=== PATIENT | male | born 1970 | race Caucasian/White ===

== ENCOUNTER 2020-09-13 17:28 | Outpatient (CLI) | payer BC, SELFPAY ==
--- NOTE | ~2020-09-13 | XR_ITS ---
EXAMINATION: XR chest 2V DATE: 09/13/2020 17:47 INDICATION: Smoker. Hypertension. TECHNIQUE: Frontal and lateral views of the chest were obtained. COMPARISON: None. FINDINGS: There is mild atelectasis in the lower lung zones. No pleural effusion or pneumothorax. The heart size is normal. IMPRESSION: 1. Mild atelectasis in the lower lung zones. Reviewed, dictated and finalized at location A.
== END 2020-09-13 17:29 | disposition home or self-care (01) ==
LOC: ANHIMG 17:31
PROVIDERS: PCP Family Medicine; Visit Provider Family Medicine
DX: J98.11 Atelectasis (principal); R05 Cough
CPT/HCPCS: 71046

== ENCOUNTER 2020-09-18 07:47 | Outpatient (CLI) | payer BC, SELFPAY ==
--- NOTE | ~2020-09-18 | CT_ITS ---
EXAMINATION: CT abdomen w con DATE: 09/18/2020 08:10 INDICATION: Abnormal liver function tests. TECHNIQUE: Computed tomography (CT) of the abdomen was performed with 100 mL Omnipaque 350 intravenou s contrast. Automated exposure control and iterative reconstruction technique were employed. The dose -length product was 522.32 mGy-cm. COMPARISON: None. FINDINGS: The visualized portions of the lung bases demonstrate mild atelectasis. No pleural effusion . The heart size is normal. No pericardial effusion. The liver demonstrates heterogeneous attenuation and surface nodularity, consistent with cirrhosis. There is a gallstone in the gallbladder, which is normal in size. There is mild splenomegaly. The pancreas, adrenal glands, and right kidney are natalya l. There is a 9 mm cyst in left kidney. There are no dilated loops of bowel. There is a paraumbilical portacaval shunt. Paraesophageal varices are noted. There are no pathologically enlarged lymph nodes . There is a small volume of ascites. There is mild lumbar spondylosis. IMPRESSION: 1. Cirrhosis of the liver with portal venous hypertension. 2. Small volume of ascites. 3. Cholelithiasis. Reviewed, dictated and finalized at location A.
== END 2020-09-18 07:48 | disposition home or self-care (01) ==
LOC: ANHIMG 07:48
PROVIDERS: PCP Family Medicine; Visit Provider Physician Assistant
DX: K80.20 Calculus of gallbladder without cholecystitis without obstruction (principal); R94.5 Abnormal results of liver function studies; F10.10 Alcohol abuse, uncomplicated; D64.9 Anemia, unspecified; R18.8 Other ascites; K74.60 Unspecified cirrhosis of liver; K76.6 Portal hypertension; R16.1 Splenomegaly, not elsewhere classified; M47.816 Spondylosis without myelopathy or radiculopathy, lumbar region
CPT/HCPCS: 74160; Q9967

== ENCOUNTER 2020-10-13 17:11 | Observation (INO) | payer BC, SELFPAY ==
--- NOTE | ~2020-10-13 | US_ITS ---
US abdomen limited DATE: 10/14/2020 11:49 INDICATION: Ascites; patient presented for paracentesis TECHNIQUE: Real-time imaging of the abdomen COMPARISON: None FINDINGS: 4 quadrant scanning of the abdomen reveals no sonographically detected ascites. IMPRESSION: Paracentesis procedure canceled due to lack of sonographically detectable ascites Reviewed, dictated and finalized at Location A. Reviewed, dictated and finalized at location A. IMPRESSION: Paracentesis procedure canceled due to lack of sonographically dete ctable ascites
--- NOTE | ~2020-10-13 | US_ITS ---
US venous doppler [facility] DATE: 10/14/2020 11:49 INDICATION: Swelling of the lower extremities TECHNIQUE: Real-time and color flow imaging and Doppler analysis of the veins of the lower extremitie s COMPARISON: None FINDINGS: The greater saphenous veins are patent. There is spontaneous and phasic flow and normal aug mentation and color flow signal and normal compression of the deep veins of both legs. IMPRESSION: Negative examination; no evidence of deep venous thrombosis of the lower extremities Reviewed, dictated and finalized at Location A. Reviewed, dictated and finalized at location A.
[2020-10-13 17:13] VITALS: BP 157/76; PULSE 90; RESP 18; TEMP 37.2; O2SAT 99
[2020-10-13 17:41] LABS: Basophils Absolute Auto 0.1 K/mm3 (0.0-0.1); Basophils Percent Auto 0.9 % (0.2-1.2); Eosinophils Absolute Auto 0.3 K/mm3 (0-0.3); Eosinophils Percent Auto 4.6 % (0-4.4); Hematocrit 26.1 % (42.0-52.0); Hemoglobin 8.9 g/dL (14.0-18.0); Immature Granulocyte Absolute 0.02 K/mm3 (0.00-0.031); Immature Granulocyte Percent A 0.3 % (0-0.5); Lymphocytes Absolute Auto 1.44 K/mm3 (0.9-3.2); Lymphocytes Percent Auto 22.1 % (18.3-44.2); Mean Corpuscular HGB Conc 34.1 g/dl (32-36); Mean Corpuscular Hemoglobin 40.3 pg (26-34); Mean Corpuscular Volume 118.1 fl (80-100); Mean Platelet Volume 9.6 fl (7.4-10.4); Monocytes Percent Auto 15.3 % (2.6-8.5); Neutrophils Absolute Auto 3.7 K/mm3 (1.3-6.7); Neutrophils Percent Auto 56.8 % (45.5-73.1); Platelet Count Result 152 k/mm3 (150-375); Red Blood Count 2.21 M/mm3 (4.6-6.20); Red Cell Distribution Width 12.9 % (11.5-14.5); White Blood Count 6.5 K/mm3 (4.5-10.0)
[2020-10-13 17:51] LABS: Ammonia 70 umol/L (9-30)
[2020-10-13 17:52] LABS: Alanine Aminotransferase 30 U/L (4-50); Albumin Level 3.4 g/dL (3.5-5.1); Alkaline Phosphatase 79 U/L (38-126); Anion Gap 4 mmol/L (8-16); Aspartate Amino Transferase 64 U/L (17-59); Bilirubin,Total 4.7 mg/dL (0.2-1.3); Blood Urea Nitrogen 5 mg/dL (9-20); Calcium 9.3 mg/dL (8.4-10.2); Carbon Dioxide 23 mmol/L (22-30); Chloride 111 mmol/L (98-107); Estimated CRCL calculation 108 ml/min; Estimated Glomerular Filt Rate > 60; Glucose 104 mg/dL (75-110); Lipase 584 U/L (23-300); Potassium 3.9 mmol/L (3.4-5.0); Sodium 138 mmol/L (137-145)
[2020-10-13 18:35] LABS: Add Urine Microscopic? YES; Appearance Urine Cloudy (Clear); Bacteria Urine Trace /hpf; Bilirubin Urine Negative (Negative); Blood Urine Negative (Negative); Color Urine Amber (Yellow); Glucose Urine UA Negative (Negative); Ketones Urine Negative (Negative); Leukocyte Esterase Ur Negative LEU/UL (Negative); Mucus Urine Few /lpf; Nitrate Urine Negative (Negative); Protein Urine Negative (Negative); RBC Urine 0-2 /hpf (0-2); Specific Grav Ur 1.016 (1.001-1.035); WBC Urine 0-3 /hpf
[2020-10-13 18:45] LABS: INR 1.9; Prothrombin Time 22.5 Seconds (11.1-14.7)
[2020-10-13 19:12] VITALS: BP 136/84; PULSE 88; RESP 17; O2SAT 98
--- NOTE | 2020-10-13 19:13 | ED.GENADULT ---
HPI - General Adult General Chief complaint: Unspecified Stated complaint: hernia?/erum leg numbness Time Seen by Provider: 10/13/20 17:41 Source: patient and family Mode of arrival: ambulatory Limitations: no limitations History of Present Illness HPI narrative: 50-year-old with alcoholic liver cirrhosis here with complaints of abdominal distention, lower extremity swelling. He was diagnosed with cirrhosis of the liver few weeks ago quit drinking 5 weeks ago quit smoking 4 days ago. He states that he was referred to pipefitter helper at [place] but has not had any answers from them yet now having abdominal pain and he states that his umbilicus is protruding. He also states that his legs have been swelling and today it has been slightly better compared to the last few days. He denies any headache, nausea or vomiting. Onset (ago): week(s) Severity: moderate Exacerbating factors: none Associated symptoms: denies other symptoms Related Data Allergies Allergy/AdvReac Type Severity Reaction Status Date / Time No Known Allergies Allergy Verified 10/13/20 17:19 Review of Systems Review of Systems: All systems reviewed & are unremarkable except as noted in HPI and below Constitutional: Constitutional: Reports no additional constitutional complaints Eyes: Eyes: Reports no additional eye complaints ENT: Reports system reviewed and no additional complaints, except as documented Cardiovascular: Cardiovascular: Reports no additional cardiovascular complaints Respiratory: Respiratory: Reports no additional respiratory complaints Gastrointestinal: Gastrointestinal: Reports as per HPI Musculoskeletal: Musculoskeletal: Reports no additional musculoskeletal complaints PMFSH Past Medical History Medical History BP (high blood pressure) Elevated liver function tests Hypercalcemia Family History Family History Mother Carcinoma of colon Patient's mother is in good health Sibling Hypertension Patient's brother is in good health Father Patient's father is in good health Social History Social History Social History: Years smoked: 3 Smoking status: Former smoker Second hand tobacco smoke exposure: Yes Smoking end date: 06/15/16 Alcohol intake: current Drinks per week: 4 Substance use: never Substance use type: does not use Gender identity (if verbalized by the patient): Male Exam Narrative: Exam Narrative: GENERAL: Well-appearing, well-nourished, and in no acute distress. HEAD: Normocephalic, atraumatic. EYES: PERRLA and EOMI. icteric. NECK: Supple. CHEST: Clear to auscultation. No respiratory distress. HEART: Regular rate and rhythm. No murmur heard. Normal peripheral pulses. ABDOMEN: Soft, nontender, distended, has a small umbilical hernia, normal active bowel sounds. EXTREMITIES: Normal range of motion. No edema. SKIN: Warm, dry, no rash. Jaundiced NEURO: No focal deficits. Alert and oriented x3. PSYCH: Normal mood and affect. Course Course Emergency Course: Inform patient about his lab work will admit him for paracentesis also start him on diuretic. Discussed with Mackenzie agreed with the plan. Vital Signs Vital signs: Vital Signs Temperature 37.2 C 10/13/20 17:13 Pulse Rate 90 10/13/20 17:13 Respiratory Rate 18 10/13/20 17:13 Blood Pressure 157/76 H 10/13/20 17:13 Pulse Oximetry 99 10/13/20 17:13 Temperature 37.2 C 10/13/20 17:13 Pulse Rate 88 10/13/20 19:12 Respiratory Rate 17 10/13/20 19:12 Blood Pressure 136/84 10/13/20 19:12 Pulse Oximetry 98 10/13/20 19:12 Medical Decision Making Vital Signs Vital Signs: Vital Signs Temperature 37.2 C 10/13/20 17:13 Pulse Rate 90 10/13/20 17:13 Respiratory Rate 18 10/13/20 17:13 Blood Pressure 157/76 H 10/13/20 17:13 Pulse Oxim
[2020-10-13 19:56] VITALS: BP 141/70; PULSE 79; RESP 18; O2SAT 100
[2020-10-13] MEDS: FUROSEMIDE INJ 40 MG/4 ML VIAL (20:12)
[2020-10-13 20:24] LABS: Iron 72 ug/dL (49-181); Percent Iron Saturation 31 % (20-50)
--- NOTE | 2020-10-13 20:45 | ADMGEN ---
This patient, Phil Laird, was admitted to Medical Room 341-01. Patient/family oriented to hospital policies and general routines including ID bracelet, bed and alarms, visiting hours, pain management, procedures, bathroom and other care routines, personal items, smoking policy, room service/diet, and visiting hours. Information on how to activate the Rapid Response Team has been discussed. Patient/Family are encouraged to report perceived risks to care and to ask questions if they do not understand what they are told or what they should do.
[2020-10-13 20:48] VITALS: BP 142/88; PULSE 83; RESP 12; TEMP 36.9; O2SAT 100; BMI 29.7
--- NOTE | 2020-10-13 21:50 | PM.IMHP ---
H&P: HPI History of Present Illness Date/Time: 10/13/20 21:50 Chief Complaint: Swelling in legs and abdomen. Narrative: This is a pleasant 50-year-old male recently diagnosed with cirrhosis who presented to the emergency department earlier today via private vehicle from home for evaluation of swelling in his legs and abdomen. The patient endorses a long history of alcohol abuse with some periods of sobriety over the years. He has not been feeling well over the past couple of months with gradual onset of symptoms to include occasional dizziness on position change, unsteady gait, intermittent epistaxis and gingival bleeding, and more recently he noticed yellowing of his eyes. He was seen by his primary care provider, Dr. Marie Elkins and it was ultimately discovered that he indeed had cirrhosis and he was referred to a autocutter at [place] however has yet to hear back about appointment times. Five weeks ago he stopped drinking (he was drinking up to a 1/5 and a half of whiskey or vodka a day) and has done really well since that time. He also quit smoking within the past 1 week. In any event, he reports a progressive increase in lower extremity edema and abdominal girth. In fact he has noticed that there is a small area protruding from his umbilicus, consistent with a hernia. He denies epigastric and abdominal pain to me, just reports some mild discomfort due to distention. He denies fever, chills, sweats, chest pain, shortness of breath, nausea, vomiting, diarrhea, and dysuria. No orthopnea or PND. Review of Systems Review of Systems: Narrative: Twelve systems were reviewed with pertinent positives and negatives as per HPI. She denies cold and flu symptoms. No exposure to those positive for COVID-19. He denies cough and shortness of breath. Reports that the yellowing of his eyes has improved since he quit drinking. No pruritus. No calf pain or tenderness. Denies history of venous thromboembolism. Except as documented, all other systems were reviewed and are negative. [facility] Past Medical History Medical History (Updated 10/13/20 @ 22:14 by Neli England PA-C) Alcoholism Longstanding history of alcohol abuse, he has been sober for 5 weeks as of 10/13/2020. Cirrhosis of liver Surgical History Surgical History (Updated 10/13/20 @ 22:08 by Neli England PA-C) History of wisdom tooth extraction Family History Family History Mother Patient's mother is in good health Carcinoma of colon Sibling Patient's brother is in good health Hypertension Father Patient's father is in good health Arthritis Social History Social History (Updated 10/13/20 @ 22:10 by Neli England PA-C) Social History: Surrogate decision maker: Garrett Laird, . Code status: Full code. Smoking packs per day: 1 Smoking cigarettes per day: 20.0 Years smoked: 30 Smoking pack-years: 30.00 Smoking status: Former smoker Tobacco type: cigarettes Second hand tobacco smoke exposure: Yes Smoking end date: 10/11/20 Alcohol intake: former Alcohol use details: Longstanding history of alcoholism as per HPI. Sober since 09/13/2020. Substance use: never Substance use type: does not use Additional living arrangements comments: Resides in [place] with his . 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 Gender identity (if verbalized by the patient): Male Sexual Orientation (if Verbalized by the Patient): Straight or Heterosexual Spiritual care concerns: No Meds Home Medications and Allergies Home Medications Medication Instructions Recorded Confirmed Type polysaccharide iron complex 150 mg 150 mg PO DAILY #30 cap 09/17/20 10/13/20 Rx iron capsule potassium chloride 20 meq PO DAILY 10/13/20 10/13/20 History Allergies Allergy/AdvReac Type Severity Reaction Status Date / Time No
[2020-10-14 04:43] VITALS: O2SAT 96
[2020-10-14 05:45] LABS: Basophils Absolute Auto 0.1 K/mm3 (0.0-0.1); Basophils Percent Auto 0.8 % (0.2-1.2); Eosinophils Absolute Auto 0.3 K/mm3 (0-0.3); Hematocrit 24.3 % (42.0-52.0); Hemoglobin 8.5 g/dL (14.0-18.0); Immature Granulocyte Absolute 0.01 K/mm3 (0.00-0.031); Immature Granulocyte Percent A 0.2 % (0-0.5); Lymphocytes Absolute Auto 1.64 K/mm3 (0.9-3.2); Mean Corpuscular Hemoglobin 39.7 pg (26-34); Mean Corpuscular Volume 113.6 fl (80-100); Mean Platelet Volume 9.3 fl (7.4-10.4); Monocytes Absolute Auto 0.9 K/mm3 (0.1-0.6); Monocytes Percent Auto 13.4 % (2.6-8.5); Neutrophils Absolute Auto 3.7 K/mm3 (1.3-6.7); Neutrophils Percent Auto 56.6 % (45.5-73.1); Platelet Count Result 138 k/mm3 (150-375); Red Blood Count 2.14 M/mm3 (4.6-6.20); Red Cell Distribution Width 12.7 % (11.5-14.5); White Blood Count 6.6 K/mm3 (4.5-10.0)
[2020-10-14 05:54] LABS: Ammonia 61 umol/L (9-30)
[2020-10-14 06:18] VITALS: BP 118/58; PULSE 70; RESP 14; TEMP 37.2; O2SAT 99
[2020-10-14 06:37] LABS: Alanine Aminotransferase 28 U/L (4-50); Albumin Level 3.1 g/dL (3.5-5.1); Alkaline Phosphatase 79 U/L (38-126); Anion Gap 5 mmol/L (8-16); Aspartate Amino Transferase 55 U/L (17-59); Bilirubin,Total 4.4 mg/dL (0.2-1.3); Blood Urea Nitrogen 6 mg/dL (9-20); Calcium 9.3 mg/dL (8.4-10.2); Carbon Dioxide 22 mmol/L (22-30); Chloride 112 mmol/L (98-107); Estimated CRCL calculation 108 ml/min; Estimated Glomerular Filt Rate > 60; Glucose 95 mg/dL (75-110); Lipase 450 U/L (23-300); Magnesium 1.7 mg/dL (1.6-2.3); Potassium 3.8 mmol/L (3.4-5.0); Sodium 139 mmol/L (137-145)
[2020-10-14 06:45] LABS: Hepatitis B Surface Antigen Negative (Negative)
[2020-10-14 06:51] LABS: HAV RESULT Negative (Negative); Hepatitis B Core IgM Result Negative (Negative)
[2020-10-14 07:02] LABS: Hepatitis C Virus Antibody Negative (Negative)
[2020-10-14 07:12] LABS: INR 1.9; Prothrombin Time 22.2 Seconds (11.1-14.7)
[2020-10-14 07:15] LABS: Partial Thromboplastin Time 43.6 SECONDS (22.3-36.8)
[2020-10-14] MEDS: THIAMINE HCL 100 MG TABLET PO (08:39)
[2020-10-14] MEDS: FOLIC ACID 1 MG TABLET PO (08:39)
[2020-10-14] MEDS: SPIRONOLACTONE 25 MG TABLET PO (08:39)
[2020-10-14] MEDS: POLYSACCHARIDE IRON COMPLEX 150 MG CAPSULE PO (08:39)
[2020-10-14] MEDS: THERAPEUTIC MULTIVITAMINS/MINERALS TAB (*BKC) 1 TABLET PO (08:39)
--- NOTE | 2020-10-14 13:37 | PM.DS ---
DS: Admitting Diagnosis Admitting Diagnosis Admitting Diagnosis: (1) Cirrhosis of liver: Code(s): K74.60 - Unspecified cirrhosis of liver Status: Acute (2) Macrocytic anemia: Code(s): D53.9 - Nutritional anemia, unspecified Status: Acute (3) Elevated blood pressure reading: Code(s): R03.0 - Elevated blood-pressure reading, without diagnosis of hypertension Status: Acute (4) Ascites: Code(s): R18.8 - Other ascites Status: Acute DS: Discharge Diagnosis Discharge Diagnosis (1) Cirrhosis of liver: Code(s): K74.60 - Unspecified cirrhosis of liver Status: Acute (2) Macrocytic anemia: Code(s): D53.9 - Nutritional anemia, unspecified Status: Acute (3) Elevated blood pressure reading: Code(s): R03.0 - Elevated blood-pressure reading, without diagnosis of hypertension Status: Acute (4) Ascites: Code(s): R18.8 - Other ascites Status: Acute DS: Summary Hospital Course Reason for hospitalization: Patient was admitted to regular medical floor he is awaiting in follow-up at [place] with hepatology he noticed increased abdominal girth and had called and left messages for his PCP but decided to present to the emergency room. Hospital Course: Patient was admitted to regular medical floor he is awaiting in follow-up at [place] with hepatology he noticed increased abdominal girth and had called and left messages for his PCP but decided to present to the emergency room. In emergency room he was evaluated and he was found to have a tension ascites he received IV Lasix and he had a good output and he feels much more comfortable today in the morning ultrasound-guided paracentesis has been cancelled in view of this. The patient is going home with follow-up in the outpatient setting started on spironolactone. Consults obtained: No concerns Procedures: No procedures Status at Discharge Functional status at discharge: independent ambulation Time Spent with Patient Time attestation: Total time spent providing and/or coordinating discharge services: Exam Narrative: Exam Narrative: General: Well-developed male sitting up in bed in no distress. Weight: 91.4 kilograms. BMI: 29.8. HEENT: PERRL, EOMI. Mild scleral icterus. Conjunctiva mildly injected. Oral mucosa moist. Oropharynx clear. Torus palatinus. Neck: Supple. No JVD. Respiratory: Lungs are clear to auscultation bilaterally. Cardiovascular: Regular rate and rhythm with S1-S2. Gastrointestinal: Abdomen is soft, and nontender with positive bowel sounds. Small reducible umbilical hernia without pain. No voluntary guarding or rebound tenderness. Dullness to percussion at the flanks. Skin: Warm and dry. Perhaps mildly jaundiced. Fine telangiectasias on the chest and cheeks. Extremities: No cyanosis or clubbing. 1+ joanne ankle edema bilaterally extending to the knees. Negative Dre sign. Neurological: Alert. Cranial nerves 2-12 are grossly intact. No gross focal deficits to casual conversation. Psychiatric: Pleasant and cooperative with normal mood and affect. Judgment and insight intact. DS: Data Data Completed and Pending Pending studies at discharge: Pending at discharge 10/13/20 22:18 Cytology [PTH] Routine Labs on day of discharge: Labs from last 24 hours 10/14/20 10/14/20 10/14/20 05:36 05:35 05:35 WBC 6.6 RBC 2.14 L Hgb 8.5 L Hct 24.3 L MCV 113.6 H MCH 39.7 H MCHC 35.0 RDW 12.7 Plt Count 138 L MPV 9.3 Immature Gran % (Auto) 0.2 Neut % (Auto) 56.6 Lymph % (Auto) 25.0 [place] % (Auto) 13.4 H Eos % (Auto) 4.0 Baso % (Auto) 0.8 Lymph # (Auto) 1.64 [place] # (Auto) 0.9 H Eos # (Auto) 0.3 Baso # (Auto) 0.1 Abs Immat Gran (auto) 0.01 Absolute Neuts (auto) 3.7 Absolute Nucleated RBC 0.0 Nucleated RBC % 0.0 PT 22.2 H INR 1.9 APTT 43.6 H Sodium 139 Potassium 3.8 Ch
== END 2020-10-14 14:06 | disposition home or self-care (01) ==
LOC: ANHED 19:19 → ANH3MED 22:33
PROVIDERS: Physician Assistant; Admitting Provider Family Medicine; Emergency Provider Family Medicine; PCP Family Medicine; Visit Provider Internal Medicine
DX: K74.60 Unspecified cirrhosis of liver (principal); M79.89 Other specified soft tissue disorders; R18.8 Other ascites; D53.9 Nutritional anemia, unspecified; R03.0 Elevated blood-pressure reading, without diagnosis of hypertension
CPT/HCPCS: 36415; 76705; 80053; 80074; 81001; 82140; 82248; 82607; 82728; 82746; 83540; 83550; 83690; 83735; 84443; 85025; 85610; 85730; 93970; 99285; A9270; G0378; J1940

== ENCOUNTER 2020-10-26 07:27 | Outpatient (CLI) | payer BC, SELFPAY ==
[2020-10-26 08:32] LABS: Anion Gap 3 mmol/L (8-16); Blood Urea Nitrogen 8 mg/dL (9-20); Calcium 9.8 mg/dL (8.4-10.2); Carbon Dioxide 24 mmol/L (22-30); Chloride 110 mmol/L (98-107); Estimated Glomerular Filt Rate > 60; Glucose 105 mg/dL (75-110); Potassium 4.1 mmol/L (3.4-5.0); Sodium 137 mmol/L (137-145)
== END 2020-10-26 07:28 | disposition home or self-care (01) ==
PROVIDERS: PCP Family Medicine; Visit Provider Internal Medicine
DX: E87.6 Hypokalemia (principal)
CPT/HCPCS: 36415; 80048

== ENCOUNTER 2020-12-10 14:14 | Outpatient (CLI) | payer BC, SELFPAY ==
--- NOTE | 2020-12-10 14:19 | ECHO_ITS ---
Patient Info Name: Phil Laird Age: 50 years : 1970 Gender: Male Ht: 69 in Wt: 190 lbs BSA: 2.07 m2 HR: 73 bpm Technical Quality: Good Exam Date: 12/10/2020 2:29 PM Exam Location: [facility] Pulmonary Patient Status: Outpatient Admit Date: 12/10/2020 Staff Ordering Physician: Derek Castillo DO Sausage Meat Trimmer: ORALIA Attending Provider: Derek Castillo DO Referring Physician: Anna MANDUJANO; Exam Type: CA echo doppler color flow Study Info Indications R01.1 - Cardiac murmur, unspecified Complete two-dimensional, color flow and Doppler transthoracic echocardiogram is performed. Summary 1. Complete two-dimensional, color flow and Doppler transthoracic echocardiogram is performed. 2. Left ventricular chamber dimension is moderately enlarged. 3. Left ventricular systolic function is normal, estimated at 60-65%. 4. The left ventricular diastolic function is grade III diastolic dysfunction. 5. E/e' 17 is elevated. 6. Left atrial chamber dimension is severely enlarged. 7. Right atrial chamber dimension is mildly enlarged. 8. There is mild aortic valve sclerosis. 9. There is trace aortic valve regurgitation. 10. There is mild mitral valve regurgitation. Left Ventricle E/e' 17 is elevated. Left ventricular chamber dimension is moderately enlarged. Left ventricular systolic function is normal, estimated at 60-65%. The left ventricular diastolic function is grade III diastolic dysfunction. Right Ventricle Right ventricular systolic function is normal and with normal TAPSE 2.8 cm. Right ventricular chamber dimension is normal. Left Atria Left atrial chamber dimension is severely enlarged. Right Atria Right atrial chamber dimension is mildly enlarged. Aortic Valve The aortic valve is trileaflet. There is mild aortic valve sclerosis. There is no aortic valve stenosis. There is trace aortic valve regurgitation. Pulmonic Valve There is no pulmonic regurgitation. Mitral Valve There is no mitral valve stenosis. There is mild mitral valve regurgitation. Tricuspid Valve There is no tricuspid valve regurgitation. Pericardium/Pleural There is no pericardial effusion. Inferior Vena Cava Normal inferior vena cava with >50% collapse upon inspiration consistent with normal right atrial pressure, 5 mmHg. Aorta The aortic root size at the sinus of Valsalva is normal. Left Ventricular Outflow Tract Name Value Normal LVOT 2D LVOT Diameter 2.2 cm LVOT Doppler LVOT Peak Velocity 146 cm/s LVOT Peak Gradient 9 mmHg LVOT Mean Gradient 4 mmHg LVOT VTI 32 cm LVOT VTI/AV VTI Ratio 0.8 LVOT Stroke Volume 123 ml LVOT CO 21.9 l/min LVOT CI 10.6 l/min/m2 Pulmonic Valve Name Value Normal
== END 2020-12-10 14:15 | disposition home or self-care (01) ==
PROVIDERS: PCP Internal Medicine; Visit Provider Internal Medicine
DX: R01.1 Cardiac murmur, unspecified (principal); I34.0 Nonrheumatic mitral (valve) insufficiency
CPT/HCPCS: 93306

== ENCOUNTER 2021-04-23 09:22 | Outpatient (CLI) | payer BC, SELFPAY ==
[2021-04-23 10:04] LABS: Alanine Aminotransferase 47 U/L (4-50); Albumin Level 3.7 g/dL (3.5-5.1); Alkaline Phosphatase 125 U/L (38-126); Ammonia 48 umol/L (9-30); Anion Gap 7 mmol/L (8-16); Aspartate Amino Transferase 97 U/L (17-59); Bilirubin,Total 3.3 mg/dL (0.2-1.3); Blood Urea Nitrogen 7 mg/dL (9-20); Calcium 8.7 mg/dL (8.4-10.2); Carbon Dioxide 22 mmol/L (22-30); Chloride 109 mmol/L (98-107); Estimated Glomerular Filt Rate > 60; Glucose 116 mg/dL (65-110); Potassium 3.6 mmol/L (3.4-5.0); Sodium 138 mmol/L (137-145)
[2021-04-23 10:38] LABS: Add Urine Microscopic? YES; Appearance Urine Cloudy (Clear); Bacteria Urine Trace /hpf; Bilirubin Urine Negative (Negative); Blood Urine Negative (Negative); Color Urine Yellow (Yellow); Glucose Urine UA Negative (Negative); Ketones Urine Negative (Negative); Leukocyte Esterase Ur Negative LEU/UL (NEGATIVE); Nitrate Urine Negative (Negative); Protein Urine Negative (Negative); RBC Urine 0-2 /hpf (0-2); Specific Grav Ur 1.008 (1.001-1.035); Urobilinogen Urine Negative mg/dL (<2.0); WBC Urine 0-3 /hpf (0-3)
== END 2021-04-23 09:23 | disposition home or self-care (01) ==
LOC: ANHLAB 09:24
PROVIDERS: PCP Internal Medicine; Visit Provider Internal Medicine
DX: R40.20 Unspecified coma (principal); K70.30 Alcoholic cirrhosis of liver without ascites
CPT/HCPCS: 36415; 80053; 81001; 82140; 84443

== ENCOUNTER 2021-06-20 18:29 | Inpatient (IN) | payer BC, SELFPAY ==
[2021-06-20] VITALS (12 sets, daily range): BP systolic 100–134; BP diastolic 46–96; PULSE 67–85; RESP 12–19; TEMP 36.4–36.9; O2SAT 98–100
--- NOTE | ~2021-06-20 | CT_ITS ---
EXAMINATION: CT abdomen pelvis wo con EXAM DATE: 06/28/2021 09:31 INDICATION: Perforated repaired gastric ulcer. Duodenal abnormality as well. TECHNIQUE: Spiral CT of the abdomen and pelvis was performed without contrast. Axial, coronal and s agittal images of the abdomen and pelvis were reviewed. The dose-length product (DLP) for this exami [facility] was 1429.93 mGy-cm. The exposure was tailored according to patient size (auto mA exposure con trol), and iterative reconstruction (ASIR) was used as additional dose reduction technique. Compariso n is made to prior examination from . FINDINGS: Laparotomy yuniel. There is contrast within the stomach from upper GI examination performe d immediately prior to this examination. There is a surgical drain along the anterior aspect of the g astric antrum and body. Contrast within the duodenum with direct line of extravasation identified, co ntrast pooling inferior and anterior to the gallbladder, which is also contiguous with foci of gas ex tending more anteriorly indicating uncontained extension. Again there is moderate amount of free intr aperitoneal gas. Moderate amount of soft ascites with significant interval improvement. Evaluation is significantly limited from generalized anasarca, mesenteric edema, noncontrast study. N o nephrolithiasis or hydronephrosis. There is cholelithiasis. Liver, spleen, adrenal evaluation limit ed due to dense artifact from the contrast which was administered prior to this study. There is colon ic fluid, diarrhea. Possible colonic wall thickening, colitis. No small bowel obstruction suspected. Tracey catheter within the bladder. Small to moderate bilateral fat-containing inguinal hernias. Multi segmental basilar airspace disease, volume loss suggests this is atelectasis but superimposed p neumonia not excludable. Cardiomegaly. Small pleural effusions. The interventricular septum is percep tible, suggesting patient is anemic. There are no osteoblastic or osteolytic lesions identified. IMPRESSION: 1. Duodenal perforation, moderate ascites and free intraperitoneal gas. 2. Probable colitis, diarrhea. 3. Multisegmental basilar atelectasis. Pneumonia not excludable. 4. Cardiomegaly. 5. Anasarca I discussed and reviewed this case with Fela Tijerina MD prior to dictating this report. Reviewed, dictated and finalized at location A. MINER BLASTING
--- NOTE | ~2021-06-20 | XR_ITS ---
XR chest 1V portable DATE: 07/03/2021 06:02 INDICATION: Respiratory failure TECHNIQUE: Portable AP chest on 07/03/2021 at 0500 hours COMPARISON: 07/02/2021 portable AP chest at 0446 hours FINDINGS: Right upper extremity PIC catheter tip is in the lower superior vena cava. NG tube is in th e proximal body of the stomach, the proximal side-port approximately 2.5 cm distal to the diaphragmat ic hiatus. Persistent left lower lobe atelectasis and/or consolidation with air bronchograms and scattered patch y bilateral pulmonary infiltrates and atelectasis are stable since 07/02/2021. No pleural effusion or pneumothorax is evident. IMPRESSION: No significant change since 07/02/2021 Reviewed, dictated and finalized at location A. WASHER
--- NOTE | ~2021-06-20 | XR_ITS ---
EXAMINATION: XR UGI water soluble wo kub DATE: 07/04/2021 12:13 INDICATION: Status post second repair of a perforated gastric ulcer. TECHNIQUE: 150 mL Omnipaque 350 was administered by the patient's existing nasogastric tube. The tube was flushed with an additional 150 mL of water. A total of 6 fluoroscopic images of the distal esoph buzz, stomach, and proximal small bowel were obtained along with a single overhead radiograph. Fluoro scopy exposure time was 1.5 minutes. COMPARISON: CT dated 06/28/2021 FINDINGS: Nasogastric tube tip in proximal side port in the proximal body of the stomach. There is al so a peritoneal drainage catheter extending cephalad from the right lower quadrant and with distal ti p in the midline of the epigastric region. Injected contrast extends into the normal-appearing duoden um and proximal jejunum. No evident extraluminal leakage of contrast. Specifically no residual leak i dentified at the site of a prior perforated gastric ulcer at the distal stomach. Again seen is a calc ified gallstone in the right upper quadrant. Airspace opacities at the bilateral lung bases which cou ld represent atelectasis and/or pneumonia. IMPRESSION: 1. No evident residual leak at a repaired ulcer at the distal stomach. Reviewed, dictated and finalized at location A. TRIM SEPARATOR
--- NOTE | ~2021-06-20 | CT_ITS ---
EXAMINATION: CT chest abdomen pelvis wo con DATE: 07/13/2021 17:11 INDICATION: Persistent fever TECHNIQUE: Computed tomography (CT) of the chest, abdomen, and pelvis was performed without intraveno us contrast. Automated exposure control and iterative reconstruction technique were employed. Exam do se: 1291.82 mGy-cm total exam DLP. COMPARISON: 07/04/2021 CTA chest abdomen pelvis FINDINGS: CHEST CT: There is interval dramatic lesion increased right pleural effusion since 07/04/2021, causing complete atelectasis of the right lower lobe with air bronchograms and no other aeration of the right lower lo be. There is atelectasis in the right upper and left and middle lobes as well. There is a small left pleural effusion. There are scattered patchy infiltrates of the upper lobes and prominent atelectasis in the left lower lobe. Heart size is normal. There is trace pericardial fluid. Right upper extremity PIC catheter in right atrium. Healing posterolateral right seventh and eighth rib fractures. ABDOMEN/PELVIS CT: There is a percutaneous catheter in the right upper abdomen. There is moderately large ascites. Nodularity of the hepatic surface suggests cirrhosis. No apparent hepatic, splenic, pancreatic, and a drenal or renal space-occupying mass lesion noted on this limited noncontrast examination. There is cholelithiasis. No bile duct or pancreatic duct dilatation. No urinary tract calculus or hydroureteronephrosis. There is a Tracey catheter in a mild amount of air in the urinary bladder. No bowel obstruction or intraperitoneal free air is detected. Fluid in the umbilical hernia. No suspicious osteolytic or osteoblastic lesions are noted. IMPRESSION: Predominantly increased right pleural effusion with complete right lung and some middle lobe and upper lobe atelectasis Small left pleural effusion Scattered patchy bilateral upper lobe infiltrate and prominent left lower lobe atelectasis Moderately large ascites Cirrhosis of the liver Cholelithiasis Reviewed, dictated and finalized at Location A. Reviewed, dictated and finalized at location A. R ENGINEER
--- NOTE | ~2021-06-20 | US_ITS ---
EXAMINATION: US paracentesis abd w/image DATE: 07/14/2021 13:29 INDICATION: Ascites. TECHNIQUE: The procedure and its risks, benefits, and alternatives were discussed with the patient. P otential risks discussed included bleeding and infection. The skin was prepped and draped in sterile fashion. 1% lidocaine was used for local anesthesia. Under ultrasound guidance, a 5 Fr catheter with trochar was advanced into the ascites in the left lower quadrant. Fluid was aspirated. The catheter w as removed, and a dressing was applied. There were no immediate complications. FINDINGS: Ultrasound images demonstrate ascites and the catheter within the fluid. IMPRESSION: 1. Successful ultrasound-guided paracentesis yielding 350 mL of dark red, opaque fluid. Reviewed, dictated and finalized at location A. SCRIPTIONIST IMPRESSION: 1. Successful ultrasound-guided paracentesis yielding 350 mL of dark red, opaq ue fluid.
--- NOTE | ~2021-06-20 | XR_ITS ---
EXAMINATION: XR UGI water soluble wo ellis EXAM DATE: 06/28/2021 09:36 INDICATION: Perforated gastric ulcer s/p repair. TECHNIQUE: Water-soluble upper GI examination was performed by radiologist Beni Boone M.D. a total o f 300 mL Omnipaque solution was injected through nasogastric tube in place on patient arrival. Pulsed dose reduction fluoroscopy was used with fluoroscopic time of 0.1 minutes. The DAP for this procedu re was 13.3 Gycm2. A total of 39 images obtained for the exam. Correlation is made to KUB from [facility]. FINDINGS: Feeding tube in position. Laparotomy clips. Initially gastric cardia filled with contrast. After approximately 300 cc of contrast was instilled the duodenal sweep opacified, and line of contra st identified extending laterally from the duodenum, pooling in adjacent pocket which measured about 3 cm. It was unclear whether or not this was contained so patient was then transferred to CT for foll ow-up scan. No evidence of extravasation from the repaired gastric ulcer site. There is a drain along the stomach which is not near the duodenal extravasation. I discussed and reviewed these images with Fela hargrove MD at time of examination, CT was ordered. IMPRESSION: 1. Duodenal perforation, extravasation. 2. No evidence of gastric repair extravasation. Reviewed, dictated and finalized at location A. ED TECH
--- NOTE | ~2021-06-20 | XR_ITS ---
EXAMINATION: XR chest 1V portable EXAM DATE: 06/25/2021 14:47 INDICATION: Hypoxia. Ascites, free intraperitoneal gas. TECHNIQUE: Portable AP frontal chest x-ray was obtained. Comparison is made to prior examination from 09/13/2020. FINDINGS: Low lung volumes (large amount of ascites was demonstrated on CT from yesterday). Scattered regions of linear atelectasis. There is cardiomegaly. No pneumothorax or pleural effusion. Nasogastr ic tube is in position. There is another catheter or drain overlying the upper abdomen. IMPRESSION: 1. Scattered linear bilateral atelectasis. Developing pneumonia not excludable. 2. Cardiomegaly. 3. Feeding tube in position. Reviewed, dictated and finalized at location A. T TECHNICIAN IMPRESSION: 1. Scattered linear bilateral atelectasis. Developing pneumonia not excludable . 2. Cardiomegaly. 3. Feeding tube in position.
--- NOTE | ~2021-06-20 | XR_ITS ---
XR chest 1V portable DATE: 07/04/2021 06:22 INDICATION: Respiratory failure TECHNIQUE: Portable AP chest on 07/04/2021 at 0509 hours COMPARISON: 07/03/2021 portable AP chest FINDINGS: Yanelis overlie the mid upper abdomen. Possible surgical drain overlying the mid and right upper abdomen. NG tube tip is in the upper body of the stomach. Right upper extremity PIC catheter tip overlies the right atrium. There are scattered patchy infiltrates throughout the right lung and the left lower lobe primarily. M inimal blunting of the right costophrenic angle; cannot exclude small right pleural effusion. IMPRESSION: Persistent bilateral pulmonary infiltrates, most prominent in the lower lungs, more exten sive on the right Postoperative change of the abdomen NG tube in upper body of stomach Right upper stomach the catheter in right atrium Reviewed, dictated and finalized at location A. ICAL RESEARCH MANAGEMENT ASSOCIATE IMPRESSION: Persistent bilateral pulmonary infiltrates, most prominent in the l ower lungs, more extensive on the right Postoperative change of the abdomen NG tube in upper body of stomach Right upper stomach the catheter in right atrium
--- NOTE | ~2021-06-20 | XR_ITS ---
EXAMINATION: XR abdomen NG/feed tube insert DATE: 06/27/2021 08:53 INDICATION: Check nasogastric tube position TECHNIQUE: A supine view of the abdomen and lower chest was obtained for evaluation of feeding tube placement. COMPARISON: 06/26/2021 FINDINGS: Nasogastric tube tip in proximal side port in the body of the stomach. Surgical drain extends from th e right lower quadrant into the upper abdomen with distal tip in the left epigastric region. Skin sta ples project over the mid abdomen. Gas is seen within a few nondilated loops of small bowel in the ce ntral abdomen. Lung bases are clear. Cardiomegaly. IMPRESSION: 1. Nasogastric tube in the stomach. 2. Visualized bowel gas pattern is nonobstructive. Reviewed, dictated and finalized at location A. AL ACCOUNT EXECUTIVE
--- NOTE | ~2021-06-20 | XR_ITS ---
XR chest 1V portable DATE: 07/02/2021 06:29 INDICATION: Respiratory failure TECHNIQUE: Portable AP chest on 07/02/2021 at 0446 hours COMPARISON: 07/01/2021 portable AP chest at 0515 hours FINDINGS: ET tube is been removed since 07/01/2019. NG tube remains in stomach with the proximal port approximately 2 cm distal to the diaphragmatic hiatus. Right upper extremity PIC catheter tip overlies the right atrium. There is increased retrocardiac density on a level air bronchograms consistent with persistent left l ower lobe consolidation. Patchy infiltrate scattered elsewhere throughout both lungs, bibasilar discoid atelectasis. IMPRESSION: Removal of ET tube; otherwise no significant change since 07/01/2021 Reviewed, dictated and finalized at location A. ICE RIG OPERATOR
--- NOTE | ~2021-06-20 | XR_ITS ---
EXAMINATION: XR abdomen NG/feed tube insert DATE: 06/25/2021 02:04 INDICATION: Nasogastric tube placement TECHNIQUE: A supine view of the abdomen was obtained for evaluation of feeding tube placement. COMPARISON: CT dated 06/24/2021 FINDINGS: Nasogastric tube tip in proximal side port in the body of the stomach. Surgical drain extends from th e right lower quadrant cephalad with distal tip in the left epigastric region. Skin yuniel project o jimmie the lower abdomen. Relative paucity of bowel gas in the visualized abdomen. Lung bases are clear. IMPRESSION: 1. Nasogastric tube in stomach. Reviewed, dictated and finalized at location A. EL SINGER
--- NOTE | ~2021-06-20 | XR_ITS ---
XR chest PICC line 06/29/2021 13:07 Indication: PICC line placement Procedure: AP portable chest Comparison: 06/25/2021 Findings: Cardiomegaly. NG tube in the stomach. PICC line tip at the cavoatrial junction. Patchy bila teral airspace disease, compatible with pneumonia. No significant effusion or pneumothorax. No acute osseous abnormality. Impression: 1: Patchy bilateral airspace disease, compatible with pneumonia. Reviewed, dictated and finalized at location A. EXPERT Impression: 1: Patchy bilateral airspace disease, compatible with pneumonia.
--- NOTE | ~2021-06-20 | CT_ITS ---
EXAMINATION: CT abdomen pelvis wo con DATE: 06/21/2021 02:24 INDICATION: Generalized abdominal pain. TECHNIQUE: Computed tomography (CT) of the abdomen and pelvis was performed without intravenous contr ast. Automated exposure control and iterative reconstruction technique were employed. The dose-length product was 918.88 mGy-cm. COMPARISON: CT abdomen 09/18/2020 FINDINGS: The visualized portions of the lung bases demonstrate mild atelectasis. No pleural effusion . There is left atrial enlargement of the heart. There are coronary artery calcifications. No pericar dial effusion. The liver demonstrates a nodular surface contour, consistent with cirrhosis. There are gallstones in the gallbladder. The gallbladder is distended. The spleen, pancreas, adrenal glands, a nd right kidney are normal. There is a 12 mm cyst in left kidney. There are bilateral inguinal hernia s containing fat. There is wall thickening throughout the colon. There is a large volume of ascites. There is a right common femoral central venous catheter with tip in right common iliac vein. There is gastrohepatic lymphadenopathy. There is free intraperitoneal gas. There is an umbilical hernia conta ining ascites and gas. Esophageal varices are noted. There is widespread edema of the intra-abdominal fat. There are healing fractures of right seventh and eighth ribs. IMPRESSION: 1. Free intraperitoneal gas. In the absence of recent surgery or paracentesis, this finding is consis tent with perforated viscus. I called this result to Wanda Silverio. 2. Cirrhosis of the liver with portal venous hypertension. 3. Large volume of ascites. 4. Diffuse wall thickening of the colon, consistent with colitis versus interstitial edema. 5. Cholelithiasis. Gallbladder distention may be secondary to fasting or acute cholecystitis. Conside r hepatobiliary scintigraphy if there is clinical suspicion for acute cholecystitis. Reviewed, dictated and finalized at location A. MOTOR OPERATOR IMPRESSION: 1. Free intraperitoneal gas. In the absence of recent surgery or paracentesis, this finding is consistent with perforated viscus. I called this result to Carlee Silverio. 2. Cirrhosis of the liver with portal venous hypertension. 3. Large volume of ascites. 4. Diffuse wall thickening of the colon, consistent with colitis versus interst itial edema. 5. Cholelithiasis. Gallbladder distention may be secondary to fasting or acute cholecystitis. Consider hepatobiliary scintigraphy if there is clinical suspici on for acute cholecystitis.
--- NOTE | ~2021-06-20 | CT_ITS ---
EXAMINATION: CT chest abdomen pelvis w con DATE: 07/04/2021 12:28 INDICATION: Leukocytosis and increasing oxygen requirement. Peritonitis. TECHNIQUE: Computed tomography (CT) of the chest, abdomen, and pelvis was performed without intraveno us contrast. Automated exposure control and iterative reconstruction technique were employed. The dos e-length product was 1385.73 mGy-cm. COMPARISON: 06/28/2021 FINDINGS: CHEST CT: Peripheral patchy groundglass opacities throughout both lungs with distribution and appearance suspic ious for COVID pneumonia. Small right and very small left posteriorly layering pleural effusions with collapse of the right lower lobe, partial collapse of the left lower lobe and less severe dependent passive atelectasis in the right upper lobe. Cardiomegaly. Right upper extremity peripherally inserte d central venous catheter (PICC) tip at the high right atrium. No pericardial effusion. Thoracic aor ta is normal in caliber with no dissection. No pathologically enlarged thoracic lymphadenopathy. Mild upper thoracic levocurvature with mild spondylosis. ABDOMEN/PELVIS CT: Nasogastric tube tip in the proximal stomach. Surgical drain extends into the right abdomen and exten ds across anterior upper abdomen with the distal tip along the caudal margin of segment 3 of the live r. There is contrast within the stomach, duodenum and extending throughout a significant length of th e jejunum from the immediately prior upper GI study. The ileum remains unopacified with contrast and there is dilute contrast throughout the colon likely related to residual contrast from the earlier up per GI study from 6 days prior. No dilated bowel to suggest obstruction. Prominent edematous wall thi ckening throughout the colon consistent with colitis. No pneumatosis. There is a minimal amount of free intraperitoneal gas along side the gastric pylorus at the site of t he prior perforated gastric ulcer were preceded extraluminal leakage of contrast was seen. There is n o evident extraluminal leakage of contrast. There is a moderate amount of ascites scattered throughou t the abdomen and pelvis including in the lesser sac. There is mild peritoneal enhancement along the margins of the ascites primarily in the lower abdomen and pelvis. Lenticular region of higher attenua tion extending 15 cm craniocaudally, 10 cm AP and 4.5 cm the left lateral thickness at the left parac olic gutter. The density is significantly less than in the contrast opacified loops of jejunum where there is no evident discrete leak. The density is slightly lower than the dilute contrast in the colo n and could not absolutely exclude a coincidental more distal colonic leak as an etiology for the inc reased attenuation although this is much more likely to represent hemorrhage related to either the pr ior surgery and/or patient's coagulopathy. No discrete focus of active extravasation although the deg ree of vascular contrast opacification is relatively low. Nodular cirrhotic liver. Calcified gallstones at the neck of the nondilated gallbladder. No intra or extrahepatic biliary ductal dilation. Mild splenomegaly, with a recanalized umbilical vein and scatte red portosystemic collaterals including esophageal varices, all consistent with portal venous hyperte nsion. Pancreas, bilateral adrenal glands and right kidney are normal. Subcentimeter left renal cyst. Small amount of ascites with mixed attenuation also suggesting some hemorrhage extending into a smal l umbilical hernia at the caudal margin of the midline surgical wound. Tracey catheter in the decompre ssed bladder. No pathologically enlarged abdominal or pelvic lymphadenopathy. Bones are unremarkable . IMPRESSION: 1. No evident contrast extravasation to suggest residual leak at the site of a recent perforated dist al gastric ulcer which was demonstrated with contrast leakage on the prior CT and which has
--- NOTE | ~2021-06-20 | XR_ITS ---
EXAMINATION: XR chest 1V portable EXAM DATE: 06/29/2021 16:05 INDICATION: ET Placement . TECHNIQUE: Portable AP frontal chest x-ray was obtained. Comparison is made to prior examination from earlier same day. FINDINGS: Endotracheal tube tip is 5 centimeters above the gricelda. Feeding tube is in position. There is a right-sided PICC line. Moderate amount of bilateral ill-defined airspace likely pneumonia and/or edema. No pneumothorax. Car diomediastinal silhouette is normal. There are no osseous abnormalities identified. IMPRESSION: Moderate amount of ill-defined pneumonia or edema. Tubes, line in position. Reviewed, dictated and finalized at location G. GRAM TECHNICIAN IMPRESSION: Moderate amount of ill-defined pneumonia or edema. Tubes, line in p osition.
--- NOTE | ~2021-06-20 | CT_ITS ---
EXAMINATION: CT abdomen pelvis wo con DATE: 06/24/2021 09:25 INDICATION: Abdominal pain. TECHNIQUE: Computed tomography (CT) of the abdomen and pelvis was performed without intravenous contr ast. Automated exposure control and iterative reconstruction technique were employed. The dose-length product was 1514.00 mGy-cm. COMPARISON: None FINDINGS: New thick bandlike regions of consolidation in the bilateral lower lobes and lingula which could repr esent atelectasis or less likely pneumonia. Tiny bilateral pleural effusions. Again seen is left atri al enlargement with otherwise normal heart size. Aortic valve calcification. No pericardial effusion. Cirrhotic liver with nodular surface. Cholelithiasis at the neck of the gallbladder which is decreas ed in degree of distention since the prior study. There is also minimal amount of wall calcification at the fundus of the gallbladder. Spleen, pancreas, bilateral adrenal glands and right kidney are nor mal. 1.2 cm left renal cyst. Large amount of ascites throughout the abdomen and pelvis. There is diff use wall thickening of the colon as well as of the distal duodenum and multiple loops of jejunum. The ileum remains relatively spared. Fluid fills several of the affected loops of jejunum likely related to associated ileus but without frankly dilated loops to suggest obstruction. Significant interval i ncrease in amount of pneumoperitoneum, predominantly in the anterior abdomen with a few scattered sma ll collections of gas surrounded by ascites in the right abdomen which suggests complex ascites with loculations. Bladder is normal. Small bilateral fat-containing inguinal hernias. No pathologically en larged abdominal or pelvic lymphadenopathy. Right femoral central venous catheter with distal tip at the bifurcation of the right common iliac vein. Healing right seventh and eighth rib fractures. IMPRESSION: 1. Large amount of ascites with significant interval increase in the amount of pneumoperitoneum some of which appears trapped within loculations suggesting complex ascites. 2. Diffuse wall thickening of the colon and multiple loops of jejunum which could be due to enterocol itis either infectious, inflammatory or ischemic in etiology differential would also include hepatic colopathy/arthropathy, sepsis, renal failure or other generalized edema forming states. No pneumatosi s or clear site of origin of the pneumoperitoneum which suggests a viscus perforation. 3. Cirrhosis. 4. Patchy and bandlike consolidation in the bilateral lungs and favor atelectasis over pneumonia. 5. Cholelithiasis along with some location of the fundus of the gallbladder consistent with developin g porcelain gallbladder. Reviewed, dictated and finalized at location A. SPRING STRIP GAUGER IMPRESSION: 1. Large amount of ascites with significant interval increase in the amount of pneumoperitoneum some of which appears trapped within loculations suggesting co mplex ascites. 2. Diffuse wall thickening of the colon and multiple loops of jejunum which cou ld be due to enterocolitis either infectious, inflammatory or ischemic in etiol ogy differential would also include hepatic colopathy/arthropathy, sepsis, adria l failure or other generalized edema forming states. No pneumatosis or clear si te of origin of the pneumoperitoneum which suggests a viscus perforation. 3. Cirrhosis. 4. Patchy and bandlike consolidation in the bilateral lungs and favor atelectas is over pneumonia. 5. Cholelithiasis along with some location of the fundus of the gallbladder con sistent with developing porcelain gallbladder.
--- NOTE | ~2021-06-20 | XR_ITS ---
XR chest 1V portable 06/30/2021 06:14 Indication: Respiratory failure Procedure: AP portable chest Comparison: Comparison to multiple prior studies sequentially, with oldest reviewed study dated 06/2020. Findings: Endotracheal tube tip 3 cm above the gricelda. NG tube in the stomach. PICC line tip in the S VC near the cavoatrial junction. Cardiomegaly. Patchy bilateral infiltrates are not significantly zenon nged from prior study. No significant effusion or pneumothorax. No acute osseous abnormality. Impression: 1: No significant change to patchy bilateral infiltrates, consistent with pneumonia. 2: Cardiomegaly. Reviewed, dictated and finalized at location A. UNLOADER HELPER Impression: 1: No significant change to patchy bilateral infiltrates, consistent with pneum onia. 2: Cardiomegaly.
--- NOTE | ~2021-06-20 | XR_ITS ---
EXAMINATION: XR abdomen NG/feed tube insert DATE: 06/26/2021 05:38 INDICATION: Nasogastric tube placement TECHNIQUE: A supine view of the abdomen including the chest was obtained for evaluation of feeding t ube placement. COMPARISON: 06/25/2021 FINDINGS: Nasogastric tube tip in proximal side port in the body of the stomach. Surgical drain extends from th e right lower quadrant into the right upper quadrant and across midline with distal tip in the left u pper quadrant. Relative paucity of bowel gas seen in the central abdomen. No dilated gas-filled loops of bowel to suggest obstruction. Surgical clips at the central abdomen. Small lung volumes with persistent opacities in the right upper and lower left lower lung zones, and the majority linear bandlike consistent with atelectasis although pneumonia not excludable. No pneumo thorax or definitive pleural effusion. Cardiomegaly. IMPRESSION: 1. Nasogastric tube in stomach and nonspecific bowel gas pattern. 2. Persistent scattered bilateral airspace opacities likely discoid atelectasis however pneumonia not excludable. 3. Cardiomegaly. Reviewed, dictated and finalized at location A. R UNDERSTUDY
--- NOTE | ~2021-06-20 | XR_ITS ---
XR chest 1V portable DATE: 07/01/2021 05:48 INDICATION: Respiratory failure TECHNIQUE: Portable AP chest on 07/01/2021 at 0518 hours COMPARISON: 06/30/2021 portable AP chest at 0516 hours FINDINGS: ET tube in satisfactory position 2.5 cm above gricelda. NG tube in gastric fundus, proximal p ort overlying the lower chest. NG tube advancement is recommended. Right upper extremity PIC catheter tip in right atrium. Chronic elevation of right diaphragm. There is infiltrate and/atelectasis in the mid and particularly lower lung zones most prominent in the left lower lobe with demonstrable air bronchograms. Heart siz e appears likely within normal limits considering magnification associated with AP projection. No pne umothorax. IMPRESSION: Recommend advancement of NG tube, which is currently situated at the very proximal gastri c fundus Bilateral mid and lower lung zone infiltrates, most prominent in the left lower lobe, increased since 06/30/2021 Reviewed, dictated and finalized at location A. OLEUM PLANT OPERATOR IMPRESSION: Recommend advancement of NG tube, which is currently situated at th e very proximal gastric fundus Bilateral mid and lower lung zone infiltrates, most prominent in the left lower lobe, increased since 06/30/2021
--- NOTE | ~2021-06-20 | XR_ITS ---
EXAMINATION: XR abdomen/kub 1V DATE: 06/22/2021 07:49 INDICATION: Abdominal pain. TECHNIQUE: A supine view of the abdomen on 2 radiographs was obtained. COMPARISON: CT abdomen and pelvis 06/21/2021 FINDINGS: There are no dilated loops of bowel. There is a right groin central venous catheter with ti p in right common iliac vein. There are gallstones in the gallbladder. IMPRESSION: 1. Nonobstructive bowel gas pattern. 2. Cholelithiasis. Reviewed, dictated and finalized at location A. ECTIONAL NURSE
--- NOTE | ~2021-06-20 | US_ITS ---
EXAMINATION: US venous doppler LE EXAM DATE: 07/05/2021 09:37 INDICATION: Respiratory failure. TECHNIQUE: Multiple grayscale, color flow and Doppler images of the lower extremity deep venous syste ms bilaterally were obtained and reviewed. There is no prior study for comparison. FINDINGS: Right side: The right common femoral, femoral and profunda veins demonstrate normal color flow, respi ratory variation, augmentation and compressibility. Compressibility, color flow confirmed within the right popliteal, posterior tibial, peroneal, and greater saphenous veins. Left side: The left common femoral, femoral and profunda veins demonstrate normal color flow, respira tory variation, augmentation and compressibility. Compressibility, color flow confirmed within the l eft popliteal, posterior tibial, peroneal, and greater saphenous veins. IMPRESSION: 1. No lower extremity deep venous thrombosis bilaterally. Reviewed, dictated and finalized at location B. OR SALES REPRESENTATIVE
--- NOTE | 2021-06-20 19:23 | ECG_ITS ---
Measurements Intervals [place] Rate: 79 P: 58 AK: 165 QRS: 64 QRSD: 82 T: 51 QT: 378 QTc: 435 Interpretive Statements SINUS RHYTHM NONSPECIFIC ST-T WAVE ABNORMALITY- INF/HIGH LAT LEADS BASELINE ARTIFACT- I, II, III, AVR, AVL, AVF, V1-V6 BORDERLINE ECG Electronically Signed On 06-20-2021 20:04:42 COMMUNICATIONS SENIOR ASSOCIATE by Meng Rodriguez D.O.
--- NOTE | 2021-06-20 19:27 | ED.ABDPAIN ---
HPI - Abdominal Pain General Chief Complaint: Abdominal Pain Stated Complaint: n/v x 2 days, coffee gr emesis Time Seen by Provider: 06/20/21 19:11 Source: patient and family () Mode of arrival: EMS Limitations: altered mental status History of Present Illness HPI narrative: This is a 51 year old male with history of alcoholism, cirrhosis, esophageal banding who presents from home for evaluation of nausea and vomiting. Patient reports right upper abdominal pain with nausea and vomiting. He reports he was initially vomiting food. His noticed this evening patient had coffee ground emesis in his bed. She also states patient has been having frequent dark runny BMs . She states patient is lethargic as well. She denies pain having cough, fever, chills, runny nose. She does states patient has been drinking alcohol intermittently. He had esophageal banding done November 2020 at [facility] and his iron worker apprentice is at [place]. Patient is poor historian at this time. Related Data Home Medications Medication Instructions Recorded Confirmed rifaximin 550 mg tablet 550 mg PO BID 11/27/20 12/25/20 diclofenac sodium 75 mg 75 mg PO DAILY tablet 04/23/21 04/23/21 tablet,delayed release metoprolol tartrate 25 mg tablet 100 mg PO DAILY tablet 04/23/21 04/23/21 nadolol 20 mg tablet 20 mg PO DAILY tablet 04/23/21 04/23/21 acyclovir 400 mg PO DAILY 06/21/21 06/21/21 Allergies Allergy/AdvReac Type Severity Reaction Status Date / Time No Known Allergies Allergy Verified 04/02/21 11:14 Review of Systems Review of Systems: ROS unobtainable: Yes other (poor historian) [facility] Past Medical History Medical History (Updated 06/21/21 @ 16:33 by Alli Moseley MD) Acute blood loss anemia Alcoholism Longstanding history of alcohol abuse, he has been sober for 5 weeks as of 10/13/2020. Cirrhosis of liver Esophageal bleeding Melena Peripheral neuropathy Surgical History Surgical History History of wisdom tooth extraction Family History Family History Mother Patient's mother is in good health Carcinoma of colon Sibling Patient's brother is in good health Hypertension Father Patient's father is in good health Arthritis Social History Social History Social History: Surrogate decision maker: Garrett Laird, . Code status: Full code. Smoking packs per day: 0.25 Smoking cigarettes per day: 5.0 Years smoked: 30 Smoking pack-years: 7.50 Smoking status: Current every day smoker Second hand tobacco smoke exposure: Yes Alcohol intake: former Alcohol use details: Longstanding history of alcoholism as per HPI. Sober since 09/13/2020. Substance use: never Substance use type: does not use Additional living arrangements comments: Resides in [place] with his . 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 Gender identity (if verbalized by the patient): Male Sexual Orientation (if Verbalized by the Patient): Straight or Heterosexual Spiritual care concerns: No Exam Const: Orientation/consciousness: patient oriented x3 Other: appears restless HENMT: Head: normocephalic and atraumatic Resp: Effort & Inspection: normal respiratory effort and no retractions Auscultation: clear to auscultation bilaterally Cardio: Rate: regular rate Rhythm: regular rhythm Heart sounds: no murmurs GI: GI Palp: Yes Soft to palpation, Yes Tenderness to palpation present (GI) (diffuse), No Guarding due to palpation present (GI), No Rigid due to palpation and Yes Hernia present (reducible umbilical hernia) Auscultation: normal bowel sounds Skin: General skin exam: jaundice Neuro: General: patient oriented x3, moves all extremities and CN's II-XI intact bilaterally Extrem: Gene
[2021-06-20 19:56] LABS: Glucose Point of Care 118 mg/dl (65-105)
[2021-06-20 20:43] LABS: Basophils Percent Auto 0.2 % (0.2-1.2); Eosinophils Percent Auto 0.2 % (0-4.4); Immature Granulocyte Absolute 0.25 K/mm3 (0.00-0.031); Immature Granulocyte Percent A 1.4 % (0-0.5); Lymphocytes Absolute Auto 1.48 K/mm3 (0.9-3.2); Lymphocytes Percent Auto 8.3 % (18.3-44.2); Mean Corpuscular HGB Conc 33.3 g/dl (32-36); Mean Corpuscular Hemoglobin 35.2 pg (26-34); Mean Corpuscular Volume 105.7 fl (80-100); Mean Platelet Volume 10.7 fl (7.4-10.4); Monocytes Absolute Auto 1.1 K/mm3 (0.1-0.6); Monocytes Percent Auto 6.1 % (2.6-8.5); Neutrophils Absolute Auto 14.8 K/mm3 (1.3-6.7); Neutrophils Percent Auto 83.8 % (45.5-73.1); Platelet Count Result 192 k/mm3 (150-375); Red Blood Count 1.93 M/mm3 (4.6-6.20); White Blood Count 17.7 K/mm3 (4.5-10.0)
[2021-06-20] MEDS: SODIUM CHLORIDE 0.9% IV 1,000 ML 999 ML IV CONT (20:44)
[2021-06-20] MEDS: ONDANSETRON INJ 4 MG/2 ML VIAL IV PUSH (20:45)
[2021-06-20 20:46] LABS: Hemoglobin 6.8 g/dL (14.0-18.0)
[2021-06-20 20:47] LABS: Hematocrit 20.4 % (42.0-52.0)
[2021-06-20 20:53] LABS: Alanine Aminotransferase 27 U/L (4-50); Albumin Level 3.1 g/dL (3.5-5.1); Alkaline Phosphatase 60 U/L (38-126); Ammonia < 9 umol/L (9-30); Anion Gap 7 mmol/L (8-16); Aspartate Amino Transferase 39 U/L (17-59); Bilirubin,Total 3.4 mg/dL (0.2-1.3); Blood Urea Nitrogen 82 mg/dL (9-20); Calcium 9.2 mg/dL (8.4-10.2); Carbon Dioxide 24 mmol/L (22-30); Chloride 106 mmol/L (98-107); Estimated CRCL calculation 50 ml/min; Estimated Glomerular Filt Rate 46; Ethanol < 10 mg/dL (<10); Glucose 122 mg/dL (65-110); Lipase 403 U/L (23-300); Magnesium 2.2 mg/dL (1.6-2.3); Potassium 3.9 mmol/L (3.4-5.0); Sodium 137 mmol/L (137-145)
[2021-06-20 20:54] LABS: INR 1.8; Prothrombin Time 20.3 Seconds (11.1-14.7)
--- NOTE | 2021-06-20 20:54 | PC.NURSE ---
IV no longer intact. Jessica, cook house laborer, notified for assistance.
[2021-06-20 20:55] LABS: Partial Thromboplastin Time 37.3 SECONDS (22.3-36.8)
--- NOTE | 2021-06-20 21:29 | PM.IMHP ---
H&P: HPI History of Present Illness Date/Time: 06/20/21 21:29 Chief Complaint: Melena Narrative: This is a 51-year-old male with past medical history significant for hepatic cirrhosis, esophageal varices, hepatic encephalopathy, alcohol dependence. Patient was brought to the emergency room after he had several episodes of melena and coffee-ground emesis. Most of the history has been obtained by the who is sitting at bedside. According to patient had been also a sleeping mostly during the day according to her she suspects that he has recently started drinking again in the morning he had several trips to the bathroom for nausea vomiting and diarrhea , when the noticed the dark color in the stools and in the vomit also he was delirious and she decided to bring him to the emergency room. In the emergency room patient had several bouts of diarrhea which was tarry. According to no fevers, no chills, no cough ,no sputum production ,he had been in his usual state of health. Preliminary workup was significant for CT of abdomen and pelvis with large amount of ascites, umbilical hernia. Decision has been made to admit the patient for further evaluation, management and treatment. Review of Systems Review of Systems: Unable to obtain due to patient's delirium. [facility] Past Medical History Medical History Alcoholism Longstanding history of alcohol abuse, he has been sober for 5 weeks as of 10/13/2020. Cirrhosis of liver Esophageal bleeding Peripheral neuropathy Surgical History Surgical History History of wisdom tooth extraction Family History Family History Mother Patient's mother is in good health Carcinoma of colon Sibling Patient's brother is in good health Hypertension Father Patient's father is in good health Arthritis Social History Social History (Updated 04/02/21 @ 11:18 by Karly Tang) Social History: Surrogate decision maker: Garrett Laird, . Code status: Full code. Smoking packs per day: 0.25 Smoking cigarettes per day: 5.0 Years smoked: 30 Smoking pack-years: 7.50 Smoking status: Current every day smoker Second hand tobacco smoke exposure: Yes Alcohol intake: former Alcohol use details: Longstanding history of alcoholism as per HPI. Sober since 09/13/2020. Substance use: never Substance use type: does not use Additional living arrangements comments: Resides in [place] with his . 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 Gender identity (if verbalized by the patient): Male Sexual Orientation (if Verbalized by the Patient): Straight or Heterosexual Spiritual care concerns: No Meds Home Medications and Allergies Home Medications Medication Instructions Recorded Confirmed Type rifaximin 550 mg tablet 550 mg PO BID 11/27/20 06/21/21 History gabapentin 600 mg tablet 600 mg PO QID #120 tablet 04/02/21 06/21/21 Rx diclofenac sodium 75 mg 75 mg PO DAILY tablet 04/23/21 06/21/21 History tablet,delayed release lactulose 20 gram/30 mL oral 20 g PO TID #1200 ml 04/23/21 06/21/21 Rx solution metoprolol tartrate 25 mg tablet 100 mg PO DAILY tablet 04/23/21 06/21/21 History nadolol 20 mg tablet 20 mg PO DAILY tablet 04/23/21 06/21/21 History acyclovir 400 mg PO DAILY 06/21/21 06/21/21 History Allergies Allergy/AdvReac Type Severity Reaction Status Date / Time No Known Allergies Allergy Verified 04/02/21 11:14 Vital Signs Vital Signs - 24 hr 06/20/21 18:33 06/20/21 19:27 Temperature 97.8 F Pulse Rate 85 75 Respiratory Rate 14 16 Blood Pressure 102/51 L 101/46 L Pulse Oximetry 98 100 Exam Narrative: Patient is laying in gurney Const: General: comfortable, no acute distress, ill appearing and other (Patient is restl
--- NOTE | 2021-06-20 21:32 | PC.NURSE ---
2 attempts made by warehouse shipper, unsuccessful IV start. ERP made aware.
[2021-06-20] MEDS: PANTOPRAZOLE SODIUM IV 40 MG VIAL 80 MG IV PUSH (22:23)
--- NOTE | 2021-06-20 22:28 | PC.NURSE ---
Octreotide vial appropriate for IV use diluted in NS per pharmacy.
[2021-06-20] MEDS: OCTREOTIDE ACETATE 50 MCG/ML VIAL IV PUSH (22:29)
[2021-06-20] MEDS: SODIUM CHLORIDE 0.9% IV 250 ML 30 ML IV CONT (23:12)
--- NOTE | 2021-06-20 23:36 | PC.NURSE ---
Pt attempting to use urinal at bedside at this time, refusing straight catheter at this time.
[2021-06-21] VITALS (42 sets, daily range): BP systolic 73–125; BP diastolic 23–91; PULSE 51–76; RESP 12–26; TEMP 35.7–36.9; O2SAT 59–100; BMI 25.9
--- NOTE | 2021-06-21 00:55 | PC.NURSE ---
2nd TAR 0023 Vital sign to be voided, computer error.
--- NOTE | 2021-06-21 01:37 | PC.NURSE ---
CT notified to take pt for imaging in between transfusions.
--- NOTE | 2021-06-21 02:06 | PC.NURSE ---
Garrett (spouse) phone number to be used is [phone]
--- NOTE | 2021-06-21 02:14 | PC.NURSE ---
Addendum entered by Ann Garcia RN 06/21/21 02:17: Will call ED back as soon as possible. Original Note: Floor unable to take report at this time.
[2021-06-21 02:48] LABS: Add Urine Microscopic? NO; Appearance Urine Clear (Clear); Bacteria Urine Trace /hpf; Bilirubin Urine Negative (Negative); Blood Urine Negative (Negative); Color Urine Yellow (Yellow); Glucose Urine UA Negative (Negative); Ketones Urine Negative (Negative); Leukocyte Esterase Ur Negative LEU/UL (Negative); Mucus Urine Rare /lpf; Nitrate Urine Negative (Negative); Protein Urine Negative (Negative); RBC Urine 0-2 /hpf (0-2); Specific Grav Ur 1.017 (1.001-1.035); Squamous Epithelial Cell Urine Rare /hpf (Few); Urobilinogen Urine Negative mg/dL (<2.0); WBC Urine 0-3 /hpf
--- NOTE | 2021-06-21 02:48 | ADMGEN ---
This patient, Phil Laird, was admitted to IMU Room 209-01 at 0240. Patient/family oriented to hospital policies and general routines including ID bracelet, bed and alarms, visiting hours, pain management, procedures, bathroom and other care routines, personal items, smoking policy, room service/diet, and visiting hours. Information on how to activate the Rapid Response Team has been discussed. Patient/Family are encouraged to report perceived risks to care and to ask questions if they do not understand what they are told or what they should do.
[2021-06-21 04:13] LABS: Amphetamine Screen Urine Negative (Negative); Barbiturate Screen Urine Negative (Negative); Benzodiazepines Screen Urine Negative (Negative); Cannabinoid Screen Urine Negative (Negative); Cocaine Screen Urine Negative (Negative); Methadone Screen Urine Negative (Negative); Opiate Screen Urine Negative (Negative); Phencyclidine Screen Urine Negative (Negative)
[2021-06-21] MEDS: CENTRAL LINE FLUSH 10 ML IV PUSH ×4 (06:55→20:57)
--- NOTE | 2021-06-21 07:03 | PC.NURSE ---
patient was found sitting up on his hands and knees was all twisted in his telemetry and iv tubing. patient had his toothpaste, mouthwash, and hand pouring crane operator in the bed. patient was found swishing and swallowing his mouth wash and his hand pouring crane operator. patient had bm all over him and needed cleaned. finishing up blood and trying to get him to rest.
[2021-06-21] MEDS: cefTRIAXone 2 GM in SODIUM CHLORIDE 0.9% IV 100 ML 200 ML IVPB (08:14)
[2021-06-21] MEDS: LACTULOSE 20 GM/30 ML UDC PO ×3 (08:14→16:42)
[2021-06-21 08:51] LABS: Hematocrit 21.2 % (42.0-52.0); Hemoglobin 7.3 g/dL (14.0-18.0)
[2021-06-21 09:05] LABS: Alanine Aminotransferase 24 U/L (4-50); Albumin Level 2.5 g/dL (3.5-5.1); Alkaline Phosphatase 43 U/L (38-126); Anion Gap 6 mmol/L (8-16); Aspartate Amino Transferase 35 U/L (17-59); Bilirubin,Total 3.6 mg/dL (0.2-1.3); Blood Urea Nitrogen 100 mg/dL (9-20); Calcium 8.2 mg/dL (8.4-10.2); Carbon Dioxide 17 mmol/L (22-30); Chloride 112 mmol/L (98-107); Estimated CRCL calculation 39 ml/min; Estimated Glomerular Filt Rate 33; Glucose 107 mg/dL (65-110); Potassium 4.1 mmol/L (3.4-5.0); Sodium 135 mmol/L (137-145)
--- NOTE | 2021-06-21 09:39 | WPDANESEPPF ---
Anes - Initial Pre Proc Eval Procedure: Operation Date: 06/21/21 14:00 Proposed Procedures p Esophagogastroduodenoscopy - Alli Moseley MD Date/Time: 06/21/21 09:39 Surgeon: Haroldo Box MD Pre Op Diagnosis: GI Bleeding, Anemia, Cirrhosis Patient Data Age: 51 Gender: M Height: 1.78 m Weight: 82 kg Last Vital Signs Temp 36.4 C 06/21/21 08:00 Pulse 65 06/21/21 08:00 Resp 18 06/21/21 08:00 BP 95/38 L 06/21/21 08:00 Pulse Ox 96 06/21/21 08:00 Allergies Allergy/AdvReac Type Severity Reaction Status Date / Time No Known Allergies Allergy Verified 04/02/21 11:14 Home Medications Medication Instructions Recorded Confirmed Type rifaximin 550 mg tablet 550 mg PO BID 11/27/20 06/21/21 History gabapentin 600 mg tablet 600 mg PO QID #120 tablet 04/02/21 06/21/21 Rx diclofenac sodium 75 mg 75 mg PO DAILY tablet 04/23/21 06/21/21 History tablet,delayed release lactulose 20 gram/30 mL oral 20 g PO TID #1200 ml 04/23/21 06/21/21 Rx solution metoprolol tartrate 25 mg tablet 100 mg PO DAILY tablet 04/23/21 06/21/21 History nadolol 20 mg tablet 20 mg PO DAILY tablet 04/23/21 06/21/21 History acyclovir 400 mg PO DAILY 06/21/21 06/21/21 History Laboratory Tests 06/20/21 06/20/21 06/20/21 19:52 20:33 20:33 WBC RBC Hgb Hct MCV MCH MCHC RDW Plt Count MPV Immature Gran % (Auto) Neut % (Auto) Lymph % (Auto) [place] % (Auto) Eos % (Auto) Baso % (Auto) Lymph # (Auto) [place] # (Auto) Eos # (Auto) Baso # (Auto) Abs Immat Gran (auto) Absolute Neuts (auto) Absolute Nucleated RBC Nucleated RBC % PT 20.3 Seconds H Seconds (11.1-14.7) INR 1.8 APTT 37.3 SECONDS H SECONDS (22.3-36.8) Sodium 137 mmol/L mmol/L (137-145) Potassium 3.9 mmol/L mmol/L (3.4-5.0) Chloride 106 mmol/L mmol/L (98-107) Carbon Dioxide 24 mmol/L mmol/L (22-30) Anion Gap 7 mmol/L L mmol/L (8-16) BUN 82 mg/dL H D mg/dL (9-20) Creatinine 1.60 mg/dL H mg/dL (0.7-1.3) Estim Creat Clear Calc 50 ml/min ml/min Estimated GFR 46 L (59 - ) Glucose 122 mg/dL H mg/dL (65-110) POC Capillary Glucose 118 mg/dl H mg/dl (65-105) Lactic Acid Calcium 9.2 mg/dL mg/dL (8.4-10.2) Magnesium 2.2 mg/dL mg/dL (1.6-2.3) Total Bilirubin 3.4 mg/dL H mg/dL (0.2-1.3) AST 39 U/L U/L (17-59) ALT 27 U/L U/L (4-50) Alkaline Phosphatase 60 U/L U/L (38-126) Ammonia Total Protein 6.0 g/dL L g/dL (6.3-8.2) Albumin 3.1 g/dL L g/dL (3.5-5.1) Lipase 403 U/L H U/L (23-300) Urine Color Urine Appearance Urine pH Ur Specific Raymond Urine Protein Urine Glucose (UA) Urine Ketones Ur Blood (Man) Urine Nitrate Urine Bilirubin Urine Urobilinogen Leukocyte Esterase Rfl Urine RBC Urine WBC Ur Squamous Epith Cells Urine Bacteria Urine Mucus Urine Opiates Screen Urine Methadone Screen Ur Barbiturates Screen Ur Phencyclidine Scrn Ur Amphetamine Screen U Benzodiazepines Scrn Urine Cocaine Screen U Cannabinoids Screen Ethyl Alcohol Blood Type Antibody Screen Crossmatch 06/20/21 06/20/21 06/20/21 20:33 20:33 20:34 WBC 17.7 K/m
--- NOTE | 2021-06-21 09:57 | P.PN_ITS ---
Progress Note: A&P Assessment and Plan (1) Acute GI hemorrhage: Code(s): K92.2 - Gastrointestinal hemorrhage, unspecified Status: Acute Assessment and Plan: * Continue octreotide and pantoprazole * Serial H&H 6.8/20.4>7.3>21.2 PRBCs confusing * Transfuse as needed * GI consult (2) Mental status alteration: Code(s): R41.82 - Altered mental status, unspecified Status: Acute Assessment and Plan: * Likely secondary to hepato encephalopathy * Supportive care * WBC 17.7, lactic 2.0, Ammonia wnl * Toxicology negative * Lipase elevated at 403 (3) Macrocytic anemia: Code(s): D53.9 - Nutritional anemia, unspecified Status: Acute Assessment and Plan: * Likely secondary to alcohol abuse * follow-up in outpatient setting (4) Alcoholism: Code(s): F10.20 - Alcohol dependence, uncomplicated Status: Acute Assessment and Plan: * Continue to monitor for withdrawal * CIWA protocol as needed * Will implement alcohol withdrawal protocol once appropriate (5) Cirrhosis of liver with ascites: Qualifiers: Hepatic cirrhosis type: alcoholic cirrhosis Qualified Code(s): K70.31 - Alcoholic cirrhosis of liver with ascites Code(s): K74.60 - Unspecified cirrhosis of liver; R18.8 - Other ascites Status: Acute Assessment and Plan: * CT indicates Cirrhosis of the liver and large volume of ascites * Patient is on Nadolol, rifaximin, lactulose. * Continue to monitor * Alcohol level within normal limits * Lipase elevated 403 (6) Tobacco dependence: Code(s): F17.200 - Nicotine dependence, unspecified, uncomplicated Status: Acute Assessment and Plan: * Nicotine patch as needed (7) Ascites: Code(s): R18.8 - Other ascites Status: Acute Assessment and Plan: * Imaging indicates large volume ascites * Will complete paracentesis when appropriate * Requested records from tinning machine set up operator to determine if patient has regular par acentesis. According to patient he has not had any paracentesis (8) Perforated viscus: Code(s): R19.8 - Other specified symptoms and signs involving the digestive system and abdomen Status: Acute Assessment and Plan: * Imaging indicates Free intraperitoneal gas which is consistent with perforated viscus if recent suggestions or surgery. * Surgery consulted * Requested records tinning machine set up operator in procedure note * According to patient he has not had any recent surgeries or paracentesis (9) Colitis: Code(s): K52.9 - Noninfective gastroenteritis and colitis, unspecified Status: Acute Assessment and Plan: * Imaging and a skate colitis * Cipro and Flagyl started * Lactic acid within normal limits * Elevated wbc's (10) Cholecystitis: Code(s): K81.9 - Cholecystitis, unspecified Status: Acute Assessment and Plan: * Imaging indicates acute cholecystitis.Consider hepatobiliary scintigraphy if there is clinical suspicion for acute cholecystitis. * Surgery consulted. Awaiting recommendation. Thank you for the care this patient Subjective Date/time seen: 06/21/21 09:57 patient denies any hematemesis or bloody stools at this time. Patient is requesting to have something to drink or ice chips. I explained to patient that he might possibly have a procedure and will need to remain NPO until after his procedure. Patient does not appear to be in any distress and denies any tenderness to his abdominal area. Patient denies cp, sob, palpitation, diarrhea, constipat
--- NOTE | 2021-06-21 09:57 | WPDPN ---
Progress Note: A&P Assessment and Plan (1) Acute GI hemorrhage: Code(s): K92.2 - Gastrointestinal hemorrhage, unspecified Status: Acute Assessment and Plan: Continue octreotide and pantoprazole Serial H&H 6.8/20.4>7.3>21.2 PRBCs confusing Transfuse as needed GI consult (2) Mental status alteration: Code(s): R41.82 - Altered mental status, unspecified Status: Acute Assessment and Plan: Likely secondary to hepato encephalopathy Supportive care WBC 17.7, lactic 2.0, Ammonia wnl Toxicology negative Lipase elevated at 403 (3) Macrocytic anemia: Code(s): D53.9 - Nutritional anemia, unspecified Status: Acute Assessment and Plan: Likely secondary to alcohol abuse follow-up in outpatient setting (4) Alcoholism: Code(s): F10.20 - Alcohol dependence, uncomplicated Status: Acute Assessment and Plan: Continue to monitor for withdrawal CIWA protocol as needed Will implement alcohol withdrawal protocol once appropriate (5) Cirrhosis of liver with ascites: Qualifiers: Hepatic cirrhosis type: alcoholic cirrhosis Qualified Code(s): K70.31 - Alcoholic cirrhosis of liver with ascites Code(s): K74.60 - Unspecified cirrhosis of liver; R18.8 - Other ascites Status: Acute Assessment and Plan: CT indicates Cirrhosis of the liver and large volume of ascites Patient is on Nadolol, rifaximin, lactulose. Continue to monitor Alcohol level within normal limits Lipase elevated 403 (6) Tobacco dependence: Code(s): F17.200 - Nicotine dependence, unspecified, uncomplicated Status: Acute Assessment and Plan: Nicotine patch as needed (7) Ascites: Code(s): R18.8 - Other ascites Status: Acute Assessment and Plan: Imaging indicates large volume ascites Will complete paracentesis when appropriate Requested records from flag football coach to determine if patient has regular paracentesis. According to patient he has not had any paracentesis (8) Perforated viscus: Code(s): R19.8 - Other specified symptoms and signs involving the digestive system and abdomen Status: Acute Assessment and Plan: Imaging indicates Free intraperitoneal gas which is consistent with perforated viscus if recent suggestions or surgery. Surgery consulted Requested records flag football coach in procedure note According to patient he has not had any recent surgeries or paracentesis (9) Colitis: Code(s): K52.9 - Noninfective gastroenteritis and colitis, unspecified Status: Acute Assessment and Plan: Imaging and a skate colitis Cipro and Flagyl started Lactic acid within normal limits Elevated wbc's (10) Cholecystitis: Code(s): K81.9 - Cholecystitis, unspecified Status: Acute Assessment and Plan: Imaging indicates acute cholecystitis.Consider hepatobiliary scintigraphy if there is clinical suspicion for acute cholecystitis. Surgery consulted. Awaiting recommendation. Thank you for the care this patient Subjective Date/time seen: 06/21/21 09:57 patient denies any hematemesis or bloody stools at this time. Patient is requesting to have something to drink or ice chips. I explained to patient that he might possibly have a procedure and will need to remain NPO until after his procedure. Patient does not appear to be in any distress and denies any tenderness to his abdominal area. Patient denies cp, sob, palpitation, diarrhea, constipation, lightheadness, headache, dizziness or chills and fevers. Review of Systems Review of Systems: A 14 organ system Review of Systems was performed and pertinent positives included in the HPI, otherwise Exam Narrative: GENERAL: This is a well-nourished, well-developed patient, in no apparent distress. HEAD: normocephalic, atraumatic. EYES: PERRL. Sclera clear/white. Vision is grossly intact. EARS: External ears normal,
[2021-06-21] MEDS: CIPROFLOXACIN 400 MG/D5W 200ML 200 ML 200 MG IVPB ×2 (12:02→20:55)
[2021-06-21 12:52] LABS: SARS-CoV-2 RNA PCR Negative
--- NOTE | 2021-06-21 13:32 | WPDGICN ---
Assessment and Plan Assessment and plan (1) Acute GI hemorrhage: Code(s): K92.2 - Gastrointestinal hemorrhage, unspecified Status: Acute Assessment and Plan: discussed with surgery and ok to proceed with egd, noted small amount free air- patient denies recent procedures or paracentesis but he is not very reliable egd to check if signs of perforation, also assess source of GIB continue with iv protonix and octreotide, also antibiotics (2) Melena: Code(s): K92.1 - Melena Status: Acute Assessment and Plan: s/p transfusion monitor h/h urgent EGD (3) Acute blood loss anemia: Code(s): D62 - Acute posthemorrhagic anemia Status: Acute Assessment and Plan: continue to monitor (4) Free intraperitoneal air: Code(s): K66.8 - Other specified disorders of peritoneum Status: Acute Assessment and Plan: surgery on board KUB in am npo for now (5) Ascites: Code(s): R18.8 - Other ascites Status: Acute (6) Mental status alteration: Code(s): R41.82 - Altered mental status, unspecified Status: Acute Assessment and Plan: alcoholic, also hepatic encephalopathy lactulose continue to monitor (7) Alcoholism: Code(s): F10.20 - Alcohol dependence, uncomplicated Status: Acute (8) Cirrhosis of liver: Code(s): K74.60 - Unspecified cirrhosis of liver Status: Acute Assessment and Plan: he is seeing Dr Wiley at [facility] unfortunately he still has been drinking thiamine, medical support GI Consult Note Consult date/time: 06/21/21 13:32 Reason for consult: gib, melena, cirrhosis HPI: Phil Laird is a 51 year old male with past medical history significant for alcoholic cirrhosis (records reviewed- he has seen Dr Wiley at [facility]), hepatic encephalopathy, alcohol dependence. He came to ER after had several episodes of melena and coffee-ground emesis, brought him to ER after he was acting more confused. Patient now is awake but required blood transfusion and admitted to the hospital, started on iv protonix and octreotide with antibiotics. CT of abdomen and pelvis reviewed and showed large amount of ascites, umbilical hernia and small amount of air ? from previous paracentesis but can not rule out other source. He has epigastric discomfort. Hb 6.8 on admission up to 8 after blood transfusion. Review of Systems Constitutional: Constitutional: Reports lethargy Eyes: Eyes: Reports no additional eye complaints ENT: Reports Normal hearing present Cardiovascular: Cardiovascular: Denies chest pain Respiratory: Respiratory: Denies cough Gastrointestinal: Gastrointestinal: Reports melena, Reports nausea and Reports vomiting Genitourinary: Genitourinary: Denies dysuria Musculoskeletal: Musculoskeletal: Denies neck pain Integumentary/Breasts: Skin/Breast: Denies dry skin Neurologic: Reports confusion Psychiatric: Psychiatric: Denies behavioral changes [facility] Past Medical History Medical History (Updated 06/21/21 @ 16:33 by Alli Moseley MD) Acute blood loss anemia Alcoholism Longstanding history of alcohol abuse, he has been sober for 5 weeks as of 10/13/2020. Cirrhosis of liver Esophageal bleeding Melena Peripheral neuropathy Surgical History Surgical History History of wisdom tooth extraction Family History Family History Mother Patient's mother is in good health Carcinoma of colon Sibling Patient's brother is in good health Hypertension Father Patient's father is in good health Arthritis Social History Social History Social History: Surrogate decision maker: Garrett Laird, . Code status: Full code. Smoking packs per day: 0.25 Smoking cigarettes per day: 5.0 Years smoked: 30 Smoking
[2021-06-21] MEDS: LACTATED RINGERS 1,000 ML 150 ML IV CONT (13:47)
[2021-06-21] MEDS: BENZOCAINE (*SP) 60 ML SPRAY CAN (HURRICAINE) 1 SPRAY MUCOUS MEM (13:54)
--- NOTE | 2021-06-21 13:55 | PM.CNGS ---
Assessment and Plan Assessment and plan (1) Free intraperitoneal air: Code(s): K66.8 - Other specified disorders of peritoneum Status: Acute Assessment and Plan: unknown etiology, will proceed c EGD and try to identify souce of bleeding and possible perforation (2) Acute GI hemorrhage: Code(s): K92.2 - Gastrointestinal hemorrhage, unspecified Status: Acute Assessment and Plan: emergent EGD to assess (3) Cirrhosis of liver: Code(s): K74.60 - Unspecified cirrhosis of liver Status: Acute Assessment and Plan: chronic, pt cont to drink (4) Alcoholism: Code(s): F10.20 - Alcohol dependence, uncomplicated Status: Acute Assessment and Plan: pt cont to drink despite issues History of Present Illness Consult details Consult date: 06/21/21 Reason for consult: abdominal pain Requesting physician: Alli Moseley MD Narrative: The patient is a 51-year-old male with multiple medical issues including alcoholic cirrhosis, chronic alcoholism, esophageal varices presenting to the emergency department with mental status change, hematemesis, hematochezia. The patient is still quite obtunded at this time and all history is obtained via chart. Apparently according to the , the patient was found obtunded after drinking. Per the , the patient having hematemesis, as well as tarry black stools. The patient was found be anemic and his workup and has since been admitted. CT scan, which I reviewed with the radiologist, is significant for a moderate amount of upper free air around the stomach. It is unknown if the patient had any recent procedures. Review of Systems Review of Systems: ROS unobtainable: Yes unobtainable due to medical condition and unobtainable due to mental status PMFSH Past Medical History Medical History Alcoholism Longstanding history of alcohol abuse, he has been sober for 5 weeks as of 10/13/2020. Cirrhosis of liver Esophageal bleeding Peripheral neuropathy Surgical History Surgical History History of wisdom tooth extraction Family History Family History Mother Patient's mother is in good health Carcinoma of colon Sibling Patient's brother is in good health Hypertension Father Patient's father is in good health Arthritis Social History Social History Social History: Surrogate decision maker: Garrett Laird, . Code status: Full code. Smoking packs per day: 0.25 Smoking cigarettes per day: 5.0 Years smoked: 30 Smoking pack-years: 7.50 Smoking status: Current every day smoker Second hand tobacco smoke exposure: Yes Alcohol intake: former Alcohol use details: Longstanding history of alcoholism as per HPI. Sober since 09/13/2020. Substance use: never Substance use type: does not use Additional living arrangements comments: Resides in [place] with his . 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 Gender identity (if verbalized by the patient): Male Sexual Orientation (if Verbalized by the Patient): Straight or Heterosexual Spiritual care concerns: No Meds Home Medications and Allergies Home Medications Medication Instructions Recorded Confirmed Type rifaximin 550 mg tablet 550 mg PO BID 11/27/20 06/21/21 History gabapentin 600 mg tablet 600 mg PO QID #120 tablet 04/02/21 06/21/21 Rx diclofenac sodium 75 mg 75 mg PO DAILY tablet 04/23/21 06/21/21 History tablet,delayed release lactulose 20 gram/30 mL oral 20 g PO TID #1200 ml 04/23/21 06/21/21 Rx solution metoprolol tartrate 25 mg tablet 100 mg PO DAILY tablet 04/23/21 06/21/21 History nadolol 20 mg tablet 20 mg PO DAILY tablet 04/23/21 06/21/21 Histor
--- NOTE | 2021-06-21 14:21 | SUR.PHASEII ---
Pt blood pressure 74/34 Dr. Dodge (anesthesia) notified. States he be over to will medicate pt
[2021-06-21] MEDS: rifAXIMin 550 MG TABLET PO ×2 (15:14→16:43)
[2021-06-21] MEDS: metroNIDAZOLE 250 MG TABLET 500 MG PO ×2 (15:14→20:58)
[2021-06-21] MEDS: ACYCLOVIR 400 MG TABLET PO (15:14)
[2021-06-21] MEDS: GABAPENTIN 300 MG CAPSULE 600 MG PO ×3 (15:14→20:57)
[2021-06-21] MEDS: SODIUM CHLORIDE 0.9% IV 1,000 ML 125 ML IV CONT ×2 (15:25→23:23)
[2021-06-21 15:54] LABS: Hematocrit 27.7 % (42.0-52.0); Hemoglobin 8.5 g/dL (14.0-18.0)
[2021-06-21] MEDS: PANTOPRAZOLE SODIUM IV 40 MG VIAL IV PUSH (20:51)
[2021-06-22] VITALS (16 sets, daily range): BP systolic 113–126; BP diastolic 52–57; PULSE 61–84; RESP 16–22; TEMP 36.1–36.6; O2SAT 95–99
[2021-06-22] MEDS: cefTRIAXone 2 GM in SODIUM CHLORIDE 0.9% IV 100 ML 200 ML IVPB ×2 (05:28→17:25)
[2021-06-22] MEDS: metroNIDAZOLE 250 MG TABLET 500 MG PO ×3 (05:29→21:23)
[2021-06-22] MEDS: CENTRAL LINE FLUSH 10 ML IV PUSH ×4 (05:29→21:30)
[2021-06-22 05:33] LABS: Hematocrit 21.5 % (42.0-52.0); Hemoglobin 7.4 g/dL (14.0-18.0); Mean Corpuscular HGB Conc 34.4 g/dl (32-36); Mean Corpuscular Hemoglobin 33.6 pg (26-34); Mean Corpuscular Volume 97.7 fl (80-100); Mean Platelet Volume 10.5 fl (7.4-10.4); Platelet Count Result 126 k/mm3 (150-375); Red Cell Distribution Width 18.2 % (11.5-14.5); White Blood Count 20.2 K/mm3 (4.5-10.0)
[2021-06-22 05:45] LABS: Lactic Acid Reflex 3.3 mmol/L (0.7-2.1)
[2021-06-22 05:53] LABS: Alanine Aminotransferase 24 U/L (4-50); Albumin Level 2.6 g/dL (3.5-5.1); Alkaline Phosphatase 56 U/L (38-126); Anion Gap 10 mmol/L (8-16); Aspartate Amino Transferase 30 U/L (17-59); Bilirubin,Total 3.1 mg/dL (0.2-1.3); Blood Urea Nitrogen 86 mg/dL (9-20); Calcium 8.2 mg/dL (8.4-10.2); Carbon Dioxide 14 mmol/L (22-30); Chloride 110 mmol/L (98-107); Estimated CRCL calculation 45 ml/min; Estimated Glomerular Filt Rate 40; Glucose 114 mg/dL (65-110); Lipase 623 U/L (23-300); Potassium 3.8 mmol/L (3.4-5.0); Sodium 134 mmol/L (137-145)
[2021-06-22] MEDS: SODIUM CHLORIDE 0.9% IV 1,000 ML 125 ML IV CONT (06:29)
[2021-06-22] MEDS: GABAPENTIN 300 MG CAPSULE 600 MG PO ×4 (08:23→21:21)
[2021-06-22] MEDS: LACTULOSE 20 GM/30 ML UDC PO ×3 (08:23→17:24)
[2021-06-22] MEDS: rifAXIMin 550 MG TABLET PO ×2 (08:23→17:24)
[2021-06-22] MEDS: PANTOPRAZOLE SODIUM IV 40 MG VIAL IV PUSH ×2 (08:23→21:21)
[2021-06-22] MEDS: ACYCLOVIR 400 MG TABLET PO (08:23)
[2021-06-22] MEDS: THIAMINE HCL 200 MG/2 ML VIAL 100 MG IV PUSH (08:24)
[2021-06-22] MEDS: CIPROFLOXACIN 400 MG/D5W 200ML 200 ML 200 MG IVPB ×2 (08:24→21:22)
[2021-06-22 08:30] LABS: Reflex Lactic Acid Yes or No Add Lactic
--- NOTE | 2021-06-22 09:12 | P.PN_ITS ---
Progress Note: A&P Assessment and Plan (1) Acute GI hemorrhage: Code(s): K92.2 - Gastrointestinal hemorrhage, unspecified Status: Acute Assessment and Plan: * Continue octreotide and pantoprazole * Serial H&H 6.8/20.4>7.3/21.2>7.4/21.5 PRBCs infused * Transfuse as needed * GI consult emergent EGD completed, no active bleeding found (2) Mental status alteration: Code(s): R41.82 - Altered mental status, unspecified Status: Acute Assessment and Plan: * Resolved * Likely secondary to hepato encephalopathy * Supportive care * WBC 17.7>20.2, lactic 2.0>3.3, Ammonia wnl * Toxicology negative * Lipase elevated at 403>623 worsened * Elevated lactic acid 3.3>4.1 (3) Macrocytic anemia: Code(s): D53.9 - Nutritional anemia, unspecified Status: Acute Assessment and Plan: * Likely secondary to alcohol abuse * follow-up in outpatient setting (4) Alcoholism: Code(s): F10.20 - Alcohol dependence, uncomplicated Status: Acute Assessment and Plan: * Continue to monitor for withdrawal * CIWA protocol as needed * Will implement alcohol withdrawal protocol once appropriate (5) Cirrhosis of liver with ascites: Qualifiers: Hepatic cirrhosis type: alcoholic cirrhosis Qualified Code(s): K70.31 - Alcoholic cirrhosis of liver with ascites Code(s): K74.60 - Unspecified cirrhosis of liver; R18.8 - Other ascites Status: Acute Assessment and Plan: * CT indicates Cirrhosis of the liver and large volume of ascites * Patient is on Nadolol, rifaximin, lactulose. * Continue to monitor * Alcohol level within normal limits * Lipase elevated 403>623 * She is Dr. Wiley at [facility] * EGD indicates small grade 1 varices were present in the distal esophagus. Varices was not actively bleeding (6) Tobacco dependence: Code(s): F17.200 - Nicotine dependence, unspecified, uncomplicated Status: Acute Assessment and Plan: * Nicotine patch as needed (7) Ascites: Code(s): R18.8 - Other ascites Status: Acute Assessment and Plan: * Imaging indicates large volume ascites * Will complete paracentesis when appropriate * Requested records from lamination spinner to determine if patient has regular paracentesis. According to patient he has not had any paracentesis (8) Perforated viscus: Code(s): R19.8 - Other specified symptoms and signs involving the digestive system and abdomen Status: Acute Assessment and Plan: * Imaging indicates Free intraperitoneal gas which is consistent with perforated viscus if recent suggestions or surgery. * Surgery consulted * Requested records lamination spinner in procedure note * According to patient he has not had any recent surgeries or paracentesis * KUB this a.m. (9) Colitis: Code(s): K52.9 - Noninfective gastroenteritis and colitis, unspecified Status: Acute Assessment and Plan: * Imaging and a skate colitis * Cipro and Flagyl started * Lactic acid within normal limits * Elevated wbc's * Lactic 3.3>4.1 * Blood culture collected after use of antibiotics (10) Cholecystitis: Code(s): K81.9 - Cholecystitis, unspecified Status: Acute Assessment and Plan: * Imaging indicates acute cholecystitis.Consider hepatobiliary scintigraphy if there is clinical suspicion for acute cholecystitis. * Surgery consulted. Refer to note (11) Gastritis: Code(s): K29.70 - Gastritis, unspecified, without bleeding Status: Acute Assessmen
--- NOTE | 2021-06-22 09:12 | WPDPN ---
Progress Note: A&P Assessment and Plan (1) Acute GI hemorrhage: Code(s): K92.2 - Gastrointestinal hemorrhage, unspecified Status: Acute Assessment and Plan: Continue octreotide and pantoprazole Serial H&H 6.8/20.4>7.3/21.2>7.4/21.5 PRBCs infused Transfuse as needed GI consult emergent EGD completed, no active bleeding found (2) Mental status alteration: Code(s): R41.82 - Altered mental status, unspecified Status: Acute Assessment and Plan: Resolved Likely secondary to hepato encephalopathy Supportive care WBC 17.7>20.2, lactic 2.0>3.3, Ammonia wnl Toxicology negative Lipase elevated at 403>623 worsened Elevated lactic acid 3.3>4.1 (3) Macrocytic anemia: Code(s): D53.9 - Nutritional anemia, unspecified Status: Acute Assessment and Plan: Likely secondary to alcohol abuse follow-up in outpatient setting (4) Alcoholism: Code(s): F10.20 - Alcohol dependence, uncomplicated Status: Acute Assessment and Plan: Continue to monitor for withdrawal CIWA protocol as needed Will implement alcohol withdrawal protocol once appropriate (5) Cirrhosis of liver with ascites: Qualifiers: Hepatic cirrhosis type: alcoholic cirrhosis Qualified Code(s): K70.31 - Alcoholic cirrhosis of liver with ascites Code(s): K74.60 - Unspecified cirrhosis of liver; R18.8 - Other ascites Status: Acute Assessment and Plan: CT indicates Cirrhosis of the liver and large volume of ascites Patient is on Nadolol, rifaximin, lactulose. Continue to monitor Alcohol level within normal limits Lipase elevated 403>[address] Wiley at [facility] EGD indicates small grade 1 varices were present in the distal esophagus. Varices was not actively bleeding (6) Tobacco dependence: Code(s): F17.200 - Nicotine dependence, unspecified, uncomplicated Status: Acute Assessment and Plan: Nicotine patch as needed (7) Ascites: Code(s): R18.8 - Other ascites Status: Acute Assessment and Plan: Imaging indicates large volume ascites Will complete paracentesis when appropriate Requested records from bulk mail clerk to determine if patient has regular paracentesis. According to patient he has not had any paracentesis (8) Perforated viscus: Code(s): R19.8 - Other specified symptoms and signs involving the digestive system and abdomen Status: Acute Assessment and Plan: Imaging indicates Free intraperitoneal gas which is consistent with perforated viscus if recent suggestions or surgery. Surgery consulted Requested records bulk mail clerk in procedure note According to patient he has not had any recent surgeries or paracentesis KUB this a.m. (9) Colitis: Code(s): K52.9 - Noninfective gastroenteritis and colitis, unspecified Status: Acute Assessment and Plan: Imaging and a skate colitis Cipro and Flagyl started Lactic acid within normal limits Elevated wbc's Lactic 3.3>4.1 Blood culture collected after use of antibiotics (10) Cholecystitis: Code(s): K81.9 - Cholecystitis, unspecified Status: Acute Assessment and Plan: Imaging indicates acute cholecystitis.Consider hepatobiliary scintigraphy if there is clinical suspicion for acute cholecystitis. Surgery consulted. Refer to note (11) Gastritis: Code(s): K29.70 - Gastritis, unspecified, without bleeding Status: Acute Assessment and Plan: EGD completed yesterday indicate gastritis (12) Duodenal ulcer: Code(s): K26.9 - Duodenal ulcer, unspecified as acute or chronic, without hemorrhage or perforation Status: Acute Assessment and Plan: EGD indicates ulcers in the stomach coffee-ground material found but no red hematin Patient will need to be sent with and preventive medication (13) Elevated lactic acid level: Code(s): R79.89 - Other specified abno
[2021-06-22 10:03] LABS: Lactic Acid 4.1 mmol/L (0.7-2.1)
--- NOTE | 2021-06-22 10:05 | PM.PNGS ---
Progress Note: A&P Assessment and Plan (1) Duodenal ulcer: Code(s): K26.9 - Duodenal ulcer, unspecified as acute or chronic, without hemorrhage or perforation Status: Acute Assessment and Plan: cont cont mgmt, exam benign (2) Gastritis: Code(s): K29.70 - Gastritis, unspecified, without bleeding Status: Acute Assessment and Plan: see above (3) Acute blood loss anemia: Code(s): D62 - Acute posthemorrhagic anemia Status: Acute Assessment and Plan: no bleeding on EGD, no further hematemesis Subjective Subjective Date/Time Seen: 06/22/21 10:05 feels better today, no abd pain, +diarrhea Review of Systems Review of Systems: All systems reviewed & are unremarkable except as noted in HPI and below Exam Const: General: comfortable, no acute distress and ill appearing Orientation/consciousness: patient oriented x3 Resp: Auscultation: clear to auscultation bilaterally Cardio: Rate: regular rate Rhythm: regular rhythm GI: Inspection: normal to inspection and distended GI Palp: Yes Soft to palpation, No Tenderness to palpation present (GI), No Guarding due to palpation present (GI) and No Rigid due to palpation Objective Data Vital Signs Vital Signs: Vital Signs - 24 hr 06/21/21 12:00 06/21/21 13:46 06/21/21 14:00 Temperature 35.9 C L Pulse Rate 73 59 L 57 L Respiratory Rate 16 Blood Pressure 101/50 L Pulse Oximetry 100 06/21/21 14:10 06/21/21 14:20 06/21/21 14:25 Temperature Pulse Rate 64 66 64 Respiratory Rate 15 15 18 Blood Pressure 82/47 L 74/34 L 90/37 L Pulse Oximetry 97 97 99 06/21/21 14:30 06/21/21 14:38 06/21/21 14:40 Temperature Pulse Rate 55 L 58 L 68 Respiratory Rate 24 H 26 H 20 Blood Pressure 83/35 L 73/30 L 95/51 L Pulse Oximetry 98 98 98 06/21/21 14:45 06/21/21 14:50 06/21/21 14:58 Temperature Pulse Rate 61 57 L 59 L Respiratory Rate 21 H 25 H 24 H Blood Pressure 98/53 L 99/42 L 97/46 L Pulse Oximetry 100 100 100 06/21/21 16:00 06/21/21 18:00 06/21/21 19:36 Temperature 36.7 C 36.4 C Pulse Rate 56 L 67 62 Respiratory Rate 18 18 Blood Pressure 101/50 L 113/59 L Pulse Oximetry 100 98 06/21/21 20:00 06/21/21 22:00 06/22/21 00:00 Temperature 36.4 C Pulse Rate 65 70 78 Respiratory Rate 22 H Blood Pressure 118/56 L Pulse Oximetry 98 98 06/22/21 02:00 06/22/21 03:58 06/22/21 04:00 Temperature 36.4 C L Pulse Rate 77 75 84 Respiratory Rate 18 Blood Pressure 120/57 L Pulse Oximetry 99 99 06/22/21 06:00 06/22/21 07:05 Temperature 36.6 C Pulse Rate 70 66 Respiratory Rate 18 Blood Pressure 117/52 L Pulse Oximetry 99 Intake/Output Intake/Output: Intake & Output 06/19/21 06/20/21 06/21/21 06/22/21 23:59 23:59 23:59 23:59 Intake Total 1050 3700 1200 Output Total 800 1300 Balance 1050 2900 -100 Meds/Results Medications: Active Medications Generic Name Dose Route Start Last Admin Trade Name Freq PRN Reason Stop Dose Admin Acyclovir 400 mg 06/21/21 09:00 06/22/21 08:23 Acyclovir 400 Mg Tablet PO 400 mg DAILY JOSEFA Administration Diphenhydramine HCl 25 mg 06/21/21 13:12 Diphenhydramine Hcl Inj 50 Mg/Ml Vial IV PUSH HS PRN Insomnia Gabapentin 600 mg 06/21/21 09:00 06/22/21 08:23 Gabapentin 300 Mg Capsule PO 600 mg QID JOSEFA Administration Octreotide Acetate 500 mcg/ 100 mls @ 10 mls/hr 06/20/21 20:00 06/22/21 06:29 Dextrose IV CONT 50 mcg/hr .Q10H JOSEFA 10 mls/hr Administration 50 MCG/HR Sodium Chloride 1,000 mls @ 125 mls/hr 06/20/21 21:45 06/22/21 06:29 Normal Saline Iv IV CONT 125 mls/hr .Q8H JOSEFA Administration Ciprofloxacin/Dextrose 200 mls @ 200 mls/hr 06/21/21 10:25 06/22/21 08:24 Cipro 400 Mg/D5w 200 Ml IVPB 200 mls/hr Q12HR JOSEFA Administration Lactulose 20 gm 06/21/21 09:00 06/22/21 08:23 Lactulose 20 Gm/30 Ml Udc PO 20 gm TID JOSEFA Administration M
[2021-06-22] MEDS: METOPROLOL SUCCINATE EXT REL 100 MG TABCR PO (10:16)
--- NOTE | 2021-06-22 12:28 | WPDGIPROGNO ---
Progress Note: A&P Assessment and Plan (1) Acute GI hemorrhage: Code(s): K92.2 - Gastrointestinal hemorrhage, unspecified Status: Acute Assessment and Plan: he had large DU without active bleeding, also small esophageal varices without bleeding- no need of endoscopic intervention continue with antibiotics, ppi and octreotide surgery on board because small amount of free air- he is comfortable today, KUB reviewed and no acute findings but noted still elevated lactic acid continue to monitor (2) Duodenal ulcer: Code(s): K26.9 - Duodenal ulcer, unspecified as acute or chronic, without hemorrhage or perforation Status: Acute Assessment and Plan: medical treatment also noted diclofenac as home med- discontinued and he should not be on any more nsaid's (3) Acute blood loss anemia: Code(s): D62 - Acute posthemorrhagic anemia Status: Acute Assessment and Plan: s/p blood transfusion, hb low but stable now, no more ongoing bleeding (4) Free intraperitoneal air: Code(s): K66.8 - Other specified disorders of peritoneum Status: Acute (5) Cirrhosis of liver with ascites: Qualifiers: Hepatic cirrhosis type: alcoholic cirrhosis Qualified Code(s): K70.31 - Alcoholic cirrhosis of liver with ascites Code(s): K74.60 - Unspecified cirrhosis of liver; R18.8 - Other ascites Status: Acute Assessment and Plan: from alcohol abuse, he is seeing front office director at [facility] (6) Alcoholism: Code(s): F10.20 - Alcohol dependence, uncomplicated Status: Acute Assessment and Plan: thiamine, medical support (7) Renal failure: Code(s): N19 - Unspecified kidney failure Status: Acute Assessment and Plan: noted berhane, continue to monitor (8) Abdominal pain: Code(s): R10.9 - Unspecified abdominal pain Status: Acute Assessment and Plan: monitor repeat blood work and lactic acid (9) Liver encephalopathy: Code(s): K72.90 - Hepatic failure, unspecified without coma Status: Acute Assessment and Plan: awake and alert on lactulose Subjective Date/time seen: 06/22/21 12:28 Interval history: patient denies more signs of bleeding, no vomiting, he is awake and alert, still some abdominal pain but he is quite comfortable Review of Systems Review of Systems: All systems reviewed & are unremarkable except as noted in HPI and below Exam Const: General: cooperative, comfortable, no acute distress and ill appearing chronically Eyes: Pupils: Equal, round and reactive pupils present Neck: Neck: supple Resp: Auscultation: clear to auscultation bilaterally Cardio: Rate: regular rate GI: GI Palp: Yes Soft to palpation and Yes Tenderness to palpation present (GI) (epigastric, + guarding without rebound) Percussion: Yes Fluid wave present Auscultation: normal bowel sounds Other: + umbilical hernia Skin: Other: telangiectasias Neuro: Speech: normal speech Motor exam (neuro): Normal motor muscle tone present throughout Extrem: General: normal to inspection Psych: Mental Status: mental status grossly normal Objective Data Vital Signs Vital Signs: Vital Signs - 24 hr 06/21/21 13:46 06/21/21 14:00 06/21/21 14:10 Temperature 96.7 F L Pulse Rate 59 L 57 L 64 Respiratory Rate 16 15 Blood Pressure 101/50 L 82/47 L Pulse Oximetry 100 97 06/21/21 14:20 06/21/21 14:25 06/21/21 14:30 Temperature Pulse Rate 66 64 55 L Respiratory Rate 15 18 24 H Blood Pressure 74/34 L 90/37 L 83/35 L Pulse Oximetry 97 99 98 06/21/21 14:38 06/21/21 14:40 06/21/21 14:45 Temperature Pulse Rate 58 L 68 61 Respiratory Rate 26 H 20 21 H Blood Pressure 73/30 L 95/51 L 98/53 L Pulse Oximetry 98 98 100 06/21/21 14:50 06/21/21 14:58 06/21/21 16:00 Temperature 98.1 F Pulse Rate 57 L 59 L 56 L Respiratory Rate 25 H 24 H 18 Blood Pressure 99/42 L 97/46 L 101/50 L Pulse Oximetry 100
[2021-06-22] MEDS: SODIUM CHLORIDE 0.9% IV 1,000 ML 100 ML IV CONT (14:30)
[2021-06-22] MEDS: SODIUM CHLORIDE 0.9% IV 500 ML IV CONT (14:30)
[2021-06-22] MEDS: ONDANSETRON INJ 4 MG/2 ML VIAL IV PUSH (17:32)
[2021-06-22] MEDS: traZODone HCL 50 MG TABLET PO (21:21)
[2021-06-23] VITALS (11 sets, daily range): BP systolic 111–117; BP diastolic 55–60; PULSE 65–82; RESP 16–18; TEMP 36.4–36.8; O2SAT 93–98
[2021-06-23] MEDS: SODIUM CHLORIDE 0.9% IV 1,000 ML 100 ML IV CONT ×2 (03:09→13:15)
[2021-06-23] MEDS: cefTRIAXone 2 GM in SODIUM CHLORIDE 0.9% IV 100 ML 200 ML IVPB ×2 (06:05→17:36)
[2021-06-23] MEDS: metroNIDAZOLE 250 MG TABLET 500 MG PO ×3 (06:06→20:56)
[2021-06-23] MEDS: CENTRAL LINE FLUSH 10 ML IV PUSH ×4 (06:06→20:45)
[2021-06-23 06:20] LABS: Hematocrit 21.3 % (42.0-52.0); Hemoglobin 7.3 g/dL (14.0-18.0); Mean Corpuscular HGB Conc 34.3 g/dl (32-36); Mean Corpuscular Hemoglobin 33.6 pg (26-34); Mean Corpuscular Volume 98.2 fl (80-100); Mean Platelet Volume 10.7 fl (7.4-10.4); Platelet Count Result 154 k/mm3 (150-375); Red Blood Count 2.17 M/mm3 (4.6-6.20); Red Cell Distribution Width 18.2 % (11.5-14.5); White Blood Count 26.1 K/mm3 (4.5-10.0)
[2021-06-23 06:28] LABS: Lactic Acid Reflex 2.1 mmol/L (0.7-2.1)
[2021-06-23 06:30] LABS: Ammonia 14 umol/L (9-30)
[2021-06-23 06:33] LABS: Alanine Aminotransferase 21 U/L (4-50); Albumin Level 2.4 g/dL (3.5-5.1); Alkaline Phosphatase 74 U/L (38-126); Anion Gap 7 mmol/L (8-16); Aspartate Amino Transferase 31 U/L (17-59); Bilirubin,Total 2.4 mg/dL (0.2-1.3); Blood Urea Nitrogen 62 mg/dL (9-20); Calcium 7.9 mg/dL (8.4-10.2); Carbon Dioxide 18 mmol/L (22-30); Chloride 105 mmol/L (98-107); Estimated CRCL calculation 57 ml/min; Estimated Glomerular Filt Rate 53; Glucose 113 mg/dL (65-110); Potassium 3.7 mmol/L (3.4-5.0); Sodium 130 mmol/L (137-145)
[2021-06-23] MEDS: LACTULOSE 20 GM/30 ML UDC PO ×2 (08:12→13:12)
[2021-06-23] MEDS: ACYCLOVIR 400 MG TABLET PO (08:13)
[2021-06-23] MEDS: METOPROLOL SUCCINATE EXT REL 100 MG TABCR PO (08:13)
[2021-06-23] MEDS: rifAXIMin 550 MG TABLET PO ×2 (08:13→17:36)
[2021-06-23] MEDS: THIAMINE HCL 200 MG/2 ML VIAL 100 MG IV PUSH (08:13)
[2021-06-23] MEDS: GABAPENTIN 300 MG CAPSULE 600 MG PO ×4 (08:13→20:44)
[2021-06-23] MEDS: PANTOPRAZOLE SODIUM IV 40 MG VIAL IV PUSH ×2 (08:13→20:44)
[2021-06-23] MEDS: CIPROFLOXACIN 400 MG/D5W 200ML 200 ML 200 MG IVPB ×2 (08:14→20:45)
[2021-06-23 09:16] LABS: Reflex Lactic Acid Yes or No Add Lactic
[2021-06-23 10:48] LABS: Lactic Acid 2.8 mmol/L (0.7-2.1)
--- NOTE | 2021-06-23 11:02 | P.PN_ITS ---
Progress Note: A&P Assessment and Plan (1) Acute GI hemorrhage: Code(s): K92.2 - Gastrointestinal hemorrhage, unspecified Status: Acute Assessment and Plan: * Stable * Continue octreotide and pantoprazole * Serial H&H 6.8/20.4>7.3/21.2>7.4/21.5>7.3/21.3 PRBCs infused * Transfuse as needed * GI consult emergent EGD completed, no active bleeding found * Discontinue diclofenac discharge avoid NSAID, alcohol was cessation (2) Mental status alteration: Code(s): R41.82 - Altered mental status, unspecified Status: Acute Assessment and Plan: * Resolved * Likely secondary to hepato encephalopathy * Supportive care * WBC 17.7>20.2>26.1, lactic 2.0>3.3>4.1>2.1>2.8, Ammonia wnl * Toxicology negative * Lipase elevated at 403>623 worsened * Elevated lactic acid 3.3>4.1>2.1>2.8 (3) Macrocytic anemia: Code(s): D53.9 - Nutritional anemia, unspecified Status: Acute Assessment and Plan: * Likely secondary to alcohol abuse * follow-up in outpatient setting (4) Alcoholism: Code(s): F10.20 - Alcohol dependence, uncomplicated Status: Acute Assessment and Plan: * Continue to monitor for withdrawal * CIWA protocol as needed * Alcohol withdrawal protocol implemented * Ammonia level 14 * Lactulose adjusted due to excessive diarrhea. Changed to 20 g daily (5) Cirrhosis of liver with ascites: Qualifiers: Hepatic cirrhosis type: alcoholic cirrhosis Qualified Code(s): K70.31 - Alcoholic cirrhosis of liver with ascites Code(s): K74.60 - Unspecified cirrhosis of liver; R18.8 - Other ascites Status: Acute Assessment and Plan: * CT indicates Cirrhosis of the liver and large volume of ascites * Patient is on Nadolol, rifaximin, lactulose. * Continue to monitor * Alcohol level within normal limits * Lipase elevated 403>623 * She is Dr. Wiley at [facility] * EGD indicates small grade 1 varices were present in the distal esophagus. Varices was not actively bleeding (6) Tobacco dependence: Code(s): F17.200 - Nicotine dependence, unspecified, uncomplicated Status: Acute Assessment and Plan: * Nicotine patch as needed (7) Ascites: Code(s): R18.8 - Other ascites Status: Acute Assessment and Plan: * Imaging indicates large volume ascites * Will complete paracentesis when appropriate * Requested records from environmental economist to determine if patient has regular paracentesis. According to patient he has not had any paracentesis (8) Perforated viscus: Code(s): R19.8 - Other specified symptoms and signs involving the digestive system and abdomen Status: Acute Assessment and Plan: * Imaging indicates Free intraperitoneal gas which is consistent with perforated viscus if recent suggestions or surgery. * Surgery consulted * Requested records environmental economist in procedure note * According to patient he has not had any recent surgeries or paracentesis * KUB order indicates nonobstructive bowel gas pattern with Cholelithiasis.. (9) Colitis: Code(s): K52.9 - Noninfective gastroenteritis and colitis, unspecified Status: Acute Assessment and Plan: * Imaging and a skate colitis * Cipro and Flagyl started * Lactic acid within normal limits * Elevated wbc's * Lactic 3.3>4.1 * Blood culture collected after use of antibiotics (10) Cholecystitis: Code(s): K81.9 - Cholecystitis, unspecified Status: Acute Assessment and Plan: * Imaging indicates acute cholecystitis.Consider hepatobiliary
--- NOTE | 2021-06-23 11:02 | WPDPN ---
Progress Note: A&P Assessment and Plan (1) Acute GI hemorrhage: Code(s): K92.2 - Gastrointestinal hemorrhage, unspecified Status: Acute Assessment and Plan: Stable Continue octreotide and pantoprazole Serial H&H 6.8/20.4>7.3/21.2>7.4/21.5>7.3/21.3 PRBCs infused Transfuse as needed GI consult emergent EGD completed, no active bleeding found Discontinue diclofenac discharge avoid NSAID, alcohol was cessation (2) Mental status alteration: Code(s): R41.82 - Altered mental status, unspecified Status: Acute Assessment and Plan: Resolved Likely secondary to hepato encephalopathy Supportive care WBC 17.7>20.2>26.1, lactic 2.0>3.3>4.1>2.1>2.8, Ammonia wnl Toxicology negative Lipase elevated at 403>623 worsened Elevated lactic acid 3.3>4.1>2.1>2.8 (3) Macrocytic anemia: Code(s): D53.9 - Nutritional anemia, unspecified Status: Acute Assessment and Plan: Likely secondary to alcohol abuse follow-up in outpatient setting (4) Alcoholism: Code(s): F10.20 - Alcohol dependence, uncomplicated Status: Acute Assessment and Plan: Continue to monitor for withdrawal CIWA protocol as needed Alcohol withdrawal protocol implemented Ammonia level 14 Lactulose adjusted due to excessive diarrhea. Changed to 20 g daily (5) Cirrhosis of liver with ascites: Qualifiers: Hepatic cirrhosis type: alcoholic cirrhosis Qualified Code(s): K70.31 - Alcoholic cirrhosis of liver with ascites Code(s): K74.60 - Unspecified cirrhosis of liver; R18.8 - Other ascites Status: Acute Assessment and Plan: CT indicates Cirrhosis of the liver and large volume of ascites Patient is on Nadolol, rifaximin, lactulose. Continue to monitor Alcohol level within normal limits Lipase elevated 403>[address] Wiley at [facility] EGD indicates small grade 1 varices were present in the distal esophagus. Varices was not actively bleeding (6) Tobacco dependence: Code(s): F17.200 - Nicotine dependence, unspecified, uncomplicated Status: Acute Assessment and Plan: Nicotine patch as needed (7) Ascites: Code(s): R18.8 - Other ascites Status: Acute Assessment and Plan: Imaging indicates large volume ascites Will complete paracentesis when appropriate Requested records from sign builder to determine if patient has regular paracentesis. According to patient he has not had any paracentesis (8) Perforated viscus: Code(s): R19.8 - Other specified symptoms and signs involving the digestive system and abdomen Status: Acute Assessment and Plan: Imaging indicates Free intraperitoneal gas which is consistent with perforated viscus if recent suggestions or surgery. Surgery consulted Requested records sign builder in procedure note According to patient he has not had any recent surgeries or paracentesis KUB order indicates nonobstructive bowel gas pattern with Cholelithiasis.. (9) Colitis: Code(s): K52.9 - Noninfective gastroenteritis and colitis, unspecified Status: Acute Assessment and Plan: Imaging and a skate colitis Cipro and Flagyl started Lactic acid within normal limits Elevated wbc's Lactic 3.3>4.1 Blood culture collected after use of antibiotics (10) Cholecystitis: Code(s): K81.9 - Cholecystitis, unspecified Status: Acute Assessment and Plan: Imaging indicates acute cholecystitis.Consider hepatobiliary scintigraphy if there is clinical suspicion for acute cholecystitis. Surgery consulted. Refer to note (11) Gastritis: Code(s): K29.70 - Gastritis, unspecified, without bleeding Status: Acute Assessment and Plan: EGD completed yesterday indicate gastritis (12) Duodenal ulcer: Code(s): K26.9 - Duodenal ulcer, unspecified as acute or chronic, without hemorrhage or perforation Status: Acute Assessmen
--- NOTE | 2021-06-23 11:31 | WPDGIPROGNO ---
Progress Note: A&P Assessment and Plan (1) Acute GI hemorrhage: Code(s): K92.2 - Gastrointestinal hemorrhage, unspecified Status: Acute Assessment and Plan: he had large DU without active bleeding, also small esophageal varices without bleeding- did not required endoscopic intervention continue with antibiotics, ppi ok to discontinue octreotide surgery on board because small amount of free air- abdominal exam benign, lactic acid 2.8 continue to monitor (2) Duodenal ulcer: Code(s): K26.9 - Duodenal ulcer, unspecified as acute or chronic, without hemorrhage or perforation Status: Acute Assessment and Plan: medical treatment, probably source of GIB also noted diclofenac as home med- discontinued and he should not be on any more nsaid's (3) Acute blood loss anemia: Code(s): D62 - Acute posthemorrhagic anemia Status: Acute Assessment and Plan: s/p blood transfusion, hb low but stable now, no more ongoing bleeding (4) Free intraperitoneal air: Code(s): K66.8 - Other specified disorders of peritoneum Status: Acute Assessment and Plan: surgery on board (5) Cirrhosis of liver with ascites: Qualifiers: Hepatic cirrhosis type: alcoholic cirrhosis Qualified Code(s): K70.31 - Alcoholic cirrhosis of liver with ascites Code(s): K74.60 - Unspecified cirrhosis of liver; R18.8 - Other ascites Status: Acute Assessment and Plan: from alcohol abuse, he is seeing chairman & ceo at [facility]- Dr Wiley (6) Alcoholism: Code(s): F10.20 - Alcohol dependence, uncomplicated Status: Acute Assessment and Plan: thiamine, medical support (7) Renal failure: Code(s): N19 - Unspecified kidney failure Status: Acute Assessment and Plan: noted berhane but today creatinine better (8) Abdominal pain: Code(s): R10.9 - Unspecified abdominal pain Status: Acute Assessment and Plan: improving (9) Liver encephalopathy: Code(s): K72.90 - Hepatic failure, unspecified without coma Status: Acute Assessment and Plan: awake and alert, at baseline on lactulose Subjective Date/time seen: 06/23/21 11:31 Interval history: no more report of bleeding, less abdominal pain and he is comfortable, tolerating liquid diet Review of Systems Review of Systems: All systems reviewed & are unremarkable except as noted in HPI and below Exam Const: General: cooperative, comfortable, no acute distress and ill appearing chronically Eyes: Pupils: Equal, round and reactive pupils present Neck: Neck: supple Resp: Auscultation: clear to auscultation bilaterally Cardio: Rate: regular rate GI: GI Palp: Yes Soft to palpation, No Tenderness to palpation present (GI) and No Guarding due to palpation present (GI) Percussion: Yes Fluid wave present Auscultation: normal bowel sounds Other: + umbilical hernia Skin: Other: telangiectasias Neuro: Speech: normal speech Motor exam (neuro): Normal motor muscle tone present throughout Extrem: General: normal to inspection Psych: Mental Status: mental status grossly normal Objective Data Vital Signs Vital Signs: Vital Signs - 24 hr 06/22/21 12:00 06/22/21 14:00 06/22/21 16:00 Temperature 97.2 F L 96.9 F L Pulse Rate 69 77 71 Respiratory Rate 16 20 Blood Pressure 126/57 L 125/56 L Pulse Oximetry 98 95 06/22/21 18:00 06/22/21 19:30 06/22/21 20:00 Temperature 97.7 F Pulse Rate 63 68 61 Respiratory Rate 20 Blood Pressure 113/52 L Pulse Oximetry 98 98 06/22/21 22:00 06/23/21 00:00 06/23/21 02:00 Temperature 97.8 F Pulse Rate 65 73 78 Respiratory Rate 18 Blood Pressure 112/59 L Pulse Oximetry 93 06/23/21 04:00 06/23/21 06:00 06/23/21 08:00 Temperature 97.8 F 98.3 F Pulse Rate 76 72 71 Respiratory Rate 16 18 Blood Pressure 113/59 L 113/57 L Pulse Oximetry 96 93 06/23/21 08:13 06/23/21 10:00 Temperat
--- NOTE | 2021-06-23 12:28 | PM.PNGS ---
Progress Note: A&P Assessment and Plan (1) Duodenal ulcer: Code(s): K26.9 - Duodenal ulcer, unspecified as acute or chronic, without hemorrhage or perforation Status: Acute Assessment and Plan: no active bleeding, cont mgmt per GI (2) Free intraperitoneal air: Code(s): K66.8 - Other specified disorders of peritoneum Status: Acute Assessment and Plan: unknown etiology, exam benign, slow ADAT (3) Acute GI hemorrhage: Code(s): K92.2 - Gastrointestinal hemorrhage, unspecified Status: Acute Assessment and Plan: likely secondary to DU, H/H stable at this point (4) Cirrhosis of liver with ascites: Qualifiers: Hepatic cirrhosis type: alcoholic cirrhosis Qualified Code(s): K70.31 - Alcoholic cirrhosis of liver with ascites Code(s): K74.60 - Unspecified cirrhosis of liver; R18.8 - Other ascites Status: Acute Assessment and Plan: chronic, cont mgmt c specialist at [facility] Subjective Subjective Date/Time Seen: 06/23/21 12:28 feels better, no further abd pain, timothy clears Review of Systems Review of Systems: All systems reviewed & are unremarkable except as noted in HPI and below Exam Const: General: cooperative, comfortable, no acute distress and ill appearing Resp: Auscultation: diminished lung sounds Cardio: Rate: regular rate Rhythm: regular rhythm GI: Inspection: normal to inspection and distended GI Palp: No abdominal tenderness, Yes Soft to palpation and No Tenderness to palpation present (GI) Other: large umbilical hernia Objective Data Vital Signs Vital Signs: Vital Signs - 24 hr 06/22/21 14:00 06/22/21 16:00 06/22/21 18:00 Temperature 36.1 C L Pulse Rate 77 71 63 Respiratory Rate 20 Blood Pressure 125/56 L Pulse Oximetry 95 06/22/21 19:30 06/22/21 20:00 06/22/21 22:00 Temperature 36.5 C Pulse Rate 68 61 65 Respiratory Rate 20 Blood Pressure 113/52 L Pulse Oximetry 98 98 06/23/21 00:00 06/23/21 02:00 06/23/21 04:00 Temperature 36.6 C 36.6 C Pulse Rate 73 78 76 Respiratory Rate 18 16 Blood Pressure 112/59 L 113/59 L Pulse Oximetry 93 96 06/23/21 06:00 06/23/21 08:00 06/23/21 08:13 Temperature 36.8 C Pulse Rate 72 71 72 Respiratory Rate 18 Blood Pressure 113/57 L Pulse Oximetry 94 06/23/21 10:00 06/23/21 12:00 Temperature Pulse Rate 65 67 Respiratory Rate Blood Pressure Pulse Oximetry Intake/Output Intake/Output: Intake & Output 06/20/21 06/21/21 06/22/21 06/23/21 23:59 23:59 23:59 23:59 Intake Total 1050 3700 5560 2800 Output Total 800 2750 1000 Balance 1050 2900 2810 1800 Meds/Results Medications: Active Medications Generic Name Dose Route Start Last Admin Trade Name Freq PRN Reason Stop Dose Admin Acyclovir 400 mg 06/21/21 09:00 06/23/21 08:13 Acyclovir 400 Mg Tablet PO 400 mg DAILY JOSEFA Administration Diphenhydramine HCl 25 mg 06/21/21 13:12 Diphenhydramine Hcl Inj 50 Mg/Ml Vial IV PUSH HS PRN Insomnia Gabapentin 600 mg 06/21/21 09:00 06/23/21 08:13 Gabapentin 300 Mg Capsule PO 600 mg QID JOSEFA Administration Ciprofloxacin/Dextrose 200 mls @ 200 mls/hr 06/21/21 10:25 06/23/21 09:14 Cipro 400 Mg/D5w 200 Ml IVPB Infused Q12HR JOSEFA Infusion Sodium Chloride 1,000 mls @ 100 mls/hr 06/22/21 14:00 06/23/21 03:09 Normal Saline Iv IV CONT 100 mls/hr .Q10H JOSEFA Administration Ceftriaxone Sodium 2 gm/ 100 mls @ 200 mls/hr 06/22/21 18:00 06/23/21 06:35 Sodium Chloride IVPB Infused Q12H JOSEFA Infusion Lactulose 20 gm 06/21/21 09:00 06/23/21 08:12 Lactulose 20 Gm/30 Ml Udc PO 20 gm TID JOSEFA Administration Lorazepam 2 mg 06/23/21 11:10 Lorazepam Inj (*Crx) 2 Mg/Ml Vial IV PUSH Q4H PRN Withdrawal Metoprolol Succinate 100 mg 06/22/21 09:00 06/23/21 08:13 Metoprolol Succinate Ext Rel 100 Mg Tabcr PO 100 mg QAM JOSEFA Administration Metroni
--- NOTE | 2021-06-23 14:42 | PC.NURSE ---
This patient, Phil Laird, was received from IMU on 06/23/21 at 1442. Patient/family oriented to unit policies and routines
[2021-06-23] MEDS: traZODone HCL 50 MG TABLET PO (20:44)
[2021-06-23] MEDS: ONDANSETRON INJ 4 MG/2 ML VIAL IV PUSH (20:46)
[2021-06-24] VITALS (20 sets, daily range): BP systolic 85–134; BP diastolic 30–51; PULSE 62–99; RESP 15–24; TEMP 36–37.3; O2SAT 92–99; BMI 28.8
[2021-06-24] MEDS: LORazepam INJ (*CRX) 2 MG/ML VIAL IV PUSH ×2 (03:01→10:00)
[2021-06-24] MEDS: metroNIDAZOLE 250 MG TABLET 500 MG PO (05:03)
[2021-06-24] MEDS: CENTRAL LINE FLUSH 10 ML IV PUSH ×4 (05:03→20:52)
[2021-06-24] MEDS: cefTRIAXone 2 GM in SODIUM CHLORIDE 0.9% IV 100 ML 200 ML IVPB ×2 (05:03→17:41)
[2021-06-24 07:04] LABS: Hematocrit 25.9 % (42.0-52.0); Hemoglobin 8.8 g/dL (14.0-18.0); Mean Corpuscular Hemoglobin 34.1 pg (26-34); Mean Corpuscular Volume 100.4 fl (80-100); Mean Platelet Volume 10.7 fl (7.4-10.4); Platelet Count Result 192 k/mm3 (150-375); Red Blood Count 2.58 M/mm3 (4.6-6.20); Red Cell Distribution Width 18.6 % (11.5-14.5); White Blood Count 41.5 K/mm3 (4.5-10.0)
[2021-06-24 07:14] LABS: Lactic Acid Reflex 3.7 mmol/L (0.7-2.1)
[2021-06-24 07:16] LABS: Alanine Aminotransferase 21 U/L (4-50); Albumin Level 2.5 g/dL (3.5-5.1); Alkaline Phosphatase 91 U/L (38-126); Anion Gap 12 mmol/L (8-16); Aspartate Amino Transferase 34 U/L (17-59); Bilirubin,Total 2.8 mg/dL (0.2-1.3); Blood Urea Nitrogen 57 mg/dL (9-20); Calcium 7.8 mg/dL (8.4-10.2); Carbon Dioxide 15 mmol/L (22-30); Chloride 101 mmol/L (98-107); Estimated CRCL calculation 50 ml/min; Estimated Glomerular Filt Rate 46; Glucose 118 mg/dL (65-110); Lipase 366 U/L (23-300); Magnesium 2.5 mg/dL (1.6-2.3); Sodium 128 mmol/L (137-145)
[2021-06-24 07:48] LABS: Ammonia 15 umol/L (9-30)
--- NOTE | 2021-06-24 08:54 | PM.PNGS ---
Progress Note: A&P Assessment and Plan (1) Abdominal pain: Code(s): R10.9 - Unspecified abdominal pain Status: Acute Assessment and Plan: exam worse but no peritoneal signs, increased leukocytosis and lactic acid, will get CT for further eval, will also send stool for CDiff (2) Cirrhosis of liver with ascites: Qualifiers: Hepatic cirrhosis type: alcoholic cirrhosis Qualified Code(s): K70.31 - Alcoholic cirrhosis of liver with ascites Code(s): K74.60 - Unspecified cirrhosis of liver; R18.8 - Other ascites Status: Acute Assessment and Plan: supportive care Subjective Subjective Date/Time Seen: 06/24/21 08:54 seems more uncomfortable this am, he is timothy clears, somewhat confused Review of Systems Review of Systems: All systems reviewed & are unremarkable except as noted in HPI and below Exam Const: General: cooperative, acute distress mild, confusion and ill appearing Nutritional Appearance: overweight Orientation/consciousness: oriented to person and oriented to place Resp: Auscultation: clear to auscultation bilaterally Cardio: Rate: regular rate Rhythm: regular rhythm GI: Inspection: normal to inspection and distended GI Palp: Yes Soft to palpation, Yes Tenderness to palpation present (GI), No Guarding due to palpation present (GI) and No Rigid due to palpation Other: incarcerated [facility] Objective Data Vital Signs Vital Signs: Vital Signs - 24 hr 06/23/21 10:00 06/23/21 12:00 06/23/21 16:00 Temperature 36.7 C Pulse Rate 65 67 66 Respiratory Rate 18 Blood Pressure 111/60 Pulse Oximetry 98 06/23/21 19:18 06/23/21 23:47 06/24/21 03:02 Temperature 36.4 C L 36.6 C 37.1 C Pulse Rate 77 73 71 Respiratory Rate 17 18 17 Blood Pressure 117/55 L 117/55 L 110/50 L Pulse Oximetry 98 97 99 06/24/21 05:11 Temperature Pulse Rate Respiratory Rate Blood Pressure 113/49 L Pulse Oximetry Intake/Output Intake/Output: Intake & Output 06/21/21 06/22/21 06/23/21 06/24/21 23:59 23:59 23:59 23:59 Intake Total 3700 5560 5530 1500 Output Total 800 2750 1000 200 Balance 2900 2810 4530 1300 Meds/Results Medications: Active Medications Generic Name Dose Route Start Last Admin Trade Name Freq PRN Reason Stop Dose Admin Acyclovir 400 mg 06/21/21 09:00 06/23/21 08:13 Acyclovir 400 Mg Tablet PO 400 mg DAILY JOSEFA Administration Diphenhydramine HCl 25 mg 06/21/21 13:12 Diphenhydramine Hcl Inj 50 Mg/Ml Vial IV PUSH HS PRN Insomnia Gabapentin 600 mg 06/21/21 09:00 06/23/21 20:44 Gabapentin 300 Mg Capsule PO 600 mg QID JOSEFA Administration Ciprofloxacin/Dextrose 200 mls @ 200 mls/hr 06/21/21 10:25 06/23/21 21:45 Cipro 400 Mg/D5w 200 Ml IVPB Infused Q12HR JOSEFA Infusion Sodium Chloride 1,000 mls @ 100 mls/hr 06/22/21 14:00 06/24/21 00:00 Normal Saline Iv IV CONT 100 mls/hr .Q10H JOSEFA Administration Ceftriaxone Sodium 2 gm/ 100 mls @ 200 mls/hr 06/22/21 18:00 06/24/21 05:03 Sodium Chloride IVPB 200 mls/hr Q12H JOSEFA Administration Lactulose 20 gm 06/24/21 09:00 Lactulose 20 Gm/30 Ml Udc PO DAILY JOSEFA Lorazepam 2 mg 06/23/21 11:10 06/24/21 03:01 Lorazepam Inj (*Crx) 2 Mg/Ml Vial IV PUSH 2 mg Q4H PRN Administration Withdrawal Metoprolol Succinate 100 mg 06/22/21 09:00 06/23/21 08:13 Metoprolol Succinate Ext Rel 100 Mg Tabcr PO 100 mg QAM JOSEFA Administration Metronidazole 500 mg 06/21/21 14:00 06/24/21 05:03 Metronidazole 250 Mg Tablet PO 500 mg Q8HR JOSEFA Administration Ondansetron HCl 4 mg 06/20/21 21:45 06/23/21 20:46 Ondansetron Inj 4 Mg/2 Ml Vial IV PUSH 4 mg Q4H PRN Administration Nausea Pantoprazole Sodium 40 mg 06/21/21 21:00 06/23/21 20:44 Pantoprazole Sodium Iv 40 Mg Vial IV PUSH 40 mg Q12HR JOSEFA Administration Rifaximin 550 mg 06/21/21 09:00 06/23/21 17:36 Rifaximin 550 Mg Tablet PO 550 mg B
[2021-06-24] MEDS: THIAMINE HCL 200 MG/2 ML VIAL 100 MG IV PUSH (09:40)
[2021-06-24] MEDS: LACTULOSE 20 GM/30 ML UDC PO (09:40)
[2021-06-24] MEDS: ACYCLOVIR 400 MG TABLET PO (09:40)
[2021-06-24] MEDS: rifAXIMin 550 MG TABLET PO (09:40)
[2021-06-24] MEDS: PANTOPRAZOLE SODIUM IV 40 MG VIAL IV PUSH ×2 (09:40→20:52)
[2021-06-24] MEDS: METOPROLOL SUCCINATE EXT REL 100 MG TABCR PO (09:40)
[2021-06-24] MEDS: GABAPENTIN 300 MG CAPSULE 600 MG PO (09:40)
[2021-06-24] MEDS: CIPROFLOXACIN 400 MG/D5W 200ML 200 ML 200 MG IVPB ×2 (09:41→20:51)
[2021-06-24 10:00] LABS: Reflex Lactic Acid Yes or No Add Lactic
[2021-06-24] MEDS: SODIUM CHLORIDE 0.9% IV 1,000 ML 100 ML IV CONT ×3 (10:08→16:32)
--- NOTE | 2021-06-24 11:09 | WPDHPUPDATE1 ---
History and Physical Update Update Date/Time: 06/24/21 11:09 History and Physical has been reviewed, including an updated exam of the patient. There are NO changes in the patient's condition. Risks, benefits, and alternatives have been discussed and questions answered. Patient agrees to proceed with procedure. Findings of increased free air on CT, will proceed c emergent ex lap, possible bowel resection, possible ostomy. D/w pt and and they wish to proceed
[2021-06-24] MEDS: LACTATED RINGERS 1,000 ML 30 ML IV CONT ×3 (11:40→13:15)
[2021-06-24 11:50] LABS: Lactic Acid 4.5 mmol/L (0.7-2.1)
--- NOTE | 2021-06-24 11:52 | WPDANESEPPF ---
Anes - Initial Pre Proc Eval Procedure: Operation Date: 06/24/21 12:00 Proposed Procedures p Exploratory Laparotomy, Possible Bowel Resection, Possible Ostomy - Fela Tijerina MD Date/Time: 06/24/21 11:52 Surgeon: Haroldo Box MD Pre Op Diagnosis: GI Bleeding, Anemia, Cirrhosis Patient Data Age: 51 Gender: M Height: 1.78 m Weight: 91.3 kg Last Vital Signs Temp 37.1 C 06/24/21 03:02 Pulse 71 06/24/21 03:02 Resp 17 06/24/21 03:02 BP 113/49 L 06/24/21 05:11 Pulse Ox 99 06/24/21 03:02 Allergies Allergy/AdvReac Type Severity Reaction Status Date / Time No Known Allergies Allergy Verified 04/02/21 11:14 Home Medications Medication Instructions Recorded Confirmed Type rifaximin 550 mg tablet 550 mg PO BID 11/27/20 06/21/21 History gabapentin 600 mg tablet 600 mg PO QID #120 tablet 04/02/21 06/21/21 Rx diclofenac sodium 75 mg 75 mg PO DAILY tablet 04/23/21 06/21/21 History tablet,delayed release lactulose 20 gram/30 mL oral 20 g PO TID #1200 ml 04/23/21 06/21/21 Rx solution metoprolol tartrate 25 mg tablet 100 mg PO DAILY tablet 04/23/21 06/21/21 History nadolol 20 mg tablet 20 mg PO DAILY tablet 04/23/21 06/21/21 History acyclovir 400 mg PO DAILY 06/21/21 06/21/21 History Laboratory Tests 06/24/21 06/24/21 06/24/21 06:45 06:45 06:45 WBC 41.5 K/mm3 H K/mm3 (4.5-10.0) RBC 2.58 M/mm3 L M/mm3 (4.6-6.20) Hgb 8.8 g/dL L g/dL (14.0-18.0) Hct 25.9 % L % (42.0-52.0) MCV 100.4 fl H fl (80-100) MCH 34.1 pg H pg (26-34) MCHC 34.0 g/dl g/dl (32-36) RDW 18.6 % H % (11.5-14.5) Plt Count 192 k/mm3 k/mm3 (150-375) MPV 10.7 fl H fl (7.4-10.4) Sodium 128 mmol/L L mmol/L (137-145) Potassium 4.0 mmol/L mmol/L (3.4-5.0) Chloride 101 mmol/L mmol/L (98-107) Carbon Dioxide 15 mmol/L L mmol/L (22-30) Anion Gap 12 mmol/L mmol/L (8-16) BUN 57 mg/dL H mg/dL (9-20) Creatinine 1.60 mg/dL H mg/dL (0.7-1.3) Estim Creat Clear Calc 50 ml/min ml/min Estimated GFR 46 L (59 - ) Glucose 118 mg/dL H mg/dL (65-110) Lactic Acid Calcium 7.8 mg/dL L mg/dL (8.4-10.2) Magnesium 2.5 mg/dL H mg/dL (1.6-2.3) Total Bilirubin 2.8 mg/dL H mg/dL (0.2-1.3) AST 34 U/L U/L (17-59) ALT 21 U/L U/L (4-50) Alkaline Phosphatase 91 U/L U/L (38-126) Ammonia 15 umol/L umol/L (9-30) Total Protein 5.0 g/dL L g/dL (6.3-8.2) Albumin 2.5 g/dL L g/dL (3.5-5.1) Lipase 366 U/L H U/L (23-300) 06/24/21 06/24/21 06:45 11:06 WBC RBC Hgb Hct MCV MCH MCHC RDW Plt Count MPV Sodium Potassium Chloride Carbon Dioxide Anion Gap BUN Creatinine Estim Creat Clear Calc Estimated GFR Glucose Lactic Acid 3.7 mmol/L H mmol/L 4.5 mmol/L H* mmol/L (0.7-2.1) (0.7-2.1) Calcium Magnesium Total Bilirubin AST ALT Alkaline Phosphatase Ammonia Total Protein Albumin Lipase Patient hx anesthesia problems: none Family hx anesthesia problems: none Results Review: All pre-operative results and documents have been reviewed as part of the pre-operative evaluation. [facility] Past Medical History Medical History (Updated 06/22/21 @ 14:01 by LATASHA Guzman) Abdominal pain Acute blood loss anemia Alcoholism Longstanding history of alcohol abuse, he has been sober for 5 weeks as of 10/13/2020. Cirrhosis of liver Esophageal bleeding Liver encephalopathy Melena Peripheral neuropathy Renal failur
--- NOTE | 2021-06-24 12:53 | SUR.OPER ---
ascites fluid:9300cc
--- NOTE | 2021-06-24 13:18 | W.PM.PROC2 ---
Procedure Note - Detailed Date of Procedure 06/24/21 Pre-op Diagnosis perforated viscus, sepsis Post-op Diagnosis other ( perforated gastric ulcer, intra-abdominal sepsis, large volume intra-abdominal ascites) Procedure Performed exploratory laparotomy, evacuation of 9.3 L intra-abdominal ascites, repair of perforated gastric ulcer with omental patch, intra-abdominal washout Surgeon Fela Tijerina MD Anesthesia general Indications 51-year-old male with multiple medical issues including alcoholic cirrhosis presenting with perforated viscus, sepsis Findings 9.3 L intra-abdominal ascites, perforated gastric ulcer Description of Procedure The patient was taken to the operating room and placed in the supine position. After adequate induction of general anesthesia, the patient was prepped and draped in the normal sterile fashion. A time-out was then done to verify the patient's identity, as well as the procedure being performed. A generous midline incision was then done to gain access into the peritoneal cavity. It was noted at this time the patient had very dilated veins in the subcutaneous tissue consistent with his known cirrhosis. These veins were cauterized with the LigaSure device. Upon getting into the abdominal cavity, a large amount of free air was encountered. There was noted to be a large volume of intra-abdominal ascites. The ascites was slowly evacuated given the instability of the patient's blood pressure. The total evacuation of ascites was noted to be around 9.3 L. Once the ascites was evacuated, I was able to examine the abdomen. There was noted to be some gastric succus in the left upper quadrant. Upon examination, there was noted to be a perforation of the anterior stomach. I was able to control this perforation by closing the perforation in 2 layers with Vicryl suture. Once closed, I proceeded to place a Román patch with omentum to patch our repair. An NG tube was then placed and with manual manipulation I was able to stent our repair with the NG tube. The NG tube was then secured to the patient. I then examined the rest of the abdomen, the small bowel and colon were noted to be somewhat edematous and inflamed. No other pathology was noted in the bowel. The appendix was noted to be largely unremarkable. The liver was noted to be hard and nodular, consistent with known cirrhosis. I then did an intra-abdominal washout with normal saline. I left a 19 [place] KERON drain in the left upper quadrant. Then closed the anterior fascia with a running 0 looped PDS. The skin was closed with skin yuniel. The patient tolerated the procedure relatively well. He was extubated in the operating room postoperative and will be transferred to the recovery room in stable condition. Estimated Blood Loss 100 Urine Output 200 Drains Yes Packing No Pathology none sent Complications No immediate complications Condition stable Disposition PACU
--- NOTE | 2021-06-24 13:22 | SUR.OPER ---
EBL:25cc
--- NOTE | 2021-06-24 14:14 | PM.IMPN ---
Progress Note: A&P Assessment and Plan (1) Acute GI hemorrhage: Code(s): K92.2 - Gastrointestinal hemorrhage, unspecified Status: Acute Assessment and Plan: Stable Hgb 8.8 S/p octreotide Continue with pantoprazole Transfuse as needed GI following, recommendations appreciated S/p emergent EGD completed, no active bleeding found Discontinue diclofenac discharge avoid NSAID, alcohol was cessation (2) Mental status alteration: Code(s): R41.82 - Altered mental status, unspecified Status: Acute Assessment and Plan: Resolved Likely secondary to hepato encephalopathy Supportive care WBC 17.7>20.2>26.1, lactic 2.0>3.3>4.1>2.1>2.8 Ammonia wnl Toxicology negative Lipase elevated at 403>623>366 today Elevated lactic acid 3.3>4.1>2.1>2.8>4.5 today (3) Macrocytic anemia: Code(s): D53.9 - Nutritional anemia, unspecified Status: Acute Assessment and Plan: Likely secondary to alcohol abuse follow-up in outpatient setting (4) Alcoholism: Code(s): F10.20 - Alcohol dependence, uncomplicated Status: Acute Assessment and Plan: CIWA protocol as needed Alcohol withdrawal protocol implemented Ammonia level 14 Lactulose adjusted due to excessive diarrhea, continue 20 gm daily (5) Cirrhosis of liver with ascites: Qualifiers: Hepatic cirrhosis type: alcoholic cirrhosis Qualified Code(s): K70.31 - Alcoholic cirrhosis of liver with ascites Code(s): K74.60 - Unspecified cirrhosis of liver; R18.8 - Other ascites Status: Acute Assessment and Plan: CT of A/P indicates Cirrhosis of the liver and large volume of ascites Patient is on Nadolol, rifaximin, lactulose\ Continue to monitor Alcohol level within normal limits Lipase elevated 403>623>[address] Wiley at [facility] EGD indicates small grade 1 varices were present in the distal esophagus. arices was not actively bleeding (6) Tobacco dependence: Code(s): F17.200 - Nicotine dependence, unspecified, uncomplicated Status: Acute Assessment and Plan: Nicotine patch as needed (7) Ascites: Code(s): R18.8 - Other ascites Status: Acute Assessment and Plan: Noted on CT of a/p Records from manager consumer to determine if patient has regular paracentesis requested According to patient he has not had any paracentesis (8) Perforated viscus: Code(s): R19.8 - Other specified symptoms and signs involving the digestive system and abdomen Status: Acute Assessment and Plan: CT of A/P indicates Free intraperitoneal gas which is consistent with perforated viscus if recent suggestions or surgery. GS following, recommendations apprecaited KUB order indicates nonobstructive bowel gas pattern with Cholelithiasis (9) Colitis: Code(s): K52.9 - Noninfective gastroenteritis and colitis, unspecified Status: Acute Assessment and Plan: Noted on CT of A/P Continue IV antibiotics Lactic acid 3.3>4.1>2.1>2.8-->4.5 today Elevated wbc's Blood culture collected after use of antibiotics (10) Gastritis: Code(s): K29.70 - Gastritis, unspecified, without bleeding Status: Acute Assessment and Plan: EGD-->mild, no bleeding (11) Duodenal ulcer: Code(s): K26.9 - Duodenal ulcer, unspecified as acute or chronic, without hemorrhage or perforation Status: Acute Assessment and Plan: Likely source of GI bleed On diclofenac as home med, d/c'd and should avoid NSAIDS (12) Elevated lactic acid level: Code(s): R79.89 - Other specified abnormal findings of blood chemistry Status: Acute Assessment and Plan: Possibly secondary to infection versus inflammation Lactic acid 3.3>4.1>2.1>2.8-->4.5 today Continue IVF Blood culture pending Wbc's worsening 17.7>20.0>26.1-->41.5 today Continue IV Rocephin, Flagyl, Cipro Consider contacting ID for assistance (13) Acute kidney injury: Code(
--- NOTE | 2021-06-24 15:58 | PC.NURSE ---
Report given to Kaykay CORONA, patients belongings and ring given to RN.
--- NOTE | 2021-06-24 16:06 | SUR.PHASEI ---
[address] marquez about sbp 89-90s iv fluids continue. with bp increasing to sbp 90-98.
--- NOTE | 2021-06-24 16:07 | PC.NURSE ---
This patient, Phil Laird, was received from 240/OR on 06/24/21 at 1605. Report received from Daniella CORONA in PACU and Florencia CORONA from [address] [place] [address]. Patient/family oriented to unit policies and routines
--- NOTE | 2021-06-24 17:30 | WPDGIPROGNO ---
Progress Note: A&P Assessment and Plan (1) Perforated gastric ulcer: Code(s): K25.5 - Chronic or unspecified gastric ulcer with perforation Status: Acute Assessment and Plan: s/p surgery today ngt in place iv protonix (2) Elevated lactic acid level: Code(s): R79.89 - Other specified abnormal findings of blood chemistry Status: Acute Assessment and Plan: he was taken to OR (3) Liver encephalopathy: Code(s): K72.90 - Hepatic failure, unspecified without coma Status: Acute Assessment and Plan: he was on lactulose (4) Cirrhosis of liver: Code(s): K74.60 - Unspecified cirrhosis of liver Status: Acute Assessment and Plan: eoth use (5) Alcoholism: Code(s): F10.20 - Alcohol dependence, uncomplicated Status: Acute (6) NSAID long-term use: Code(s): Z79.1 - MCFP (current) use of non-steroidal anti-inflammatories (NSAID) Status: Acute Assessment and Plan: it has been discontinued and probably can explain part of presentation (7) Acute blood loss anemia: Code(s): D62 - Acute posthemorrhagic anemia Status: Acute Assessment and Plan: due to PUD, s/p surgery Subjective Date/time seen: 06/24/21 17:30 Interval history: taken to OR and found to have perforated peptic ulcer disease and also ascites, he is resting now after surgery Review of Systems Review of Systems: All systems reviewed & are unremarkable except as noted in HPI and below Exam Const: General: comfortable Other: NGT in place HENMT: General nose exam: Normal nares present Eyes: Sclera: sclerae normal Neck: Neck: supple Resp: Auscultation: clear to auscultation bilaterally Cardio: Rate: regular rate GI: Other: dressing in place, KERON drain, tender Skin: General skin exam: no rashes or lesions noted Neuro: Speech: normal speech Extrem: General: normal to inspection Psych: Mental Status: mental status grossly normal Objective Data Vital Signs Vital Signs: Vital Signs - 24 hr 06/23/21 19:18 06/23/21 23:47 06/24/21 03:02 Temperature 97.5 F L 97.8 F 98.8 F Pulse Rate 77 73 71 Respiratory Rate 17 18 17 Blood Pressure 117/55 L 117/55 L 110/50 L Pulse Oximetry 98 97 99 06/24/21 05:11 06/24/21 11:39 06/24/21 13:15 Temperature 99.1 F 97.7 F Pulse Rate 77 99 Respiratory Rate 24 H 19 Blood Pressure 113/49 L 99/51 L 134/47 L Pulse Oximetry 94 99 06/24/21 13:30 06/24/21 13:45 06/24/21 14:00 Temperature Pulse Rate 90 90 82 Respiratory Rate 16 16 16 Blood Pressure 129/42 L 110/48 L 114/42 L Pulse Oximetry 98 97 94 06/24/21 14:15 06/24/21 14:30 06/24/21 14:45 Temperature 98.1 F Pulse Rate 75 69 68 Respiratory Rate 22 H 22 H 15 Blood Pressure 105/45 L 90/37 L 85/36 L Pulse Oximetry 96 92 96 06/24/21 15:00 06/24/21 15:15 06/24/21 15:31 Temperature Pulse Rate 68 64 66 Respiratory Rate 15 16 15 Blood Pressure 102/39 L 93/43 L 91/40 L Pulse Oximetry 96 94 94 06/24/21 15:44 06/24/21 16:00 06/24/21 16:17 Temperature 96.8 F L Pulse Rate 62 64 Respiratory Rate 16 20 Blood Pressure 95/39 L 93/38 L Pulse Oximetry 95 94 95 Intake/Output Intake/Output: Intake & Output 06/21/21 06/22/21 06/23/21 06/24/21 23:59 23:59 23:59 23:59 Intake Total 3700 5560 5530 4840 Output Total 800 2750 1000 595 Balance 2900 2810 4530 4245 Meds/Results Medications: Active Medications Generic Name Dose Route Start Last Admin Trade Name Freq PRN Reason Stop Dose Admin Diphenhydramine HCl 25 mg 06/21/21 13:12 Diphenhydramine Hcl Inj 50 Mg/Ml Vial IV PUSH HS PRN Insomnia Fentanyl Citrate 25 mcg 06/24/21 13:53 Fentanyl Citrate Inj (*Crx) 100 Mcg/2 Ml Vial IV PUSH Q2M PRN Pain Ciprofloxacin/Dextrose 200 mls @ 200 mls/hr 06/21/21 10:25 06/24/21 10:41 Cipro 400 Mg/D5w 200 Ml IVPB Infused Q12HR JOSEFA Infusion Sodium Chloride 1,000 mls @ 100
[2021-06-25] VITALS (17 sets, daily range): BP systolic 82–132; BP diastolic 27–74; PULSE 57–74; RESP 11–24; TEMP 36–36.8; O2SAT 92–99
[2021-06-25] MEDS: SODIUM CHLORIDE 0.9% IV 1,000 ML 100 ML IV CONT (04:02)
[2021-06-25] MEDS: cefTRIAXone 2 GM in SODIUM CHLORIDE 0.9% IV 100 ML 200 ML IVPB (05:18)
[2021-06-25] MEDS: CENTRAL LINE FLUSH 10 ML IV PUSH ×4 (05:19→21:53)
[2021-06-25 05:53] LABS: Hematocrit 22.3 % (42.0-52.0); Hemoglobin 7.6 g/dL (14.0-18.0); Mean Corpuscular HGB Conc 34.1 g/dl (32-36); Mean Corpuscular Volume 102.8 fl (80-100); Mean Platelet Volume 10.9 fl (7.4-10.4); Platelet Count Result 161 k/mm3 (150-375); Red Blood Count 2.17 M/mm3 (4.6-6.20); Red Cell Distribution Width 18.2 % (11.5-14.5)
[2021-06-25 06:10] LABS: Alanine Aminotransferase 18 U/L (4-50); Albumin Level 1.8 g/dL (3.5-5.1); Alkaline Phosphatase 65 U/L (38-126); Aspartate Amino Transferase 42 U/L (17-59); Bilirubin,Total 2.6 mg/dL (0.2-1.3); Blood Urea Nitrogen 77 mg/dL (9-20); Calcium 7.4 mg/dL (8.4-10.2); Carbon Dioxide 13 mmol/L (22-30); Estimated CRCL calculation 29 ml/min; Estimated Glomerular Filt Rate 24; Glucose 110 mg/dL (65-110); Potassium 4.3 mmol/L (3.4-5.0); Sodium 125 mmol/L (137-145)
[2021-06-25 06:21] LABS: Anion Gap 10 mmol/L (8-16); Chloride 102 mmol/L (98-107)
--- NOTE | 2021-06-25 07:11 | WPDANESPN ---
Anes - Prog Note Post-Op Date/Time: 06/25/21 07:11 Cardiovascular status: normal Respiratory status: other (O2 3L NC) Airway patency: baseline Mental status: baseline Post-Op hydration status: normal Vital Signs: Last Vital Signs Temp 97.7 F 06/25/21 04:00 Pulse 74 06/25/21 06:23 Resp 20 06/25/21 06:23 BP 103/39 L 06/25/21 06:23 Pulse Ox 94 06/25/21 06:23 Pain Score (VAS): 0 I/O: Intake & Output 06/24/21 06/24/21 06/25/21 15:59 23:59 07:59 Intake Total 2240 1300 1100 Output Total 395 160 920 Balance 1845 1140 180 Laboratory Tests 06/25/21 05:09 06/24/21 06/24/21 06/24/21 06:45 06:45 06:45 WBC RBC Hgb Hct MCV MCH MCHC RDW Plt Count MPV Immature Gran % (Auto) Neut % (Auto) Lymph % (Auto) [place] % (Auto) Eos % (Auto) Baso % (Auto) Lymph # (Auto) [place] # (Auto) Eos # (Auto) Baso # (Auto) Abs Immat Gran (auto) Absolute Neuts (auto) Absolute Nucleated RBC Nucleated RBC % Sodium 128 L Potassium 4.0 Chloride 101 Carbon Dioxide 15 L Anion Gap 12 BUN 57 H Creatinine 1.60 H Estim Creat Clear Calc 50 Estimated GFR 46 L Glucose 118 H Lactic Acid 3.7 H Calcium 7.8 L Magnesium 2.5 H Total Bilirubin 2.8 H AST 34 ALT 21 Alkaline Phosphatase 91 Ammonia 15 Total Protein 5.0 L Albumin 2.5 L Lipase 366 H Blood Type Antibody Screen Crossmatch 06/24/21 06/24/21 06/25/21 11:06 12:05 05:09 WBC Pending RBC Pending Hgb Pending Hct Pending MCV Pending MCH Pending MCHC Pending RDW Pending Plt Count Pending MPV Pending Immature Gran % (Auto) Pending Neut % (Auto) Pending Lymph % (Auto) Pending [place] % (Auto) Pending Eos % (Auto) Pending Baso % (Auto) Pending Lymph # (Auto) Pending [place] # (Auto) Pending Eos # (Auto) Pending Baso # (Auto) Pending Abs Immat Gran (auto) Pending Absolute Neuts (auto) Pending Absolute Nucleated RBC Pending Nucleated RBC % Pending Sodium Potassium Chloride Carbon Dioxide Anion Gap BUN Creatinine Estim Creat Clear Calc Estimated GFR Glucose Lactic Acid 4.5 H* Calcium Magnesium Total Bilirubin AST ALT Alkaline Phosphatase Ammonia Total Protein Albumin Lipase Blood Type O Positive Antibody Screen Negative Crossmatch See Detail 06/25/21 05:09 WBC RBC Hgb Hct MCV MCH MCHC RDW Plt Count MPV Immature Gran % (Auto) Neut % (Auto) Lymph % (Auto) [place] % (Auto) Eos % (Auto) Baso % (Auto) Lymph # (Auto) [place] # (Auto) Eos # (Auto) Baso # (Auto) Abs Immat Gran (auto) Absolute Neuts (auto) Absolute Nucleated RBC Nucleated RBC % Sodium 125 L Potassium 4.3 Chloride 102 Carbon Dioxide 13 L Anion Gap 10 BUN 77 H D Creatinine 2.80 H Estim Creat Clear Calc 29 Estimated GFR 24 L Glucose 110 Lactic Acid Calcium 7.4 L Magnesium Total Bilirubin 2.6 H AST 42 ALT 18 Alkaline Phosphatase 65 Ammonia Total Protein 4.0 L Albumin 1.8 L Lipase Blood Type Antibody Screen Crossmatch Post-procedural complaints: none Patient Feedback: Patient satisfied with anesthetic care.
[2021-06-25 07:29] LABS: Band Neutrophils Percent 7 % (0-6); Eosinophils Absolute Manual 0.59 K/mm3 (0.02-0.5); Eosinophils Percent Manual 1 % (0-4); Monocytes Absolute Manual 1.18 K/mm3 (0.1-0.90); Monocytes Percent Manual 2 % (3-9); Neutrophils Absolute Manual 57.23 K/mm3 (1.3-6.7); Neutrophils Percent Manual 90 % (46-73); Platelet Estimate Adequate (Adequate); Total Cells Counted 100
[2021-06-25 07:30] LABS: Acanthocytes 1+ (NORMAL); Ovalocytes 1+ (NORMAL)
[2021-06-25 07:31] LABS: Anisocytosis 1+ (NORMAL)
[2021-06-25 08:24] LABS: Lactic Acid Reflex 3.9 mmol/L (0.7-2.1)
--- NOTE | 2021-06-25 09:13 | PM.IMPN ---
Progress Note: A&P Assessment and Plan (1) Acute GI hemorrhage: Code(s): K92.2 - Gastrointestinal hemorrhage, unspecified Status: Acute (2) Mental status alteration: Code(s): R41.82 - Altered mental status, unspecified Status: Acute (3) Macrocytic anemia: Code(s): D53.9 - Nutritional anemia, unspecified Status: Acute (4) Alcoholism: Code(s): F10.20 - Alcohol dependence, uncomplicated Status: Acute (5) Cirrhosis of liver with ascites: Qualifiers: Hepatic cirrhosis type: alcoholic cirrhosis Qualified Code(s): K70.31 - Alcoholic cirrhosis of liver with ascites Code(s): K74.60 - Unspecified cirrhosis of liver; R18.8 - Other ascites Status: Acute (6) Tobacco dependence: Code(s): F17.200 - Nicotine dependence, unspecified, uncomplicated Status: Acute (7) Ascites: Code(s): R18.8 - Other ascites Status: Acute (8) Perforated viscus: Code(s): R19.8 - Other specified symptoms and signs involving the digestive system and abdomen Status: Acute (9) Colitis: Code(s): K52.9 - Noninfective gastroenteritis and colitis, unspecified Status: Acute (10) Gastritis: Code(s): K29.70 - Gastritis, unspecified, without bleeding Status: Acute (11) Duodenal ulcer: Code(s): K26.9 - Duodenal ulcer, unspecified as acute or chronic, without hemorrhage or perforation Status: Acute (12) Elevated lactic acid level: Code(s): R79.89 - Other specified abnormal findings of blood chemistry Status: Acute (13) Acute kidney injury: Code(s): N17.9 - Acute kidney failure, unspecified Status: Acute (14) Perforated gastric ulcer: Code(s): K25.5 - Chronic or unspecified gastric ulcer with perforation Status: Acute Additional Plan S/p exploratory laparotomy, evacuation of 9.3 L intra-abdominal ascites, repair of perforated gastric ulcer with omental patch, intra-abdominal washout GS following, recommendations appreciated Continue IV antibiotics CT of A/P indicates Free intraperitoneal gas which is consistent with perforated viscus if recent suggestions or surgery. GS following, recommendations apprecaited KUB order indicates nonobstructive bowel gas pattern with Cholelithiasis Noted on CT of a/p Records from greenhouse assistant to determine if patient has regular paracentesis requested According to patient he has not had any paracentesis CT of A/P indicates Cirrhosis of the liver and large volume of ascites Patient is on Nadolol, rifaximin, lactulose\ Continue to monitor Alcohol level within normal limits Lipase elevated [id number] Wiley at [facility] EGD indicates small grade 1 varices were present in the distal esophagus. arices was not actively bleeding CIWA protocol as needed Alcohol withdrawal protocol implemented Ammonia level 14 Lactulose adjusted due to excessive diarrhea, continue 20 gm daily Nicotine patch as needed Likely secondary to alcohol abuse follow-up in outpatient setting Stable Hgb 8.8 S/p octreotide Continue with pantoprazole Transfuse as needed GI following, recommendations appreciated S/p emergent EGD completed, no active bleeding found Discontinue diclofenac discharge avoid NSAID, alcohol was cessation Resolved Likely secondary to hepato encephalopathy Supportive care WBC 17.7>20.2>26.1, lactic 2.0>3.3>4.1>2.1>2.8 Ammonia wnl Toxicology negative Lipase elevated at 403>623>366 today Elevated lactic acid 3.3>4.1>2.1>2.8>4.5 today 06/25/21 s/p op exp lap w repair of perforated viscus POD 1 worsening MIRANDA hypotension low urine output abd soft and benign avoid NSAIDs and nephrotoxic agents strict Is/Os acute leukemoid reaction ? Lactic acid 4.5->3.8 remains elevated follow cultures cont abx cipro/flagyl and rocephin consult nephro aggressive fluid resuscitation Continue IVF bolus 2L and administer albumin for tx of hypovolemia may n
[2021-06-25] MEDS: ALBUMIN HUMAN 25% 25 GM/100 ML 100 ML IVPB ×3 (09:54→23:50)
[2021-06-25] MEDS: SODIUM CHLORIDE 0.9% IV 500 ML 999 ML IV CONT (09:54)
[2021-06-25] MEDS: THIAMINE HCL 200 MG/2 ML VIAL 100 MG IV PUSH (09:56)
[2021-06-25] MEDS: PANTOPRAZOLE SODIUM IV 40 MG VIAL IV PUSH ×2 (09:57→21:53)
[2021-06-25] MEDS: SODIUM CHLORIDE 0.9% IV 1,000 ML 999 ML IV CONT ×2 (10:00→14:47)
[2021-06-25] MEDS: CIPROFLOXACIN 400 MG/D5W 200ML 200 ML 200 MG IVPB (10:02)
[2021-06-25] MEDS: metroNIDAZOLE 500 MG/ISO 100ML 500 MG/100 ML BAG 100 MG IVPB ×2 (10:02→17:34)
--- NOTE | 2021-06-25 10:09 | PM.PNGS ---
Progress Note: A&P Assessment and Plan (1) Perforated gastric ulcer: Code(s): K25.5 - Chronic or unspecified gastric ulcer with perforation Status: Acute Assessment and Plan: cont bowel rest, NG decompression, will need massive resus given fluid shift (would use albumin), may need transfer to ICU, nephrology consult, cont abx Subjective Subjective Date/Time Seen: 06/25/21 10:09 confused, obtunded Review of Systems Review of Systems: ROS unobtainable: Yes unobtainable due to mental status Exam Const: General: ill appearing Nutritional Appearance: edematous Orientation/consciousness: confusion, patient obtunded and lethargic Limitations: altered mental status Resp: Auscultation: diminished lung sounds Cardio: Rate: regular rate Rhythm: regular rhythm GI: Inspection: normal to inspection, distended and incision GI Palp: Yes Soft to palpation and Yes Tenderness to palpation present (GI) Other: KERON - s/s output Objective Data Vital Signs Vital Signs: Vital Signs - 24 hr 06/24/21 11:39 06/24/21 13:15 06/24/21 13:30 Temperature 37.3 C 36.5 C Pulse Rate 77 99 90 Respiratory Rate 24 H 19 16 Blood Pressure 99/51 L 134/47 L 129/42 L Pulse Oximetry 94 99 98 06/24/21 13:45 06/24/21 14:00 06/24/21 14:15 Temperature 36.7 C Pulse Rate 90 82 75 Respiratory Rate 16 16 22 H Blood Pressure 110/48 L 114/42 L 105/45 L Pulse Oximetry 97 94 96 06/24/21 14:30 06/24/21 14:45 06/24/21 15:00 Temperature Pulse Rate 69 68 68 Respiratory Rate 22 H 15 15 Blood Pressure 90/37 L 85/36 L 102/39 L Pulse Oximetry 92 96 96 06/24/21 15:15 06/24/21 15:31 06/24/21 15:44 Temperature Pulse Rate 64 66 62 Respiratory Rate 16 15 16 Blood Pressure 93/43 L 91/40 L 95/39 L Pulse Oximetry 94 94 95 06/24/21 16:00 06/24/21 16:17 06/24/21 18:00 Temperature 36.0 C L Pulse Rate 64 72 Respiratory Rate 20 Blood Pressure 93/38 L Pulse Oximetry 94 95 06/24/21 20:00 06/24/21 22:00 06/24/21 23:52 Temperature 36.0 C L Pulse Rate 99 82 76 Respiratory Rate 20 20 Blood Pressure 91/31 L 88/30 L Pulse Oximetry 98 98 06/25/21 00:00 06/25/21 01:59 06/25/21 04:00 Temperature 36.0 C L 36.5 C Pulse Rate 69 64 57 L Respiratory Rate 14 20 Blood Pressure 83/27 L 82/31 L Pulse Oximetry 95 93 06/25/21 05:28 06/25/21 06:23 06/25/21 08:31 Temperature 36.3 C L Pulse Rate 68 74 66 Respiratory Rate 20 18 Blood Pressure 103/39 L 100/39 L Pulse Oximetry 94 93 Intake/Output Intake/Output: Intake & Output 06/22/21 06/23/21 06/24/21 06/25/21 23:59 23:59 23:59 23:59 Intake Total 5560 5530 5140 1100 Output Total 2750 2385 991 9500 Balance 2810 4530 4385 90 Meds/Results Medications: Active Medications Generic Name Dose Route Start Last Admin Trade Name Freq PRN Reason Stop Dose Admin Diphenhydramine HCl 25 mg 06/21/21 13:12 Diphenhydramine Hcl Inj 50 Mg/Ml Vial IV PUSH HS PRN Insomnia Fentanyl Citrate 25 mcg 06/24/21 13:53 Fentanyl Citrate Inj (*Crx) 100 Mcg/2 Ml Vial IV PUSH Q2M PRN Pain Ciprofloxacin/Dextrose 200 mls @ 200 mls/hr 06/21/21 10:25 06/25/21 10:02 Cipro 400 Mg/D5w 200 Ml IVPB 200 mls/hr Q12HR JOSEFA Administration Sodium Chloride 1,000 mls @ 125 mls/hr 06/22/21 14:00 06/25/21 04:02 Normal Saline Iv IV CONT 100 mls/hr .Q8H JOSEFA Administration Ceftriaxone Sodium 2 gm/ 100 mls @ 200 mls/hr 06/22/21 18:00 06/25/21 05:50 Sodium Chloride IVPB Infused Q12H JOSEFA Infusion Metronidazole 500 mg in 100 mls @ 100 mls/hr 06/25/21 09:00 06/25/21 10:02 Flagyl 500 Mg/Iso Soln 100 Ml IVPB 100 mls/hr Q8H JOSEFA Administration Albumin Human 100 mls @ 60 mls/hr 06/25/21 08:48 06/25/21 09:54 Albutein IVPB 06/25/21 10:27 60 mls/hr ONCE ONE Administration Lorazepam 2 mg 06/23/21 11:10 06/24/21 10:00 Lorazepam Inj (*Crx) 2 Mg/Ml Vial IV PUSH 2 mg Q4H PRN Administration Withdrawal
[2021-06-25 11:10] LABS: Reflex Lactic Acid Yes or No Add Lactic
[2021-06-25] MEDS: SODIUM CHLORIDE 0.9% IV 1,000 ML 125 ML IV CONT (13:04)
[2021-06-25 13:23] LABS: Lactic Acid 3.5 mmol/L (0.7-2.1)
--- NOTE | 2021-06-25 13:38 | WPDGIPROGNO ---
Progress Note: A&P Assessment and Plan (1) Perforated gastric ulcer: Code(s): K25.5 - Chronic or unspecified gastric ulcer with perforation Status: Acute Assessment and Plan: taken to OR yesterday and found to have perforated gastric ulcer (had persistent abdominal pain with elevated lactic acid) ngt in place, iv protonix and bowel rest berhane- given albumin and fluids noted worsening leukocytosis- on antibiotics (2) Liver encephalopathy: Code(s): K72.90 - Hepatic failure, unspecified without coma Status: Acute Assessment and Plan: now npo status (3) Cirrhosis of liver: Code(s): K74.60 - Unspecified cirrhosis of liver Status: Acute Assessment and Plan: eoth use (4) Alcoholism: Code(s): F10.20 - Alcohol dependence, uncomplicated Status: Acute (5) NSAID long-term use: Code(s): Z79.1 - assisted (current) use of non-steroidal anti-inflammatories (NSAID) Status: Acute Assessment and Plan: it has been discontinued and probably can explain part of presentation (6) Acute blood loss anemia: Code(s): D62 - Acute posthemorrhagic anemia Status: Acute Assessment and Plan: due to PUD, s/p surgery continue to monitor h/h (7) Elevated lactic acid level: Code(s): R79.89 - Other specified abnormal findings of blood chemistry Status: Acute Assessment and Plan: by surgery (8) Leukocytosis: Code(s): D72.829 - Elevated white blood cell count, unspecified Status: Acute Assessment and Plan: sepsis, on antibiotics s/p repair of perforated (9) Renal failure: Code(s): N19 - Unspecified kidney failure Status: Acute Subjective Date/time seen: 06/25/21 13:38 Interval history: awake, some abdominal pain Review of Systems Review of Systems: All systems reviewed & are unremarkable except as noted in HPI and below Exam Const: Other: NGT in place, ill, awake and alert now HENMT: General nose exam: Normal nares present Eyes: Sclera: sclerae normal Neck: Neck: supple Resp: Auscultation: clear to auscultation bilaterally Cardio: Rate: regular rate GI: Inspection: distended Other: dressing in place, KERON drain, tender Urinary Catheter: Urinary Catheter: patent and draining Skin: General skin exam: no rashes or lesions noted Neuro: Speech: normal speech Extrem: General: pedal edema Objective Data Vital Signs Vital Signs: Vital Signs - 24 hr 06/24/21 13:45 06/24/21 14:00 06/24/21 14:15 Temperature 98.1 F Pulse Rate 90 82 75 Respiratory Rate 16 16 22 H Blood Pressure 110/48 L 114/42 L 105/45 L Pulse Oximetry 97 94 96 06/24/21 14:30 06/24/21 14:45 06/24/21 15:00 Temperature Pulse Rate 69 68 68 Respiratory Rate 22 H 15 15 Blood Pressure 90/37 L 85/36 L 102/39 L Pulse Oximetry 92 96 96 06/24/21 15:15 06/24/21 15:31 06/24/21 15:44 Temperature Pulse Rate 64 66 62 Respiratory Rate 16 15 16 Blood Pressure 93/43 L 91/40 L 95/39 L Pulse Oximetry 94 94 95 06/24/21 16:00 06/24/21 16:17 06/24/21 18:00 Temperature 96.8 F L Pulse Rate 64 72 Respiratory Rate 20 Blood Pressure 93/38 L Pulse Oximetry 94 95 06/24/21 20:00 06/24/21 22:00 06/24/21 23:52 Temperature 96.8 F L Pulse Rate 99 82 76 Respiratory Rate 20 20 Blood Pressure 91/31 L 88/30 L Pulse Oximetry 98 98 06/25/21 00:00 06/25/21 01:59 06/25/21 04:00 Temperature 96.8 F L 97.7 F Pulse Rate 69 64 57 L Respiratory Rate 14 20 Blood Pressure 83/27 L 82/31 L Pulse Oximetry 95 93 06/25/21 05:28 06/25/21 06:23 06/25/21 08:31 Temperature 97.3 F L Pulse Rate 68 74 66 Respiratory Rate 20 18 Blood Pressure 103/39 L 100/39 L Pulse Oximetry 94 93 06/25/21 12:13 Temperature 97.5 F L Pulse Rate 60 Respiratory Rate 20 Blood Pressure 105/44 L Pulse Oximetry 95 Intake/Output Intake/Output: Intake & Output 06/22/21 06/23/21 06/24/21
--- NOTE | 2021-06-25 14:20 | WPDCNINT ---
Assessment and Plan Assessment and plan (1) Septic shock: Code(s): A41.9 - Sepsis, unspecified organism; R65.21 - Severe sepsis with septic shock Status: Acute Assessment and Plan: Secondary to peritonitis from perforated gastric ulcer Patient was given 2 L of fluids this morning and I will give 1 more L Albumin 25% to minimize third-spacing Levophed IV to maintain map of 65 I will changes antibiotics Zosyn and continue Flagyl for now until C diff his back or patient demonstrate no diarrhea for another 24 hours Blood cultures have been negative till now (2) Perforated gastric ulcer: Code(s): K25.5 - Chronic or unspecified gastric ulcer with perforation Status: Acute Assessment and Plan: Status post ex lap NPO NG tube in place KERON drain in place General surgery is following (3) Acute kidney injury: Code(s): N17.9 - Acute kidney failure, unspecified Status: Acute Assessment and Plan: Likely secondary to septic shock and postoperative prerenal versus ATN Will give another 1 L IV fluid bolus and change IV fluids to bicarb Add 25 % albumin q.6 hours as patient is third-spacing Levophed to maintain mean arterial pressure Replace calcium Monitor urine output electrolytes and creatinine (4) Encephalopathy: Code(s): G93.40 - Encephalopathy, unspecified Status: Acute Assessment and Plan: Likely multifactorial and metabolic His last ammonia level was normal Exam is nonfocal Minimize sedative use Monitor (5) Alcoholism: Code(s): F10.20 - Alcohol dependence, uncomplicated Status: Acute Assessment and Plan: P.r.n. Ativan and monitor for signs of withdrawal Thiamine and folic acid (6) Colitis: Code(s): K52.9 - Noninfective gastroenteritis and colitis, unspecified Status: Acute Assessment and Plan: CT suggested diffuse wall thickening of colon and multiple loops of jejunum and this is likely from edema. No pneumatosis was seen on the CT C diff was ordered and pending but patient is not having any diarrhea I will leave the Flagyl for now till results back (7) Cirrhosis of liver: Code(s): K74.60 - Unspecified cirrhosis of liver Status: Acute Assessment and Plan: Secondary to alcohol abuse His ammonia level was normal yesterday and will continue monitor INR reviewed (8) Hypoxia: Code(s): R09.02 - Hypoxemia Status: Acute Assessment and Plan: Patient is requiring 6-8 L of oxygen by nasal cannula Atelectasis versus pulmonary edema Check ABG and chest x-ray Additional Plan DVT prophylaxis -SCDs Stress ulcer prophylaxis -IV PPI Nutrition -NPO for now Code Status - Full Code Total Critical Care Time - 35 minutes Due to a high probability of clinically significant, life threatening deterioration, the patient required my highest level of preparedness to intervene emergently and I personally spent this critical care time directly and personally managing the patient. This critical care time included obtaining a history; examining the patient; pulse oximetry; ordering and review of studies; arranging urgent treatment with development of a management plan; evaluation of patient's response to treatment; frequent reassessment; and discussions with other providers. It was exclusive of separately billable procedures and treating other patients and teaching time. Please see Assessment and Plan section and the rest of the note for further information on patient assessment and treatment Nutritionalist Consult Note Consult date: 06/25/21 HPI: Phil Laird is a 51 year old male with past medical history significant for hepatic cirrhosis, esophageal varices, hepatic encephalopathy, alcohol dependence was admitted on 06/[address] abdomen pelvis showed IMPRESSION: 1. Free intraperitoneal gas. In the absence of recent surgery or paracentesis, this finding is consistent with perforated viscus. I called t
[2021-06-25] MEDS: CALCIUM CHLOR 1,000MG/100ML NS 1,000 MG/100 ML BAG 100 MG IVPB (15:01)
[2021-06-25] MEDS: SODIUM BICARBONATE 8.4% 150 MEQ in DEXTROSE 5% 1,000 ML 950 ML 125 MEQ IV CONT ×2 (15:01→23:50)
[2021-06-25 15:12] LABS: Base Excess ABG -10.6 mEq/l (+/-2.0); HCO3 ABG 13.5 mEq/l (22.0-26.0); Oxygen Content ABG 10.4 %vol (16.0-22.0); Oxygen Saturation ABG 95.6 % (95.0-100.0); Oxyhemoglobin 92.8 % THb (90.0-100.0); PO2 ABG 78.4 mmHg (80.0-100.0); PO2 FiO2 Ratio Arterial Blood 1.35 %; pH ABG 7.372 (7.350-7.450)
[2021-06-25 15:14] LABS: Device HIGH FLOW NASAL CANN; Fractional Inspired Oxygen 60 %; Modified Allen's Test Pass; PCO2 ABG 23.7 mmHg (35.0-45.0); Site Drawn LEFT BRACHIAL; Total Hemoglobin 7.9 g/dL (12.0-18.0)
--- NOTE | 2021-06-25 15:30 | PC.NURSE ---
1400-Pt. received from room 206-2. Bedside report received from Erin Chakraborty RN. Pt. stable upon transfer. Will continue to monitor.
[2021-06-25] MEDS: FOLIC ACID 1 MG/0.2 ML INJ IV PUSH (17:34)
[2021-06-25 18:20] LABS: Lactic Acid Reflex 3.1 mmol/L (0.7-2.1)
[2021-06-26] VITALS (19 sets, daily range): BP systolic 115–154; BP diastolic 58–80; PULSE 68–99; RESP 12–26; TEMP 36.3–37.1; O2SAT 91–97
[2021-06-26] MEDS: metroNIDAZOLE 500 MG/ISO 100ML 500 MG/100 ML BAG 100 MG IVPB ×3 (00:39→17:37)
[2021-06-26 00:56] LABS: Lactic Acid Reflex 3.1 mmol/L (0.7-2.1)
[2021-06-26] MEDS: fentaNYL CITRATE INJ (*CRX) 100 MCG/2 ML VIAL 25 MCG IV PUSH ×4 (02:04→22:33)
[2021-06-26 03:41] LABS: Reflex Lactic Acid Yes or No Add Lactic
[2021-06-26 05:52] LABS: Mean Corpuscular HGB Conc 34.3 g/dl (32-36); Mean Corpuscular Hemoglobin 33.8 pg (26-34); Mean Corpuscular Volume 98.6 fl (80-100); Mean Platelet Volume 10.3 fl (7.4-10.4); Platelet Count Result 144 k/mm3 (150-375); Red Blood Count 2.07 M/mm3 (4.6-6.20); Red Cell Distribution Width 18.6 % (11.5-14.5); White Blood Count 49.8 K/mm3 (4.5-10.0)
[2021-06-26 06:08] LABS: Alanine Aminotransferase 20 U/L (4-50); Albumin Level 2.5 g/dL (3.5-5.1); Alkaline Phosphatase 69 U/L (38-126); Anion Gap 9 mmol/L (8-16); Aspartate Amino Transferase 51 U/L (17-59); Bilirubin,Total 2.7 mg/dL (0.2-1.3); Blood Urea Nitrogen 70 mg/dL (9-20); Carbon Dioxide 21 mmol/L (22-30); Chloride 106 mmol/L (98-107); Estimated CRCL calculation 45 ml/min; Estimated Glomerular Filt Rate 40; Glucose 141 mg/dL (65-110); Magnesium 2.7 mg/dL (1.6-2.3); Potassium 3.6 mmol/L (3.4-5.0); Sodium 136 mmol/L (137-145)
[2021-06-26] MEDS: ALBUMIN HUMAN 25% 25 GM/100 ML 100 ML IVPB ×4 (06:20→23:59)
[2021-06-26] MEDS: CENTRAL LINE FLUSH 10 ML IV PUSH ×4 (06:21→21:18)
[2021-06-26 06:41] LABS: Hematocrit 20.4 % (42.0-52.0)
[2021-06-26] MEDS: FOLIC ACID 1 MG/0.2 ML INJ IV PUSH (08:59)
[2021-06-26] MEDS: PANTOPRAZOLE SODIUM IV 40 MG VIAL IV PUSH ×2 (08:59→20:03)
[2021-06-26] MEDS: THIAMINE HCL 200 MG/2 ML VIAL 100 MG IV PUSH (08:59)
--- NOTE | 2021-06-26 09:32 | WPDINTPN ---
Progress Note: A&P Assessment and Plan (1) Septic shock: Code(s): A41.9 - Sepsis, unspecified organism; R65.21 - Severe sepsis with septic shock Status: Acute Assessment and Plan: Secondary to peritonitis from perforated gastric ulcer Patient was given 3 L of fluids yesterday and started on IV fluids with bicarb metabolic acidosis Albumin 25% was given to minimize third-spacing Patient never required vasopressors Continue Zosyn will discontinue continue Flagyl as patient has not had any diarrhea for last 48 hours which makes C diff unlike Blood cultures have been negative till now (2) Perforated gastric ulcer: Code(s): K25.5 - Chronic or unspecified gastric ulcer with perforation Status: Acute Assessment and Plan: Status post ex lap NPO NG tube in place KERON drain in place General surgery is following 06/26 KUB IMPRESSION: 1. Nasogastric tube in stomach and nonspecific bowel gas pattern. 2. Persistent scattered bilateral airspace opacities likely discoid atelectasis however pneumonia not excludable. 3. Cardiomegaly. (3) Acute kidney injury: Code(s): N17.9 - Acute kidney failure, unspecified Status: Acute Assessment and Plan: Likely secondary to septic shock and postoperative prerenal versus ATN Patient was given 3 L IV fluid bolus and change IV fluids to bicarb Add 25 % albumin q.6 hours as patient is third-spacing Creatinine improved to 1.8 today and urine output has improved Monitor urine output electrolytes and creatinine (4) Encephalopathy: Code(s): G93.40 - Encephalopathy, unspecified Status: Acute Assessment and Plan: Likely multifactorial and metabolic His last ammonia level was normal Exam is nonfocal Minimize sedative use Monitor (5) Alcoholism: Code(s): F10.20 - Alcohol dependence, uncomplicated Status: Acute Assessment and Plan: P.r.n. Ativan and monitor for signs of withdrawal Thiamine and folic acid (6) Colitis: Code(s): K52.9 - Noninfective gastroenteritis and colitis, unspecified Status: Acute Assessment and Plan: CT suggested diffuse wall thickening of colon and multiple loops of jejunum and this is likely from edema. No pneumatosis was seen on the CT C diff was ordered and pending but patient is not having any diarrhea I will leave the Flagyl for now until a discuss with surgery but I think C diff is unlikely considering patient has not had any bowel movements for last 48 hours (7) Cirrhosis of liver: Code(s): K74.60 - Unspecified cirrhosis of liver Status: Acute Assessment and Plan: Secondary to alcohol abuse His ammonia level was normal yesterday and will continue monitor INR reviewed (8) Hypoxia: Code(s): R09.02 - Hypoxemia Status: Acute Assessment and Plan: Secondary to atelectasis. Chest x-ray reviewed Patient was started on q.6 hours EzPAP therapy and he is now on room air Will order incentive spirometry and up in chair (9) Anemia: Code(s): D64.9 - Anemia, unspecified Status: Acute Assessment and Plan: Multifactorial patient admitted with GI bleed from gastric ulcer also had varices. He had laparotomy and now hemodilution some volume resuscitation Hemoglobin is 7 today Will monitor transfuse as needed below 7 He is on PPI Additional Plan DVT prophylaxis -SCDs Stress ulcer prophylaxis -IV PPI Nutrition -NPO for now per general surgery Code Status - Full Code Transfer out of ICU today Subjective Date/time seen: 06/26/21 09:32 Overnight events reviewed blood pressure improved with IV fluid resuscitation and he did not require any vasopressors. Afebrile overnight. Urine output has improved overnight. He states abdominal pain is 7/10. He states that he would like to eat food and is thirsty. Denies any other complaints. Patient denies fever, chest pain, shortness of breath, cough, nausea vomiting, diarrhea, headache or c
--- NOTE | 2021-06-26 10:44 | PCFNICU ---
ICU Rounding Note: Pt current nutrition is NPO. Last recorded weight is 81 kg, down from 91.3 kg on admit Bowel Motility:+BM reported 06/24 Labs Reviewed:Ca 8.0,Glu 141, GFR 40, BUN 70, Na 136, Alb 2.5,Hct 20.4,Hgb 7.0 Meds Noted:Folic Acid, Thiamine, Protonix, Flagyl, Sublimaze Skin: WNL Additional Notes: Patient currently NPO with NGT. Plans for transfer to IMU today. CDiff pending. Nutrition recommendations: advancing diet as tolerated per MD orders. GI and Surgery are following-gastric ulcers. Monitor: RD will monitor every 3 days.
--- NOTE | 2021-06-26 11:33 | PM.PNGS ---
Progress Note: A&P Assessment and Plan (1) Perforated gastric ulcer: Code(s): K25.5 - Chronic or unspecified gastric ulcer with perforation Status: Acute Assessment and Plan: cont bowel rest, NG decompression, fluid resus as needed, ok to transfer to floor Subjective Subjective Date/Time Seen: 06/26/21 11:33 improved today, more alert Review of Systems Review of Systems: ROS unobtainable: Yes unobtainable due to mental status Exam Const: General: cooperative, comfortable, no acute distress and ill appearing Orientation/consciousness: oriented to person and oriented to place Resp: Auscultation: diminished lung sounds Cardio: Rate: regular rate Rhythm: regular rhythm GI: Inspection: normal to inspection, distended and incision GI Palp: Yes Soft to palpation and Yes Tenderness to palpation present (GI) Other: KERON c serous output Objective Data Vital Signs Vital Signs: Vital Signs - 24 hr 06/25/21 12:00 06/25/21 12:13 06/25/21 14:00 Temperature 36.4 C L 36.8 C Pulse Rate 61 60 66 Respiratory Rate 20 24 H Blood Pressure 105/44 L 106/45 L Pulse Oximetry 92 95 96 06/25/21 16:00 06/25/21 18:00 06/25/21 18:18 Temperature 36.7 C Pulse Rate 61 61 Respiratory Rate 20 13 Blood Pressure 113/57 L 117/47 L Pulse Oximetry 97 99 99 06/25/21 20:00 06/25/21 20:20 06/25/21 22:00 Temperature 36.0 C L Pulse Rate 69 69 68 Respiratory Rate 14 14 14 Blood Pressure 122/74 132/66 Pulse Oximetry 95 95 96 06/26/21 00:00 06/26/21 02:00 06/26/21 04:00 Temperature 36.3 C L 36.6 C Pulse Rate 70 82 89 Respiratory Rate 12 19 19 Blood Pressure 133/79 125/58 L 115/65 Pulse Oximetry 97 94 96 06/26/21 06:00 06/26/21 08:00 06/26/21 10:00 Temperature 36.5 C Pulse Rate 90 79 90 Respiratory Rate 14 14 20 Blood Pressure 131/66 126/67 144/69 H Pulse Oximetry 91 95 93 Intake/Output Intake/Output: Intake & Output 06/23/21 06/24/21 06/25/21 06/26/21 23:59 23:59 23:59 23:59 Intake Total 5530 5140 5500 500 Output Total 9732 182 0322 2770 Balance 4538 8019 2321 -0730 Meds/Results Medications: Active Medications Generic Name Dose Route Start Last Admin Trade Name Freq PRN Reason Stop Dose Admin Diphenhydramine HCl 25 mg 06/21/21 13:12 Diphenhydramine Hcl Inj 50 Mg/Ml Vial IV PUSH HS PRN Insomnia Fentanyl Citrate 25 mcg 06/24/21 13:53 06/26/21 08:58 Fentanyl Citrate Inj (*Crx) 100 Mcg/2 Ml Vial IV PUSH 25 mcg Q2M PRN Administration Pain Folic Acid 1 mg 06/25/21 14:35 06/26/21 08:59 Folic Acid 1 Mg/0.2 Ml Inj IV PUSH 1 mg QAM JOSEFA Administration Metronidazole 500 mg in 100 mls @ 100 mls/hr 06/25/21 09:00 06/26/21 10:08 Flagyl 500 Mg/Iso Soln 100 Ml IVPB Infused Q8H JOSEFA Infusion Piperacillin Sod/Tazobactam Sod 2.25 gm in 50 mls @ 100 mls/hr 06/25/21 15:00 06/26/21 09:35 Zosyn 2.25 Gm/D5w 50 Ml IVPB Infused Q6H JOSEFA Infusion Sodium Bicarbonate 150 meq/ 1,100 mls @ 125 mls/hr 06/25/21 14:15 06/25/21 23:50 Dextrose IV CONT 125 mls/hr .Q8H48M JOSEFA Administration Albumin Human 100 mls @ 60 mls/hr 06/25/21 16:00 06/26/21 08:00 Albutein IVPB Infused Q6HR JOSEFA Infusion Lorazepam 2 mg 06/23/21 11:10 06/24/21 10:00 Lorazepam Inj (*Crx) 2 Mg/Ml Vial IV PUSH 2 mg Q4H PRN Administration Withdrawal Ondansetron HCl 4 mg 06/20/21 21:45 06/23/21 20:46 Ondansetron Inj 4 Mg/2 Ml Vial IV PUSH 4 mg Q4H PRN Administration Nausea Pantoprazole Sodium 40 mg 06/21/21 21:00 06/26/21 08:59 Pantoprazole Sodium Iv 40 Mg Vial IV PUSH 40 mg Q12HR JOSEFA Administration Sodium Chloride 10 ml 06/21/21 06:00 06/26/21 06:21 Central Line Flush IV PUSH 10 ml Q8HR JOSEFA Administration Sodium Chloride 10 ml 06/21/21 18:00 06/25/21 17:19 Central Line Flush IV PUSH 10 ml DAILY@1800 JOSEFA Administration Sodium Chloride 20 ml 06/20/21 22:16 Central Line Flush IV PUSH
[2021-06-26] MEDS: SODIUM BICARBONATE 8.4% 150 MEQ in DEXTROSE 5% 1,000 ML 950 ML 125 MEQ IV CONT (12:03)
--- NOTE | 2021-06-26 13:07 | WPDGIPROGNO ---
Progress Note: A&P Assessment and Plan (1) Perforated gastric ulcer: Code(s): K25.5 - Chronic or unspecified gastric ulcer with perforation Status: Acute Assessment and Plan: s/p surgical repair, yesterday moved to icu because septic shock ngt in place, iv protonix and bowel rest management by surgery and icu (2) Septic shock: Code(s): A41.9 - Sepsis, unspecified organism; R65.21 - Severe sepsis with septic shock Status: Acute Assessment and Plan: he was on levophed broad spectrum abx wbc ~ 45k (3) Liver encephalopathy: Code(s): K72.90 - Hepatic failure, unspecified without coma Status: Acute Assessment and Plan: now npo status (4) Cirrhosis of liver: Code(s): K74.60 - Unspecified cirrhosis of liver Status: Acute Assessment and Plan: eoth use (5) Alcoholism: Code(s): F10.20 - Alcohol dependence, uncomplicated Status: Acute (6) NSAID long-term use: Code(s): 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-steroidal anti-inflammatories (NSAID) Status: Acute Assessment and Plan: it has been discontinued and probably can explain part of presentation (7) Acute blood loss anemia: Code(s): D62 - Acute posthemorrhagic anemia Status: Acute Assessment and Plan: due to PUD, s/p surgery continue to monitor h/h (8) Elevated lactic acid level: Code(s): R79.89 - Other specified abnormal findings of blood chemistry Status: Acute Assessment and Plan: by surgery (9) Leukocytosis: Code(s): D72.829 - Elevated white blood cell count, unspecified Status: Acute Assessment and Plan: sepsis, on antibiotics s/p repair of perforated (10) Renal failure: Code(s): N19 - Unspecified kidney failure Status: Acute Subjective Date/time seen: 06/26/21 13:07 Interval history: he was moved to icu yesterday because worsening sepsis, required levophed. Still npo Review of Systems Review of Systems: All systems reviewed & are unremarkable except as noted in HPI and below Exam Const: Other: NGT in place, ill, awake and alert buty c/o abd pain HENMT: General nose exam: Normal nares present Eyes: Sclera: sclerae normal Neck: Neck: supple Resp: Auscultation: diminished lung sounds Cardio: Rate: regular rate GI: Inspection: distended Other: dressing in place, KERON drain, tender Urinary Catheter: Urinary Catheter: patent and draining Skin: General skin exam: no rashes or lesions noted Neuro: Speech: normal speech Extrem: General: pedal edema Objective Data Vital Signs Vital Signs: Vital Signs - 24 hr 06/25/21 14:00 06/25/21 16:00 06/25/21 18:00 Temperature 98.2 F 98.1 F Pulse Rate 66 61 61 Respiratory Rate 24 H 20 13 Blood Pressure 106/45 L 113/57 L 117/47 L Pulse Oximetry 96 97 99 06/25/21 18:18 06/25/21 20:00 06/25/21 20:20 Temperature 96.8 F L Pulse Rate 69 69 Respiratory Rate 14 14 Blood Pressure 122/74 Pulse Oximetry 99 95 95 06/25/21 22:00 06/26/21 00:00 06/26/21 02:00 Temperature 97.4 F L Pulse Rate 68 70 82 Respiratory Rate 14 12 19 Blood Pressure 132/66 133/79 125/58 L Pulse Oximetry 96 97 94 06/26/21 04:00 06/26/21 06:00 06/26/21 08:00 Temperature 97.9 F 97.7 F Pulse Rate 89 90 79 Respiratory Rate 19 14 14 Blood Pressure 115/65 131/66 126/67 Pulse Oximetry 96 91 95 06/26/21 10:00 06/26/21 12:00 Temperature 97.9 F Pulse Rate 90 92 Respiratory Rate 20 16 Blood Pressure 144/69 H 133/67 Pulse Oximetry 93 95 Intake/Output Intake/Output: Intake & Output 06/23/21 06/24/21 06/25/21 06/26/21 23:59 23:59 23:59 23:59 Intake Total 5530 5140 5500 1600 Output Total 5704 042 4113 3970 Balance 4533 1154 9392 -3133 Meds/Results Medications: Active Medications Generic Name Dose Route Start Last Admin Trade Name Freq PRN Reason Stop Dose Admin Diphenhydramine HCl 25 mg 06/21/21 13:12
[2021-06-26 18:07] LABS: Mean Corpuscular HGB Conc 34.2 g/dl (32-36); Mean Corpuscular Hemoglobin 33.8 pg (26-34); Mean Platelet Volume 9.9 fl (7.4-10.4); Platelet Count Result 118 k/mm3 (150-375); Red Blood Count 1.98 M/mm3 (4.6-6.20); Red Cell Distribution Width 18.9 % (11.5-14.5); White Blood Count 40.8 K/mm3 (4.5-10.0)
[2021-06-26 18:22] LABS: Hematocrit 19.6 % (42.0-52.0); Hemoglobin 6.7 g/dL (14.0-18.0)
[2021-06-26 18:23] LABS: Anion Gap 9 mmol/L (8-16); Blood Urea Nitrogen 53 mg/dL (9-20); Calcium 8.1 mg/dL (8.4-10.2); Carbon Dioxide 25 mmol/L (22-30); Chloride 105 mmol/L (98-107); Estimated CRCL calculation 66 ml/min; Estimated Glomerular Filt Rate > 60; Glucose 133 mg/dL (65-110); Potassium 3.3 mmol/L (3.4-5.0); Sodium 139 mmol/L (137-145)
[2021-06-26] MEDS: SODIUM CHLORIDE 0.9% IV 1,000 ML 100 ML IV CONT (18:44)
[2021-06-26] MEDS: KCL 40 MEQ/WATER 100 ML 100 ML 25 ML IVPB (19:20)
[2021-06-26] MEDS: LORazepam INJ (*CRX) 2 MG/ML VIAL IV PUSH (20:01)
[2021-06-27] VITALS (16 sets, daily range): BP systolic 149–177; BP diastolic 63–81; PULSE 76–115; RESP 16–24; TEMP 36.6–38.1; O2SAT 91–97
[2021-06-27] MEDS: metroNIDAZOLE 500 MG/ISO 100ML 500 MG/100 ML BAG 100 MG IVPB ×3 (01:31→17:06)
--- NOTE | 2021-06-27 02:55 | PC.NURSE ---
This patient, Phil Laird, was transferred to [facility] on 06/27/21 at 0245. Personal belongings sent with patient. Report given to Mary CORONA. Appropriate documentation sent with patient.
--- NOTE | 2021-06-27 02:56 | PC.NURSE ---
patient transferred from icu 1 at 0250.
[2021-06-27] MEDS: SODIUM CHLORIDE 0.9% IV 1,000 ML 100 ML IV CONT ×2 (05:00→17:05)
[2021-06-27] MEDS: CENTRAL LINE FLUSH 10 ML IV PUSH ×4 (05:01→21:13)
[2021-06-27] MEDS: ALBUMIN HUMAN 25% 25 GM/100 ML 100 ML IVPB ×4 (05:01→23:58)
[2021-06-27 05:09] LABS: Hematocrit 25.6 % (42.0-52.0); Hemoglobin 8.8 g/dL (14.0-18.0); Mean Corpuscular HGB Conc 34.4 g/dl (32-36); Mean Corpuscular Hemoglobin 33.3 pg (26-34); Mean Platelet Volume 9.7 fl (7.4-10.4); Platelet Count Result 102 k/mm3 (150-375); Red Blood Count 2.64 M/mm3 (4.6-6.20); Red Cell Distribution Width 18.7 % (11.5-14.5); White Blood Count 35.5 K/mm3 (4.5-10.0)
[2021-06-27 05:24] LABS: Ammonia < 9 umol/L (9-30)
[2021-06-27 05:25] LABS: Alanine Aminotransferase 20 U/L (4-50); Albumin Level 2.7 g/dL (3.5-5.1); Alkaline Phosphatase 72 U/L (38-126); Anion Gap 6 mmol/L (8-16); Aspartate Amino Transferase 59 U/L (17-59); Bilirubin,Total 5.6 mg/dL (0.2-1.3); Blood Urea Nitrogen 40 mg/dL (9-20); Calcium 8.2 mg/dL (8.4-10.2); Carbon Dioxide 27 mmol/L (22-30); Chloride 109 mmol/L (98-107); Estimated CRCL calculation 79 ml/min; Estimated Glomerular Filt Rate > 60; Glucose 109 mg/dL (65-110); Magnesium 2.6 mg/dL (1.6-2.3); Potassium 3.6 mmol/L (3.4-5.0); Sodium 142 mmol/L (137-145)
[2021-06-27] MEDS: LORazepam INJ (*CRX) 2 MG/ML VIAL IV PUSH ×4 (07:45→21:15)
[2021-06-27] MEDS: fentaNYL CITRATE INJ (*CRX) 100 MCG/2 ML VIAL 25 MCG IV PUSH (07:57)
[2021-06-27] MEDS: PANTOPRAZOLE SODIUM IV 40 MG VIAL IV PUSH ×2 (08:02→21:12)
[2021-06-27] MEDS: THIAMINE HCL 200 MG/2 ML VIAL 100 MG IV PUSH (08:02)
[2021-06-27 09:31] LABS: Ammonia < 9 umol/L (9-30)
[2021-06-27] MEDS: diphenhydrAMINE HCl INJ 50 MG/ML VIAL IV PUSH (09:37)
[2021-06-27] MEDS: FOLIC ACID 1 MG/0.2 ML INJ IV PUSH (10:45)
--- NOTE | 2021-06-27 13:42 | PM.PNGS ---
Progress Note: A&P Assessment and Plan (1) Perforated gastric ulcer: Code(s): K25.5 - Chronic or unspecified gastric ulcer with perforation Status: Acute Assessment and Plan: Improving, continue bowel rest, NG tube decompression, IV fluids, and NPO status. Gauze dressing changes to midline incision. Continue to monitor KERON drain. Continue IV antibiotics and IV Protonix. WBC coming down today. Additional Plan I have discussed the patient's case and plan of care with Dr. Tijerina. Subjective Subjective Date/Time Seen: 06/27/21 10:02 Post Op day: 3 (exploratory laparotomy, evacuation of 9.3 L intra-abdominal ascites, repair of perforated gastric ulcer with omental patch, intra-abdominal washout) Patient reports: bowel movement and afebrile Interval history: Patient seen and examined today with nurse in the room. Nursing reports the patient has been more agitated today and restless. He has attempted pulling at lines and was recently placed in soft wrist restraints. The patient is able to answer some questions and can tell me he is in [facility], but he is disoriented to month/year and did not know he had recently had surgery. He denies any abdominal pain or nausea. He cannot tell if he has been passing gas. Per nursing, he had a very large loose BM this morning that was brown. No other complaints at this time. Review of Systems Review of Systems: ROS unobtainable: Yes unobtainable due to mental status Exam Const: General: alert, anxious and ill appearing Orientation/consciousness: oriented to person, oriented to place, No oriented to time and confusion Limitations: altered mental status Resp: Effort & Inspection: normal respiratory effort and no respiratory distress Auscultation: diminished lung sounds Cardio: Rate: regular rate Rhythm: regular rhythm GI: Inspection: non-distended GI Palp: Yes Soft to palpation, Yes Tenderness to palpation present (GI) (tender throughout), No Guarding due to palpation present (GI) and Yes Hernia present (large umbilical hernia, soft but non-reducible) Auscultation: Hypoactive bowel sounds present Other: KERON drain with serous output Midline incision with yuniel intact with skin approximated, no erythema, but moderate amount of cloudy serosanguineous drainage Urinary Catheter: Urinary Catheter: patent and draining and urine clear Skin: General skin exam: normal color Neuro: General: moves all extremities and confusion Speech: normal speech Gait exam (Neuro): Unable to assess gait Motor exam (neuro): 5/5 motor strength present throughout Extrem: General: normal to inspection, capillary refill normal, no calf tenderness and no edema Psych: Insight: Limited insight present (Psych) Judgement: Limited judgement present (Psych) Objective Data Vital Signs Vital Signs: Vital Signs - 24 hr 06/26/21 13:57 06/26/21 14:00 06/26/21 16:00 Temperature 98.1 F Pulse Rate 95 88 Respiratory Rate 12 Blood Pressure 133/70 Pulse Oximetry 95 93 06/26/21 18:00 06/26/21 19:02 06/26/21 19:18 Temperature 98.1 F 98.3 F Pulse Rate 79 79 99 Respiratory Rate 12 25 H Blood Pressure 133/70 133/65 Pulse Oximetry 93 92 06/26/21 20:00 06/26/21 21:34 06/26/21 21:36 Temperature 98.3 F 98.7 F 98.7 F Pulse Rate 99 99 99 Respiratory Rate 25 H 25 H 25 H Blood Pressure 154/80 H 133/65 133/65 Pulse Oximetry 92 92 92 06/26/21 21:52 06/26/21 22:00 06/26/21 22:04 Temperature 98.6 F 98.2 F Pulse Rate 92 91 93 Respiratory Rate 14 26 H Blood Pressure 119/59 L 136/76 Pulse Oximetry 95 95 06/27/21 00:00 06/27/21 00:17 06/27/21 02:00 Temperature 97.9 F Pulse Rate 89 89 104 H Respiratory Rate 18 18 Blood Pressure 149/74 H Pulse Oximetry 96 96 06/27/21 02:50 06/27/21 02:58 06/27/21 04:00 Temperature 97.8 F Pulse Rate 76 104 H 115 H Respiratory Rate 16 18 18 Blood Pressure 152/77 H Pulse Oximetry 96 96 96 06/27/21 06:00 06/27/21 08:00
--- NOTE | 2021-06-27 15:14 | WPDGIPROGNO ---
Progress Note: A&P Assessment and Plan (1) Perforated gastric ulcer: Code(s): K25.5 - Chronic or unspecified gastric ulcer with perforation Status: Acute Assessment and Plan: s/p surgical repair, shock resolved and slowly recovering he was moved back to the floor iv protonix and bowel rest management by surgery (2) Septic shock: Code(s): A41.9 - Sepsis, unspecified organism; R65.21 - Severe sepsis with septic shock Status: Acute Assessment and Plan: resolved, wbc still high but slowly trending down iv abx (3) Liver encephalopathy: Code(s): K72.90 - Hepatic failure, unspecified without coma Status: Acute (4) Cirrhosis of liver: Code(s): K74.60 - Unspecified cirrhosis of liver Status: [facility] (5) Alcoholism: Code(s): F10.20 - Alcohol dependence, uncomplicated Status: Acute (6) Acute blood loss anemia: Code(s): D62 - Acute posthemorrhagic anemia Status: Acute Assessment and Plan: due to PUD, s/p surgery no more signs of bleeding, had brown stool per RN (7) Leukocytosis: Code(s): D72.829 - Elevated white blood cell count, unspecified Status: Acute Assessment and Plan: sepsis, on antibiotics s/p repair of perforated (8) NSAID long-term use: Code(s): Z79.1 - [facility] (current) use of non-steroidal anti-inflammatories (NSAID) Status: Acute Assessment and Plan: it has been discontinued and probably can explain part of presentation Subjective Date/time seen: 06/27/21 15:14 Interval history: he is back in the floor, slowly better. Still confused. Review of Systems Review of Systems: All systems reviewed & are unremarkable except as noted in HPI and below Exam Const: General: alert, anxious and ill appearing Orientation/consciousness: oriented to person, oriented to place, No oriented to time and confusion Limitations: altered mental status Other: confused, on restraints HENMT: General nose exam: Normal nares present Neck: Neck: supple Resp: Effort & Inspection: normal respiratory effort and no respiratory distress Auscultation: diminished lung sounds Cardio: Rate: regular rate Rhythm: regular rhythm GI: Inspection: non-distended GI Palp: Yes Soft to palpation, Yes Tenderness to palpation present (GI) (tender throughout), No Guarding due to palpation present (GI) and Yes Hernia present (large umbilical hernia, soft but non-reducible) Auscultation: Hypoactive bowel sounds present Other: KERON drain with serous output Midline incision with yuniel intact, no erythema Urinary Catheter: Urinary Catheter: patent and draining and urine clear Skin: General skin exam: normal color Neuro: General: moves all extremities and confusion Speech: normal speech Gait exam (Neuro): Unable to assess gait Motor exam (neuro): 5/5 motor strength present throughout Extrem: General: normal to inspection, capillary refill normal, no calf tenderness and pedal edema Psych: Insight: Limited insight present (Psych) Judgement: Limited judgement present (Psych) Objective Data Vital Signs Vital Signs: Vital Signs - 24 hr 06/26/21 16:00 06/26/21 18:00 06/26/21 19:02 Temperature 98.1 F 98.1 F Pulse Rate 88 79 79 Pulse Rate [Apical Monitor] Respiratory Rate 12 12 Blood Pressure 133/70 133/70 Pulse Oximetry 93 93 06/26/21 19:18 06/26/21 20:00 06/26/21 21:34 Temperature 98.3 F 98.3 F 98.7 F Pulse Rate 99 99 99 Pulse Rate [Apical Monitor] Respiratory Rate 25 H 25 H 25 H Blood Pressure 133/65 154/80 H 133/65 Pulse Oximetry 92 92 92 06/26/21 21:36 06/26/21 21:52 06/26/21 22:00 Temperature 98.7 F 98.6 F Pulse Rate 99 92 91 Pulse Rate [Apical Monitor] Respiratory Rate 25 H 14 Blood Pressure 133/65 119/59 L Pulse Oximetry 92 95 06/26/21 22:04 06/27/21 00:00 06/27/21 00:17 Temperature 98.2 F 97.9 F Pulse Ra
--- NOTE | 2021-06-27 17:27 | P.PNIM_ITS ---
Progress Note: A&P Assessment and Plan (1) Septic shock: Code(s): A41.9 - Sepsis, unspecified organism; R65.21 - Severe sepsis with septic shock Status: Acute Assessment and Plan: Secondary to peritonitis from perforated gastric ulcer Patient was given 3 L of fluids yesterday and started on IV fluids with bicarb metabolic acidosis Albumin 25% was given to minimize third-spacing Patient never required vasopressors Continue Zosyn will discontinue continue Flagyl as patient has not had any diarrhea for last 48 hours which makes C diff unlike Blood cultures have been negative till now (2) Perforated gastric ulcer: Code(s): K25.5 - Chronic or unspecified gastric ulcer with perforation Status: Acute Assessment and Plan: Status post ex lap NPO NG tube in place KERON drain in place General surgery is following 06/26 KUB IMPRESSION: 1. Nasogastric tube in stomach and nonspecific bowel gas pattern. 2. Persistent scattered bilateral airspace opacities likely discoid atelectasis however pneumonia not excludable. 3. Cardiomegaly. (3) Acute kidney injury: Code(s): N17.9 - Acute kidney failure, unspecified Status: Acute Assessment and Plan: Likely secondary to septic shock and postoperative prerenal versus ATN Patient was given 3 L IV fluid bolus and change IV fluids to bicarb Add 25 % albumin q.6 hours as patient is third-spacing Creatinine improved to 1.8 today and urine output has improved Monitor urine output electrolytes and creatinine (4) Encephalopathy: Code(s): G93.40 - Encephalopathy, unspecified Status: Acute Assessment and Plan: Likely multifactorial and metabolic His last ammonia level was normal Exam is nonfocal Minimize sedative use Monitor (5) Alcoholism: Code(s): F10.20 - Alcohol dependence, uncomplicated Status: Acute Assessment and Plan: P.r.n. Ativan and monitor for signs of withdrawal Thiamine and folic acid (6) Colitis: Code(s): K52.9 - Noninfective gastroenteritis and colitis, unspecified Status: Acute Assessment and Plan: CT suggested diffuse wall thickening of colon and multiple loops of jejunum and this is likely from edema. No pneumatosis was seen on the CT C diff was ordered and pending but patient is not having any diarrhea I will leave the Flagyl for now until a discuss with surgery but I think C diff is unlikely considering patient has not had any bowel movements for last 48 hours (7) Cirrhosis of liver: Code(s): K74.60 - Unspecified cirrhosis of liver Status: Acute Assessment and Plan: Secondary to alcohol abuse His ammonia level was normal yesterday and will continue monitor INR reviewed (8) Hypoxia: Code(s): R09.02 - Hypoxemia Status: Acute Assessment and Plan: Secondary to atelectasis. Chest x-ray reviewed Patient was started on q.6 hours EzPAP therapy and he is now on room air Will order incentive spirometry and up in chair (9) Anemia: Code(s): D64.9 - Anemia, unspecified Status: Acute Assessment and Plan: Multifactorial patient admitted with GI bleed from gastric ulcer also had varices. He had laparotomy and now hemodilution some volume resuscitation Hemoglobin is 7 today Will monitor transfuse as needed below 7 He is on PPI Additional Plan S/p exploratory laparotomy, evacuation of 9.3 L intra-abdominal ascites, repair of perforated gastric ulcer with omental patch, intra-abdominal washout GS following, recommendations appreciated Rosey
--- NOTE | 2021-06-27 20:43 | PCRCNOTE ---
Patient uncooperative and will not utilize / refuses EzPAP tx at this time.
[2021-06-27] MEDS: diphenhydrAMINE HCl INJ 50 MG/ML VIAL 25 MG IV PUSH (21:13)
[2021-06-28] VITALS (16 sets, daily range): BP systolic 116–159; BP diastolic 52–71; PULSE 62–89; RESP 18–30; TEMP 36.5–37.3; O2SAT 91–97
[2021-06-28] MEDS: metroNIDAZOLE 500 MG/ISO 100ML 500 MG/100 ML BAG 100 MG IVPB ×3 (00:01→16:55)
--- NOTE | 2021-06-28 02:45 | PCRCNOTE ---
Patient refuses EzPAP at this time.
[2021-06-28] MEDS: LORazepam INJ (*CRX) 2 MG/ML VIAL IV PUSH ×2 (05:14→08:18)
[2021-06-28] MEDS: ALBUMIN HUMAN 25% 25 GM/100 ML 100 ML IVPB ×4 (05:15→23:32)
[2021-06-28] MEDS: CENTRAL LINE FLUSH 10 ML IV PUSH ×4 (05:17→21:21)
[2021-06-28 05:34] LABS: Hematocrit 22.4 % (42.0-52.0); Hemoglobin 7.5 g/dL (14.0-18.0); Immature Platelet Fraction Pct 3.8 % (0.9-11.2); Mean Corpuscular HGB Conc 33.5 g/dl (32-36); Mean Corpuscular Hemoglobin 33.3 pg (26-34); Mean Corpuscular Volume 99.6 fl (80-100); Platelet Count Result 90 k/mm3 (150-375); Red Blood Count 2.25 M/mm3 (4.6-6.20); Red Cell Distribution Width 20.3 % (11.5-14.5); White Blood Count 23.5 K/mm3 (4.5-10.0)
[2021-06-28 05:41] LABS: Ammonia < 9 umol/L (9-30)
[2021-06-28 06:16] LABS: Alanine Aminotransferase 19 U/L (4-50); Albumin Level 2.9 g/dL (3.5-5.1); Alkaline Phosphatase 58 U/L (38-126); Anion Gap 9 mmol/L (8-16); Aspartate Amino Transferase 59 U/L (17-59); Bilirubin,Total 6.7 mg/dL (0.2-1.3); Blood Urea Nitrogen 25 mg/dL (9-20); Carbon Dioxide 26 mmol/L (22-30); Chloride 114 mmol/L (98-107); Estimated CRCL calculation 87 ml/min; Estimated Glomerular Filt Rate > 60; Glucose 91 mg/dL (65-110); Magnesium 2.5 mg/dL (1.6-2.3); Potassium 3.3 mmol/L (3.4-5.0); Sodium 149 mmol/L (137-145)
[2021-06-28] MEDS: SODIUM CHLORIDE 0.9% IV 1,000 ML 100 ML IV CONT ×2 (08:16→21:21)
[2021-06-28] MEDS: THIAMINE HCL 200 MG/2 ML VIAL 100 MG IV PUSH (08:18)
[2021-06-28] MEDS: PANTOPRAZOLE SODIUM IV 40 MG VIAL IV PUSH ×2 (08:18→21:20)
[2021-06-28] MEDS: FOLIC ACID 1 MG/0.2 ML INJ IV PUSH (08:22)
--- NOTE | 2021-06-28 10:04 | PM.PNGS ---
Progress Note: A&P Assessment and Plan (1) Perforated gastric ulcer: Code(s): K25.5 - Chronic or unspecified gastric ulcer with perforation Status: Acute Assessment and Plan: UGI today shows leaking from duodenal ulcer, seems contained c drain, cont abx, NG, drain, will start TPN (2) Duodenal ulcer: Code(s): K26.9 - Duodenal ulcer, unspecified as acute or chronic, without hemorrhage or perforation Status: Acute Assessment and Plan: see above Subjective Subjective Date/Time Seen: 06/28/21 10:04 feels ok, wants to eat, still confused/obtunded (?baseline) Review of Systems Review of Systems: ROS unobtainable: Yes unobtainable due to mental status Exam Const: General: ill appearing and patient obtunded Orientation/consciousness: oriented to person Resp: Auscultation: diminished lung sounds Cardio: Rate: regular rate Rhythm: regular rhythm GI: Inspection: distended GI Palp: Yes abdominal tenderness, Yes Soft to palpation and Yes Tenderness to palpation present (GI) Objective Data Vital Signs Vital Signs: Vital Signs - 24 hr 06/27/21 12:00 06/27/21 14:00 06/27/21 16:00 Temperature 37.2 C 37.7 C H Pulse Rate 106 H 107 H 92 Pulse Rate [Apical Monitor] 106 H 92 Respiratory Rate 18 24 H Blood Pressure 151/75 H 156/63 H Pulse Oximetry 93 97 06/27/21 18:00 06/27/21 20:00 06/27/21 20:44 Temperature 38.1 C H Pulse Rate 100 90 92 Pulse Rate [Apical Monitor] 88 Respiratory Rate 22 H 20 Blood Pressure 177/81 H Pulse Oximetry 91 92 06/27/21 22:00 06/28/21 00:00 06/28/21 02:00 Temperature 37.2 C Pulse Rate 87 83 75 Pulse Rate [Apical Monitor] 80 Respiratory Rate 22 H Blood Pressure 153/69 H Pulse Oximetry 91 06/28/21 03:10 06/28/21 04:00 06/28/21 06:00 Temperature 37.3 C Pulse Rate 81 89 83 Pulse Rate [Apical Monitor] 89 Respiratory Rate 20 Blood Pressure 159/68 H Pulse Oximetry 92 06/28/21 08:00 Temperature 36.5 C Pulse Rate 74 Pulse Rate [Apical Monitor] Respiratory Rate 30 H Blood Pressure 143/66 H Pulse Oximetry 94 Intake/Output Intake/Output: Intake & Output 06/25/21 06/26/21 06/27/21 06/28/21 23:59 23:59 23:59 23:59 Intake Total 5500 3089 3250 1350 Output Total 2405 5130 3495 1045 Balance 6750 -6911 -717 305 Meds/Results Medications: Active Medications Generic Name Dose Route Start Last Admin Trade Name Freq PRN Reason Stop Dose Admin Diphenhydramine HCl 25 mg 06/21/21 13:12 06/27/21 21:13 Diphenhydramine Hcl Inj 50 Mg/Ml Vial IV PUSH 25 mg HS PRN Administration Insomnia Fentanyl Citrate 25 mcg 06/24/21 13:53 06/27/21 07:57 Fentanyl Citrate Inj (*Crx) 100 Mcg/2 Ml Vial IV PUSH 25 mcg Q2M PRN Administration Pain Folic Acid 1 mg 06/25/21 14:35 06/28/21 08:22 Folic Acid 1 Mg/0.2 Ml Inj IV PUSH 1 mg QAM JOSEFA Administration Metronidazole 500 mg in 100 mls @ 100 mls/hr 06/25/21 09:00 06/28/21 09:45 Flagyl 500 Mg/Iso Soln 100 Ml IVPB 100 mls/hr Q8H JOSEFA Administration Piperacillin Sod/Tazobactam Sod 2.25 gm in 50 mls @ 100 mls/hr 06/25/21 15:00 06/28/21 08:17 Zosyn 2.25 Gm/D5w 50 Ml IVPB 100 mls/hr Q6H JOSEFA Administration Albumin Human 100 mls @ 60 mls/hr 06/25/21 16:00 06/28/21 06:56 Albutein IVPB Infused Q6HR JOSEFA Infusion Sodium Chloride 1,000 mls @ 100 mls/hr 06/26/21 18:35 06/28/21 08:16 Normal Saline Iv IV CONT 100 mls/hr .Q10H JOSEFA Administration Lorazepam 2 mg 06/27/21 09:39 06/28/21 08:18 Lorazepam Inj (*Crx) 2 Mg/Ml Vial IV PUSH 2 mg Q2H PRN Administration Withdrawal Ondansetron HCl 4 mg 06/20/21 21:45 06/23/21 20:46 Ondansetron Inj 4 Mg/2 Ml Vial IV PUSH 4 mg Q4H PRN Administration Nausea Pantoprazole Sodium 40 mg 06/21/21 21:00 06/28/21 08:18 Pantoprazole Sodium Iv 40 Mg Vial IV PUSH 40 mg Q12HR JOSEFA Administration Sodium Chloride 10 ml 06/21/21 06:00 06/15
[2021-06-28 11:55] LABS: Partial Thromboplastin Time 59.2 SECONDS (22.3-36.8)
--- NOTE | 2021-06-28 11:58 | WPDGIPROGNO ---
Progress Note: A&P Assessment and Plan (1) Perforated gastric ulcer: Code(s): K25.5 - Chronic or unspecified gastric ulcer with perforation Status: Acute Assessment and Plan: s/p surgical repair, shock resolved and slowly recovering iv protonix and bowel rest UGI series today showed leakage from duodenal ulcer (confirmed by CT Scan)- EGD on admission showed large duodenal ulcer. management by surgery TPN (2) Septic shock: Code(s): A41.9 - Sepsis, unspecified organism; R65.21 - Severe sepsis with septic shock Status: Acute Assessment and Plan: resolved, wbc still high but slowly trending down iv abx new evidence of perforation (3) Liver encephalopathy: Code(s): K72.90 - Hepatic failure, unspecified without coma Status: Acute Assessment and Plan: more obtunded and confused, delirius (4) Cirrhosis of liver: Code(s): K74.60 - Unspecified cirrhosis of liver Status: Acute Assessment and Plan: he has decompensated cirrhosis complicated this hospitalization with gib and perforated peptic ulcer eoth use medical support (5) Alcoholism: Code(s): F10.20 - Alcohol dependence, uncomplicated Status: Acute (6) Acute blood loss anemia: Code(s): D62 - Acute posthemorrhagic anemia Status: Acute Assessment and Plan: due to PUD, s/p surgery hb 7.5 iv protonix (7) Leukocytosis: Code(s): D72.829 - Elevated white blood cell count, unspecified Status: Acute Assessment and Plan: sepsis, on antibiotics s/p repair of perforated but now evidence of perforation DU (8) NSAID long-term use: Code(s): Z79.1 - [facility] (current) use of non-steroidal anti-inflammatories (NSAID) Status: Acute Assessment and Plan: it has been discontinued and probably can explain part of presentation Subjective Date/time seen: 06/28/21 11:58 Interval history: UGI series and CT scan reviewed, consistent with duodenal perforation. He has been confused and restless, still abdominal distension Review of Systems Review of Systems: All systems reviewed & are unremarkable except as noted in HPI and below Exam Const: Other: ill, obtunded HENMT: General nose exam: Normal nares present Eyes: Other: icteric sclerae Neck: Neck: supple Resp: Auscultation: diminished lung sounds Cardio: Rate: regular rate GI: Inspection: distended GI Palp: Yes Tenderness to palpation present (GI) Percussion: Yes Fluid wave present Other: KERON in position, surgical site looks clean Urinary Catheter: Urinary Catheter: patent and draining Skin: Other: telangiectasia Neuro: Other: awake but confused, restless Extrem: General: pedal edema Psych: Other: confused Objective Data Vital Signs Vital Signs: Vital Signs - 24 hr 06/27/21 12:00 06/27/21 14:00 06/27/21 16:00 Temperature 99 F 99.8 F H Pulse Rate 106 H 107 H 92 Pulse Rate [Apical Monitor] 106 H 92 Respiratory Rate 18 24 H Blood Pressure 151/75 H 156/63 H Pulse Oximetry 93 97 06/27/21 18:00 06/27/21 20:00 06/27/21 20:44 Temperature 100.6 F H Pulse Rate 100 90 92 Pulse Rate [Apical Monitor] 88 Respiratory Rate 22 H 20 Blood Pressure 177/81 H Pulse Oximetry 91 92 06/27/21 22:00 06/28/21 00:00 06/28/21 02:00 Temperature 98.9 F Pulse Rate 87 83 75 Pulse Rate [Apical Monitor] 80 Respiratory Rate 22 H Blood Pressure 153/69 H Pulse Oximetry 91 06/28/21 03:10 06/28/21 04:00 06/28/21 06:00 Temperature 99.1 F Pulse Rate 81 89 83 Pulse Rate [Apical Monitor] 89 Respiratory Rate 20 Blood Pressure 159/68 H Pulse Oximetry 92 06/28/21 08:00 06/28/21 10:00 Temperature 97.7 F Pulse Rate 74 70 Pulse Rate [Apical Monitor] 74 Respiratory Rate 30 H Blood Pressure 143/66 H Pulse Oximetry 94 Intake/Output Intake/Output: Intake & Output 06/25/21 06/26/21 06/27/21 06/28/21 23:59 23:59 23:59 23:59 Intake
[2021-06-28 12:41] LABS: Glucose Point of Care 86 mg/dl (65-105)
[2021-06-28 13:07] LABS: Transferrin < 80 mg/dL (206-381)
--- NOTE | 2021-06-28 13:12 | PCNFU ---
Nutrition Follow-Up Complete: Altered GI function as related to GI bleed as evidenced by liquid diet orders. Goal: Adequate Intake of at least 75% of meals/supplements Pt is not progressing towards goal Pt current nutrition is NPO Last recorded weight is 82.5 kg. Bowel Motility: +BM 06/28 Labs Reviewed: hgb 7.5, hct 22.4, alb 2.9, Na 149, K 3.3, Cl 114, BUN 25, Transferrin <80, Ca 8.0, total bilirubin 6.7 Meds Noted: albutein, folic acid, ativan, protonix, zosyn, thiamine Skin: abdominal incision Additional Notes: RDN consulted for TPN. Per EMR, pt is currently NPO. TPN recommended due to presence of duodenal ulcer. Recommend initiating TPN at a rate of 40mL/hr. Recommend increasing rate by 10mL/hr daily until a goal rate of 60mL/hr is met. TPN running at a rate of 40mL/hr over 24 hours will provide 1182kcal and 48g of protein, meeting 61% of kcal needs and 76% of protein needs. TPN running at a rate of 60mL/hr over 24 hours will provide 1522kcal and 72g of protein, meeting 79% of kcal needs and 100% of protein needs. Agree with diet order at this time. Will continue to follow. RD will monitor every 5 days.
[2021-06-28] MEDS: AMINO ACIDS 5%/D15W/E-LYTES/CA 2,000 ML with MULTIVITAMINS-12 INJ VIAL 1 2.5 ML, MULTIV... 40 ML IV CONT (15:37)
[2021-06-28 23:52] LABS: Glucose Point of Care 123 mg/dl (65-105)
[2021-06-29] VITALS (33 sets, daily range): BP systolic 60–138; BP diastolic 43–75; PULSE 53–128; RESP 11–28; TEMP 36.4–37.3; O2SAT 90–100
[2021-06-29] MEDS: MORPHINE SULFATE (*CRX) 2 MG/ML INJ IV PUSH ×4 (00:55→18:40)
[2021-06-29] MEDS: metroNIDAZOLE 500 MG/ISO 100ML 500 MG/100 ML BAG 100 MG IVPB (02:07)
[2021-06-29] MEDS: IPRATROPIUM BR 0.02% INH SOLN 0.5 MG/2.5 ML VIAL INHALATION ×3 (02:28→19:33)
[2021-06-29] MEDS: ALBUTEROL SULFATE NEB 2.5 MG/0.5 ML INH INHALATION ×3 (02:28→19:33)
[2021-06-29 05:01] LABS: Hematocrit 22.5 % (42.0-52.0); Hemoglobin 7.2 g/dL (14.0-18.0); Mean Corpuscular Hemoglobin 32.9 pg (26-34); Mean Corpuscular Volume 102.7 fl (80-100); Mean Platelet Volume 10.9 fl (7.4-10.4); Platelet Count Result 81 k/mm3 (150-375); Red Blood Count 2.19 M/mm3 (4.6-6.20); Red Cell Distribution Width 20.9 % (11.5-14.5); White Blood Count 23.6 K/mm3 (4.5-10.0)
[2021-06-29] MEDS: CENTRAL LINE FLUSH 10 ML IV PUSH ×4 (05:01→20:00)
[2021-06-29] MEDS: ALBUMIN HUMAN 25% 25 GM/100 ML 100 ML IVPB ×4 (05:02→23:59)
[2021-06-29 05:10] LABS: Ammonia < 9 umol/L (9-30)
[2021-06-29 05:11] LABS: Alanine Aminotransferase 19 U/L (4-50); Albumin Level 3.3 g/dL (3.5-5.1); Alkaline Phosphatase 51 U/L (38-126); Anion Gap 9 mmol/L (8-16); Aspartate Amino Transferase 50 U/L (17-59); Bilirubin,Total 7.1 mg/dL (0.2-1.3); Blood Urea Nitrogen 23 mg/dL (9-20); Calcium 8.5 mg/dL (8.4-10.2); Carbon Dioxide 27 mmol/L (22-30); Chloride 120 mmol/L (98-107); Estimated CRCL calculation 97 ml/min; Estimated Glomerular Filt Rate > 60; Glucose 143 mg/dL (65-110); Magnesium 2.6 mg/dL (1.6-2.3); Phosphorus 1.6 mg/dL (2.5-4.5); Potassium 3.1 mmol/L (3.4-5.0); Sodium 156 mmol/L (137-145); Triglycerides < 30 mg/dL (<150)
[2021-06-29] MEDS: THIAMINE HCL 200 MG/2 ML VIAL 100 MG IV PUSH (09:10)
[2021-06-29] MEDS: PANTOPRAZOLE SODIUM IV 40 MG VIAL IV PUSH ×2 (09:11→19:59)
--- NOTE | 2021-06-29 09:17 | WPDGIPROGNO ---
Progress Note: A&P Assessment and Plan (1) Perforated gastric ulcer: Code(s): K25.5 - Chronic or unspecified gastric ulcer with perforation Status: Acute Assessment and Plan: s/p surgical repair, shock resolved and slowly recovering iv protonix and bowel rest UGI series showed leakage from duodenal ulcer (confirmed by CT Scan)- EGD on admission showed large duodenal ulcer. management by surgery TPN (2) Septic shock: Code(s): A41.9 - Sepsis, unspecified organism; R65.21 - Severe sepsis with septic shock Status: Acute Assessment and Plan: Remains on IV antibiotics-- piperacillin and metronidazole (3) Liver encephalopathy: Code(s): K72.90 - Hepatic failure, unspecified without coma Status: Acute Assessment and Plan: Still confused, delirius (4) Cirrhosis of liver: Code(s): K74.60 - Unspecified cirrhosis of liver Status: Acute Assessment and Plan: he has decompensated cirrhosis complicated this hospitalization with gib and perforated peptic ulcer eoth use medical support (5) Alcoholism: Code(s): F10.20 - Alcohol dependence, uncomplicated Status: Acute (6) Acute blood loss anemia: Code(s): D62 - Acute posthemorrhagic anemia Status: Acute Assessment and Plan: due to PUD, s/p surgery hb 7.5 iv protonix (7) Leukocytosis: Code(s): D72.829 - Elevated white blood cell count, unspecified Status: Acute Assessment and Plan: sepsis, on antibiotics s/p repair of perforated but now evidence of perforation DU (8) NSAID long-term use: Code(s): Z79.1 - [facility] ([facility]) use of non-steroidal anti-inflammatories (NSAID) Status: Acute Assessment and Plan: it has been discontinued and probably can explain part of presentation Subjective Date/time seen: 06/29/21 09:17 Interval history: NG tube still in place. Abdominal wound covered with large dressing. He has been complaining of pain. Apparently his last dose of morphine was last evening. Review of Systems Review of Systems: All systems reviewed & are unremarkable except as noted in HPI and below Exam Const: General: uncomfortable Orientation/consciousness: confusion HENMT: General nose exam: Normal nares present Eyes: Other: icteric sclerae Neck: Neck: supple Resp: Auscultation: diminished lung sounds Cardio: Rate: regular rate GI: Inspection: distended Other: KERON in position, surgical site looks clean Urinary Catheter: Urinary Catheter: patent and draining Skin: Other: telangiectasia Neuro: Cranial nerves: Yes Normal hearing present Other: awake but confused, restless Extrem: General: normal to inspection, capillary refill normal, no calf tenderness and pedal edema Psych: Mental Status: mental status grossly normal Other: confused Objective Data Vital Signs Vital Signs: Vital Signs - 24 hr 06/28/21 10:00 06/28/21 12:00 06/28/21 14:00 Temperature 36.6 C Pulse Rate 70 75 75 Pulse Rate [Apical Monitor] 75 Respiratory Rate 28 H Blood Pressure 138/60 Pulse Oximetry 96 06/28/21 15:26 06/28/21 16:00 06/28/21 18:00 Temperature 36.5 C Pulse Rate 66 62 Pulse Rate [Apical Monitor] 72 Respiratory Rate 18 Blood Pressure 148/64 H Pulse Oximetry 93 06/28/21 19:49 06/28/21 20:00 06/28/21 22:00 Temperature 37.2 C Pulse Rate 70 76 81 Pulse Rate [Apical Monitor] Respiratory Rate 21 H Blood Pressure 116/52 L Pulse Oximetry 96 06/28/21 23:40 06/29/21 00:00 06/29/21 02:00 Temperature 36.9 C Pulse Rate 82 78 71 Pulse Rate [Apical Monitor] Respiratory Rate 22 H Blood Pressure 144/71 H Pulse Oximetry 97 06/29/21 02:35 06/29/21 02:45 06/29/21 03:19 Temperature 37.1 C Pulse Rate 60 63 71 Pulse Rate [Apical Monitor] Respiratory Rate 22 H 22 H 23 H Blood Pressure 138/58 L Pulse Oximetry 97 06/29/21 04:00 06/29/21 05:36
--- NOTE | 2021-06-29 09:34 | PM.PNGS ---
Progress Note: A&P Assessment and Plan (1) Perforated gastric ulcer: Qualifiers: Gastric ulcer chronicity: acute Qualified Code(s): K25.1 - Acute gastric ulcer with perforation Code(s): K25.5 - Chronic or unspecified gastric ulcer with perforation Status: Acute Assessment and Plan: closed with patch omentoplasty 5 days ago. Upper GI yesterday shows either coincidental duodenal ulcer with leakage or leakage from closure distal gastric ulcer. Gastric contents and leakage well controlled with NG tube and right upper quadrant drain. Plan to treat with antibiotics, TPN, bowel rest and drainage. 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 He is not draining a lot of fluid from his abdomen but it seems to be coming from several sites of the closure, predominantly near the umbilicus. This is mostly occurring when he is restless. He has not been getting any analgesics after surgery due to his altered mental status. Will start morphine and also encouraged use of benzodiazepines. Please see encephalopathy below. If analgesics and benzodiazepines do not result in resolution of ascites fistula, consider ultrasound-guided paracentesis. Return to the OR is a last resort as control of ascites fistula surgically in this patient would be very difficult. (2) Encephalopathy: Code(s): G93.40 - Encephalopathy, unspecified Status: Acute Assessment and Plan: Patient very restless as noted above. To obvious potential reasons for this are lack of analgesics postoperatively as well as withdrawal from alcohol symptoms. His ammonia level has remained normal. Will encourage use of lorazepam and order p.r.n. morphine sulfate. (3) Cirrhosis of liver with ascites: Qualifiers: Hepatic cirrhosis type: alcoholic cirrhosis Qualified Code(s): K70.31 - Alcoholic cirrhosis of liver with ascites Code(s): K74.60 - Unspecified cirrhosis of liver; R18.8 - Other ascites Status: Acute Assessment and Plan: Although we do not have an INR done in the last couple of days, using the INR from a week ago his MELD score today is 20. This is consistent with a 20% risk of in the next 3 months just based on cirrhosis, not including the other coincident problems that currently exist. Overall prognosis for this patient is obviously poor. Subjective Subjective Date/Time Seen: 06/29/21 09:34 Post Op day: 5 Interval history: Patient restless and confused. Leaking serosanguineous fluid from wound. Review of Systems Review of Systems: ROS unobtainable: Yes unobtainable due to mental status Exam Const: General: no acute distress, confusion and other ( Restless); No cooperative Orientation/consciousness: confusion GI: Inspection: distended, incision ( blood tinged fluid leaking several areas incision when moves.), no visible herniation and other ( No sign dehiscence or evisceration. Umbilicus protruding) GI Palp: Yes Firmness to palpation present (GI), Yes Tenderness to palpation present (GI), No Guarding due to palpation present (GI), No Rigid due to palpation, Yes Ascites present ( small amounts leaking from incision as noted above) and No Rebound tenderness present Auscultation: Hypoactive bowel sounds present Psych: Speech and movement: Restless speech present Thought process: Illogical thought process present Insight: Poor insight present (Psych) Judgement: Poor judgement present (Psych) Objective Data Vital Signs Vital Signs: Vital Signs - 24 hr 06/28/21 10:00 06/28/21 12:00 06/28/21 14:00 Temperature 36.6 C Pulse Rate 70 75 75 Pulse Rate [Apical Monitor] 75 Respiratory Rate 28 H Blood Pressure 138/60 Pulse Oximetry 96 06/28/21 15:26 06/28/21 16:00 06/28/21 18:00 Temperature 36.5 C Pulse Rate 66 62 Pulse Rate [Apical Monitor] 72 Respiratory Rate 18 Blood Pressure 148/64 H Pulse Oximetry 93 06/28/21 19:49 06/15
--- NOTE | 2021-06-29 10:09 | PM.IMPN ---
Progress Note: A&P Assessment and Plan (1) Septic shock: Code(s): A41.9 - Sepsis, unspecified organism; R65.21 - Severe sepsis with septic shock Status: Acute Assessment and Plan: Secondary to peritonitis from perforated gastric ulcer Patient was given 3 L of fluids yesterday and started on IV fluids with bicarb metabolic acidosis Albumin 25% was given to minimize third-spacing Patient never required vasopressors Continue Zosyn will discontinue continue Flagyl as patient has not had any diarrhea for last 48 hours which makes C diff unlike Blood cultures have been negative till now (2) Perforated gastric ulcer: Code(s): K25.5 - Chronic or unspecified gastric ulcer with perforation Status: Deleted Assessment and Plan: Status post ex lap NPO NG tube in place KERON drain in place General surgery is following 06/26 KUB IMPRESSION: 1. Nasogastric tube in stomach and nonspecific bowel gas pattern. 2. Persistent scattered bilateral airspace opacities likely discoid atelectasis however pneumonia not excludable. 3. Cardiomegaly. (3) Acute kidney injury: Code(s): N17.9 - Acute kidney failure, unspecified Status: Acute Assessment and Plan: Likely secondary to septic shock and postoperative prerenal versus ATN Patient was given 3 L IV fluid bolus and change IV fluids to bicarb Add 25 % albumin q.6 hours as patient is third-spacing Creatinine improved to 1.8 today and urine output has improved Monitor urine output electrolytes and creatinine (4) Encephalopathy: Code(s): G93.40 - Encephalopathy, unspecified Status: Acute Assessment and Plan: Likely multifactorial and metabolic His last ammonia level was normal Exam is nonfocal Minimize sedative use Monitor (5) Alcoholism: Code(s): F10.20 - Alcohol dependence, uncomplicated Status: Acute Assessment and Plan: P.r.n. Ativan and monitor for signs of withdrawal Thiamine and folic acid (6) Colitis: Code(s): K52.9 - Noninfective gastroenteritis and colitis, unspecified Status: Acute Assessment and Plan: CT suggested diffuse wall thickening of colon and multiple loops of jejunum and this is likely from edema. No pneumatosis was seen on the CT C diff was ordered and pending but patient is not having any diarrhea I will leave the Flagyl for now until a discuss with surgery but I think C diff is unlikely considering patient has not had any bowel movements for last 48 hours (7) Cirrhosis of liver: Code(s): K74.60 - Unspecified cirrhosis of liver Status: Acute Assessment and Plan: Secondary to alcohol abuse His ammonia level was normal yesterday and will continue monitor INR reviewed (8) Hypoxia: Code(s): R09.02 - Hypoxemia Status: Acute Assessment and Plan: Secondary to atelectasis. Chest x-ray reviewed Patient was started on q.6 hours EzPAP therapy and he is now on room air Will order incentive spirometry and up in chair (9) Anemia: Code(s): D64.9 - Anemia, unspecified Status: Acute Assessment and Plan: Multifactorial patient admitted with GI bleed from gastric ulcer also had varices. He had laparotomy and now hemodilution some volume resuscitation Hemoglobin is 7 today Will monitor transfuse as needed below 7 He is on PPI Additional Plan S/p exploratory laparotomy, evacuation of 9.3 L intra-abdominal ascites, repair of perforated gastric ulcer with omental patch, intra-abdominal washout GS following, recommendations appreciated Continue IV antibiotics CT of A/P indicates Free intraperitoneal gas which is consistent with perforated viscus if recent suggestions or surgery. GS following, recommendations apprecaited KUB order indicates nonobstructive bowel gas pattern with Cholelithiasis Noted on CT of a/p Records from forensic toxicologist to determine if patient has regular paracentesis requested According to patient he has not had any
[2021-06-29] MEDS: DEXTROSE 5%/0.45% SOD CHL 1,000 ML 100 ML IV CONT (11:13)
[2021-06-29 11:18] LABS: Hematocrit 22.1 % (42.0-52.0)
[2021-06-29 11:35] LABS: Prothrombin Time 52.8 Seconds (11.1-14.7)
[2021-06-29 11:42] LABS: INR 6.2
--- NOTE | 2021-06-29 12:04 | PM.PNGS ---
Progress Note: A&P Assessment and Plan (1) Dehiscence of closure of fascia, superficial or muscular: Code(s): T81.32XA - Disruption of internal operation (surgical) wound, not elsewhere classified, initial encounter Status: Acute Assessment and Plan: fascial dehiscence without evisceration but leaking ascites almost continually. Will need to return to the operating room to repair. While in the operating room, I will try to address the leak noted on upper GI yesterday. Options are limited due to coagulopathy as described below. (2) Perforated gastric ulcer: Qualifiers: Gastric ulcer chronicity: acute Qualified Code(s): K25.1 - Acute gastric ulcer with perforation Code(s): K25.5 - Chronic or unspecified gastric ulcer with perforation Status: Acute Assessment and Plan: repaired with closure and omentoplasty 5 days ago. Upper GI showed possible duodenal perforation and leakage. Will try to address this at surgery although options are somewhat limited due to coagulopathy and cirrhosis. (3) Encephalopathy: Code(s): G93.40 - Encephalopathy, unspecified Status: Acute Assessment and Plan: Discussed with Dr. Sheriff. Multiple potential etiologies including withdrawal, postoperative state, liver failure. (4) Coagulopathy: Code(s): D68.9 - Coagulation defect, unspecified Status: Acute Assessment and Plan: INR checked since my original note this morning. Noted to be 6.2. Fresh frozen plasma to be given. Platelet count was [address] this morning. (5) Cirrhosis of liver with ascites: Qualifiers: Hepatic cirrhosis type: alcoholic cirrhosis Qualified Code(s): K70.31 - Alcoholic cirrhosis of liver with ascites Code(s): K74.60 - Unspecified cirrhosis of liver; R18.8 - Other ascites Status: Acute Assessment and Plan: Recalculated the MELD score with INR of 6.2, now shows a score of 34 which carries a 52.6% estimated 3 month mortality. This score does not take into account the other current conditions the patient is experiencing such as recent surgery, anemia, encephalopathy, etc.. Prognosis is very poor. Subjective Subjective Date/Time Seen: 06/29/21 12:04 Patient reports: other ( persistent wound drainage) Interval history: I was called about an hour ago that the patient's wound dressing that I had placed earlier this morning had become saturated fairly quickly. The drainage was quite bloody. Review of Systems Review of Systems: ROS unobtainable: Yes unobtainable due to mental status Exam Const: General: confusion and lethargic ( Had received some morphine and less restless) Orientation/consciousness: confusion GI: Inspection: distended and incision ( persistent serosanguineous drainage) GI Palp: Yes Soft to palpation, Yes Tenderness to palpation present (GI), Yes Ascites present ( bloody ascites) and Yes Other GI palpation findings present ( a couple of yuniel removed. fascial dehiscence noted) Objective Data Vital Signs Vital Signs: Vital Signs - 24 hr 06/28/21 14:00 06/28/21 15:26 06/28/21 16:00 Temperature 36.5 C Pulse Rate 75 66 Pulse Rate [Apical Monitor] 72 Respiratory Rate 18 Blood Pressure 148/64 H Pulse Oximetry 93 06/28/21 18:00 06/28/21 19:49 06/28/21 20:00 Temperature 37.2 C Pulse Rate 62 70 76 Pulse Rate [Apical Monitor] Respiratory Rate 21 H Blood Pressure 116/52 L Pulse Oximetry 96 06/28/21 22:00 06/28/21 23:40 06/29/21 00:00 Temperature 36.9 C Pulse Rate 81 82 78 Pulse Rate [Apical Monitor] Respiratory Rate 22 H Blood Pressure 144/71 H Pulse Oximetry 97 06/29/21 02:00 06/29/21 02:35 06/29/21 02:45 Temperature Pulse Rate 71 60 63 Pulse Rate [Apical Monitor] Respiratory Rate 22 H 22 H Blood Pressure Pulse Oximetry 06/29/21 03:19 06/29/21 04:00 06/29/21 05:36 Temperature 37.1 C Pulse Rate 71 86 87 Puls
--- NOTE | 2021-06-29 13:24 | WPDANESEPPF ---
Anes - Initial Pre Proc Eval Procedure: Operation Date: 06/21/21 14:00 Proposed Procedures p Esophagogastroduodenoscopy - Alli Moseley MD Operation Date: 06/24/21 12:00 Proposed Procedures p Exploratory Laparotomy, Possible Bowel Resection, Possible Ostomy - Fela Tijerina MD Operation Date: 06/29/21 12:45 Proposed Procedures p Exploratory Laparotomy, Pos Bowel Resec - Yoav Alvarado MD Date/Time: 06/29/21 13:24 Surgeon: Haroldo Box MD Pre Op Diagnosis: GI Bleeding, Anemia, Cirrhosis Patient Data Age: 51 Gender: M Height: 1.78 m Weight: 83.6 kg Last Vital Signs Temp 36.7 C 06/29/21 12:14 Pulse 70 06/29/21 12:14 Resp 22 H 06/29/21 12:14 BP 138/75 06/29/21 12:14 Pulse Ox 97 06/29/21 12:14 Allergies Allergy/AdvReac Type Severity Reaction Status Date / Time No Known Allergies Allergy Verified 04/02/21 11:14 Home Medications Medication Instructions Recorded Confirmed Type rifaximin 550 mg tablet 550 mg PO BID 11/27/20 06/21/21 History gabapentin 600 mg tablet 600 mg PO QID #120 tablet 04/02/21 06/21/21 Rx diclofenac sodium 75 mg 75 mg PO DAILY tablet 04/23/21 06/21/21 History tablet,delayed release lactulose 20 gram/30 mL oral 20 g PO TID #1200 ml 04/23/21 06/21/21 Rx solution metoprolol tartrate 25 mg tablet 100 mg PO DAILY tablet 04/23/21 06/21/21 History nadolol 20 mg tablet 20 mg PO DAILY tablet 04/23/21 06/21/21 History acyclovir 400 mg PO DAILY 06/21/21 06/21/21 History Laboratory Tests 06/28/21 06/29/21 06/29/21 23:48 04:41 04:42 WBC RBC Hgb Hct MCV MCH MCHC RDW Plt Count MPV % Immature Plt Fraction PT INR Sodium 156 mmol/L H mmol/L (137-145) Potassium 3.1 mmol/L L mmol/L (3.4-5.0) Chloride 120 mmol/L H mmol/L (98-107) Carbon Dioxide 27 mmol/L mmol/L (22-30) Anion Gap 9 mmol/L mmol/L (8-16) BUN 23 mg/dL H mg/dL (9-20) Creatinine 0.80 mg/dL mg/dL (0.7-1.3) Estim Creat Clear Calc 97 ml/min ml/min Estimated GFR > 60 (59 - ) Glucose 143 mg/dL H mg/dL (65-110) POC Capillary Glucose 123 mg/dl H mg/dl (65-105) Calcium 8.5 mg/dL mg/dL (8.4-10.2) Phosphorus 1.6 mg/dL L mg/dL (2.5-4.5) Magnesium 2.6 mg/dL H mg/dL (1.6-2.3) Total Bilirubin 7.1 mg/dL H mg/dL (0.2-1.3) AST 50 U/L U/L (17-59) ALT 19 U/L U/L (4-50) Alkaline Phosphatase 51 U/L U/L (38-126) Ammonia < 9 umol/L L umol/L (9-30) Total Protein 5.0 g/dL L g/dL (6.3-8.2) Albumin 3.3 g/dL L g/dL (3.5-5.1) Triglycerides < 30 mg/dL mg/dL (<150) Blood Type 06/29/21 06/29/21 06/29/21 04:42 10:55 10:55 WBC 23.6 K/mm3 H K/mm3 (4.5-10.0) RBC 2.19 M/mm3 L M/mm3 (4.6-6.20) Hgb 7.2 g/dL L g/dL 7.0 g/dL L g/dL (14.0-18.0) (14.0-18.0) Hct 22.5 % L % 22.1 % L % (42.0-52.0) (42.0-52.0) MCV 102.7 fl H fl (80-100) MCH 32.9 pg pg (26-34) MCHC 32.0 g/dl g/dl (32-36) RDW 20.9 % H % (11.5-14.5) Plt Count 81 k/mm3 L k/mm3 (150-375) MPV 10.9 fl H fl (7.4-10.4) % Immature Plt Fraction 5.0 % % (0.9-11.2) PT 52.8 Seconds H Seconds (11.1-14.7) INR 6.2 H* Sodium Potassium Chloride Carbon Dioxide Anion Gap BUN Creatinine Estim Creat Clear Calc Estimated GFR Glucose POC Capillary Glucose Calcium Phosphorus Magnesium Total Bilirubin AST
[2021-06-29] MEDS: ceFAZolin SODIUM 1 GM VIAL 2 GM IV PUSH (13:35)
--- NOTE | 2021-06-29 14:39 | SUR.OPER ---
EBL 200 ARRIVED WITH TOM/DARK CRISTINA U/A 650ML EMPTIED ON ARRIVAL/50ML END OF SURGERY.
--- NOTE | 2021-06-29 14:57 | W.PM.PROC2 ---
Procedure Note - Detailed Date of Procedure 06/29/21 Pre-op Diagnosis Fascial dehiscence, ascites leak, duodenal perforation Post-op Diagnosis other (Fascial dehiscence, ascites leak, perforated gastric ulcer) Procedure Performed Closure with omentoplasty perforated gastric ulcer, repair fascial dehiscence Surgeon Yoav Alvarado MD Pest Control Worker Florencia Concepcion Anesthesia general Indications Patient has advanced cirrhosis with ascites and portal hypertension. He presented about a week ago with abdominal pain and was found to have pneumoperitoneum. On 06/24/2021 exploration was done and showed a distal gastric ulcer perforation. This was oversewn and omental patch was placed. Patient had been doing well but yesterday on upper GI he was noted to have a perforation that seemed to be in the duodenum. It was felt to be drained by the drain in the right upper quadrant as well as the NG tube. However the patient was noted then to have bloody drainage from his wound. He was quite restless. Initially we tried to provide benzodiazepines and narcotics for his restlessness but his bloody ascites continued to leak. Bedside wound exploration showed fascial dehiscence. He is taken to surgery now for repair fascial dehiscence and possibly repair of duodenal perforation. Findings Patient's protime was 6.2 preoperatively. We did receive the FFP till the operation was nearly over. He had significant portal hypertension and some vessels required suture ligation rather than cautery. It appeared the previous gastric ulcer closure had pulled through on the distal side leaving the ulcer open. The fascia also appeared to have pulled through the suture. There was quite a bit of bloody ascites in the abdomen and diffuse oozing as 1 might expect under the circumstances. Description of Procedure The patient was taken to surgery and induced into general anesthesia. The abdomen was prepped and draped in its entirety. The remaining yuniel were removed before prep and drape. The right upper quadrant drain was removed prior to prep and drape. The wound gapped open at the skin and there was some clot in the subcutaneous. After prep and drape, we gently explored the wound and found the fascial dehiscence appeared to be primarily supraumbilical but did extend most of the incision and appeared to have pulled through the fascia. The remaining loose suture were removed. We then used suction and evacuated bloody ascites as much as possible. Some areas showed some greenish drainage suggestive of enteric leakage. The bowel was dilated and edematous. The wound edges bled readily consistent with both the coagulopathy and the portal hypertension. Cautery was used when it was affective. 3-0 Vicryl suture ligatures were also used to achieve hemostasis. I opened the wound several more cm cephalad to expose the upper aspect. Again bleeding was more than usual and was controlled in the above manner. There was in general a fairly bloody ooze which was hard to distinguish between ascites and bleeding although certainly the ascites was more dilute. Suctioning and laparotomy sponges were used to achieve visualization in this situation. We gently freed the abdominal molina from the underlying bowel. The adhesions were minimal. The bowel was gently and eventually I was able to expose the distal stomach and duodenum. The gallbladder was noted as well and was somewhat distended. I found the gastric ulcer and it had reopened after the previous sutures had pulled through on the distal side. The sutures were still in place on the proximal side. The sutures were removed. I closed the ulcer with 3-0 silk Lembert suture. There was an area on the surface of the cyst distal stomach anteriorly that had significant bleeding likely due to portal hypertension. This did not respond to cautery but did respond to a 3-0 silk suture. I then covered the area of the repair with Surgiflo and held gentle p
--- NOTE | 2021-06-29 15:08 | SUR.OPER ---
SURGIFLOW GIVEN ABDOMEN INTRAOP X1 PER DR MINOR
[2021-06-29] MEDS: LORazepam INJ (*CRX) 2 MG/ML VIAL IV PUSH ×3 (15:11→23:00)
[2021-06-29] MEDS: LORazepam INJ (*CRX) 40 MG in DEXTROSE 5% IN WATER 20 ML IV CONT (15:12)
[2021-06-29] MEDS: FENTANYL 2,500MCG/NS250ML(*CRX 2,500 MCG/250 ML BAG 15 MCG IV CONT (15:12)
[2021-06-29] MEDS: KCL 20 MEQ/D5/0.45% SOD CHL 1,000 ML 100 ML IV CONT (15:16)
--- NOTE | 2021-06-29 15:23 | SUR.OPER ---
SEE ANESTHESIA REPORT FOR FFP X2 INFUSION.
--- NOTE | 2021-06-29 15:28 | PC.NURSE ---
1455-Pt. received from OR. Bedside shift report received from DIA Baum, Dr. Headley, and Alix CORONA. Pt. stable upon transfer.
[2021-06-29 15:58] LABS: Alveolar/Arterial O2 Gradient 203.3 mmHg; Base Excess ABG -1.5 mEq/l (+/-2.0); Carboxyhemoglobin 0.3 % THb (0-2.0); Fractional Inspired Oxygen 50 %; HCO3 ABG 21.7 mEq/l (22.0-26.0); Methemoglobin ABG 0.5 %THb (0-1.5); Oxygen Content ABG 8.8 %vol (16.0-22.0); Oxygen Saturation ABG 98.7 % (95.0-100.0); Oxyhemoglobin 96.2 % THb (90.0-100.0); PCO2 ABG 29.2 mmHg (35.0-45.0); PO2 ABG 120.4 mmHg (80.0-100.0); PO2 FiO2 Ratio Arterial Blood 2.41 %; pH ABG 7.489 (7.350-7.450)
[2021-06-29 15:59] LABS: Modified Allen's Test Pass; Site Drawn RIGHT RADIAL; Total Hemoglobin 6.3 g/dL (12.0-18.0)
[2021-06-29 16:00] LABS: Arterial Blood Gas PEEP 5 cmH2O; Arterial Blood Gas Tidal Volume 450 ml; Arterial Blood Gas Vent Mode CMV; Arterial Blood Gas Ventilator rate 22 /MIN; Device VENTILATOR
[2021-06-29 16:28] LABS: Glucose Point of Care 132 mg/dl (65-105)
[2021-06-29 16:59] LABS: Alanine Aminotransferase 19 U/L (4-50); Albumin Level 2.9 g/dL (3.5-5.1); Alkaline Phosphatase 52 U/L (38-126); Anion Gap 10 mmol/L (8-16); Aspartate Amino Transferase 36 U/L (17-59); Bilirubin,Total 5.8 mg/dL (0.2-1.3); Blood Urea Nitrogen 24 mg/dL (9-20); Calcium 7.7 mg/dL (8.4-10.2); Carbon Dioxide 23 mmol/L (22-30); Chloride 120 mmol/L (98-107); Estimated CRCL calculation 79 ml/min; Estimated Glomerular Filt Rate > 60; Glucose 141 mg/dL (65-110); Magnesium 2.3 mg/dL (1.6-2.3); Phosphorus 2.7 mg/dL (2.5-4.5); Potassium 3.3 mmol/L (3.4-5.0); Sodium 153 mmol/L (137-145)
[2021-06-29] MEDS: FOLIC ACID 1 MG/0.2 ML INJ IV PUSH (17:37)
[2021-06-29 17:41] LABS: Hematocrit 22.1 % (42.0-52.0); Immature Platelet Fraction Pct 5.7 % (0.9-11.2); Mean Corpuscular HGB Conc 31.7 g/dl (32-36); Mean Corpuscular Hemoglobin 30.4 pg (26-34); Mean Corpuscular Volume 96.1 fl (80-100); Mean Platelet Volume 10.7 fl (7.4-10.4); Platelet Count Result 84 k/mm3 (150-375); White Blood Count 28.3 K/mm3 (4.5-10.0)
[2021-06-29 17:52] LABS: INR 2.5; Prothrombin Time 26.3 Seconds (11.1-14.7)
[2021-06-29 18:05] LABS: Glucose Point of Care 129 mg/dl (65-105)
[2021-06-29 18:07] LABS: Fibrinogen 132 mg/dl (215-510)
--- NOTE | 2021-06-29 18:20 | PC.NURSE ---
4141-Dr. Alvarado notified of excessive output from KERON drain. Dr. Alvarado thought this was due to ascites. Ordered to clamp the tube.
--- NOTE | 2021-06-29 18:21 | PC.NURSE ---
1814-Dr. Shields notified of patient's vitals and labs. Order to give another unit of PRBC. Dr. Shields requesting a phone call with the fibrinogen and ptt. Pt.'s vitals stable at this time. Will continue to monitor.
[2021-06-29] MEDS: MINERAL OIL/WHITE PETROLATUM OINTMENT 1 APPLIC EACH EYE (19:59)
[2021-06-29 23:36] LABS: Glucose Point of Care 128 mg/dl (65-105)
[2021-06-30] VITALS (41 sets, daily range): BP systolic 90–168; BP diastolic 57–88; PULSE 88–109; RESP 17–19; TEMP 36.4–36.9; O2SAT 91–100
[2021-06-30 00:59] LABS: Hematocrit 22.8 % (42.0-52.0); Hemoglobin 7.5 g/dL (14.0-18.0); Immature Platelet Fraction Pct 5.5 % (0.9-11.2); Mean Corpuscular HGB Conc 32.9 g/dl (32-36); Mean Corpuscular Hemoglobin 30.6 pg (26-34); Mean Corpuscular Volume 93.1 fl (80-100); Mean Platelet Volume 10.1 fl (7.4-10.4); Platelet Count Result 74 k/mm3 (150-375); Red Blood Count 2.45 M/mm3 (4.6-6.20); Red Cell Distribution Width 21.3 % (11.5-14.5); White Blood Count 28.8 K/mm3 (4.5-10.0)
[2021-06-30] MEDS: ALBUTEROL SULFATE NEB 2.5 MG/0.5 ML INH INHALATION ×4 (01:55→19:19)
[2021-06-30] MEDS: IPRATROPIUM BR 0.02% INH SOLN 0.5 MG/2.5 ML VIAL INHALATION ×4 (01:55→19:20)
[2021-06-30 05:18] LABS: PCO2 ABG 35.3 mmHg (35.0-45.0); pH ABG 7.445 (7.350-7.450)
[2021-06-30 05:19] LABS: Base Excess ABG -0.2 mEq/l (+/-2.0); HCO3 ABG 23.7 mEq/l (22.0-26.0); Oxygen Saturation ABG 95.7 % (95.0-100.0)
[2021-06-30 05:20] LABS: Alveolar/Arterial O2 Gradient 133.5 mmHg; Oxygen Content ABG 10.4 %vol (16.0-22.0); Total Hemoglobin 7.9 g/dL (12.0-18.0)
[2021-06-30 05:21] LABS: Carboxyhemoglobin 0.3 % THb (0-2.0); Fractional Inspired Oxygen 35 %; Methemoglobin ABG 0.5 %THb (0-1.5); Modified Allen's Test Unable to perform; Oxyhemoglobin 92.6 % THb (90.0-100.0); PO2 FiO2 Ratio Arterial Blood 2.14 %; Reduced Hemoglobin 6.6 %THb (0-5.0); Site Drawn RIGHT RADIAL
[2021-06-30 05:22] LABS: Device VENTILATOR
[2021-06-30 05:23] LABS: Arterial Blood Gas PEEP 5 cmH2O; Arterial Blood Gas Tidal Volume 450 ml; Arterial Blood Gas Vent Mode CMV; Arterial Blood Gas Ventilator rate 18 /MIN
[2021-06-30] MEDS: ALBUMIN HUMAN 25% 25 GM/100 ML 100 ML IVPB ×3 (05:51→17:22)
[2021-06-30] MEDS: CENTRAL LINE FLUSH 10 ML IV PUSH ×4 (05:51→22:33)
[2021-06-30 06:18] LABS: Hematocrit 22.2 % (42.0-52.0); Hemoglobin 7.3 g/dL (14.0-18.0); Immature Platelet Fraction Pct 6.2 % (0.9-11.2); Mean Corpuscular HGB Conc 32.9 g/dl (32-36); Mean Corpuscular Hemoglobin 30.4 pg (26-34); Mean Corpuscular Volume 92.5 fl (80-100); Mean Platelet Volume 11.2 fl (7.4-10.4); Platelet Count Result 75 k/mm3 (150-375); White Blood Count 26.7 K/mm3 (4.5-10.0)
[2021-06-30 06:29] LABS: Ammonia < 9 umol/L (9-30)
[2021-06-30 06:38] LABS: Alanine Aminotransferase 16 U/L (4-50); Alkaline Phosphatase 47 U/L (38-126); Anion Gap 10 mmol/L (8-16); Aspartate Amino Transferase 34 U/L (17-59); Bilirubin,Total 7.4 mg/dL (0.2-1.3); Blood Urea Nitrogen 37 mg/dL (9-20); Calcium 7.8 mg/dL (8.4-10.2); Carbon Dioxide 25 mmol/L (22-30); Chloride 119 mmol/L (98-107); Estimated CRCL calculation 57 ml/min; Estimated Glomerular Filt Rate 53; Glucose 147 mg/dL (65-110); Magnesium 2.3 mg/dL (1.6-2.3); Phosphorus 2.9 mg/dL (2.5-4.5); Potassium 3.5 mmol/L (3.4-5.0); Sodium 154 mmol/L (137-145)
[2021-06-30] MEDS: DEXTROSE 5% 1,000 ML 1,000 ML 100 ML IV CONT ×2 (07:57→18:42)
[2021-06-30] MEDS: CALCIUM CHLOR 1,000MG/100ML NS 1,000 MG/100 ML BAG 100 MG IVPB (07:59)
[2021-06-30] MEDS: KCL 20 MEQ/SW 100 ML 100 ML 50 MEQ IVPB (08:01)
[2021-06-30] MEDS: FOLIC ACID 1 MG/0.2 ML INJ IV PUSH (08:03)
[2021-06-30] MEDS: PANTOPRAZOLE SODIUM IV 40 MG VIAL IV PUSH ×2 (08:05→22:33)
[2021-06-30] MEDS: THIAMINE HCL 200 MG/2 ML VIAL 100 MG IV PUSH (08:06)
[2021-06-30] MEDS: MINERAL OIL/WHITE PETROLATUM OINTMENT 1 APPLIC EACH EYE ×2 (08:06→22:33)
[2021-06-30 08:13] LABS: Glucose Point of Care 137 mg/dl (65-105)
--- NOTE | 2021-06-30 09:48 | WPDINTPN ---
Progress Note: A&P Assessment and Plan (1) Acute respiratory failure: Code(s): J96.00 - Acute respiratory failure, unspecified whether with hypoxia or hypercapnia Status: Acute Assessment and Plan: Acute Respiratory failure secondary to done anesthesia and pulmonary edema likely from volume overload Continue full mechanical ventilation support to prevent hypoxemia/hypercarbia and end organ damage. ABG and PCXR reviewed and will repeat in am. Low tidal volume ventilation strategy to prevent volutrauma Will attempt SBT when ready to wean. (2) Sepsis: Code(s): A41.9 - Sepsis, unspecified organism Status: Acute Assessment and Plan: Secondary to peritonitis from perforated gastric and to no ulcer Continue IV fluids. Patient has received significant amount of blood products yesterday Patient also receiving Albumin 25% to minimize third-spacing Patient not requiring vasopressors at this time Continue Zosyn Blood cultures have been negative till now (3) Perforated gastric ulcer: Code(s): K25.5 - Chronic or unspecified gastric ulcer with perforation Status: Deleted Assessment and Plan: Status post ex lap 06/24 evacuation of 9.3 L intra-abdominal ascites, repair of perforated gastric ulcer with omental patch, intra-abdominal washout. 06/28 - UGI series - Duodenal perforation, extravasation CT abdomen pelvis IMPRESSION: 1. Duodenal perforation, moderate ascites and free intraperitoneal gas. 2. Probable colitis, diarrhea. 3. Multisegmental basilar atelectasis. Pneumonia not excludable. 4. Cardiomegaly. 5. Anasarca 06/29 developed fascial dehiscence without evisceration but leaking ascites almost continually., INR 6.2 patient taken back to OR and underwent Closure with omentoplasty perforated gastric ulcer, repair fascial dehiscence 2 units of FFP given intraoperatively postop in ICU patient was given 3 units of PRBC and 4 units of FFP intubated and on mechanical ventilation NPO NG tube in place KERON drain in place with serosanguineous output General surgery is following (4) Acute kidney injury: Code(s): N17.9 - Acute kidney failure, unspecified Status: Acute Assessment and Plan: Likely secondary to sepsis, hypovolemia from large volume shifts patient received 3 units of PRBC and 6 units of FFP yesterday. May need additional blood products [id number] % albumin q.6 hours as patient is third-spacing continue IV fluids Monitor urine output electrolytes and creatinine (5) Encephalopathy: Code(s): G93.40 - Encephalopathy, unspecified Status: Acute Assessment and Plan: Likely multifactorial and metabolic His last ammonia level was normal currently sedated (6) Alcoholism: Code(s): F10.20 - Alcohol dependence, uncomplicated Status: Acute Assessment and Plan: Thiamine and folic acid (7) Cirrhosis of liver: Code(s): K74.60 - Unspecified cirrhosis of liver Status: Acute Assessment and Plan: Secondary to alcohol abuse His ammonia level was normal yesterday and will continue monitor INR reviewed (8) Anemia: Code(s): D64.9 - Anemia, unspecified Status: Acute Assessment and Plan: Multifactorial patient admitted with GI bleed from gastric ulcer also had varices. He had laparotomy x2 and also hemodilution from volume resuscitation patient was transfuse 3 units of PRBC 06/29 Hemoglobin is 7.3 today Will monitor transfuse as needed below 7 He is on PPI q.12 hours monitor q.6 hours (9) Coagulopathy: Code(s): D68.9 - Coagulation defect, unspecified Status: Acute Assessment and Plan: likely secondary to liver dysfunction and DIC Patient was given 6 units of FFP yesterday will give vitamin K repeat coags are ordered for noon (10) Dehiscence of closure of fascia, superficial or muscular: Code(s): T81.32XA - Disruption of internal o
--- NOTE | 2021-06-30 11:02 | PM.PNGS ---
Progress Note: A&P Assessment and Plan (1) Perforated gastric ulcer: Qualifiers: Gastric ulcer chronicity: acute Qualified Code(s): K25.1 - Acute gastric ulcer with perforation Code(s): K25.5 - Chronic or unspecified gastric ulcer with perforation Status: Acute Assessment and Plan: critically ill but somewhat stable after over-sew and omentoplasty yesterday. Continue Protonix and critical care management. Continue NG tube. (2) Dehiscence of closure of fascia, superficial or muscular: Qualifiers: Encounter type: subsequent encounter Qualified Code(s): T81.32XD - Disruption of internal operation (surgical) wound, not elsewhere classified, subsequent encounter Code(s): T81.32XA - Disruption of internal operation (surgical) wound, not elsewhere classified, initial encounter Status: Acute Assessment and Plan: Repair intact postop day 1 (3) Cirrhosis of liver with ascites: Qualifiers: Hepatic cirrhosis type: alcoholic cirrhosis Qualified Code(s): K70.31 - Alcoholic cirrhosis of liver with ascites Code(s): K74.60 - Unspecified cirrhosis of liver; R18.8 - Other ascites Status: Chronic (4) Sepsis: Qualifiers: Sepsis type: sepsis due to unspecified organism Sepsis acute organ dysfunction status: with acute organ dysfunction Severe sepsis acute organ dysfunction type: disseminated intravascular coagulopathy Code(s): A41.9 - Sepsis, unspecified organism Status: Acute Assessment and Plan: continue antibiotics and critical care management (5) Acute respiratory failure: Code(s): J96.00 - Acute respiratory failure, unspecified whether with hypoxia or hypercapnia Status: Acute Assessment and Plan: remains on mechanical ventilator. (6) Coagulopathy: Code(s): D68.9 - Coagulation defect, unspecified Status: Acute Assessment and Plan: Improved after 6 units FFP yesterday. Likely due to combination of hepatic insufficiency and sepsis with DIC. INR 2.5 today. Continue to monitor. Subjective Subjective Date/Time Seen: 06/30/21 11:02 Post Op day: 1 Patient reports: other ( Intubated on mechanical ventilator) Interval history: relatively stable through the night. Received 6 units FFP yesterday as well as 3 units packed red blood cells. Blood pressure is in the low 90s but patient has not required vasopressor agents. Review of Systems Review of Systems: ROS unobtainable: Yes unobtainable due to endotracheal tube Exam GI: Inspection: non-distended and incision ( Bulky dressing dry and intact. KERON serosanguineous) GI Palp: Yes Soft to palpation Auscultation: absent bowel sounds Skin: General skin exam: jaundice Objective Data Vital Signs Vital Signs: Vital Signs - 24 hr 06/29/21 12:00 06/29/21 12:14 06/29/21 15:07 Temperature 36.7 C Pulse Rate 64 70 127 H Respiratory Rate 22 H Blood Pressure 138/75 Pulse Oximetry 96 97 97 06/29/21 15:12 06/29/21 15:31 06/29/21 16:00 Temperature 36.9 C Pulse Rate 128 H 102 H 100 Respiratory Rate 23 H 11 L 22 H Blood Pressure 75/49 L Pulse Oximetry 100 06/29/21 16:13 06/29/21 16:55 06/29/21 17:00 Temperature 36.9 C 36.7 C 36.7 C Pulse Rate 101 H 102 H 104 H Respiratory Rate 22 H 22 H 23 H Blood Pressure 60/43 L 86/47 L 85/52 L Pulse Oximetry 100 100 99 06/29/21 18:00 06/29/21 19:45 06/29/21 19:55 Temperature Pulse Rate 97 102 H 102 H Respiratory Rate 22 H 18 18 Blood Pressure 97/59 L Pulse Oximetry 100 100 06/29/21 20:00 06/29/21 22:00 06/29/21 22:01 Temperature 36.6 C 37.3 C Pulse Rate 104 H 106 H 105 H Respiratory Rate 18 17 17 Blood Pressure 91/54 L 85/57 L 85/57 L Pulse Oximetry 98 97 98 06/29/21 22:17 06/29/21 22:45 06/29/21 23:00 Temperature 37.0 C 37.2 C Pulse Rate 106 H 105 H 107 H Respiratory Rate 19 16 Blood Pressure 91/59 L 94/59 L Pulse Oximetry 98 97 98
[2021-06-30 11:40] LABS: Glucose Point of Care 127 mg/dl (65-105)
[2021-06-30 12:04] LABS: Mean Corpuscular Hemoglobin 30.7 pg (26-34); Mean Platelet Volume 11.2 fl (7.4-10.4); Platelet Count Result 59 k/mm3 (150-375); Red Blood Count 2.15 M/mm3 (4.6-6.20); White Blood Count 21.1 K/mm3 (4.5-10.0)
[2021-06-30 12:05] LABS: Hemoglobin 6.6 g/dL (14.0-18.0)
[2021-06-30 12:14] LABS: Anion Gap 7 mmol/L (8-16); Blood Urea Nitrogen 40 mg/dL (9-20); Calcium 8.4 mg/dL (8.4-10.2); Carbon Dioxide 26 mmol/L (22-30); Chloride 120 mmol/L (98-107); Estimated CRCL calculation 57 ml/min; Estimated Glomerular Filt Rate 53; Glucose 141 mg/dL (65-110); Potassium 3.4 mmol/L (3.4-5.0); Sodium 153 mmol/L (137-145)
[2021-06-30 12:15] LABS: INR 4.2; Prothrombin Time 39.1 Seconds (11.1-14.7)
[2021-06-30 13:02] LABS: Fibrinogen 105 mg/dl (215-510)
[2021-06-30] MEDS: SODIUM CHLORIDE 0.9% IV 250 ML 30 ML IV CONT ×2 (13:30→16:30)
--- NOTE | 2021-06-30 14:28 | PM.IMPN ---
Progress Note: A&P Assessment and Plan (1) Septic shock: Code(s): A41.9 - Sepsis, unspecified organism; R65.21 - Severe sepsis with septic shock Status: Acute Assessment and Plan: Secondary to peritonitis from perforated gastric ulcer Patient was given 3 L of fluids yesterday and started on IV fluids with bicarb metabolic acidosis Albumin 25% was given to minimize third-spacing Patient never required vasopressors Continue Zosyn Blood cultures have been negative till now (2) Perforated gastric ulcer: Code(s): K25.5 - Chronic or unspecified gastric ulcer with perforation Status: Deleted Assessment and Plan: Status post ex lap NPO KERON drain in place General surgery is following (3) Acute kidney injury: Code(s): N17.9 - Acute kidney failure, unspecified Status: Acute Assessment and Plan: Likely secondary to septic shock and postoperative prerenal versus ATN Patient was given 3 L IV fluid bolus and change IV fluids to bicarb Add 25 % albumin q.6 hours as patient is third-spacing Creatinine improved to 1.8 today and urine output has improved Monitor urine output electrolytes and creatinine (4) Encephalopathy: Code(s): G93.40 - Encephalopathy, unspecified Status: Acute Assessment and Plan: Likely multifactorial and metabolic His last ammonia level was normal history of heavy drinking alcholol (5) Alcoholism: Code(s): F10.20 - Alcohol dependence, uncomplicated Status: Acute Assessment and Plan: P.r.n. Ativan and monitor for signs of withdrawal Thiamine and folic acid (6) Colitis: Code(s): K52.9 - Noninfective gastroenteritis and colitis, unspecified Status: Acute Assessment and Plan: CT suggested diffuse wall thickening of colon and multiple loops of jejunum and this is likely from edema. No pneumatosis was seen on the CT C diff was ordered and pending but patient is not having any diarrhea (7) Cirrhosis of liver: Code(s): K74.60 - Unspecified cirrhosis of liver Status: Acute Assessment and Plan: Secondary to alcohol abuse His ammonia level was normal yesterday and will continue monitor INR reviewed (8) Hypoxia: Code(s): R09.02 - Hypoxemia Status: Acute Assessment and Plan: Secondary to atelectasis. (9) Anemia: Code(s): D64.9 - Anemia, unspecified Status: Acute Assessment and Plan: Multifactorial patient admitted with GI bleed from gastric ulcer also had varices. POD day 1 repair of perforated gastric ulcer Additional Plan S/p exploratory laparotomy, evacuation of 9.3 L intra-abdominal ascites, repair of perforated gastric ulcer with omental patch, intra-abdominal washout GS following, recommendations appreciated Continue IV antibiotics CT of A/P indicates Free intraperitoneal gas which is consistent with perforated viscus if recent suggestions or surgery. GS following, recommendations apprecaited KUB order indicates nonobstructive bowel gas pattern with Cholelithiasis Noted on CT of a/p Records from institutional commodity analyst to determine if patient has regular paracentesis requested According to patient he has not had any paracentesis CT of A/P indicates Cirrhosis of the liver and large volume of ascites Patient is on Nadolol, rifaximin, lactulose Continue to monitor Alcohol level within normal limits Lipase elevated [id number] Wiley at [facility] EGD indicates small grade 1 varices were present in the distal esophagus. arices was not actively bleeding CIWA protocol as needed Alcohol withdrawal protocol implemented Ammonia level 14 Lactulose adjusted due to excessive diarrhea, continue 20 gm daily Nicotine patch as needed Likely secondary to alcohol abuse follow-up in outpatient setting Stable Hgb 8.8 S/p octreotide Continue with pantoprazole Transfuse as needed GI following, recommendations appreciated S/p emergent EGD completed, no activ
[2021-06-30] MEDS: FENTANYL 2,500MCG/NS250ML(*CRX 2,500 MCG/250 ML BAG 12.5 MCG IV CONT (14:56)
[2021-06-30 16:02] LABS: Glucose Point of Care 115 mg/dl (65-105)
[2021-06-30] MEDS: PHYTONADIONE ADULT INJ 10 MG in DEXTROSE 5% IN WATER 50 ML 100 MG IVPB (16:44)
[2021-06-30] MEDS: LORazepam INJ (*CRX) 40 MG in DEXTROSE 5% IN WATER 20 ML IV CONT (17:33)
[2021-06-30 17:50] LABS: Hematocrit 25.3 % (42.0-52.0); Hemoglobin 8.5 g/dL (14.0-18.0); Immature Platelet Fraction Pct 6.2 % (0.9-11.2); Mean Corpuscular HGB Conc 33.6 g/dl (32-36); Mean Corpuscular Hemoglobin 30.8 pg (26-34); Mean Corpuscular Volume 91.7 fl (80-100); Mean Platelet Volume 10.8 fl (7.4-10.4); Platelet Count Result 63 k/mm3 (150-375); Red Blood Count 2.76 M/mm3 (4.6-6.20); Red Cell Distribution Width 19.9 % (11.5-14.5); White Blood Count 21.3 K/mm3 (4.5-10.0)
[2021-06-30 23:55] LABS: Glucose Point of Care 122 mg/dl (65-105)
[2021-07-01] VITALS (43 sets, daily range): BP systolic 85–168; BP diastolic 52–82; PULSE 75–98; RESP 13–22; TEMP 36.8–37.1; O2SAT 91–100; BMI 26.4
[2021-07-01 00:26] LABS: INR 2.7
[2021-07-01 00:33] LABS: Fibrinogen 160 mg/dl (215-510)
[2021-07-01 01:17] LABS: Hematocrit 24.1 % (42.0-52.0); Hemoglobin 8.1 g/dL (14.0-18.0); Immature Platelet Fraction Pct 7.7 % (0.9-11.2); Mean Corpuscular HGB Conc 33.6 g/dl (32-36); Mean Corpuscular Hemoglobin 30.7 pg (26-34); Mean Corpuscular Volume 91.3 fl (80-100); Mean Platelet Volume 11.8 fl (7.4-10.4); Platelet Count Result 63 k/mm3 (150-375); Red Blood Count 2.64 M/mm3 (4.6-6.20); White Blood Count 21.1 K/mm3 (4.5-10.0)
[2021-07-01] MEDS: ALBUTEROL SULFATE NEB 2.5 MG/0.5 ML INH INHALATION ×4 (01:37→20:41)
[2021-07-01] MEDS: IPRATROPIUM BR 0.02% INH SOLN 0.5 MG/2.5 ML VIAL INHALATION ×4 (01:37→20:41)
[2021-07-01] MEDS: ALBUMIN HUMAN 25% 25 GM/100 ML 100 ML IVPB ×2 (02:04→06:14)
[2021-07-01 05:13] LABS: Alveolar/Arterial O2 Gradient 93.7 mmHg; Base Excess ABG 0.1 mEq/l (+/-2.0); Carboxyhemoglobin 0.4 % THb (0-2.0); Fractional Inspired Oxygen 28 %; HCO3 ABG 24.3 mEq/l (22.0-26.0); Methemoglobin ABG 0.3 %THb (0-1.5); Oxygen Content ABG 16.3 %vol (16.0-22.0); Oxygen Saturation ABG 92.1 % (95.0-100.0); Oxyhemoglobin 90.6 % THb (90.0-100.0); PO2 ABG 61.1 mmHg (80.0-100.0); PO2 FiO2 Ratio Arterial Blood 2.18 %; Reduced Hemoglobin 8.7 %THb (0-5.0); Total Hemoglobin 12.8 g/dL (12.0-18.0); pH ABG 7.424 (7.350-7.450)
[2021-07-01 05:21] LABS: Device VENTILATOR; Modified Allen's Test Unable to perform; Site Drawn RIGHT RADIAL
[2021-07-01 05:22] LABS: Arterial Blood Gas PEEP 5 cmH2O; Arterial Blood Gas Vent Mode CMV; Arterial Blood Gas Ventilator rate 18 /MIN
[2021-07-01 05:23] LABS: Arterial Blood Gas Tidal Volume 450 ml
[2021-07-01] MEDS: CENTRAL LINE FLUSH 10 ML IV PUSH ×4 (06:15→20:56)
[2021-07-01 06:36] LABS: Hematocrit 25.7 % (42.0-52.0); Hemoglobin 8.4 g/dL (14.0-18.0); Immature Platelet Fraction Pct 7.7 % (0.9-11.2); Mean Corpuscular HGB Conc 32.7 g/dl (32-36); Mean Corpuscular Volume 91.8 fl (80-100); Mean Platelet Volume 11.6 fl (7.4-10.4); Platelet Count Result 69 k/mm3 (150-375); Red Cell Distribution Width 19.9 % (11.5-14.5); White Blood Count 23.4 K/mm3 (4.5-10.0)
[2021-07-01 06:45] LABS: Alanine Aminotransferase 15 U/L (4-50); Albumin Level 3.5 g/dL (3.5-5.1); Alkaline Phosphatase 55 U/L (38-126); Ammonia < 9 umol/L (9-30); Anion Gap 11 mmol/L (8-16); Aspartate Amino Transferase 30 U/L (17-59); Bilirubin,Total 6.7 mg/dL (0.2-1.3); Blood Urea Nitrogen 43 mg/dL (9-20); Calcium 8.5 mg/dL (8.4-10.2); Carbon Dioxide 26 mmol/L (22-30); Chloride 115 mmol/L (98-107); Estimated CRCL calculation 54 ml/min; Estimated Glomerular Filt Rate 49; Glucose 121 mg/dL (65-110); Magnesium 2.3 mg/dL (1.6-2.3); Phosphorus 2.4 mg/dL (2.5-4.5); Potassium 3.3 mmol/L (3.4-5.0); Sodium 152 mmol/L (137-145); Triglycerides 38 mg/dL (<150)
[2021-07-01 06:46] LABS: Partial Thromboplastin Time 40.4 SECONDS (22.3-36.8)
[2021-07-01 07:09] LABS: Fibrinogen 125 mg/dl (215-510)
[2021-07-01] MEDS: DEXTROSE 5% 1,000 ML 1,000 ML 100 ML IV CONT ×2 (07:20→18:17)
[2021-07-01] MEDS: THIAMINE HCL 200 MG/2 ML VIAL 100 MG IV PUSH (08:08)
[2021-07-01] MEDS: MINERAL OIL/WHITE PETROLATUM OINTMENT 1 APPLIC EACH EYE ×2 (08:08→20:56)
[2021-07-01] MEDS: PANTOPRAZOLE SODIUM IV 40 MG VIAL IV PUSH ×2 (08:08→20:56)
[2021-07-01] MEDS: FOLIC ACID 1 MG/0.2 ML INJ IV PUSH (08:57)
[2021-07-01] MEDS: KCL 40 MEQ/WATER 100 ML 100 ML 25 ML IVPB (08:57)
[2021-07-01] MEDS: dexmedeTOMIDine 400 MCG/100 ML 400 MCG/100 ML BAG 10.45 MCG IV CONT (09:07)
[2021-07-01 10:10] LABS: Glucose Point of Care 106 mg/dl (65-105)
--- NOTE | 2021-07-01 11:28 | WPDINTPN ---
Progress Note: A&P Assessment and Plan (1) Acute respiratory failure: Code(s): J96.00 - Acute respiratory failure, unspecified whether with hypoxia or hypercapnia Status: Acute Assessment and Plan: Acute Respiratory failure secondary to done anesthesia and pulmonary edema likely from volume overload Continue full mechanical ventilation support to prevent hypoxemia/hypercarbia and end organ damage. ABG and PCXR reviewed I will attempt weaning trial. Start patient on Precedex as patient was agitated and confused prior to intubation and may still be going through delirium and or alcohol withdrawal (2) Sepsis: Qualifiers: Sepsis type: sepsis due to unspecified organism Sepsis acute organ dysfunction status: with acute organ dysfunction Severe sepsis acute organ dysfunction type: disseminated intravascular coagulopathy Code(s): A41.9 - Sepsis, unspecified organism Status: Acute Assessment and Plan: Secondary to peritonitis from perforated gastric and to no ulcer Continue IV fluids. Patient has received significant amount of blood products till now Patient also receiving Albumin 25% to minimize third-spacing which I will hold at this time Patient not requiring vasopressors at this time Continue Zosyn Blood cultures have been negative till now (3) Perforated gastric ulcer: Code(s): K25.5 - Chronic or unspecified gastric ulcer with perforation Status: Deleted Assessment and Plan: Status post ex lap 06/24 evacuation of 9.3 L intra-abdominal ascites, repair of perforated gastric ulcer with omental patch, intra-abdominal washout. 06/28 - UGI series - Duodenal perforation, extravasation CT abdomen pelvis IMPRESSION: 1. Duodenal perforation, moderate ascites and free intraperitoneal gas. 2. Probable colitis, diarrhea. 3. Multisegmental basilar atelectasis. Pneumonia not excludable. 4. Cardiomegaly. 5. Anasarca 06/29 developed fascial dehiscence without evisceration but leaking ascites almost continually., INR 6.2 patient taken back to OR and underwent Closure with omentoplasty perforated gastric ulcer, repair fascial dehiscence 2 units of FFP given intraoperatively postop in ICU patient was given 3 units of PRBC and 4 units of FFP intubated and on mechanical ventilation NPO NG tube in place KERON drain in place with serosanguineous output General surgery is following (4) Acute kidney injury: Code(s): N17.9 - Acute kidney failure, unspecified Status: Acute Assessment and Plan: Likely secondary to sepsis, hypovolemia from large volume shifts patient received 3 units of PRBC and 6 units of FFP yesterday. May need additional blood products patient has received significant amount 25 % albumin for third-spacing. Will hold at this time continue IV fluids D5 water for hypernatremia and hyperchloremia Monitor urine output electrolytes and creatinine replace low potassium and phosphate (5) Encephalopathy: Code(s): G93.40 - Encephalopathy, unspecified Status: Acute Assessment and Plan: Likely multifactorial and metabolic His last ammonia level was normal currently sedated (6) Alcoholism: Code(s): F10.20 - Alcohol dependence, uncomplicated Status: Acute Assessment and Plan: Thiamine and folic acid Precedex drip (7) Cirrhosis of liver: Code(s): K74.60 - Unspecified cirrhosis of liver Status: Acute Assessment and Plan: Secondary to alcohol abuse His ammonia level was normal yesterday and will continue monitor (8) Anemia: Code(s): D64.9 - Anemia, unspecified Status: Acute Assessment and Plan: Multifactorial patient admitted with GI bleed from gastric ulcer also had varices. He had laparotomy x2 and also hemodilution from volume resuscitation patient was transfuse 3 units of PRBC 06/29 1 additional 2 units of PRBC Will monitor transfuse
[2021-07-01 11:45] LABS: Hematocrit 22.6 % (42.0-52.0); Hemoglobin 7.5 g/dL (14.0-18.0); Immature Platelet Fraction Pct 6.8 % (0.9-11.2); Mean Corpuscular HGB Conc 33.2 g/dl (32-36); Mean Corpuscular Hemoglobin 30.4 pg (26-34); Mean Corpuscular Volume 91.5 fl (80-100); Mean Platelet Volume 11.1 fl (7.4-10.4); Red Blood Count 2.47 M/mm3 (4.6-6.20); Red Cell Distribution Width 20.1 % (11.5-14.5)
[2021-07-01 11:46] LABS: Platelet Count Result 63 k/mm3 (150-375)
[2021-07-01 11:57] LABS: Anion Gap 9 mmol/L (8-16); Blood Urea Nitrogen 45 mg/dL (9-20); Calcium 8.4 mg/dL (8.4-10.2); Carbon Dioxide 26 mmol/L (22-30); Chloride 116 mmol/L (98-107); Estimated CRCL calculation 54 ml/min; Estimated Glomerular Filt Rate 49; Glucose 115 mg/dL (65-110); Potassium 3.4 mmol/L (3.4-5.0); Sodium 151 mmol/L (137-145)
[2021-07-01 12:05] LABS: INR 3.5
[2021-07-01 12:13] LABS: Glucose Point of Care 123 mg/dl (65-105)
[2021-07-01] MEDS: POTASSIUM PHOS,M-BASIC-D-BASIC 15 MMOL in SODIUM CHLORIDE 0.9% IV 250 ML 63.75 MMOL IVPB (12:30)
[2021-07-01 12:45] LABS: Fibrinogen 164 mg/dl (215-510)
--- NOTE | 2021-07-01 13:37 | PC.NURSE ---
1330-Pt. pulled out endotracheal tube. Oxygen saturations were 91%. Dr. Shields at the bedside to evaluate the patient. Patient placed on nasal cannula. Vital signs stable at this time. Will continue to monitor.
--- NOTE | 2021-07-01 13:46 | WPDGIPROGNO ---
Progress Note: A&P Assessment and Plan (1) Dehiscence of closure of fascia, superficial or muscular: Qualifiers: Encounter type: subsequent encounter Qualified Code(s): T81.32XD - Disruption of internal operation (surgical) wound, not elsewhere classified, subsequent encounter Code(s): T81.32XA - Disruption of internal operation (surgical) wound, not elsewhere classified, initial encounter Status: Acute Assessment and Plan: over the weekend taken again to OR after developed fascial dehiscence without evisceration but leaking ascites, also coagulopathy that was treated with blood products, he underwent Closure with omentoplasty perforated gastric ulcer, repair fascial dehiscence (2) Acute respiratory failure: Code(s): J96.00 - Acute respiratory failure, unspecified whether with hypoxia or hypercapnia Status: Acute Assessment and Plan: intubated now, by icu (3) Sepsis: Qualifiers: Sepsis type: sepsis due to unspecified organism Sepsis acute organ dysfunction status: with acute organ dysfunction Severe sepsis acute organ dysfunction type: disseminated intravascular coagulopathy Code(s): A41.9 - Sepsis, unspecified organism Status: Acute Assessment and Plan: on antibiotics (4) Coagulopathy: Code(s): D68.9 - Coagulation defect, unspecified Status: Acute Assessment and Plan: treated, monitor coags (5) Perforated gastric ulcer: Qualifiers: Gastric ulcer chronicity: acute Qualified Code(s): K25.1 - Acute gastric ulcer with perforation Code(s): K25.5 - Chronic or unspecified gastric ulcer with perforation Status: Acute Assessment and Plan: repaired, NGT in place- by surgery (6) Encephalopathy: Code(s): G93.40 - Encephalopathy, unspecified Status: Acute Subjective Date/time seen: 07/01/21 13:46 Interval history: still critically ill, intubated. Review of Systems Review of Systems: All systems reviewed & are unremarkable except as noted in HPI and below Exam Narrative: General: Pt is sedated, intubated and on mechanical ventilation Lungs/Chest: Trachea central Coarse BS B/L, No crackles or wheezing. Cardiac: RRR. Normal S1 S2. No murmurs Circulation: Feet are warm Abdomen: Decreased bowel sounds. KERON drain has serosanguineous output, all abdominal midline incision is covered with dressing. Soft. NT. ND. Extremities: No clubbing, cyanosis or edema. Warm : Tracey in place Neurologic: Unable to assess due to sedation. Moves all 4 extremities to painful stimuli. opens eyes to stimulation, PERRL Skin: jaundice HEENT: sclera is icteric Objective Data Vital Signs Vital Signs: Vital Signs - 24 hr 06/30/21 14:00 06/30/21 14:09 06/30/21 14:10 Temperature 98 F Pulse Rate 97 95 100 Pulse Rate [Apical Monitor] Respiratory Rate 18 18 18 Blood Pressure 98/58 L 98/58 L Pulse Oximetry 95 94 91 06/30/21 14:25 06/30/21 14:56 06/30/21 15:25 Temperature 97.7 F 98.2 F Pulse Rate 97 100 101 H Pulse Rate [Apical Monitor] Respiratory Rate 18 18 18 Blood Pressure 97/61 L 101/62 Pulse Oximetry 93 94 06/30/21 16:00 06/30/21 16:14 06/30/21 16:33 Temperature 98.2 F 98.2 F 97.8 F Pulse Rate 99 106 H 97 Pulse Rate [Apical Monitor] Respiratory Rate 18 18 18 Blood Pressure 164/80 H 164/80 H 148/86 H Pulse Oximetry 94 95 94 06/30/21 17:33 06/30/21 17:35 06/30/21 18:00 Temperature 98 F Pulse Rate 95 97 91 Pulse Rate [Apical Monitor] Respiratory Rate 18 18 Blood Pressure 152/84 H 154/82 H Pulse Oximetry 93 94 93 06/30/21 19:17 06/30/21 20:00 06/30/21 20:41 Temperature 98.5 F 98.4 F Pulse Rate 91 93 97 Pulse Rate [Apical Monitor] Respiratory Rate 18 18 18 Blood Pressure 158/83 H 154/84 H Pulse Oximetry 93 96 92 06/30/21 20:44 06/30/21 20:48 06/30/21 20:52 Temperature 98.4 F 98.5 F 98.5 F Pulse Rate 96 97 93 Pulse Rate [Apical Mo
--- NOTE | 2021-07-01 13:58 | PCFNICU ---
ICU Rounding Note: Pt current nutrition is NPO. Last recorded weight is 83.6 kg. Bowel Motility: + BM 06/29/2021 Labs Reviewed: Hgb 8.4, Hct 25.7, Cl 115, Na 152, K 3.3, GFR 49, BUN 43, Cr 1.5, Glu 121, Mg 6.7 Meds Noted: Albuterol, Precedex, Novolog, Glucagon, Folic Acid, Lorazepam, Atrovent Neb, Levophed, Protonix, Thiamine Hcl Skin: No skin break down at this time. WNL. Additional Notes: Spoke with MD regarding NPO diet order. MD states he will be speaking with surgery to see next steps as far as feeding goes. If tube feeding is desired recommend Vital AF 1.2 with a goal rate of 65 mls per hour over 22 hours per day providing 1716 calories, 107 grams of protein and 1160 mls of water with a 30 ml water flush q4. This will meet 97% of calorie needs and 100% of protein needs. Recommend starting feeding at 25 mls per hour and advance by 10 mls q4 until goal rate of 65 mls per hour is reached. Following daily in ICU rounds. RD will monitor every 5 days.
[2021-07-01 15:41] LABS: Glucose Point of Care 100 mg/dl (65-105)
--- NOTE | 2021-07-01 15:42 | PM.PNGS ---
Progress Note: A&P Assessment and Plan (1) Perforated gastric ulcer: Qualifiers: Gastric ulcer chronicity: acute Qualified Code(s): K25.1 - Acute gastric ulcer with perforation Code(s): K25.5 - Chronic or unspecified gastric ulcer with perforation Status: Acute Assessment and Plan: Continue IV antibiotics and IV protonix. Will restart TPN/Clinimix for nutrition, discussed with Canvas Baster. Continue NG tube decompression and bowel rest. Monitor KERON drain. (2) Dehiscence of closure of fascia, superficial or muscular: Qualifiers: Encounter type: subsequent encounter Qualified Code(s): T81.32XD - Disruption of internal operation (surgical) wound, not elsewhere classified, subsequent encounter Code(s): T81.32XA - Disruption of internal operation (surgical) wound, not elsewhere classified, initial encounter Status: Acute Assessment and Plan: POD2 repair fascial dehiscence. Repair intact. Incision looks good today with minimal drainage on dressing. Will start daily gauze dressing changes. (3) Cirrhosis of liver with ascites: Qualifiers: Hepatic cirrhosis type: alcoholic cirrhosis Qualified Code(s): K70.31 - Alcoholic cirrhosis of liver with ascites Code(s): K74.60 - Unspecified cirrhosis of liver; R18.8 - Other ascites Status: Chronic (4) Sepsis: Qualifiers: Sepsis type: sepsis due to unspecified organism Sepsis acute organ dysfunction status: with acute organ dysfunction Severe sepsis acute organ dysfunction type: disseminated intravascular coagulopathy Code(s): A41.9 - Sepsis, unspecified organism Status: Acute Assessment and Plan: continue antibiotics and critical care management (5) Acute respiratory failure: Code(s): J96.00 - Acute respiratory failure, unspecified whether with hypoxia or hypercapnia Status: Acute Assessment and Plan: Patient self-extubated this afternoon. Currently on 6L NC. Monitor closely, management per Canvas Baster. (6) Coagulopathy: Code(s): D68.9 - Coagulation defect, unspecified Status: Acute Assessment and Plan: Likely due to combination of hepatic insufficiency and sepsis with DIC. Has had a total of 8 units FFP, 5 units PRBCs, and 1 unit cryo since 06/29. INR at 3.5 today. Monitor labs. Additional Plan I have discussed the patient's case and plan of care with Dr. Tijerina. Subjective Subjective Date/Time Seen: 07/01/21 15:12 Patient reports: afebrile Interval history: 06/24/21 - Exploratory laparotomy, evacuation of 9.3 L intra-abdominal ascites, repair of perforated gastric ulcer with omental patch, intra-abdominal washout 06/29/21 - Closure with omentoplasty perforated gastric ulcer, repair fascial dehiscence Patient seen and examined in the ICU. He is currently on a Precedex drip and is extubated. Per nursing, he self extubated around 2:00 pm today. He is now on 6L NC and slightly tachypneic. He is sleeping upon entering the room, but does arouse with light stimulation. He does not answer any questions appropriately and unable to answer orientation questions. Per nursing, he has had a total of 450 cc out of his KERON drain today so far and 600 cc from overnight. NG tube put out 100 cc last night. Review of Systems Review of Systems: ROS unobtainable: Yes unobtainable due to medical condition and unobtainable due to mental status Exam Const: General: no acute distress Orientation/consciousness: lethargic (but easy to arouse and agitated/restless when woke) Resp: Effort & Inspection: labored and tachypneic Auscultation: rhonchi right upper and diminished lung sounds bilateral in the lower lung bunch Cardio: Rate: regular rate Rhythm: regular rhythm GI: Inspection: incision (Midline incision c min serosang drainage at bottom of incision) and other (KERON drain with serosanguineous drainage) GI Palp: Yes Soft to palpation and Yes Tenderness to palpation
[2021-07-01] MEDS: AMINO ACIDS 5%/D15W/E-LYTES/CA 2,000 ML with MULTIVITAMINS-12 INJ VIAL 1 2.5 ML, MULTIV... 40 ML IV CONT (16:15)
[2021-07-01 18:58] LABS: Hematocrit 24.5 % (42.0-52.0); Hemoglobin 8.1 g/dL (14.0-18.0); Immature Platelet Fraction Pct 9.3 % (0.9-11.2); Mean Corpuscular HGB Conc 33.1 g/dl (32-36); Mean Corpuscular Hemoglobin 30.6 pg (26-34); Mean Corpuscular Volume 92.5 fl (80-100); Mean Platelet Volume 11.2 fl (7.4-10.4); Platelet Count Result 71 k/mm3 (150-375); Red Blood Count 2.65 M/mm3 (4.6-6.20); Red Cell Distribution Width 20.2 % (11.5-14.5)
[2021-07-01 21:51] LABS: Glucose Point of Care 125 mg/dl (65-105)
[2021-07-01] MEDS: dexmedeTOMIDine 400 MCG/100 ML 400 MCG/100 ML BAG IV CONT (23:56)
[2021-07-02] VITALS (19 sets, daily range): BP systolic 98–142; BP diastolic 54–85; PULSE 70–104; RESP 20–32; TEMP 36.8–37.7; O2SAT 92–96
[2021-07-02 00:04] LABS: Glucose Point of Care 136 mg/dl (65-105)
[2021-07-02] MEDS: ALBUTEROL SULFATE NEB 2.5 MG/0.5 ML INH INHALATION ×4 (01:51→19:42)
[2021-07-02] MEDS: IPRATROPIUM BR 0.02% INH SOLN 0.5 MG/2.5 ML VIAL INHALATION ×4 (01:52→19:43)
[2021-07-02] MEDS: DEXTROSE 5% 1,000 ML 1,000 ML 100 ML IV CONT ×2 (04:54→16:55)
[2021-07-02 04:55] LABS: Hematocrit 23.4 % (42.0-52.0); Hemoglobin 7.9 g/dL (14.0-18.0); Immature Platelet Fraction Pct 7.4 % (0.9-11.2); Mean Corpuscular HGB Conc 33.8 g/dl (32-36); Mean Corpuscular Hemoglobin 30.7 pg (26-34); Mean Corpuscular Volume 91.1 fl (80-100); Mean Platelet Volume 11.3 fl (7.4-10.4); Platelet Count Result 76 k/mm3 (150-375); Red Blood Count 2.57 M/mm3 (4.6-6.20); Red Cell Distribution Width 19.8 % (11.5-14.5); White Blood Count 22.1 K/mm3 (4.5-10.0)
[2021-07-02 05:03] LABS: Alanine Aminotransferase 14 U/L (4-50); Albumin Level 3.2 g/dL (3.5-5.1); Alkaline Phosphatase 51 U/L (38-126); Anion Gap 8 mmol/L (8-16); Aspartate Amino Transferase 34 U/L (17-59); Bilirubin,Total 6.4 mg/dL (0.2-1.3); Blood Urea Nitrogen 47 mg/dL (9-20); Calcium 8.6 mg/dL (8.4-10.2); Carbon Dioxide 26 mmol/L (22-30); Chloride 114 mmol/L (98-107); Estimated CRCL calculation 54 ml/min; Estimated Glomerular Filt Rate 49; Glucose 137 mg/dL (65-110); Magnesium 2.2 mg/dL (1.6-2.3); Potassium 3.3 mmol/L (3.4-5.0); Sodium 148 mmol/L (137-145)
[2021-07-02 05:04] LABS: Phosphorus 2.3 mg/dL (2.5-4.5)
[2021-07-02 05:05] LABS: INR 3.2
[2021-07-02 05:06] LABS: Partial Thromboplastin Time 43.5 SECONDS (22.3-36.8)
[2021-07-02] MEDS: CENTRAL LINE FLUSH 10 ML IV PUSH ×4 (05:50→20:55)
[2021-07-02 06:25] LABS: Alveolar/Arterial O2 Gradient 195.5 mmHg; Base Excess ABG -0.9 mEq/l (+/-2.0); Carboxyhemoglobin 0.3 % THb (0-2.0); Fractional Inspired Oxygen 40 %; HCO3 ABG 21.7 mEq/l (22.0-26.0); Methemoglobin ABG 0.3 %THb (0-1.5); Oxygen Content ABG 11.5 %vol (16.0-22.0); Oxygen Saturation ABG 92.5 % (95.0-100.0); Oxyhemoglobin 90.1 % THb (90.0-100.0); PCO2 ABG 28.3 mmHg (35.0-45.0); PO2 ABG 57.2 mmHg (80.0-100.0); PO2 FiO2 Ratio Arterial Blood 1.43 %; Reduced Hemoglobin 9.3 %THb (0-5.0)
[2021-07-02 06:37] LABS: Device NASAL CANNULA; Modified Allen's Test Unable to perform; Site Drawn LEFT RADIAL; pH ABG 7.502 (7.350-7.450)
[2021-07-02 07:42] LABS: Glucose Point of Care 122 mg/dl (65-105)
[2021-07-02] MEDS: PANTOPRAZOLE SODIUM IV 40 MG VIAL IV PUSH ×2 (08:06→20:55)
[2021-07-02] MEDS: THIAMINE HCL 200 MG/2 ML VIAL 100 MG IV PUSH (08:06)
[2021-07-02] MEDS: FOLIC ACID 1 MG/0.2 ML INJ IV PUSH (08:06)
[2021-07-02] MEDS: MINERAL OIL/WHITE PETROLATUM OINTMENT 1 APPLIC EACH EYE ×2 (08:07→20:55)
--- NOTE | 2021-07-02 09:36 | PM.PNGS ---
Progress Note: A&P Assessment and Plan (1) Perforated gastric ulcer: Qualifiers: Gastric ulcer chronicity: acute Qualified Code(s): K25.1 - Acute gastric ulcer with perforation Code(s): K25.5 - Chronic or unspecified gastric ulcer with perforation Status: Acute Assessment and Plan: Continue IV antibiotics and IV protonix. Continue NG tube decompression, NPO, TPN/clinimix. Potassium replaced IV this morning. Monitor KERON drain. (2) Dehiscence of closure of fascia, superficial or muscular: Qualifiers: Encounter type: subsequent encounter Qualified Code(s): T81.32XD - Disruption of internal operation (surgical) wound, not elsewhere classified, subsequent encounter Code(s): T81.32XA - Disruption of internal operation (surgical) wound, not elsewhere classified, initial encounter Status: Acute Assessment and Plan: POD3 repair fascial dehiscence. Repair intact. Continue gauze dressing changes. (3) Cirrhosis of liver with ascites: Qualifiers: Hepatic cirrhosis type: alcoholic cirrhosis Qualified Code(s): K70.31 - Alcoholic cirrhosis of liver with ascites Code(s): K74.60 - Unspecified cirrhosis of liver; R18.8 - Other ascites Status: Chronic (4) Sepsis: Qualifiers: Sepsis type: sepsis due to unspecified organism Sepsis acute organ dysfunction status: with acute organ dysfunction Severe sepsis acute organ dysfunction type: disseminated intravascular coagulopathy Code(s): A41.9 - Sepsis, unspecified organism Status: Acute Assessment and Plan: Continue antibiotics and critical care management (5) Acute respiratory failure: Code(s): J96.00 - Acute respiratory failure, unspecified whether with hypoxia or hypercapnia Status: Acute Assessment and Plan: Self-extubated 07/01 and doing well on 6L NC. Management per Matcher. (6) Coagulopathy: Code(s): D68.9 - Coagulation defect, unspecified Status: Acute Assessment and Plan: Likely due to combination of hepatic insufficiency and sepsis with DIC. Has had a total of 8 units FFP, 5 units PRBCs, and 1 unit cryo since 06/29. INR at 3.2 today. Monitor labs. Additional Plan I have discussed the patient's case and plan of care with Dr. Tijerina. Subjective Subjective Date/Time Seen: 07/02/21 09:10 Patient reports: afebrile Interval history: 06/24/21 - Exploratory laparotomy, evacuation of 9.3 L intra-abdominal ascites, repair of perforated gastric ulcer with omental patch, intra-abdominal washout 06/29/21 - Closure with omentoplasty perforated gastric ulcer, repair fascial dehiscence Patient seen and examined in the ICU. He remains on 6L nasal cannula. Still on a Precedex drip. He is more alert and awake today. He is asking for water and about his . He reports some abdominal pain, but appears comfortable and was sleeping when entering the room. Denies nausea. He is unsure if he has been passing gas. He will only answer certain questions and refuses to answer my other questions with multiple attempts. He will not make eye contact when he does not want to answer. Review of Systems Review of Systems: ROS unobtainable: Yes other (limited due to confusion and refusal to answer certain questions) Exam Const: General: comfortable, no acute distress, alert and ill appearing Nutritional Appearance: edematous Orientation/consciousness: Other orientation findings (refuses to answer orientation questions) Resp: Auscultation: rhonchi right upper and diminished lung sounds bilateral in the lower lung bunch Cardio: Rate: regular rate Rhythm: regular rhythm GI: Inspection: non-distended, incision (Midline incision c min serosang drainage at bottom of incision), visible herniation (soft umbilical hernia present preop, unable to reduce) and other (KERON drain with serosanguineous drainage) GI Palp: Yes Soft to palpation, Yes Tenderness to palpation present (
[2021-07-02] MEDS: POTASSIUM PHOS,M-BASIC-D-BASIC 20 MMOL in SODIUM CHLORIDE 0.9% IV 250 ML 64.17 MMOL IVPB (11:05)
[2021-07-02] MEDS: KCL 20 MEQ/SW 100 ML 100 ML 50 MEQ IVPB (11:05)
[2021-07-02] MEDS: FAT EMULSIONS IV 20% 250 ML 20.83 ML IVPB (11:06)
[2021-07-02 11:25] LABS: Glucose Point of Care 125 mg/dl (65-105)
--- NOTE | 2021-07-02 12:14 | WPDGIPROGNO ---
Progress Note: A&P Assessment and Plan (1) Dehiscence of closure of fascia, superficial or muscular: Qualifiers: Encounter type: subsequent encounter Qualified Code(s): T81.32XD - Disruption of internal operation (surgical) wound, not elsewhere classified, subsequent encounter Code(s): T81.32XA - Disruption of internal operation (surgical) wound, not elsewhere classified, initial encounter Status: Acute Assessment and Plan: POD3 fascial dehiscence repair and closure omentoplasty perforated gastric ulcer npo, TPN, monitor KERON drain by surgery team (2) Acute respiratory failure: Code(s): J96.00 - Acute respiratory failure, unspecified whether with hypoxia or hypercapnia Status: Acute Assessment and Plan: extubated (3) Sepsis: Qualifiers: Sepsis type: sepsis due to unspecified organism Sepsis acute organ dysfunction status: with acute organ dysfunction Severe sepsis acute organ dysfunction type: disseminated intravascular coagulopathy Code(s): A41.9 - Sepsis, unspecified organism Status: Acute Assessment and Plan: on antibiotics (4) Coagulopathy: Code(s): D68.9 - Coagulation defect, unspecified Status: Acute Assessment and Plan: treated, monitor coags (5) Perforated gastric ulcer: Qualifiers: Gastric ulcer chronicity: acute Qualified Code(s): K25.1 - Acute gastric ulcer with perforation Code(s): K25.5 - Chronic or unspecified gastric ulcer with perforation Status: Acute Assessment and Plan: repaired, NGT in place, bowel rest, on TPN- by surgery (6) Encephalopathy: Code(s): G93.40 - Encephalopathy, unspecified Status: Acute Assessment and Plan: awake and alert Subjective Date/time seen: 07/02/21 12:14 Interval history: extubated, he is talking but confused. NGT in place Review of Systems Review of Systems: All systems reviewed & are unremarkable except as noted in HPI and below Exam Const: General: comfortable, no acute distress, alert and ill appearing Nutritional Appearance: edematous Orientation/consciousness: Other orientation findings (refuses to answer orientation questions) HENMT: General nose exam: Normal nares present Other: NGT in place Eyes: Sclera: sclerae normal Neck: Neck: supple Resp: Auscultation: rhonchi right upper and diminished lung sounds bilateral in the lower lung bunch Cardio: Rate: regular rate Rhythm: regular rhythm GI: Inspection: non-distended, visible herniation (soft umbilical hernia present preop, unable to reduce) and other (KERON drain with serosanguineous drainage) GI Palp: Yes Soft to palpation, Yes Tenderness to palpation present (GI) (incisional) and No Guarding due to palpation present (GI) Urinary Catheter: Urinary Catheter: patent and draining and urine clear Skin: General skin exam: jaundice Neuro: General: moves all extremities Speech: normal speech Gait exam (Neuro): Unable to assess gait Other: awake and alert but confused Extrem: General: edema bilateral (erum hands dependent edema) Psych: Affect: No Hostile affect present Insight: Poor insight present (Psych) Judgement: Poor judgement present (Psych) Objective Data Vital Signs Vital Signs: Vital Signs - 24 hr 07/01/21 14:00 07/01/21 14:15 07/01/21 14:57 Temperature Pulse Rate 88 89 88 Pulse Rate [Apical Monitor] Respiratory Rate 15 14 14 Blood Pressure 108/66 Pulse Oximetry 96 95 07/01/21 15:01 07/01/21 15:10 07/01/21 15:13 Temperature Pulse Rate 92 93 Pulse Rate [Apical Monitor] 98 Respiratory Rate 14 16 Blood Pressure Pulse Oximetry 100 07/01/21 16:00 07/01/21 18:00 07/01/21 20:00 Temperature 98.7 F 98.2 F Pulse Rate 84 87 91 Pulse Rate [Apical Monitor] 91 Respiratory Rate 14 15 20 Blood Pressure 95/63 L 104/58 L 104/65 Pulse Oximetry 94 94 95 07/01/21 20:45 07/01/21 20:55 07/01/21 22:00 Te
--- NOTE | 2021-07-02 12:28 | WPDINTPN ---
Progress Note: A&P Assessment and Plan (1) Acute respiratory failure: Code(s): J96.00 - Acute respiratory failure, unspecified whether with hypoxia or hypercapnia Status: Acute Assessment and Plan: Acute Respiratory failure secondary to done anesthesia and pulmonary edema likely from volume overload Off ventilator now and maintaining saturations on nasal cannula ABG and PCXR reviewed (2) Sepsis: Qualifiers: Sepsis acute organ dysfunction status: with acute organ dysfunction Sepsis type: sepsis due to unspecified organism Severe sepsis acute organ dysfunction type: disseminated intravascular coagulopathy Code(s): A41.9 - Sepsis, unspecified organism Status: Acute Assessment and Plan: Secondary to peritonitis from perforated gastric and to no ulcer Continue IV fluids. Patient has received significant amount of blood products till now Patient also receiving Albumin 25% to minimize third-spacing which I will hold at this time Patient not requiring vasopressors at this time Continue Zosyn Blood cultures have been negative till now He is afebrile but his WBC still elevated (3) Perforated gastric ulcer: Code(s): K25.5 - Chronic or unspecified gastric ulcer with perforation Status: Deleted Assessment and Plan: Status post ex lap 06/24 evacuation of 9.3 L intra-abdominal ascites, repair of perforated gastric ulcer with omental patch, intra-abdominal washout. 06/28 - UGI series - Duodenal perforation, extravasation CT abdomen pelvis IMPRESSION: 1. Duodenal perforation, moderate ascites and free intraperitoneal gas. 2. Probable colitis, diarrhea. 3. Multisegmental basilar atelectasis. Pneumonia not excludable. 4. Cardiomegaly. 5. Anasarca 06/29 developed fascial dehiscence without evisceration but leaking ascites almost continually., INR 6.2 patient taken back to OR and underwent Closure with omentoplasty perforated gastric ulcer, repair fascial dehiscence 2 units of FFP given intraoperatively postop in ICU patient was given 3 units of PRBC and 4 units of FFP intubated and on mechanical ventilation NPO in started on TPN by general surgery NG tube in place KERON drain in place with serosanguineous output General surgery is following (4) Acute kidney injury: Code(s): N17.9 - Acute kidney failure, unspecified Status: Acute Assessment and Plan: Likely secondary to sepsis, hypovolemia from large volume shifts patient received significant amount of blood products and IV fluids Creatinine remains stable but elevated of 1.5 continue IV fluids D5 water for hypernatremia and hyperchloremia Monitor urine output electrolytes and creatinine replace low potassium and phosphate (5) Encephalopathy: Code(s): G93.40 - Encephalopathy, unspecified Status: Acute Assessment and Plan: Likely multifactorial and metabolic His last ammonia level was normal On low-dose Precedex which is being weaned (6) Alcoholism: Code(s): F10.20 - Alcohol dependence, uncomplicated Status: Acute Assessment and Plan: Thiamine and folic acid On low-dose Precedex drip which I will try to wean it off (7) Cirrhosis of liver: Code(s): K74.60 - Unspecified cirrhosis of liver Status: Acute Assessment and Plan: Secondary to alcohol abuse His ammonia level was normal yesterday and will continue monitor (8) Anemia: Code(s): D64.9 - Anemia, unspecified Status: Acute Assessment and Plan: Multifactorial patient admitted with GI bleed from gastric ulcer also had varices. He had laparotomy x2 and also hemodilution from volume resuscitation patient was transfuse 3 units of PRBC 06/29 06/30 additional 2 units of PRBC Will monitor transfuse as needed below 7 He is on PPI q.12 hours monitor hemoglobin which has been stable over last 24 hours (9) Coagulopathy: Code(s): D68.9 - C
[2021-07-02 13:15] LABS: Hematocrit 23.5 % (42.0-52.0); Mean Corpuscular Volume 91.1 fl (80-100); Mean Platelet Volume 12.2 fl (7.4-10.4); Platelet Count Result 75 k/mm3 (150-375); Red Blood Count 2.58 M/mm3 (4.6-6.20); Red Cell Distribution Width 19.7 % (11.5-14.5); White Blood Count 23.3 K/mm3 (4.5-10.0)
--- NOTE | 2021-07-02 14:21 | PCNFU ---
Nutrition Follow-Up Complete: Altered GI function as related to GI bleed as evidenced by liquid diet orders. Goal: Adequate Intake of at least 75% of meals/supplements Pt. is progressing towards goal. No new goal at this time. Pt current nutrition is Clinimix/Clinimix E /15 at 40 mls per hour and 250 ml of 20% emulsion. Last recorded weight is 75.8 kg. Bowel Motility: + BM 06/29/2021 Labs Reviewed: Hgb 7.9, Hct 23.4, Alb 3.2, Na 148, K 3.3, GFR 49, BUN 47, Cr 1.5, Glu 137 Meds Noted: Albutein, Folic Acid, Glucagon, Novolog, Atrovent Neb, Protonix, Thiamine Hcl Skin: No skin breakdown at this time. WNL. Additional Notes: TPN at current rate of 40 mls per hour is providing patient with 1182 calories, 48 grams of protein and 1210 mls of water. This meets in total 70% of calorie goal and 63% of protein goal. RD will monitor every Thursday and Thursday and follow daily in ICU.
[2021-07-02] MEDS: AMINO ACIDS 5%/D15W/E-LYTES/CA 2,000 ML with MULTIVITAMINS-12 INJ VIAL 1 2.5 ML, MULTIV... 40 ML IV CONT (16:53)
[2021-07-02 17:08] LABS: Glucose Point of Care 123 mg/dl (65-105)
[2021-07-02] MEDS: MORPHINE SULFATE (*CRX) 2 MG/ML INJ IV PUSH (17:10)
[2021-07-02 17:17] LABS: Anion Gap 10 mmol/L (8-16); Blood Urea Nitrogen 41 mg/dL (9-20); Calcium 8.4 mg/dL (8.4-10.2); Carbon Dioxide 25 mmol/L (22-30); Chloride 114 mmol/L (98-107); Estimated CRCL calculation 61 ml/min; Estimated Glomerular Filt Rate 58; Glucose 130 mg/dL (65-110); Potassium 3.5 mmol/L (3.4-5.0); Sodium 149 mmol/L (137-145)
[2021-07-02 21:02] LABS: Glucose Point of Care 133 mg/dl (65-105)
[2021-07-03] VITALS (25 sets, daily range): BP systolic 129–141; BP diastolic 65–80; PULSE 87–101; RESP 21–35; TEMP 37–37.7; O2SAT 91–96
[2021-07-03 01:16] LABS: Glucose Point of Care 142 mg/dl (65-105)
[2021-07-03] MEDS: ALBUTEROL SULFATE NEB 2.5 MG/0.5 ML INH INHALATION ×4 (01:42→19:36)
[2021-07-03] MEDS: IPRATROPIUM BR 0.02% INH SOLN 0.5 MG/2.5 ML VIAL INHALATION ×4 (01:42→19:36)
[2021-07-03] MEDS: DEXTROSE 5% 1,000 ML 1,000 ML 100 ML IV CONT (03:12)
[2021-07-03 05:16] LABS: Hemoglobin 7.9 g/dL (14.0-18.0); Immature Platelet Fraction Pct 6.7 % (0.9-11.2); Mean Corpuscular HGB Conc 32.9 g/dl (32-36); Mean Corpuscular Hemoglobin 30.5 pg (26-34); Mean Corpuscular Volume 92.7 fl (80-100); Mean Platelet Volume 11.7 fl (7.4-10.4); Platelet Count Result 95 k/mm3 (150-375); Red Blood Count 2.59 M/mm3 (4.6-6.20); Red Cell Distribution Width 19.8 % (11.5-14.5); White Blood Count 25.4 K/mm3 (4.5-10.0)
[2021-07-03 05:26] LABS: Alanine Aminotransferase 15 U/L (4-50); Alkaline Phosphatase 63 U/L (38-126); Anion Gap 9 mmol/L (8-16); Aspartate Amino Transferase 40 U/L (17-59); Bilirubin,Total 6.3 mg/dL (0.2-1.3); Blood Urea Nitrogen 35 mg/dL (9-20); Calcium 8.5 mg/dL (8.4-10.2); Carbon Dioxide 25 mmol/L (22-30); Chloride 113 mmol/L (98-107); Estimated CRCL calculation 61 ml/min; Estimated Glomerular Filt Rate 58; Glucose 147 mg/dL (65-110); INR 3.1; Magnesium 2.2 mg/dL (1.6-2.3); Phosphorus 3.2 mg/dL (2.5-4.5); Potassium 3.2 mmol/L (3.4-5.0); Prothrombin Time 31.1 Seconds (11.1-14.7); Sodium 147 mmol/L (137-145); Triglycerides 45 mg/dL (<150)
[2021-07-03 05:27] LABS: Partial Thromboplastin Time 44.5 SECONDS (22.3-36.8)
[2021-07-03 05:43] LABS: Fibrinogen 153 mg/dl (215-510)
[2021-07-03] MEDS: CENTRAL LINE FLUSH 10 ML IV PUSH ×4 (06:26→20:20)
[2021-07-03] MEDS: FOLIC ACID 1 MG/0.2 ML INJ IV PUSH (07:27)
[2021-07-03] MEDS: THIAMINE HCL 200 MG/2 ML VIAL 100 MG IV PUSH (07:27)
[2021-07-03] MEDS: PANTOPRAZOLE SODIUM IV 40 MG VIAL IV PUSH ×2 (07:28→20:19)
[2021-07-03 07:59] LABS: Glucose Point of Care 142 mg/dl (65-105)
[2021-07-03] MEDS: KCL 40 MEQ/WATER 100 ML 100 ML 25 ML IVPB (09:02)
[2021-07-03] MEDS: KCL 20 MEQ/D5W 1,000 ML 1,000 ML 50 ML IV CONT (09:07)
--- NOTE | 2021-07-03 09:50 | WPDINTPN ---
Progress Note: A&P Assessment and Plan (1) Acute respiratory failure: Code(s): J96.00 - Acute respiratory failure, unspecified whether with hypoxia or hypercapnia Status: Acute Assessment and Plan: Acute Respiratory failure secondary to done anesthesia and pulmonary edema likely from volume overload Off ventilator now and maintaining saturations on nasal cannula PCXR reviewed (2) Sepsis: Qualifiers: Sepsis type: sepsis due to unspecified organism Sepsis acute organ dysfunction status: with acute organ dysfunction Severe sepsis acute organ dysfunction type: disseminated intravascular coagulopathy Code(s): A41.9 - Sepsis, unspecified organism Status: Acute Assessment and Plan: Secondary to peritonitis from perforated gastric and to no ulcer Continue IV fluids but decrease rate Patient has received significant amount of blood products till now Off Albumin 25% now Patient not requiring vasopressors at this time Continue Zosyn Blood cultures have been negative till now He is afebrile but his WBC still elevated (3) Perforated gastric ulcer: Code(s): K25.5 - Chronic or unspecified gastric ulcer with perforation Status: Deleted Assessment and Plan: Status post ex lap 06/24 evacuation of 9.3 L intra-abdominal ascites, repair of perforated gastric ulcer with omental patch, intra-abdominal washout. 06/28 - UGI series - Duodenal perforation, extravasation CT abdomen pelvis IMPRESSION: 1. Duodenal perforation, moderate ascites and free intraperitoneal gas. 2. Probable colitis, diarrhea. 3. Multisegmental basilar atelectasis. Pneumonia not excludable. 4. Cardiomegaly. 5. Anasarca 06/29 developed fascial dehiscence without evisceration but leaking ascites almost continually., INR 6.2 patient taken back to OR and underwent Closure with omentoplasty perforated gastric ulcer, repair fascial dehiscence 2 units of FFP given intraoperatively postop in ICU patient was given 3 units of PRBC and 4 units of FFP intubated and on mechanical ventilation NPO in started on TPN by general surgery NG tube in place KERON drain in place with serosanguineous output General surgery is following (4) Acute kidney injury: Code(s): N17.9 - Acute kidney failure, unspecified Status: Acute Assessment and Plan: Likely secondary to sepsis, hypovolemia from large volume shifts patient received significant amount of blood products and IV fluids Creatinine marginally improved and urine output has improved continue IV fluids D5 water for hypernatremia and hyperchloremia but decrease rate Monitor urine output electrolytes and creatinine replace low potassium (5) Encephalopathy: Code(s): G93.40 - Encephalopathy, unspecified Status: Acute Assessment and Plan: Likely multifactorial and metabolic His last ammonia level was normal Improved and off Precedex now (6) Alcoholism: Code(s): F10.20 - Alcohol dependence, uncomplicated Status: Acute Assessment and Plan: Thiamine and folic acid On low-dose Precedex drip which I will try to wean it off (7) Cirrhosis of liver: Code(s): K74.60 - Unspecified cirrhosis of liver Status: Acute Assessment and Plan: Secondary to alcohol abuse His ammonia level has been on (8) Anemia: Code(s): D64.9 - Anemia, unspecified Status: Acute Assessment and Plan: Multifactorial patient admitted with GI bleed from gastric ulcer also had varices. He had laparotomy x2 and also hemodilution from volume resuscitation patient was transfuse 3 units of PRBC 06/29 1 additional 2 units of PRBC Will monitor transfuse as needed below 7 He is on PPI q.12 hours monitor hemoglobin which has been stable over last 24 hours (9) Coagulopathy: Code(s): D68.9 - Coagulation defect, unspecified Status: Acute Assessment and Plan: likely se
--- NOTE | 2021-07-03 12:14 | PCFNICU ---
ICU Rounding Note: Pt current nutrition is TPN. Last recorded weight is 75.8 kg, down from 91.3 kg on admit. Bowel Motility:+BM reported 06/29 Labs Reviewed:Glu 147, GFR 58, BUN 35, K 3.2,Na 147, Alb 3.0 Meds Noted:Albutein, Folic Acid, Glucagon, Novolog, Atrovent Neb, Protonix, Thiamine Hcl, Clnimix 5/15 at 40 ml/hr with 250 ml of 20% Lipid Emulsion. Skin:WNL Additional Notes: Patient currently on TPN at 40 ml/hr with Lipids providing patient with 1182 kcals and 48 gms protein. Patient is currently on O2 nasal canula, Extubated on 07/01. NGT in place, bowel rest at this time. Agree with diet orders. Following daily in ICU rounds. Reassessing every Thursday and Thursday.
[2021-07-03 12:16] LABS: Glucose Point of Care 118 mg/dl (65-105)
--- NOTE | 2021-07-03 13:06 | PM.PNGS ---
Progress Note: A&P Assessment and Plan (1) Perforated gastric ulcer: Qualifiers: Gastric ulcer chronicity: acute Qualified Code(s): K25.1 - Acute gastric ulcer with perforation Code(s): K25.5 - Chronic or unspecified gastric ulcer with perforation Status: Acute Assessment and Plan: WBC elevated with low grade fever this morning. Continue IV antibiotics. Incision with some drainage near umbilicus, may need to remove some yuniel in the next few days if drainage increases or he develops more erythema. Will also consider repeating CT scan abd/pelvis if leukocytosis/fever persists. Continue NG tube decompression, NPO, TPN/clinimix. Potassium replaced IV this morning. Monitor KERON drain. Okay from our standpoint to move patient out to IMU today. (2) Dehiscence of closure of fascia, superficial or muscular: Qualifiers: Encounter type: subsequent encounter Qualified Code(s): T81.32XD - Disruption of internal operation (surgical) wound, not elsewhere classified, subsequent encounter Code(s): T81.32XA - Disruption of internal operation (surgical) wound, not elsewhere classified, initial encounter Status: Acute Assessment and Plan: POD4 repair fascial dehiscence. Repair intact. Continue gauze dressing changes. (3) Cirrhosis of liver with ascites: Qualifiers: Hepatic cirrhosis type: alcoholic cirrhosis Qualified Code(s): K70.31 - Alcoholic cirrhosis of liver with ascites Code(s): K74.60 - Unspecified cirrhosis of liver; R18.8 - Other ascites Status: Chronic (4) Sepsis: Qualifiers: Sepsis type: sepsis due to unspecified organism Sepsis acute organ dysfunction status: with acute organ dysfunction Severe sepsis acute organ dysfunction type: disseminated intravascular coagulopathy Code(s): A41.9 - Sepsis, unspecified organism Status: Acute Assessment and Plan: Continue antibiotics. See plan above. (5) Acute respiratory failure: Code(s): J96.00 - Acute respiratory failure, unspecified whether with hypoxia or hypercapnia Status: Acute Assessment and Plan: Self-extubated 07/01 and doing well on NC. Plan to move patient out of ICU to IMU today. (6) Coagulopathy: Code(s): D68.9 - Coagulation defect, unspecified Status: Acute Assessment and Plan: Improving, no blood products since 06/30. INR at 3.1 today. Monitor labs. Additional Plan I have discussed the patient's case and plan of care with Dr. Tijerina. Subjective Subjective Date/Time Seen: 07/03/21 13:06 Patient reports: flatus (reports lots of flatus), no bowel movement and fever (temp max of 100F this morning) Interval history: 06/24/21 - Exploratory laparotomy, evacuation of 9.3 L intra-abdominal ascites, repair of perforated gastric ulcer with omental patch, intra-abdominal washout 06/29/21 - Closure with omentoplasty perforated gastric ulcer, repair fascial dehiscence Patient seen and examined in the ICU. He remains on 6L nasal cannula. Now off the Precedex drip. He is more alert and awake today. He will answer questions appropriately, but is not oriented to time or place. He is appropriate when redirected with orientation questions. No specific complaints when seeing him today. Denies abdominal pain. Review of Systems Review of Systems: ROS unobtainable: Yes unobtainable due to mental status Exam Const: General: no acute distress, alert and ill appearing Nutritional Appearance: edematous Orientation/consciousness: oriented to person, No oriented to time and confusion Resp: Effort & Inspection: tachypneic Auscultation: rhonchi right upper Cardio: Rate: regular rate Rhythm: regular rhythm GI: Inspection: non-distended, visible herniation (soft umbilical hernia present preop, unable to reduce) and other (KERON drain with serosanguineous drainage) GI Palp: Yes Soft to palpation, Yes Tenderness to palpation present (GI) (incisional) and
--- NOTE | 2021-07-03 13:54 | WPDGIPROGNO ---
Progress Note: A&P Assessment and Plan (1) Dehiscence of closure of fascia, superficial or muscular: Qualifiers: Encounter type: subsequent encounter Qualified Code(s): T81.32XD - Disruption of internal operation (surgical) wound, not elsewhere classified, subsequent encounter Code(s): T81.32XA - Disruption of internal operation (surgical) wound, not elsewhere classified, initial encounter Status: Acute Assessment and Plan: POD4 fascial dehiscence repair and closure omentoplasty perforated gastric ulcer NPO, also on TPN by general surgery NG tube in place KERON drain in place with serosanguineous output (2) Acute respiratory failure: Code(s): J96.00 - Acute respiratory failure, unspecified whether with hypoxia or hypercapnia Status: Acute Assessment and Plan: extubated 2 days ago (3) Sepsis: Qualifiers: Sepsis type: sepsis due to unspecified organism Sepsis acute organ dysfunction status: with acute organ dysfunction Severe sepsis acute organ dysfunction type: disseminated intravascular coagulopathy Code(s): A41.9 - Sepsis, unspecified organism Status: Acute Assessment and Plan: on antibiotics, still elevated wbc (4) Coagulopathy: Code(s): D68.9 - Coagulation defect, unspecified Status: Acute Assessment and Plan: monitor coags no ongoing bleeding now (5) Perforated gastric ulcer: Qualifiers: Gastric ulcer chronicity: acute Qualified Code(s): K25.1 - Acute gastric ulcer with perforation Code(s): K25.5 - Chronic or unspecified gastric ulcer with perforation Status: Acute Assessment and Plan: repaired, NGT in place, bowel rest, on TPN- by surgery (6) Encephalopathy: Code(s): G93.40 - Encephalopathy, unspecified Status: Acute Assessment and Plan: more awake and alert today, off precedex Subjective Date/time seen: 07/03/21 13:54 Interval history: more awake, off precedex. NPO and on TPN Review of Systems Review of Systems: All systems reviewed & are unremarkable except as noted in HPI and below Exam Const: General: no acute distress, alert and ill appearing chronically Orientation/consciousness: oriented to person and confusion HENMT: General nose exam: Normal nares present Eyes: Other: icteric sclerae Neck: Neck: supple Resp: Effort & Inspection: tachypneic Auscultation: rhonchi right upper Cardio: Rate: regular rate Rhythm: regular rhythm GI: Inspection: non-distended, visible herniation (soft umbilical hernia present preop, unable to reduce) and other (KERON drain with serosanguineous drainage) GI Palp: Yes Soft to palpation, Yes Tenderness to palpation present (GI) (incisional) and No Guarding due to palpation present (GI) Auscultation: Hypoactive bowel sounds present Other: Midline incision with yuniel intact with skin approximated Urinary Catheter: Urinary Catheter: patent and draining Skin: General skin exam: jaundice Neuro: General: oriented to person, No oriented to place, No oriented to time, moves all extremities, no focal motor deficits, confusion and Unable to assess gait Other: awake and alert but confused Extrem: General: no pedal edema, no calf tenderness and pedal edema Psych: Speech and movement: Restless speech present Insight: Limited insight present (Psych) and Poor insight present (Psych) Judgement: Limited judgement present (Psych) and Poor judgement present (Psych) Objective Data Vital Signs Vital Signs: Vital Signs - 24 hr 07/02/21 13:59 07/02/21 14:00 07/02/21 16:00 Temperature 99.8 F H Pulse Rate 99 98 99 Pulse Rate [Apical Monitor] 99 Respiratory Rate 32 H 30 H 26 H Blood Pressure 133/85 142/73 H Pulse Oximetry 94 96 07/02/21 18:00 07/02/21 19:44 07/02/21 19:52 Temperature Pulse Rate 90 96 101 H Pulse Rate [Apical Monitor] Respiratory Rate 24 H 30 H 28 H Blood Pressure 137/74 Pulse Oximetry
[2021-07-03] MEDS: AMINO ACIDS 5%/D15W/E-LYTES/CA 2,000 ML with MULTIVITAMINS-12 INJ VIAL 1 2.5 ML, MULTIV... 40 ML IV CONT (15:34)
[2021-07-03] MEDS: FAT EMULSIONS IV 20% 250 ML 20.83 ML IVPB (15:34)
[2021-07-03 15:46] LABS: Glucose Point of Care 139 mg/dl (65-105)
[2021-07-03 20:13] LABS: Glucose Point of Care 132 mg/dl (65-105)
[2021-07-04] VITALS (24 sets, daily range): BP systolic 114–171; BP diastolic 65–87; PULSE 83–112; RESP 17–35; TEMP 37.1–37.9; O2SAT 92–98
[2021-07-04 00:26] LABS: Glucose Point of Care 101 mg/dl (65-105)
[2021-07-04] MEDS: ALBUTEROL SULFATE NEB 2.5 MG/0.5 ML INH INHALATION ×4 (02:05→20:43)
[2021-07-04] MEDS: IPRATROPIUM BR 0.02% INH SOLN 0.5 MG/2.5 ML VIAL INHALATION ×4 (02:05→20:43)
[2021-07-04] MEDS: CENTRAL LINE FLUSH 10 ML IV PUSH ×4 (05:05→20:26)
[2021-07-04 05:21] LABS: Hematocrit 24.2 % (42.0-52.0); Hemoglobin 7.9 g/dL (14.0-18.0); Mean Corpuscular HGB Conc 32.6 g/dl (32-36); Mean Corpuscular Hemoglobin 30.9 pg (26-34); Mean Corpuscular Volume 94.5 fl (80-100); Mean Platelet Volume 12.2 fl (7.4-10.4); Platelet Count Result 81 k/mm3 (150-375); Red Blood Count 2.56 M/mm3 (4.6-6.20); White Blood Count 25.8 K/mm3 (4.5-10.0)
[2021-07-04 05:35] LABS: INR 2.9; Prothrombin Time 29.4 Seconds (11.1-14.7)
[2021-07-04 05:36] LABS: Fibrinogen 161 mg/dl (215-510); Partial Thromboplastin Time 41.1 SECONDS (22.3-36.8)
[2021-07-04 05:39] LABS: Alanine Aminotransferase 19 U/L (4-50); Albumin Level 3.2 g/dL (3.5-5.1); Alkaline Phosphatase 57 U/L (38-126); Anion Gap 8 mmol/L (8-16); Aspartate Amino Transferase 54 U/L (17-59); Bilirubin,Total 6.5 mg/dL (0.2-1.3); Blood Urea Nitrogen 29 mg/dL (9-20); Calcium 8.4 mg/dL (8.4-10.2); Carbon Dioxide 22 mmol/L (22-30); Chloride 116 mmol/L (98-107); Estimated CRCL calculation 87 ml/min; Estimated Glomerular Filt Rate > 60; Glucose 143 mg/dL (65-110); Phosphorus 2.9 mg/dL (2.5-4.5); Potassium 4.5 mmol/L (3.4-5.0); Sodium 146 mmol/L (137-145)
[2021-07-04 07:41] LABS: Glucose Point of Care 116 mg/dl (65-105)
[2021-07-04] MEDS: PANTOPRAZOLE SODIUM IV 40 MG VIAL IV PUSH ×2 (09:23→20:26)
[2021-07-04] MEDS: THIAMINE HCL 200 MG/2 ML VIAL 100 MG IV PUSH (09:23)
[2021-07-04] MEDS: FOLIC ACID 1 MG/0.2 ML INJ IV PUSH (09:35)
--- NOTE | 2021-07-04 10:02 | WPDINTPN ---
Progress Note: A&P Assessment and Plan (1) Acute respiratory failure: Code(s): J96.00 - Acute respiratory failure, unspecified whether with hypoxia or hypercapnia Status: Acute Assessment and Plan: Acute Respiratory failure secondary to done anesthesia and pulmonary edema likely from volume overload Off ventilator now and maintaining saturations on nasal cannula PCXR reviewed Incentive spirometry (2) Sepsis: Qualifiers: Sepsis type: sepsis due to unspecified organism Sepsis acute organ dysfunction status: with acute organ dysfunction Severe sepsis acute organ dysfunction type: disseminated intravascular coagulopathy Code(s): A41.9 - Sepsis, unspecified organism Status: Acute Assessment and Plan: Secondary to peritonitis from perforated gastric and to no ulcer Continue IV fluids but decrease rate Patient has received significant amount of blood products and 25% albumin till now. Hold further Patient not requiring vasopressors at this time Continue Zosyn Blood cultures have been negative till now He is afebrile but his WBC still elevated Discussed with general surgery plan to repeat CT abdomen pelvis. Will check CT chest along with CT abdomen pelvis (3) Perforated gastric ulcer: Code(s): K25.5 - Chronic or unspecified gastric ulcer with perforation Status: Deleted Assessment and Plan: Status post ex lap 06/24 evacuation of 9.3 L intra-abdominal ascites, repair of perforated gastric ulcer with omental patch, intra-abdominal washout. 06/28 - UGI series - Duodenal perforation, extravasation CT abdomen pelvis IMPRESSION: 1. Duodenal perforation, moderate ascites and free intraperitoneal gas. 2. Probable colitis, diarrhea. 3. Multisegmental basilar atelectasis. Pneumonia not excludable. 4. Cardiomegaly. 5. Anasarca 06/29 developed fascial dehiscence without evisceration but leaking ascites almost continually., INR 6.2 patient taken back to OR and underwent Closure with omentoplasty perforated gastric ulcer, repair fascial dehiscence 2 units of FFP given intraoperatively postop in ICU patient was given 3 units of PRBC and 4 units of FFP Now extubated NPO and started on TPN by general surgery NG tube in place KERON drain in place with serosanguineous output General surgery is following Plan for repeat CT (4) Acute kidney injury: Code(s): N17.9 - Acute kidney failure, unspecified Status: Acute Assessment and Plan: Likely secondary to sepsis, hypovolemia from large volume shifts patient received significant amount of blood products and IV fluids Creatinine marginally improved and urine output has improved continue IV fluids D5 water for hypernatremia and hyperchloremia but decrease rate Monitor urine output electrolytes and creatinine replace low potassium (5) Encephalopathy: Code(s): G93.40 - Encephalopathy, unspecified Status: Acute Assessment and Plan: Likely multifactorial and metabolic His last ammonia level was normal Improved and off Precedex now (6) Alcoholism: Code(s): F10.20 - Alcohol dependence, uncomplicated Status: Acute Assessment and Plan: Thiamine and folic acid Off Precedex now P.r.n. Ativan ordered (7) Cirrhosis of liver: Code(s): K74.60 - Unspecified cirrhosis of liver Status: Acute Assessment and Plan: Secondary to alcohol abuse His ammonia level has been on (8) Anemia: Code(s): D64.9 - Anemia, unspecified Status: Acute Assessment and Plan: Multifactorial patient admitted with GI bleed from gastric ulcer also had varices. He had laparotomy x2 and also hemodilution from volume resuscitation patient was transfuse 3 units of PRBC 06/29 06/30 additional 2 units of PRBC Will monitor transfuse as needed below 7 He is on PPI q.12 hours monitor hemoglobin which has been stable over last few days (9) Coagulopathy:
--- NOTE | 2021-07-04 11:00 | WPDGIPROGNO ---
Progress Note: A&P Assessment and Plan (1) Dehiscence of closure of fascia, superficial or muscular: Qualifiers: Encounter type: subsequent encounter Qualified Code(s): T81.32XD - Disruption of internal operation (surgical) wound, not elsewhere classified, subsequent encounter Code(s): T81.32XA - Disruption of internal operation (surgical) wound, not elsewhere classified, initial encounter Status: Acute Assessment and Plan: POD5 fascial dehiscence repair and closure omentoplasty perforated gastric ulcer NPO, also on TPN by general surgery NG tube in place KERON drain in place with serosanguineous output agree with CT scan a/p to reassess site again and ugi, had low grade fever (2) Acute respiratory failure: Code(s): J96.00 - Acute respiratory failure, unspecified whether with hypoxia or hypercapnia Status: Acute Assessment and Plan: extubated, improved (3) Sepsis: Qualifiers: Sepsis type: sepsis due to unspecified organism Sepsis acute organ dysfunction status: with acute organ dysfunction Severe sepsis acute organ dysfunction type: disseminated intravascular coagulopathy Code(s): A41.9 - Sepsis, unspecified organism Status: Acute Assessment and Plan: on antibiotics, still elevated wbc- will get CT scan a/p (4) Coagulopathy: Code(s): D68.9 - Coagulation defect, unspecified Status: Acute Assessment and Plan: monitor coags no ongoing bleeding now (5) Perforated gastric ulcer: Qualifiers: Gastric ulcer chronicity: acute Qualified Code(s): K25.1 - Acute gastric ulcer with perforation Code(s): K25.5 - Chronic or unspecified gastric ulcer with perforation Status: Acute Assessment and Plan: repaired, NGT in place, bowel rest, on TPN- by surgery (6) Encephalopathy: Code(s): G93.40 - Encephalopathy, unspecified Status: Acute Assessment and Plan: more awake and alert but still confused Subjective Date/time seen: 07/04/21 11:00 Interval history: no new events, low grade fever, awake but confused Review of Systems Review of Systems: All systems reviewed & are unremarkable except as noted in HPI and below Exam Const: General: no acute distress, alert and ill appearing chronically Orientation/consciousness: oriented to person and confusion HENMT: General nose exam: Normal nares present Eyes: Other: icteric sclerae Neck: Neck: supple Resp: Effort & Inspection: tachypneic Auscultation: rhonchi right upper Cardio: Rate: regular rate Rhythm: regular rhythm GI: Inspection: non-distended, visible herniation (soft umbilical hernia present preop, unable to reduce) and other (KERON drain with serosanguineous drainage) GI Palp: Yes Soft to palpation, Yes Tenderness to palpation present (GI) (incisional) and No Guarding due to palpation present (GI) Auscultation: Hypoactive bowel sounds present Other: Midline incision with yuniel intact with skin approximated Urinary Catheter: Urinary Catheter: patent and draining Skin: General skin exam: jaundice Neuro: General: oriented to person, No oriented to place, No oriented to time, moves all extremities, no focal motor deficits, confusion and Unable to assess gait Other: awake and alert but confused Extrem: General: no pedal edema, no calf tenderness and pedal edema Psych: Speech and movement: Restless speech present Insight: Limited insight present (Psych) and Poor insight present (Psych) Judgement: Limited judgement present (Psych) and Poor judgement present (Psych) Objective Data Vital Signs Vital Signs: Vital Signs - 24 hr 07/03/21 17:57 07/03/21 19:39 07/03/21 19:40 Temperature Pulse Rate 90 91 87 Respiratory Rate 21 H 25 H Blood Pressure Pulse Oximetry 95 07/03/21 19:45 07/03/21 20:00 07/03/21 22:00 Temperature 99.2 F Pulse Rate 92 93 95 Respiratory Rate 22 H 30 H Blood Pressure 138/72 Puls
--- NOTE | 2021-07-04 11:00 | PCFNICU ---
ICU Rounding Note: Pt current nutrition is TPN. Last recorded weight is 78.9 kg, down from 91.3 kg on admit. Bowel Motility:+BM reported 07/04 Labs Reviewed:Glu 143, BUN 29, Na 146, Alb 3.2,Hct 24.2,Hgb 7.9 Meds Noted:Atrovent,Zosyn, Folic Acid, Thiamine, Protonix, Clinimix 5/15 at 40 ml/hr with 250 ml 20% Lipid Emulsion. Skin: WNL Additional Notes: Patient remains on TPN providing 1182 kcals and 48 gms protein. Meeting 61% of caloric needs. 7 LO2 today on nasal canula. Following daily in ICU rounds. Reassessing every Thursday and Thursday.
[2021-07-04 12:35] LABS: Glucose Point of Care 91 mg/dl (65-105)
[2021-07-04] MEDS: MORPHINE SULFATE (*CRX) 2 MG/ML INJ IV PUSH ×2 (12:47→16:50)
--- NOTE | 2021-07-04 13:05 | PM.PNGS ---
Progress Note: A&P Assessment and Plan (1) Perforated gastric ulcer: Qualifiers: Gastric ulcer chronicity: acute Qualified Code(s): K25.1 - Acute gastric ulcer with perforation Code(s): K25.5 - Chronic or unspecified gastric ulcer with perforation Status: Acute Assessment and Plan: WBC remains elevated with temp of 11.3F this morning. Discussed with Cafeteria Counter Attendant, will order CT scan of chest/abdomen/pelvis today. While in Radiology, will also get a Gastrografin upper GI to evaluate the repair. Incision with some drainage near umbilicus, may need to remove some yuniel in the next few days if drainage increases or he develops more erythema. Continue NG tube decompression, NPO, TPN/clinimix. Monitor KERON drain. (2) Dehiscence of closure of fascia, superficial or muscular: Qualifiers: Encounter type: subsequent encounter Qualified Code(s): T81.32XD - Disruption of internal operation (surgical) wound, not elsewhere classified, subsequent encounter Code(s): T81.32XA - Disruption of internal operation (surgical) wound, not elsewhere classified, initial encounter Status: Acute Assessment and Plan: POD5 repair fascial dehiscence. Repair intact. Continue gauze dressing changes. (3) Sepsis: Qualifiers: Sepsis type: sepsis due to unspecified organism Sepsis acute organ dysfunction status: with acute organ dysfunction Severe sepsis acute organ dysfunction type: disseminated intravascular coagulopathy Code(s): A41.9 - Sepsis, unspecified organism Status: Acute Assessment and Plan: Continue antibiotics. See plan above. (4) Acute respiratory failure: Code(s): J96.00 - Acute respiratory failure, unspecified whether with hypoxia or hypercapnia Status: Acute Assessment and Plan: Self-extubated 07/01, currently on 7L NC. He had a slight increase in oxygenation needs overnight. Discussed with Cafeteria Counter Attendant, will order CT chest with abd/pelvis today. (5) Cirrhosis of liver with ascites: Qualifiers: Hepatic cirrhosis type: alcoholic cirrhosis Qualified Code(s): K70.31 - Alcoholic cirrhosis of liver with ascites Code(s): K74.60 - Unspecified cirrhosis of liver; R18.8 - Other ascites Status: Chronic Additional Plan I have discussed the patient's case and plan of care with Dr. Tijerina. Subjective Subjective Date/Time Seen: 07/04/21 13:05 Interval history: 1/10/22 - Exploratory laparotomy, evacuation of 9.3 L intra-abdominal ascites, repair of perforated gastric ulcer with omental patch, intra-abdominal washout 06/29/21 - Closure with omentoplasty perforated gastric ulcer, repair fascial dehiscence Patient seen and examined in the ICU as an IMU status patient. He is now on 7L nasal cannula. Remains off the Precedex drip and is more alert and appropriate when talking to him today. He will answer questions appropriately, but is not oriented to time or place. He is appropriate when redirected with orientation questions. Reports abdominal pain and points to his incision when describing where it is located. He reports having some nausea when down for the upper GI study. No vomiting. No other acute issues or specific complaints. Review of Systems Review of Systems: ROS unobtainable: Yes other (limited due to confusion, see HPI above) Exam Const: General: comfortable, alert, awake and ill appearing Orientation/consciousness: oriented to person, No oriented to place and No oriented to time Resp: Effort & Inspection: tachypneic Auscultation: diminished lung sounds bilateral in the lower lung bunch Cardio: Rate: regular rate Rhythm: regular rhythm GI: Inspection: other (mildly distended) GI Palp: Yes Soft to palpation, Yes Tenderness to palpation present (GI) (throughout), Yes Hernia present (umbilical hernia present pre-op, nonreducible/nontender) and Yes Other GI palpation findings present (KERON drain with serosanguineous draina
[2021-07-04 16:14] LABS: SARS-CoV-2 RNA PCR Negative
[2021-07-04 16:22] LABS: Glucose Point of Care 147 mg/dl (65-105)
[2021-07-04] MEDS: FAT EMULSIONS IV 20% 250 ML 20.83 ML IVPB (16:48)
[2021-07-04] MEDS: AMINO ACIDS 5%/D15W/E-LYTES/CA 2,000 ML with MULTIVITAMINS-12 INJ VIAL 1 2.5 ML, MULTIV... 40 ML IV CONT (16:48)
[2021-07-04] MEDS: KCL 20 MEQ/D5W 1,000 ML 1,000 ML 50 ML IV CONT (20:31)
[2021-07-04 20:42] LABS: Glucose Point of Care 121 mg/dl (65-105)
[2021-07-05] VITALS (24 sets, daily range): BP systolic 119–141; BP diastolic 65–70; PULSE 83–105; RESP 19–26; TEMP 36.8–37.8; O2SAT 86–96; BMI 24.0
[2021-07-05 00:36] LABS: Glucose Point of Care 120 mg/dl (65-105)
[2021-07-05] MEDS: ALBUTEROL SULFATE NEB 2.5 MG/0.5 ML INH INHALATION ×4 (01:21→19:51)
[2021-07-05] MEDS: IPRATROPIUM BR 0.02% INH SOLN 0.5 MG/2.5 ML VIAL INHALATION ×4 (01:21→19:51)
[2021-07-05] MEDS: CENTRAL LINE FLUSH 10 ML IV PUSH ×4 (04:21→20:53)
[2021-07-05 04:26] LABS: Glucose Point of Care 132 mg/dl (65-105)
[2021-07-05 06:25] LABS: Alanine Aminotransferase 20 U/L (4-50); Alkaline Phosphatase 64 U/L (38-126); Anion Gap 10 mmol/L (8-16); Aspartate Amino Transferase 54 U/L (17-59); Bilirubin,Total 6.8 mg/dL (0.2-1.3); Blood Urea Nitrogen 29 mg/dL (9-20); Calcium 8.4 mg/dL (8.4-10.2); Carbon Dioxide 22 mmol/L (22-30); Chloride 115 mmol/L (98-107); Estimated CRCL calculation 87 ml/min; Estimated Glomerular Filt Rate > 60; Glucose 138 mg/dL (65-110); Magnesium 2.1 mg/dL (1.6-2.3); Phosphorus 3.2 mg/dL (2.5-4.5); Potassium 4.5 mmol/L (3.4-5.0); Sodium 147 mmol/L (137-145)
[2021-07-05 06:30] LABS: INR 2.6; Partial Thromboplastin Time 39.8 SECONDS (22.3-36.8); Prothrombin Time 26.9 Seconds (11.1-14.7)
[2021-07-05 06:37] LABS: Fibrinogen 210 mg/dl (215-510)
--- NOTE | 2021-07-05 09:37 | WPDINTPN ---
Progress Note: A&P Assessment and Plan (1) Acute respiratory failure: Code(s): J96.00 - Acute respiratory failure, unspecified whether with hypoxia or hypercapnia Status: Acute Assessment and Plan: Acute Respiratory failure secondary to done anesthesia and pulmonary edema likely from volume overload Off ventilator now and maintaining saturations on nasal cannula PCXR reviewed Incentive spirometry (2) Sepsis: Qualifiers: Sepsis acute organ dysfunction status: with acute organ dysfunction Sepsis type: sepsis due to unspecified organism Severe sepsis acute organ dysfunction type: disseminated intravascular coagulopathy Code(s): A41.9 - Sepsis, unspecified organism Status: Acute Assessment and Plan: Secondary to peritonitis from perforated gastric and duodenal ulcer Patient has received significant amount of blood products and 25% albumin till now. Hold further Patient not requiring vasopressors at this time Continue Zosyn,(06/29) Blood cultures have been negative till now He is afebrile but his WBC still elevated, CT chest abdomen and pelvis was done on 07/04/2021: No evidence of contrast extravasation. Small right and very small left pleural effusion with right lower lobe collapse and partial collapse of the left lower lobe. Peripheral patchy ground-glass opacities in both lungs. Moderate amount of non loculated appearing ascites. Cirrhosis. Diffuse edematous wall thickening of the colon (3) Perforated gastric ulcer: Code(s): K25.5 - Chronic or unspecified gastric ulcer with perforation Status: Deleted Assessment and Plan: Status post ex lap 06/24 evacuation of 9.3 L intra-abdominal ascites, repair of perforated gastric ulcer with omental patch, intra-abdominal washout. 06/28 - UGI series - Duodenal perforation, extravasation CT abdomen pelvis IMPRESSION: 1. Duodenal perforation, moderate ascites and free intraperitoneal gas. 2. Probable colitis, diarrhea. 3. Multisegmental basilar atelectasis. Pneumonia not excludable. 4. Cardiomegaly. 5. Anasarca 06/29 developed fascial dehiscence without evisceration but leaking ascites almost continually., INR 6.2 patient taken back to OR and underwent Closure with omentoplasty perforated gastric ulcer, repair fascial dehiscence 2 units of FFP given intraoperatively postop in ICU patient was given 3 units of PRBC and 4 units of FFP Now extubated NPO and started on TPN by general surgery NG tube in place KERON drain in place with serosanguineous output General surgery is following Plan for repeat CT (4) Acute kidney injury: Code(s): N17.9 - Acute kidney failure, unspecified Status: Acute Assessment and Plan: Likely secondary to sepsis, hypovolemia from large volume shifts patient received significant amount of blood products and IV fluids Creatinine marginally improved and urine output has improved continue IV fluids D5 water for hypernatremia and hyperchloremia but decrease rate Monitor urine output electrolytes and creatinine replace low potassium (5) Encephalopathy: Code(s): G93.40 - Encephalopathy, unspecified Status: Acute Assessment and Plan: Likely multifactorial and metabolic His last ammonia level was normal Improved and off Precedex now (6) Alcoholism: Code(s): F10.20 - Alcohol dependence, uncomplicated Status: Acute Assessment and Plan: Thiamine and folic acid Off Precedex now P.r.n. Ativan ordered (7) Cirrhosis of liver: Code(s): K74.60 - Unspecified cirrhosis of liver Status: Acute Assessment and Plan: Secondary to alcohol abuse His ammonia level has been on (8) Anemia: Code(s): D64.9 - Anemia, unspecified Status: Acute Assessment and Plan: Multifactorial patient admitted with GI bleed from gastric ulcer also had varices. He had laparotomy x2 and also hemodilution from volume
[2021-07-05] MEDS: MORPHINE SULFATE (*CRX) 2 MG/ML INJ IV PUSH ×2 (09:38→21:02)
[2021-07-05] MEDS: THIAMINE HCL 200 MG/2 ML VIAL 100 MG IV PUSH (09:40)
[2021-07-05] MEDS: FOLIC ACID 1 MG/0.2 ML INJ IV PUSH (09:40)
[2021-07-05] MEDS: PANTOPRAZOLE SODIUM IV 40 MG VIAL IV PUSH ×2 (09:41→20:52)
--- NOTE | 2021-07-05 10:20 | PM.PNGS ---
Progress Note: A&P Assessment and Plan (1) Perforated gastric ulcer: Qualifiers: Gastric ulcer chronicity: acute Qualified Code(s): K25.1 - Acute gastric ulcer with perforation Code(s): K25.5 - Chronic or unspecified gastric ulcer with perforation Status: Acute Assessment and Plan: stable, imaging reviewed, will start trophic feeds thru NG, cont TPN for now, ok to have sips of clears, cont drain, abx Subjective Subjective Date/Time Seen: 07/05/21 10:20 no acute issues, still confused, oriented to person, wants something to drink Review of Systems Review of Systems: ROS unobtainable: Yes unobtainable due to mental status Exam Const: General: cooperative, comfortable and ill appearing Resp: Auscultation: clear to auscultation bilaterally Cardio: Rate: regular rate Rhythm: regular rhythm GI: Inspection: normal to inspection, Abdominal wall edema, distended and incision GI Palp: Yes Soft to palpation, Yes Tenderness to palpation present (GI), No Guarding due to palpation present (GI) and No Rigid due to palpation Objective Data Vital Signs Vital Signs: Vital Signs - 24 hr 07/04/21 12:00 07/04/21 14:00 07/04/21 14:18 Temperature 37.8 C H Pulse Rate 103 H 88 93 Respiratory Rate 25 H 25 H Blood Pressure 171/87 H Pulse Oximetry 97 07/04/21 14:30 07/04/21 16:00 07/04/21 18:00 Temperature 37.7 C H Pulse Rate 92 92 93 Respiratory Rate 25 H 22 H Blood Pressure 114/65 Pulse Oximetry 92 07/04/21 20:00 07/04/21 20:44 07/04/21 20:50 Temperature 37.1 C Pulse Rate 95 87 83 Respiratory Rate 19 20 17 Blood Pressure 136/66 Pulse Oximetry 94 93 07/04/21 22:00 07/05/21 00:00 07/05/21 01:22 Temperature 36.8 C Pulse Rate 88 97 96 Respiratory Rate 21 H 25 H Blood Pressure 129/68 Pulse Oximetry 94 07/05/21 01:29 07/05/21 02:00 07/05/21 04:00 Temperature 36.9 C Pulse Rate 94 97 86 Respiratory Rate 26 H 22 H Blood Pressure 128/70 Pulse Oximetry 93 07/05/21 06:00 07/05/21 07:47 07/05/21 08:03 Temperature Pulse Rate 92 96 96 Respiratory Rate 26 H 25 H Blood Pressure Pulse Oximetry 93 07/05/21 08:04 Temperature Pulse Rate 96 Respiratory Rate 24 H Blood Pressure Pulse Oximetry Intake/Output Intake/Output: Intake & Output 07/02/21 07/03/21 07/04/21 07/05/21 23:59 23:59 23:59 23:59 Intake Total 3897.667 2912 2181 1113 Output Total 2590 2570 1685 1390 Balance 1307.667 342 010 -793 Meds/Results Medications: Active Medications Generic Name Dose Route Start Last Admin Trade Name Freq PRN Reason Stop Dose Admin Albuterol 2.5 mg 06/29/21 02:05 07/05/21 08:01 Albuterol Sulfate Neb 2.5 Mg/0.5 Ml Inh INHALATION 2.5 mg Q6HRT JOSEFA Administration Dextrose 12.5 gm 06/29/21 14:29 Dextrose 50% 25 Gm/50 Ml Syringe IV PUSH PRN PRN Hypoglycemia Protocol Folic Acid 1 mg 06/25/21 14:35 07/05/21 09:40 Folic Acid 1 Mg/0.2 Ml Inj IV PUSH 1 mg QAM JOSEFA Administration Glucagon 1 mg 06/29/21 14:29 Glucagon For Inj 1 Mg Vial IM PRN PRN Hypoglycemia Protocol Albumin Human 100 mls @ 60 mls/hr 06/25/21 16:00 07/01/21 08:14 Albutein IVPB Infused Q6HR JOSEFA Infusion Dextrose 1,000 mls @ 50 mls/hr 06/28/21 10:03 Dextrose 10% IV CONT .Q20H PRN if PN is interrupted Piperacillin/Tazobactam/Dextrose 3.375 gm in 50 mls @ 100 mls/hr 06/29/21 15:00 07/05/21 09:40 Zosyn 3.375 Gm/D5w 50ml Pm IVPB 100 mls/hr Q6H JOSEFA Administration Dextrose 1,000 mls @ 100 mls/hr 06/29/21 14:29 Dextrose 5% 1,000 Ml IVPB PRN PRN Hypoglycemia Protocol Multivitamins 2.5 ml/ 2,005 mls @ 40 mls/hr 07/03/21 16:00 07/05/21 04:21 Multivitamins 2.5 ml/ Amino IV CONT 40 mls/hr Acids/Electrolytes/Dextrose .Q24H JOSEFA Infusion Protocol Fat Emulsion Intravenous 250 mls @ 20.833 mls/hr 07/03/21 16:00 07/05/21 04:22 Lipids 20% IVPB
[2021-07-05 11:04] LABS: Triglycerides 54 mg/dL (<150)
--- NOTE | 2021-07-05 11:49 | PCNFU ---
Nutrition Follow-Up Complete: Altered GI function as related to GI bleed as evidenced by liquid diet orders. Goal: Adequate Intake of at least 75% of meals/supplements(new goal) Goal: Meet estimated nutritional needs. We will continue with new goal. Pt current nutrition is Jevity 1.2 at 10 ml/hr over 22 hours and TPN. Last recorded weight is 75.9 kg, down from 91.3 kg on admit. Bowel Motility:+BM reported 07/04 Labs Reviewed:Glu 138, Na 147, Alb 3.0, Hct 39.8,Hgb 26.8 Meds Noted:Folic Acid, Thiamine,Flagyl, Protonix, Atrovent, Zosyn,Clinimix 5/15 at 40 ml/hr with 250 ml of 20% Lipid Emulsion. Skin: WNL Additional Notes: Patient remains on TPN at this time providing 1182 kcals/48 gms protein. Trickle feeding of Jevity 1.2 at 10 ml/hr starting today, providing an additional 264 kcals/12 gms protein/178 ml water. Current nutrition is meeting 65% of caloric needs and 66% of protein needs. If able to tolerating recommend d/c TPN and increased tube feedings to goal rate of 75 ml/hr. RD will monitor every Thursday and Thursday.
[2021-07-05 12:04] LABS: Ammonia < 9 umol/L (9-30)
[2021-07-05 12:49] LABS: Glucose Point of Care 126 mg/dl (65-105)
--- NOTE | 2021-07-05 16:07 | WPDGIPROGNO ---
Progress Note: A&P Assessment and Plan (1) Dehiscence of closure of fascia, superficial or muscular: Qualifiers: Encounter type: subsequent encounter Qualified Code(s): T81.32XD - Disruption of internal operation (surgical) wound, not elsewhere classified, subsequent encounter Code(s): T81.32XA - Disruption of internal operation (surgical) wound, not elsewhere classified, initial encounter Status: Acute Assessment and Plan: POD6 fascial dehiscence repair and closure omentoplasty perforated gastric ulcer TPN by general surgery surgery will check on wound again tomorrow, expected drainage also from ascites and decompensated cirrhosis continue with antibiotics NG tube in place KERON drain in place with serosanguineous output CT scan yesterday reviewed, no leakage (2) Acute respiratory failure: Code(s): J96.00 - Acute respiratory failure, unspecified whether with hypoxia or hypercapnia Status: Acute Assessment and Plan: extubated, improved (3) Sepsis: Qualifiers: Sepsis type: sepsis due to unspecified organism Sepsis acute organ dysfunction status: with acute organ dysfunction Severe sepsis acute organ dysfunction type: disseminated intravascular coagulopathy Code(s): A41.9 - Sepsis, unspecified organism Status: Acute Assessment and Plan: on antibiotics, still elevated wbc- CT scan a/p reviewed (4) Coagulopathy: Code(s): D68.9 - Coagulation defect, unspecified Status: Acute Assessment and Plan: monitor coags no ongoing bleeding now (5) Perforated gastric ulcer: Qualifiers: Gastric ulcer chronicity: acute Qualified Code(s): K25.1 - Acute gastric ulcer with perforation Code(s): K25.5 - Chronic or unspecified gastric ulcer with perforation Status: Acute Assessment and Plan: repaired, NGT in place, bowel rest, on TPN- by surgery (6) Encephalopathy: Code(s): G93.40 - Encephalopathy, unspecified Status: Acute Assessment and Plan: more awake and alert Subjective Date/time seen: 07/05/21 16:07 Interval history: RN report more drainage from wound dressing today. He is more awake and actually has been keeping conversation with staff Review of Systems Review of Systems: All systems reviewed & are unremarkable except as noted in HPI and below Exam Const: General: no acute distress, alert and ill appearing chronically Other: awake and more alert today HENMT: General nose exam: Normal nares present Eyes: Pupils: Equal, round and reactive pupils present Neck: Neck: supple Resp: Effort & Inspection: tachypneic Auscultation: diminished lung sounds Cardio: Rate: regular rate Rhythm: regular rhythm GI: Inspection: non-distended, visible herniation (soft umbilical hernia present preop, unable to reduce) and other (KERON drain with serosanguineous drainage) GI Palp: Yes Soft to palpation, Yes Tenderness to palpation present (GI) (incisional) and No Guarding due to palpation present (GI) Auscultation: Hypoactive bowel sounds present Other: Midline incision with yuniel intact, indurated site Urinary Catheter: Urinary Catheter: patent and draining Skin: General skin exam: jaundice Neuro: General: oriented to person, No oriented to place, No oriented to time, moves all extremities, no focal motor deficits, confusion and Unable to assess gait Other: awake and alert, less confused Extrem: General: no pedal edema, no calf tenderness and pedal edema Psych: Affect: No Hostile affect present Insight: Limited insight present (Psych) and Poor insight present (Psych) Judgement: Limited judgement present (Psych) and Poor judgement present (Psych) Objective Data Vital Signs Vital Signs: Vital Signs - 24 hr 07/04/21 18:00 07/04/21 20:00 07/04/21 20:44 Temperature 98.8 F Pulse Rate 93 95 87 Respiratory Rate 19 20 Blood Pressure 136/66 Pulse Oximetry 94 93 07/04/21 20:
[2021-07-05 17:06] LABS: Glucose Point of Care 112 mg/dl (65-105)
[2021-07-05] MEDS: AMINO ACIDS 5%/D15W/E-LYTES/CA 2,000 ML with MULTIVITAMINS-12 INJ VIAL 1 2.5 ML, MULTIV... 40 ML IV CONT (17:47)
[2021-07-05] MEDS: FAT EMULSIONS IV 20% 250 ML 20.83 ML IVPB (17:47)
[2021-07-05 21:18] LABS: Add Urine Microscopic? YES; Appearance Urine Clear (Clear); Bilirubin Urine Negative (Negative); Blood Urine Negative (Negative); Color Urine Amber (Yellow); Glucose Urine UA Negative (Negative); Ketones Urine Negative (Negative); Leukocyte Esterase Ur Negative LEU/UL (Negative); Mucus Urine Rare /lpf; Nitrate Urine Negative (Negative); Protein Urine 1+ mg/dL (Negative); RBC Urine 0-2 /hpf (0-2); Specific Grav Ur 1.026 (1.001-1.035); Urobilinogen Urine Negative mg/dL (<2.0); WBC Urine 0-3 /hpf
[2021-07-06] VITALS (25 sets, daily range): BP systolic 116–145; BP diastolic 59–78; PULSE 77–111; RESP 16–24; TEMP 36.1–37.7; O2SAT 90–98
[2021-07-06 00:28] LABS: Glucose Point of Care 119 mg/dl (65-105)
[2021-07-06] MEDS: IPRATROPIUM BR 0.02% INH SOLN 0.5 MG/2.5 ML VIAL INHALATION ×4 (02:35→21:28)
[2021-07-06] MEDS: ALBUTEROL SULFATE NEB 2.5 MG/0.5 ML INH INHALATION ×4 (02:35→21:28)
[2021-07-06] MEDS: MORPHINE SULFATE (*CRX) 2 MG/ML INJ IV PUSH ×2 (02:54→10:50)
[2021-07-06] MEDS: CENTRAL LINE FLUSH 10 ML IV PUSH ×4 (04:32→21:34)
[2021-07-06 04:37] LABS: Basophils Absolute Auto 0.1 K/mm3 (0.0-0.1); Basophils Percent Auto 0.6 % (0.2-1.2); Eosinophils Absolute Auto 0.4 K/mm3 (0-0.3); Hematocrit 22.8 % (42.0-52.0); Hemoglobin 7.3 g/dL (14.0-18.0); Immature Granulocyte Absolute 0.16 K/mm3 (0.00-0.031); Immature Granulocyte Percent A 0.9 % (0-0.5); Lymphocytes Absolute Auto 0.93 K/mm3 (0.9-3.2); Lymphocytes Percent Auto 5.1 % (18.3-44.2); Mean Corpuscular Hemoglobin 30.7 pg (26-34); Mean Corpuscular Volume 95.8 fl (80-100); Mean Platelet Volume 11.7 fl (7.4-10.4); Monocytes Percent Auto 5.5 % (2.6-8.5); Neutrophils Absolute Auto 15.5 K/mm3 (1.3-6.7); Neutrophils Percent Auto 85.9 % (45.5-73.1); Platelet Count Result 115 k/mm3 (150-375); Red Blood Count 2.38 M/mm3 (4.6-6.20); Red Cell Distribution Width 21.7 % (11.5-14.5); White Blood Count 18.1 K/mm3 (4.5-10.0)
[2021-07-06 04:52] LABS: INR 2.6; Prothrombin Time 27.5 Seconds (11.1-14.7)
[2021-07-06 04:53] LABS: Fibrinogen 150 mg/dl (215-510)
[2021-07-06 04:54] LABS: Alanine Aminotransferase 23 U/L (4-50); Albumin Level 2.9 g/dL (3.5-5.1); Alkaline Phosphatase 64 U/L (38-126); Anion Gap 7 mmol/L (8-16); Aspartate Amino Transferase 56 U/L (17-59); Bilirubin,Total 7.3 mg/dL (0.2-1.3); Blood Urea Nitrogen 28 mg/dL (9-20); Calcium 8.5 mg/dL (8.4-10.2); Carbon Dioxide 23 mmol/L (22-30); Chloride 117 mmol/L (98-107); Estimated CRCL calculation 87 ml/min; Estimated Glomerular Filt Rate > 60; Glucose 136 mg/dL (65-110); Potassium 3.8 mmol/L (3.4-5.0); Sodium 147 mmol/L (137-145)
--- NOTE | 2021-07-06 04:57 | PC.NURSE ---
pump malfunction for lipid dose, running past scheduled time.
[2021-07-06 07:42] LABS: Glucose Point of Care 126 mg/dl (65-105)
[2021-07-06] MEDS: THIAMINE HCL 200 MG/2 ML VIAL 100 MG IV PUSH (08:32)
[2021-07-06] MEDS: PANTOPRAZOLE SODIUM IV 40 MG VIAL IV PUSH ×2 (08:33→21:32)
[2021-07-06] MEDS: FOLIC ACID 1 MG/0.2 ML INJ IV PUSH (08:33)
--- NOTE | 2021-07-06 09:20 | WPDINTPN ---
Progress Note: A&P Assessment and Plan (1) Acute respiratory failure: Code(s): J96.00 - Acute respiratory failure, unspecified whether with hypoxia or hypercapnia Status: Acute Assessment and Plan: Acute Respiratory failure secondary to done anesthesia and pulmonary edema likely from volume overload Off ventilator now and maintaining saturations on nasal cannula PCXR reviewed Incentive spirometry (2) Sepsis: Qualifiers: Sepsis type: sepsis due to unspecified organism Sepsis acute organ dysfunction status: with acute organ dysfunction Severe sepsis acute organ dysfunction type: disseminated intravascular coagulopathy Code(s): A41.9 - Sepsis, unspecified organism Status: Acute Assessment and Plan: Secondary to peritonitis from perforated gastric and duodenal ulcer Patient has received significant amount of blood products and 25% albumin till now. Hold further Patient not requiring vasopressors at this time Continue Zosyn,(started on 06/29) Blood cultures have been negative till now He is afebrile, leukocytosis improving starting today. CT chest abdomen and pelvis was done on 07/04/2021: No evidence of contrast extravasation. Small right and very small left pleural effusion with right lower lobe collapse and partial collapse of the left lower lobe. Peripheral patchy ground-glass opacities in both lungs. Moderate amount of non loculated appearing ascites. Cirrhosis. Diffuse edematous wall thickening of the colon (3) Perforated gastric ulcer: Code(s): K25.5 - Chronic or unspecified gastric ulcer with perforation Status: Deleted Assessment and Plan: Status post ex lap 06/24 evacuation of 9.3 L intra-abdominal ascites, repair of perforated gastric ulcer with omental patch, intra-abdominal washout. 06/28 - UGI series - Duodenal perforation, extravasation CT abdomen pelvis IMPRESSION: 1. Duodenal perforation, moderate ascites and free intraperitoneal gas. 2. Probable colitis, diarrhea. 3. Multisegmental basilar atelectasis. Pneumonia not excludable. 4. Cardiomegaly. 5. Anasarca 06/29 developed fascial dehiscence without evisceration but leaking ascites almost continually., INR 6.2 patient taken back to OR and underwent Closure with omentoplasty perforated gastric ulcer, repair fascial dehiscence 2 units of FFP given intraoperatively postop in ICU patient was given 3 units of PRBC and 4 units of FFP Now extubated NPO and started on TPN by general surgery NG tube in place KERON drain in place with serosanguineous output General surgery is following 07/04/2021 CT scan of the abdomen pelvis as above (4) Acute kidney injury: Code(s): N17.9 - Acute kidney failure, unspecified Status: Acute Assessment and Plan: Likely secondary to sepsis, hypovolemia from large volume shifts patient received significant amount of blood products and IV fluids Creatinine marginally improved and urine output has improved continue IV fluids D5 water for hypernatremia and hyperchloremia but decrease rate Monitor urine output electrolytes and creatinine replace low potassium (5) Encephalopathy: Code(s): G93.40 - Encephalopathy, unspecified Status: Acute Assessment and Plan: Likely multifactorial and metabolic His last ammonia level was normal Improved and off Precedex now (6) Alcoholism: Code(s): F10.20 - Alcohol dependence, uncomplicated Status: Acute Assessment and Plan: Thiamine and folic acid Off Precedex now P.r.n. Ativan ordered (7) Cirrhosis of liver: Code(s): K74.60 - Unspecified cirrhosis of liver Status: Acute Assessment and Plan: Secondary to alcohol abuse 07/05/2021: His ammonia level was normal (8) Anemia: Code(s): D64.9 - Anemia, unspecified Status: Acute Assessment and Plan: Multifactorial patient admitted with GI bleed from gastric ulcer also h
--- NOTE | 2021-07-06 09:41 | PM.PNGS ---
Progress Note: A&P Assessment and Plan (1) Perforated gastric ulcer: Qualifiers: Gastric ulcer chronicity: acute Qualified Code(s): K25.1 - Acute gastric ulcer with perforation Code(s): K25.5 - Chronic or unspecified gastric ulcer with perforation Status: Acute Assessment and Plan: White blood count slightly improved this morning. Will continue IV antibiotics and monitor drain output. Start trickle tube feeds again this morning. Will continue TPN for now. Start Reglan today to help with gastric emptying. As long as patient is not experiencing high residuals, may be able to remove NG within the next 1-2 days. (2) Dehiscence of closure of fascia, superficial or muscular: Qualifiers: Encounter type: subsequent encounter Qualified Code(s): T81.32XD - Disruption of internal operation (surgical) wound, not elsewhere classified, subsequent encounter Code(s): T81.32XA - Disruption of internal operation (surgical) wound, not elsewhere classified, initial encounter Status: Acute (3) Alcoholism: Code(s): F10.20 - Alcohol dependence, uncomplicated Status: Acute (4) Cirrhosis of liver with ascites: Qualifiers: Hepatic cirrhosis type: alcoholic cirrhosis Qualified Code(s): K70.31 - Alcoholic cirrhosis of liver with ascites Code(s): K74.60 - Unspecified cirrhosis of liver; R18.8 - Other ascites Status: Chronic (5) Sepsis: Qualifiers: Sepsis type: sepsis due to unspecified organism Sepsis acute organ dysfunction status: with acute organ dysfunction Severe sepsis acute organ dysfunction type: disseminated intravascular coagulopathy Code(s): A41.9 - Sepsis, unspecified organism Status: Acute (6) Coagulopathy: Code(s): D68.9 - Coagulation defect, unspecified Status: Acute Subjective Subjective Date/Time Seen: 07/06/21 09:41 Interval history: Patient taking some ice chips without difficulty. Tube feeds on hold this morning. Patient reports passing flatus and having bowel movement. Exam GI: Inspection: incision (Small amount of serosanguineous drainage) and other (KERON serosanguineous) GI Palp: Yes Soft to palpation Auscultation: normal bowel sounds Objective Data Vital Signs Vital Signs: Vital Signs - 24 hr 07/05/21 10:00 07/05/21 12:00 07/05/21 13:40 Temperature 37.7 C H Pulse Rate 105 H 88 86 Respiratory Rate 20 20 Blood Pressure 119/65 Pulse Oximetry 94 07/05/21 13:46 07/05/21 14:00 07/05/21 16:00 Temperature 37.7 C H Pulse Rate 84 95 84 Respiratory Rate 19 20 Blood Pressure 128/70 Pulse Oximetry 96 96 07/05/21 18:00 07/05/21 19:52 07/05/21 19:54 Temperature Pulse Rate 87 85 83 Respiratory Rate 19 19 Blood Pressure Pulse Oximetry 96 07/05/21 20:00 07/05/21 20:01 07/05/21 22:00 Temperature 36.9 C Pulse Rate 95 86 84 Respiratory Rate 19 20 Blood Pressure 125/66 Pulse Oximetry 96 07/05/21 22:15 07/05/21 22:45 07/06/21 00:00 Temperature Pulse Rate 77 Respiratory Rate Blood Pressure Pulse Oximetry 96 86 L 07/06/21 00:30 07/06/21 02:00 07/06/21 02:36 Temperature 37.0 C Pulse Rate 79 86 77 Respiratory Rate 17 18 Blood Pressure 118/59 L Pulse Oximetry 98 07/06/21 02:43 07/06/21 04:00 07/06/21 05:46 Temperature 37.1 C Pulse Rate 79 87 93 Respiratory Rate 18 24 H Blood Pressure 116/68 Pulse Oximetry 96 07/06/21 08:00 07/06/21 08:01 07/06/21 08:04 Temperature 36.9 C Pulse Rate 98 92 92 Respiratory Rate 20 16 16 Blood Pressure 145/78 H Pulse Oximetry 93 93 07/06/21 08:09 Temperature Pulse Rate 97 Respiratory Rate 23 H Blood Pressure Pulse Oximetry Intake/Output Intake/Output: Intake & Output 07/03/21 07/04/21 07/05/21 07/06/21 23:59 23:59 23:59 23:59 Intake Total 2912 2181 2909 140 Output Total 2570 1685 2090 735 Balance 342 212 164 -979 Meds/Results Medicati
--- NOTE | 2021-07-06 11:16 | PCPTNOTE ---
regarding plan of care and treatment clarification orders placed by myself today: I received an order this morning to evaluate this patient; however, I noted that an evaluation was performed yesterday and a plan of care set in place with OD 5-7x/wk treatment recommended. There was no clear status change that I could note so I stopped the new order as a duplicate order. I noted again that another order was placed this morning but not yesterday's clarification order is not place therefore I am placing a clarification order based on yesterday's evaluation recommendations. I did see this patient for a treatment and consider the recommendations consistent with current needs.
[2021-07-06 12:21] LABS: Glucose Point of Care 124 mg/dl (65-105)
[2021-07-06] MEDS: METOCLOPRAMIDE HCL INJ 10 MG/2 ML VIAL IV PUSH ×2 (13:09→17:41)
--- NOTE | 2021-07-06 13:36 | WPDGIPROGNO ---
Progress Note: A&P Assessment and Plan (1) Dehiscence of closure of fascia, superficial or muscular: Qualifiers: Encounter type: subsequent encounter Qualified Code(s): T81.32XD - Disruption of internal operation (surgical) wound, not elsewhere classified, subsequent encounter Code(s): T81.32XA - Disruption of internal operation (surgical) wound, not elsewhere classified, initial encounter Status: Acute Assessment and Plan: POD7 fascial dehiscence repair and closure omentoplasty perforated gastric ulcer TPN by general surgery and started low dose of tube feeding continue with antibiotics, WBC is better today NG tube in place recent CT scan without leakage (2) Sepsis: Qualifiers: Sepsis type: sepsis due to unspecified organism Sepsis acute organ dysfunction status: with acute organ dysfunction Severe sepsis acute organ dysfunction type: disseminated intravascular coagulopathy Code(s): A41.9 - Sepsis, unspecified organism Status: Acute Assessment and Plan: on antibiotics, wbc trending down (3) Coagulopathy: Code(s): D68.9 - Coagulation defect, unspecified Status: Acute Assessment and Plan: monitor coags no ongoing bleeding now (4) Perforated gastric ulcer: Qualifiers: Gastric ulcer chronicity: acute Qualified Code(s): K25.1 - Acute gastric ulcer with perforation Code(s): K25.5 - Chronic or unspecified gastric ulcer with perforation Status: Acute Assessment and Plan: repaired, NGT in place and low dose of tube feeding now, on TPN- by surgery (5) Encephalopathy: Code(s): G93.40 - Encephalopathy, unspecified Status: Acute Assessment and Plan: more awake and alert Subjective Date/time seen: 07/06/21 13:36 Interval history: started on low dose tube feeding at 10ml/h by ngt Review of Systems Review of Systems: All systems reviewed & are unremarkable except as noted in HPI and below Exam Const: General: no acute distress, alert and ill appearing chronically Other: awake and alert HENMT: General nose exam: Normal nares present Other: ngt + Eyes: Pupils: Equal, round and reactive pupils present Neck: Neck: supple Resp: Effort & Inspection: tachypneic Auscultation: no crackles and diminished lung sounds Cardio: Rate: regular rate Rhythm: regular rhythm GI: Inspection: non-distended, visible herniation (soft umbilical hernia present preop, unable to reduce) and other (KERON drain with serosanguineous drainage) GI Palp: Yes Soft to palpation, Yes Tenderness to palpation present (GI) (incisional) and No Guarding due to palpation present (GI) Auscultation: Hypoactive bowel sounds present Other: Midline incision with yuniel intact, minimal drainage, dressing in place Urinary Catheter: Urinary Catheter: patent and draining Skin: General skin exam: jaundice Neuro: General: oriented to person, No oriented to place, No oriented to time, moves all extremities, no focal motor deficits, confusion and Unable to assess gait Other: awake and alert, less confused Extrem: General: no pedal edema, no calf tenderness and pedal edema Psych: Affect: No Hostile affect present Insight: Limited insight present (Psych) and Poor insight present (Psych) Judgement: Limited judgement present (Psych) and Poor judgement present (Psych) Objective Data Vital Signs Vital Signs: Vital Signs - 24 hr 07/05/21 13:40 07/05/21 13:46 07/05/21 14:00 Temperature Pulse Rate 86 84 95 Respiratory Rate 20 19 Blood Pressure Pulse Oximetry 96 07/05/21 16:00 07/05/21 18:00 07/05/21 19:52 Temperature 99.9 F H Pulse Rate 84 87 85 Respiratory Rate 20 19 Blood Pressure 128/70 Pulse Oximetry 96 07/05/21 19:54 07/05/21 20:00 07/05/21 20:01 Temperature 98.5 F Pulse Rate 83 95 86 Respiratory Rate 19 19 20 Blood Pressure 125/66 Pulse Oximetry 96 96 07/05/21 22:00 07/05/21 22:15
--- NOTE | 2021-07-06 14:33 | PC.NURSE ---
Report given to CJ Velez at 1320. All questions answered and plan of care reviewed. Patient to go to IMU room 206-1.
[2021-07-06] MEDS: AMINO ACIDS 5%/D15W/E-LYTES/CA 2,000 ML with MULTIVITAMINS-12 INJ VIAL 1 2.5 ML, MULTIV... 40 ML IV CONT (16:06)
[2021-07-06 17:25] LABS: Glucose Point of Care 118 mg/dl (65-105)
[2021-07-06] MEDS: KCL 20 MEQ/D5W 1,000 ML 1,000 ML 50 ML IV CONT (17:40)
[2021-07-06] MEDS: FAT EMULSIONS IV 20% 250 ML 20.83 ML IVPB (17:49)
[2021-07-07] VITALS (21 sets, daily range): BP systolic 123–135; BP diastolic 58–60; PULSE 81–114; RESP 18–28; TEMP 36.7–37.5; O2SAT 90–96
[2021-07-07 00:13] LABS: Glucose Point of Care 122 mg/dl (65-105)
[2021-07-07] MEDS: METOCLOPRAMIDE HCL INJ 10 MG/2 ML VIAL IV PUSH ×4 (01:00→17:37)
[2021-07-07] MEDS: MORPHINE SULFATE (*CRX) 2 MG/ML INJ IV PUSH ×2 (01:09→12:27)
[2021-07-07] MEDS: IPRATROPIUM BR 0.02% INH SOLN 0.5 MG/2.5 ML VIAL INHALATION ×3 (02:12→21:02)
[2021-07-07] MEDS: ALBUTEROL SULFATE NEB 2.5 MG/0.5 ML INH INHALATION ×3 (02:12→21:01)
[2021-07-07] MEDS: CENTRAL LINE FLUSH 20 ML IV PUSH (05:45)
[2021-07-07] MEDS: CENTRAL LINE FLUSH 10 ML IV PUSH ×4 (05:45→20:59)
[2021-07-07 06:02] LABS: Glucose Point of Care 125 mg/dl (65-105)
[2021-07-07 06:34] LABS: Fibrinogen 184 mg/dl (215-510)
[2021-07-07] MEDS: FOLIC ACID 1 MG/0.2 ML INJ IV PUSH (08:19)
[2021-07-07] MEDS: THIAMINE HCL 200 MG/2 ML VIAL 100 MG IV PUSH (08:20)
[2021-07-07] MEDS: PANTOPRAZOLE SODIUM IV 40 MG VIAL IV PUSH ×2 (08:20→20:59)
[2021-07-07 10:10] LABS: Hematocrit 24.9 % (42.0-52.0); Hemoglobin 7.5 g/dL (14.0-18.0); Mean Corpuscular HGB Conc 30.1 g/dl (32-36); Mean Corpuscular Volume 102.9 fl (80-100); Platelet Count Result 96 k/mm3 (150-375); Red Blood Count 2.42 M/mm3 (4.6-6.20); Red Cell Distribution Width 23.4 % (11.5-14.5); White Blood Count 18.3 K/mm3 (4.5-10.0)
[2021-07-07 10:23] LABS: Triglycerides 64 mg/dL (<150)
[2021-07-07 10:45] LABS: Alanine Aminotransferase 28 U/L (4-50); Albumin Level 2.9 g/dL (3.5-5.1); Alkaline Phosphatase 74 U/L (38-126); Anion Gap 12 mmol/L (8-16); Aspartate Amino Transferase 71 U/L (17-59); Bilirubin,Total 6.8 mg/dL (0.2-1.3); Blood Urea Nitrogen 24 mg/dL (9-20); Calcium 8.6 mg/dL (8.4-10.2); Carbon Dioxide 15 mmol/L (22-30); Chloride 117 mmol/L (98-107); Estimated CRCL calculation 87 ml/min; Estimated Glomerular Filt Rate > 60; Glucose 127 mg/dL (65-110); Magnesium 2.2 mg/dL (1.6-2.3); Potassium 3.9 mmol/L (3.4-5.0); Sodium 144 mmol/L (137-145)
--- NOTE | 2021-07-07 11:01 | WPDGIPROGNO ---
Progress Note: A&P Assessment and Plan (1) Dehiscence of closure of fascia, superficial or muscular: Qualifiers: Encounter type: subsequent encounter Qualified Code(s): T81.32XD - Disruption of internal operation (surgical) wound, not elsewhere classified, subsequent encounter Code(s): T81.32XA - Disruption of internal operation (surgical) wound, not elsewhere classified, initial encounter Status: Acute Assessment and Plan: POD8 fascial dehiscence repair and closure omentoplasty perforated gastric ulcer TPN by general surgery and started low dose of tube feeding at 10ml/h, tolerating thus far continue with antibiotics, WBC better last 2 days NG tube in place recent CT scan without leakage he was moved back to regular room (2) Sepsis: Qualifiers: Sepsis type: sepsis due to unspecified organism Sepsis acute organ dysfunction status: with acute organ dysfunction Severe sepsis acute organ dysfunction type: disseminated intravascular coagulopathy Code(s): A41.9 - Sepsis, unspecified organism Status: Acute Assessment and Plan: on antibiotics, wbc improved (3) Perforated gastric ulcer: Qualifiers: Gastric ulcer chronicity: acute Qualified Code(s): K25.1 - Acute gastric ulcer with perforation Code(s): K25.5 - Chronic or unspecified gastric ulcer with perforation Status: Acute Assessment and Plan: repaired, NGT in place and low dose of tube feeding now, on TPN- by surgery (4) Encephalopathy: Code(s): G93.40 - Encephalopathy, unspecified Status: Acute Assessment and Plan: awake and alert Subjective Date/time seen: 07/07/21 11:01 Interval history: he was moved to regular floor, he is awake and alert, says that feels uncomfortable and wishes to go home. Just had brown stool in bed. Review of Systems Review of Systems: All systems reviewed & are unremarkable except as noted in HPI and below Exam Const: General: no acute distress, alert and ill appearing chronically Other: awake and alert HENMT: General nose exam: Normal nares present Other: ngt + Eyes: Pupils: Equal, round and reactive pupils present Neck: Neck: supple Resp: Effort & Inspection: tachypneic Auscultation: no crackles and diminished lung sounds Cardio: Rate: regular rate Rhythm: regular rhythm GI: Inspection: non-distended, visible herniation (soft umbilical hernia present preop, unable to reduce) and other (KERON drain with serosanguineous drainage) GI Palp: Yes Soft to palpation, Yes Tenderness to palpation present (GI) (incisional) and No Guarding due to palpation present (GI) Auscultation: normal bowel sounds Other: Midline incision with yuniel intact, minimal drainage, dressing in place Urinary Catheter: Urinary Catheter: patent and draining Skin: General skin exam: jaundice Neuro: General: oriented to person, No oriented to place, No oriented to time, moves all extremities, no focal motor deficits, confusion and Unable to assess gait Speech: normal speech Other: awake and alert Extrem: General: no pedal edema, no calf tenderness and pedal edema Psych: Affect: Anxious affect present Insight: Limited insight present (Psych) and Poor insight present (Psych) Judgement: Limited judgement present (Psych) and Poor judgement present (Psych) Objective Data Vital Signs Vital Signs: Vital Signs - 24 hr 07/06/21 12:00 07/06/21 14:00 07/06/21 15:20 Temperature Pulse Rate 84 111 H 94 Respiratory Rate 19 18 Blood Pressure 119/62 Pulse Oximetry 96 07/06/21 15:30 07/06/21 16:00 07/06/21 18:00 Temperature 100 F H Pulse Rate 90 97 101 H Respiratory Rate 18 20 Blood Pressure 129/63 Pulse Oximetry 97 97 07/06/21 19:57 07/06/21 20:00 07/06/21 21:29 Temperature 99.9 F H Pulse Rate 101 H 100 99 Respiratory Rate 20 20 18 Blood Pressure 132/62 Pulse Oximetry 90 90 97 07/06/21 21:35 07/06/21 22:00 07/06/21 2
--- NOTE | 2021-07-07 12:33 | PM.PNGS ---
Progress Note: A&P Assessment and Plan (1) Perforated gastric ulcer: Qualifiers: Gastric ulcer chronicity: acute Qualified Code(s): K25.1 - Acute gastric ulcer with perforation Code(s): K25.5 - Chronic or unspecified gastric ulcer with perforation Status: Acute Assessment and Plan: Remove NG today and start full liquid diet Continue Protonix. Will add Carafate. Continue TPN one more day, but if tolerating full liquids, will stop tomorrow Might need to remove a couple yuniel if purulent drainage at incision continues. (2) Dehiscence of closure of fascia, superficial or muscular: Qualifiers: Encounter type: subsequent encounter Qualified Code(s): T81.32XD - Disruption of internal operation (surgical) wound, not elsewhere classified, subsequent encounter Code(s): T81.32XA - Disruption of internal operation (surgical) wound, not elsewhere classified, initial encounter Status: Acute (3) Alcoholism: Code(s): F10.20 - Alcohol dependence, uncomplicated Status: Acute (4) Cirrhosis of liver with ascites: Qualifiers: Hepatic cirrhosis type: alcoholic cirrhosis Qualified Code(s): K70.31 - Alcoholic cirrhosis of liver with ascites Code(s): K74.60 - Unspecified cirrhosis of liver; R18.8 - Other ascites Status: Chronic Assessment and Plan: Might need diuretics to help reduce ascites (5) Sepsis: Qualifiers: Sepsis type: sepsis due to unspecified organism Sepsis acute organ dysfunction status: with acute organ dysfunction Severe sepsis acute organ dysfunction type: disseminated intravascular coagulopathy Code(s): A41.9 - Sepsis, unspecified organism Status: Acute (6) Coagulopathy: Code(s): D68.9 - Coagulation defect, unspecified Status: Acute Subjective Subjective Date/Time Seen: 07/07/21 12:33 Interval history: Tolerating tube feeds with low residuals. Having abdominal pain but no other complaints. Bowels moving. Exam GI: Inspection: distended GI Palp: Yes Tenderness to palpation present (GI) Other: Slight erythema at upper portion of incision and scant purulent drainage from lower edge of incision. Objective Data Vital Signs Vital Signs: Vital Signs - 24 hr 07/06/21 14:00 07/06/21 15:20 07/06/21 15:30 Temperature Pulse Rate 111 H 94 90 Respiratory Rate 18 18 Blood Pressure Pulse Oximetry 97 07/06/21 16:00 07/06/21 18:00 07/06/21 19:57 Temperature 37.7 C H 37.7 C H Pulse Rate 97 101 H 101 H Respiratory Rate 20 20 Blood Pressure 129/63 132/62 Pulse Oximetry 97 90 07/06/21 20:00 07/06/21 21:29 07/06/21 21:35 Temperature Pulse Rate 100 99 95 Respiratory Rate 20 18 18 Blood Pressure Pulse Oximetry 90 97 07/06/21 22:00 07/06/21 23:50 07/07/21 00:00 Temperature 36.1 C L Pulse Rate 102 H 100 105 H Respiratory Rate 20 20 Blood Pressure 127/60 Pulse Oximetry 93 93 07/07/21 02:00 07/07/21 02:12 07/07/21 02:19 Temperature Pulse Rate 100 101 H 95 Respiratory Rate 18 18 Blood Pressure Pulse Oximetry 94 07/07/21 03:54 07/07/21 04:00 07/07/21 05:13 Temperature 36.7 C Pulse Rate 103 H 101 H 99 Respiratory Rate 18 18 Blood Pressure 135/60 Pulse Oximetry 96 96 07/07/21 08:00 07/07/21 08:28 07/07/21 10:00 Temperature 37.5 C Pulse Rate 93 98 Respiratory Rate 28 H Blood Pressure 124/60 Pulse Oximetry 94 92 Intake/Output Intake/Output: Intake & Output 07/04/21 07/05/21 07/06/21 07/07/21 23:59 23:59 23:59 23:59 Intake Total 2181 3555 2605 1692 Output Total 1685 2090 1435 668 Balance 496 1465 1170 1024 Meds/Results Medications: Active Medications Generic Name Dose Route Start Last Admin Trade Name Freq PRN Reason Stop Dose Admin Albuterol 2.5 mg 06/29/21 02:05 07/07/21 08:26 Albuterol Sulfate Neb 2.5 Mg/0.5 Ml Inh INHALATION Not Given Q6HRT JOSEFA Dextrose 12.5 gm 06/29
[2021-07-07] MEDS: KCL 20 MEQ/D5W 1,000 ML 1,000 ML 50 ML IV CONT (13:09)
[2021-07-07 13:10] LABS: Glucose Point of Care 118 mg/dl (65-105)
--- NOTE | 2021-07-07 13:17 | PM.IMPN ---
Progress Note: A&P Assessment and Plan (1) Acute respiratory failure: Code(s): J96.00 - Acute respiratory failure, unspecified whether with hypoxia or hypercapnia Status: Acute Assessment and Plan: Acute Respiratory failure secondary to done anesthesia and pulmonary edema likely from volume overload Off ventilator now and maintaining saturations on nasal cannula PCXR reviewed Incentive spirometry (2) Sepsis: Qualifiers: Sepsis type: sepsis due to unspecified organism Sepsis acute organ dysfunction status: with acute organ dysfunction Severe sepsis acute organ dysfunction type: disseminated intravascular coagulopathy Code(s): A41.9 - Sepsis, unspecified organism Status: Acute Assessment and Plan: Secondary to peritonitis from perforated gastric and duodenal ulcer Patient has received significant amount of blood products and 25% albumin till now. Hold further Patient not requiring vasopressors at this time Continue Zosyn,(started on 06/29) Blood cultures have been negative till now He is afebrile, leukocytosis improving starting today. CT chest abdomen and pelvis was done on 07/04/2021: No evidence of contrast extravasation. Small right and very small left pleural effusion with right lower lobe collapse and partial collapse of the left lower lobe. Peripheral patchy ground-glass opacities in both lungs. Moderate amount of non loculated appearing ascites. Cirrhosis. Diffuse edematous wall thickening of the colon (3) Perforated gastric ulcer: Code(s): K25.5 - Chronic or unspecified gastric ulcer with perforation Status: Deleted Assessment and Plan: Status post ex lap 06/24 evacuation of 9.3 L intra-abdominal ascites, repair of perforated gastric ulcer with omental patch, intra-abdominal washout. 06/28 - UGI series - Duodenal perforation, extravasation CT abdomen pelvis IMPRESSION: 1. Duodenal perforation, moderate ascites and free intraperitoneal gas. 2. Probable colitis, diarrhea. 3. Multisegmental basilar atelectasis. Pneumonia not excludable. 4. Cardiomegaly. 5. Anasarca 06/29 developed fascial dehiscence without evisceration but leaking ascites almost continually., INR 6.2 patient taken back to OR and underwent Closure with omentoplasty perforated gastric ulcer, repair fascial dehiscence 2 units of FFP given intraoperatively postop in ICU patient was given 3 units of PRBC and 4 units of FFP Now extubated NPO and started on TPN by general surgery NG tube in place KERON drain in place with serosanguineous output General surgery is following 07/04/2021 CT scan of the abdomen pelvis as above 07/07/2021 interval history patient is a 51-year-old male with history of alcohol abuse resulting in liver cirrhosis and ascites, presented with duodenal perforation monitor respiratory failure possibly secondary to pulmonary edema now patient is extubated and out of ICU in IMU and continue to complain of abdominal pain and denies any nausea or vomiting of fever or chills. today patient seen by General surgery in [place] NG tube started the patient on full liquids, recommended to continue TPN until patient is tolerating p.o. intake, will continue to monitor further recommendation to follow. (4) Acute kidney injury: Code(s): N17.9 - Acute kidney failure, unspecified Status: Acute Assessment and Plan: Likely secondary to sepsis, hypovolemia from large volume shifts patient received significant amount of blood products and IV fluids Creatinine marginally improved and urine output has improved continue IV fluids D5 water for hypernatremia and hyperchloremia but decrease rate Monitor urine output electrolytes and creatinine replace low potassium (5) Encephalopathy: Code(s): G93.40 - Encephalopathy, unspecified Status: Acute Assessment and Plan: Likely multifactorial and metabolic His last ammonia level was normal Improved
[2021-07-07] MEDS: FAT EMULSIONS IV 20% 250 ML 20.83 ML IVPB (17:36)
[2021-07-07] MEDS: AMINO ACIDS 5%/D15W/E-LYTES/CA 2,000 ML with MULTIVITAMINS-12 INJ VIAL 1 2.5 ML, MULTIV... 40 ML IV CONT (17:36)
[2021-07-07 18:37] LABS: Glucose Point of Care 132 mg/dl (65-105)
[2021-07-08] VITALS (24 sets, daily range): BP systolic 109–136; BP diastolic 43–66; PULSE 75–103; RESP 18–22; TEMP 36.6–38.8; O2SAT 92–96
[2021-07-08 00:37] LABS: Glucose Point of Care 124 mg/dl (65-105)
[2021-07-08] MEDS: ALBUTEROL SULFATE NEB 2.5 MG/0.5 ML INH INHALATION ×3 (02:42→20:28)
[2021-07-08] MEDS: IPRATROPIUM BR 0.02% INH SOLN 0.5 MG/2.5 ML VIAL INHALATION ×3 (02:42→20:28)
[2021-07-08] MEDS: METOCLOPRAMIDE HCL INJ 10 MG/2 ML VIAL IV PUSH ×2 (05:30→12:18)
[2021-07-08] MEDS: CENTRAL LINE FLUSH 10 ML IV PUSH ×3 (05:40→20:56)
[2021-07-08 05:42] LABS: Hematocrit 21.2 % (42.0-52.0); Immature Platelet Fraction Pct 4.7 % (0.9-11.2); Mean Corpuscular HGB Conc 31.6 g/dl (32-36); Mean Corpuscular Hemoglobin 31.2 pg (26-34); Mean Corpuscular Volume 98.6 fl (80-100); Mean Platelet Volume 11.4 fl (7.4-10.4); Platelet Count Result 120 k/mm3 (150-375); Red Blood Count 2.15 M/mm3 (4.6-6.20); Red Cell Distribution Width 23.5 % (11.5-14.5); White Blood Count 15.1 K/mm3 (4.5-10.0)
[2021-07-08 05:53] LABS: Alanine Aminotransferase 29 U/L (4-50); Albumin Level 2.7 g/dL (3.5-5.1); Alkaline Phosphatase 65 U/L (38-126); Anion Gap 7 mmol/L (8-16); Aspartate Amino Transferase 61 U/L (17-59); Bilirubin,Total 6.6 mg/dL (0.2-1.3); Blood Urea Nitrogen 22 mg/dL (9-20); Calcium 8.3 mg/dL (8.4-10.2); Carbon Dioxide 20 mmol/L (22-30); Chloride 110 mmol/L (98-107); Estimated CRCL calculation 87 ml/min; Estimated Glomerular Filt Rate > 60; Glucose 132 mg/dL (65-110); Magnesium 1.7 mg/dL (1.6-2.3); Potassium 3.5 mmol/L (3.4-5.0); Sodium 137 mmol/L (137-145)
[2021-07-08 05:55] LABS: Hemoglobin 6.7 g/dL (14.0-18.0)
[2021-07-08] MEDS: PANTOPRAZOLE SODIUM IV 40 MG VIAL IV PUSH ×2 (08:58→20:56)
[2021-07-08] MEDS: FOLIC ACID 1 MG/0.2 ML INJ IV PUSH (08:58)
[2021-07-08] MEDS: THIAMINE HCL 200 MG/2 ML VIAL 100 MG IV PUSH (08:58)
[2021-07-08] MEDS: KCL 20 MEQ/D5W 1,000 ML 1,000 ML 50 ML IV CONT (09:36)
--- NOTE | 2021-07-08 11:59 | WPDGIPROGNO ---
Progress Note: A&P Assessment and Plan (1) Dehiscence of closure of fascia, superficial or muscular: Qualifiers: Encounter type: subsequent encounter Qualified Code(s): T81.32XD - Disruption of internal operation (surgical) wound, not elsewhere classified, subsequent encounter Code(s): T81.32XA - Disruption of internal operation (surgical) wound, not elsewhere classified, initial encounter Status: Acute Assessment and Plan: POD9 fascial dehiscence repair and closure omentoplasty perforated gastric ulcer TPN by general surgery NGT now removed, patient says that is slowly feeling better he has been receiving antibiotics, WBC down to 15k (2) Sepsis: Qualifiers: Sepsis type: sepsis due to unspecified organism Sepsis acute organ dysfunction status: with acute organ dysfunction Severe sepsis acute organ dysfunction type: disseminated intravascular coagulopathy Code(s): A41.9 - Sepsis, unspecified organism Status: Acute Assessment and Plan: s/p antibiotics, wbc trending down (3) Perforated gastric ulcer: Qualifiers: Gastric ulcer chronicity: acute Qualified Code(s): K25.1 - Acute gastric ulcer with perforation Code(s): K25.5 - Chronic or unspecified gastric ulcer with perforation Status: Acute Assessment and Plan: repaired, NGT removed and started on liquid diet on iv protonix on TPN- by surgery (4) Encephalopathy: Code(s): G93.40 - Encephalopathy, unspecified Status: Acute Assessment and Plan: awake and alert (5) Acute on chronic blood loss anemia: Code(s): D62 - Acute posthemorrhagic anemia Status: Acute Assessment and Plan: hb 6.7, no signs of bleeding continue with ppi probably will need one unit prbc Subjective Date/time seen: 07/08/21 11:59 Interval history: ngt removed, patient says that is feeling better. Review of Systems Review of Systems: All systems reviewed & are unremarkable except as noted in HPI and below Exam Const: General: no acute distress, alert and ill appearing chronically Other: awake and alert, oriented HENMT: General nose exam: Normal nares present Eyes: Pupils: Equal, round and reactive pupils present Neck: Neck: supple Resp: Effort & Inspection: tachypneic Auscultation: diminished lung sounds Cardio: Rate: regular rate Rhythm: regular rhythm GI: Inspection: non-distended, visible herniation (soft umbilical hernia present preop, unable to reduce) and other (KERON drain with serosanguineous drainage) GI Palp: Yes Soft to palpation, Yes Tenderness to palpation present (GI) (less tender) and No Guarding due to palpation present (GI) Auscultation: normal bowel sounds Other: Midline incision with yuniel intact, minimal drainage, dressing in place Skin: General skin exam: no rashes or lesions noted Neuro: General: oriented to person, No oriented to place, No oriented to time, moves all extremities, no focal motor deficits, confusion and Unable to assess gait Speech: normal speech Other: awake and alert Extrem: General: no pedal edema, no calf tenderness and pedal edema Psych: Affect: Anxious affect present Insight: Limited insight present (Psych) and Poor insight present (Psych) Judgement: Limited judgement present (Psych) and Poor judgement present (Psych) Objective Data Vital Signs Vital Signs: Vital Signs - 24 hr 07/07/21 12:00 07/07/21 14:00 07/07/21 14:45 Temperature 99.4 F Pulse Rate 112 H 101 H 89 Respiratory Rate 28 H 18 Blood Pressure 123/60 Pulse Oximetry 94 07/07/21 14:56 07/07/21 16:00 07/07/21 18:00 Temperature 99.3 F Pulse Rate 96 94 94 Respiratory Rate 18 22 H Blood Pressure 123/60 Pulse Oximetry 95 07/07/21 19:15 07/07/21 20:00 07/07/21 21:02 Temperature 99.4 F Pulse Rate 102 H 114 H 88 Respiratory Rate 22 H 18 Blood Pressure 126/58 L Pulse Oximetry 94 94 94 07/07/21 21:11 07/07/21
[2021-07-08 13:13] LABS: Glucose Point of Care 110 mg/dl (65-105)
--- NOTE | 2021-07-08 13:14 | PM.PNGS ---
Progress Note: A&P Assessment and Plan (1) Perforated gastric ulcer: Qualifiers: Gastric ulcer chronicity: acute Qualified Code(s): K25.1 - Acute gastric ulcer with perforation Code(s): K25.5 - Chronic or unspecified gastric ulcer with perforation Status: Acute Assessment and Plan: Will advance to a soft diet and stop TPN and IV fluids. Continue Protonix, Carafate added. Consider stopping Reglan. Removed a few yuneil from bottom of incision and will start packing dressing changes daily. Okay to transfer patient out of IMU from our standpoint Continue PT/OT, increase activity. (2) Dehiscence of closure of fascia, superficial or muscular: Qualifiers: Encounter type: subsequent encounter Qualified Code(s): T81.32XD - Disruption of internal operation (surgical) wound, not elsewhere classified, subsequent encounter Code(s): T81.32XA - Disruption of internal operation (surgical) wound, not elsewhere classified, initial encounter Status: Acute (3) Alcoholism: Code(s): F10.20 - Alcohol dependence, uncomplicated Status: Acute (4) Cirrhosis of liver with ascites: Qualifiers: Hepatic cirrhosis type: alcoholic cirrhosis Qualified Code(s): K70.31 - Alcoholic cirrhosis of liver with ascites Code(s): K74.60 - Unspecified cirrhosis of liver; R18.8 - Other ascites Status: Chronic Assessment and Plan: Might need diuretics to help reduce ascites (5) Sepsis: Qualifiers: Sepsis acute organ dysfunction status: with acute organ dysfunction Sepsis type: sepsis due to unspecified organism Severe sepsis acute organ dysfunction type: disseminated intravascular coagulopathy Code(s): A41.9 - Sepsis, unspecified organism Status: Acute (6) Coagulopathy: Code(s): D68.9 - Coagulation defect, unspecified Status: Acute Assessment and Plan: Hgb down slightly to 6.7 today. No evidence of active bleeding. Receiving 1 unit PRBC Additional Plan I have discussed the plan of care with Dr. Mejia. Subjective Subjective Date/Time Seen: 07/08/21 13:14 Patient reports: feels better, tolerating liquids well, flatus, diarrhea and afebrile Interval history: Patient seen and examined. Chart reviewed since last examination. Patient sitting up eating lunch. He is much more alert and awake today. He is oriented x 3 and able to hold a conversation. He denies any abdominal pain, bloating, nausea, or vomiting. He reports having a good appetite and feeling hungry. His only complaint is his loose stools, estimating 3-4 daily. No other complaints at this time. Review of Systems Review of Systems: All systems reviewed & are unremarkable except as noted in HPI and below Exam Const: General: comfortable, no acute distress, alert and awake GI: Inspection: distended and other (KERON with serosanguineous drainage) GI Palp: Yes Firmness to palpation present (GI) (induration and erythema at top of incision, otherwise soft), No Tenderness to palpation present (GI), No Guarding due to palpation present (GI) and No Rebound tenderness present Auscultation: normal bowel sounds Other: Slight erythema and induration at upper portion of incision and minimal purulent drainage from lower edge of incision. Two yuniel removed just above umbilicus where incision is draining with now a slight opening at the skin edges. Skin: General skin exam: jaundice Neuro: General: patient oriented x3, moves all extremities and no focal motor deficits Extrem: General: normal to inspection Psych: Insight: Good insight present (Psych) Judgement: Good judgement present (Psych) Objective Data Vital Signs Vital Signs: Vital Signs - 24 hr 07/07/21 14:00 07/07/21 14:45 07/07/21 14:56 Temperature Pulse Rate 101 H 89 96 Respiratory Rate 18 18 Blood Pressure Pulse Oximetry 07/07/21 16:00 07/07/21 18:00 07/07/21 19:15 Temperature 99.3 F
--- NOTE | 2021-07-08 13:31 | PCNFU ---
Nutrition Follow-Up Complete: Altered GI function as related to GI bleed as evidenced by liquid diet orders. Goal: Adequate Intake of at least 75% of meals/supplements Pt is slowly progressing towards goal Pt current nutrition is soft and bite sized, L6 and heart healthy diet Last recorded weight is 75.9 kg. Bowel Motility: +BM 07/07 Labs Reviewed: hgb 6.7, hct 21.2, alb 2.7, Cl 110, CO2 20, AST 61, BUN 22, Total bilirubin 6.6, Glu 132 Meds Noted: folic acid, reglan, protonix, zosyn, thiamine hcl Skin: abdomen incision Additional Notes: TPN has been d/c and NG tube has been removed. Pt has been advanced to a soft and bite sized, L6 and heart healthy diet. Recommend adding dietary supplement of ensure compact BID if intake remains under 50% to provide an additional 220kcal and 9g of protein to increase caloric intake.. Agree with diet order at this time. Will continue to follow. RD will monitor every 5 days.
--- NOTE | 2021-07-08 14:32 | PCPTNOTE ---
Patient refused treatment this session. Patient initially agreed to working with PT but then refused to participate in bed mobility, transfer, or lower extremity exercises. Patient reported he would like to wait until he transfers rooms to work with therapy.
[2021-07-08] MEDS: SUCRALFATE SUSP 100 MG/ML 10 ML UDC 1000 MG PO ×2 (15:58→20:56)
[2021-07-08] MEDS: TUBING, BLOOD PLUM PUMP TUBING 1 EACH XX (15:58)
[2021-07-08] MEDS: SODIUM CHLORIDE 0.9% IV 250 ML 30 ML IV CONT (15:58)
--- NOTE | 2021-07-08 16:14 | PM.IMPN ---
Progress Note: A&P Assessment and Plan (1) Acute respiratory failure: Code(s): J96.00 - Acute respiratory failure, unspecified whether with hypoxia or hypercapnia Status: Acute Assessment and Plan: Acute Respiratory failure secondary to done anesthesia and pulmonary edema likely from volume overload Off ventilator now and maintaining saturations on nasal cannula PCXR reviewed Incentive spirometry (2) Sepsis: Qualifiers: Sepsis acute organ dysfunction status: with acute organ dysfunction Sepsis type: sepsis due to unspecified organism Severe sepsis acute organ dysfunction type: disseminated intravascular coagulopathy Code(s): A41.9 - Sepsis, unspecified organism Status: Acute Assessment and Plan: Secondary to peritonitis from perforated gastric and duodenal ulcer Patient has received significant amount of blood products and 25% albumin till now. Hold further Patient not requiring vasopressors at this time Continue Zosyn,(started on 06/29) Blood cultures have been negative till now He is afebrile, leukocytosis improving starting today. CT chest abdomen and pelvis was done on 07/04/2021: No evidence of contrast extravasation. Small right and very small left pleural effusion with right lower lobe collapse and partial collapse of the left lower lobe. Peripheral patchy ground-glass opacities in both lungs. Moderate amount of non loculated appearing ascites. Cirrhosis. Diffuse edematous wall thickening of the colon (3) Perforated gastric ulcer: Code(s): K25.5 - Chronic or unspecified gastric ulcer with perforation Status: Deleted Assessment and Plan: Status post ex lap 06/24 evacuation of 9.3 L intra-abdominal ascites, repair of perforated gastric ulcer with omental patch, intra-abdominal washout. 06/28 - UGI series - Duodenal perforation, extravasation CT abdomen pelvis IMPRESSION: 1. Duodenal perforation, moderate ascites and free intraperitoneal gas. 2. Probable colitis, diarrhea. 3. Multisegmental basilar atelectasis. Pneumonia not excludable. 4. Cardiomegaly. 5. Anasarca 06/29 developed fascial dehiscence without evisceration but leaking ascites almost continually., INR 6.2 patient taken back to OR and underwent Closure with omentoplasty perforated gastric ulcer, repair fascial dehiscence 2 units of FFP given intraoperatively postop in ICU patient was given 3 units of PRBC and 4 units of FFP Now extubated NPO and started on TPN by general surgery NG tube in place KERON drain in place with serosanguineous output General surgery is following 07/04/2021 CT scan of the abdomen pelvis as above 07/07/2021 interval history patient is a 51-year-old male with history of alcohol abuse resulting in liver cirrhosis and ascites, presented with duodenal perforation monitor respiratory failure possibly secondary to pulmonary edema now patient is extubated and out of ICU in IMU and continue to complain of abdominal pain and denies any nausea or vomiting of fever or chills. today patient seen by General surgery in [place] NG tube started the patient on full liquids, recommended to continue TPN until patient is tolerating p.o. intake, will continue to monitor further recommendation to follow. 07/08/2021 interval history, patient with perforated gastric ulcer, POD #9, Dehiscence of closure of fascia, superficial or muscularpatient seen by surgery service NG tube is removed was able to tolerate full liquid and diet advanced to soft diet, wound was examined by the surgery service and healing, patient hemoglobin is trending down, patient denies any obvious bleeding, stools are liquid with no blood, patient be seen by GI and further recommendation to follow, patient states feeling much better participating physical therapy, patient will benefit going to acute rehab before going home. (4) Acute kidney injury: Code(s): N17.9 - Acute kidney failure, unspecified
--- NOTE | 2021-07-08 16:31 | PC.NURSE ---
Spoke with Dr. Mcbride regarding increase in temperature after blood transfusion had started. New orders for Tylenol and Benadryl PO and continue blood transfusion. Continue to monitor for reactions.
[2021-07-08] MEDS: ACETAMINOPHEN 325 MG TABLET 650 MG PO (16:36)
[2021-07-08] MEDS: diphenhydrAMINE HCl CAP 25 MG CAPSULE PO (16:36)
--- NOTE | 2021-07-08 18:28 | PC.NURSE ---
This patient, Phil Laird, was received from [IMU] on 07/08/21 at 1825. Patient/family oriented to unit policies and routines
--- NOTE | 2021-07-08 18:29 | PC.NURSE ---
This patient, Phil Laird, was transferred to [[id number] ] on 07/08/21 at 1815. Personal belongings sent with patient. Report given to [ CJ Velez @ 1800]. Appropriate documentation sent with patient.
[2021-07-09] VITALS (11 sets, daily range): BP systolic 124–136; BP diastolic 55–61; PULSE 70–96; RESP 18–19; TEMP 37.2–37.5; O2SAT 92–93
[2021-07-09] MEDS: ALBUTEROL SULFATE NEB 2.5 MG/0.5 ML INH INHALATION ×4 (01:59→21:59)
[2021-07-09] MEDS: IPRATROPIUM BR 0.02% INH SOLN 0.5 MG/2.5 ML VIAL INHALATION ×4 (02:00→21:59)
[2021-07-09] MEDS: MORPHINE SULFATE (*CRX) 2 MG/ML INJ IV PUSH ×3 (04:21→20:51)
[2021-07-09 04:53] LABS: Hematocrit 22.7 % (42.0-52.0); Hemoglobin 7.5 g/dL (14.0-18.0); Immature Platelet Fraction Pct 5.4 % (0.9-11.2); Mean Corpuscular Volume 93.8 fl (80-100); Mean Platelet Volume 11.5 fl (7.4-10.4); Platelet Count Result 119 k/mm3 (150-375); Red Blood Count 2.42 M/mm3 (4.6-6.20); Red Cell Distribution Width 22.5 % (11.5-14.5); White Blood Count 13.8 K/mm3 (4.5-10.0)
[2021-07-09 05:11] LABS: Alanine Aminotransferase 27 U/L (4-50); Albumin Level 2.6 g/dL (3.5-5.1); Alkaline Phosphatase 67 U/L (38-126); Anion Gap 7 mmol/L (8-16); Aspartate Amino Transferase 60 U/L (17-59); Bilirubin,Total 10.1 mg/dL (0.2-1.3); Blood Urea Nitrogen 22 mg/dL (9-20); Calcium 8.1 mg/dL (8.4-10.2); Carbon Dioxide 18 mmol/L (22-30); Chloride 110 mmol/L (98-107); Estimated CRCL calculation 79 ml/min; Estimated Glomerular Filt Rate > 60; Glucose 100 mg/dL (65-110); Magnesium 1.7 mg/dL (1.6-2.3); Potassium 3.6 mmol/L (3.4-5.0); Sodium 135 mmol/L (137-145)
[2021-07-09] MEDS: CENTRAL LINE FLUSH 10 ML IV PUSH ×3 (05:26→22:00)
[2021-07-09] MEDS: SUCRALFATE SUSP 100 MG/ML 10 ML UDC 1000 MG PO ×4 (05:26→20:35)
[2021-07-09] MEDS: THIAMINE HCL 200 MG/2 ML VIAL 100 MG IV PUSH (10:15)
[2021-07-09] MEDS: FOLIC ACID 1 MG/0.2 ML INJ IV PUSH (10:15)
[2021-07-09] MEDS: PANTOPRAZOLE SODIUM IV 40 MG VIAL IV PUSH ×2 (10:15→20:35)
[2021-07-09] MEDS: ONDANSETRON INJ 4 MG/2 ML VIAL IV PUSH (10:20)
--- NOTE | 2021-07-09 10:34 | PM.IMPN ---
Progress Note: A&P Assessment and Plan (1) Acute respiratory failure: Code(s): J96.00 - Acute respiratory failure, unspecified whether with hypoxia or hypercapnia Status: Acute Assessment and Plan: Acute Respiratory failure secondary to pulmonary edema likely from volume overload Off ventilator now and maintaining saturations on nasal cannula PCXR reviewed All likely patient has pneumonia Incentive spirometry (2) Sepsis: Qualifiers: Sepsis type: sepsis due to unspecified organism Sepsis acute organ dysfunction status: with acute organ dysfunction Severe sepsis acute organ dysfunction type: disseminated intravascular coagulopathy Code(s): A41.9 - Sepsis, unspecified organism Status: Acute Assessment and Plan: Secondary to peritonitis from perforated gastric and duodenal ulcer Patient has received significant amount of blood products and 25% albumin till now. Weaned off pressors Continue Zosyn,(started on 06/29) Blood cultures have been negative till now He is afebrile, leukocytosis improving starting today. CT chest abdomen and pelvis was done on 07/04/2021: No evidence of contrast extravasation. Small right and very small left pleural effusion with right lower lobe collapse and partial collapse of the left lower lobe. Peripheral patchy ground-glass opacities in both lungs. Moderate amount of non loculated appearing ascites. Cirrhosis. Diffuse edematous wall thickening of the colon (3) Perforated gastric ulcer: Code(s): K25.5 - Chronic or unspecified gastric ulcer with perforation Status: Deleted Assessment and Plan: Status post ex lap 06/24 evacuation of 9.3 L intra-abdominal ascites, repair of perforated gastric ulcer with omental patch, intra-abdominal washout. 06/28 - UGI series - Duodenal perforation, extravasation CT abdomen pelvis IMPRESSION: 1. Duodenal perforation, moderate ascites and free intraperitoneal gas. 2. Probable colitis, diarrhea. 3. Multisegmental basilar atelectasis. Pneumonia not excludable. 4. Cardiomegaly. 5. Anasarca 06/29 developed fascial dehiscence without evisceration but leaking ascites almost continually., INR 6.2 patient taken back to OR and underwent Closure with omentoplasty perforated gastric ulcer, repair fascial dehiscence 2 units of FFP given intraoperatively postop in ICU patient was given 3 units of PRBC and 4 units of FFP Now extubated NPO and started on TPN by general surgery NG tube in place KERON drain in place with serosanguineous output General surgery is following 07/04/2021 CT scan of the abdomen pelvis as above Diet advanced per surgery Patient most likely will need rehab (4) Acute kidney injury: Code(s): N17.9 - Acute kidney failure, unspecified Status: Acute Assessment and Plan: Likely secondary to sepsis, patient received significant amount of blood products and IV fluids Creatinine marginally improved and urine output has improved Treated with IV fluids D5 water for hypernatremia and hyperchloremia but decrease rate Monitor urine output electrolytes and creatinine replace low potassium (5) Encephalopathy: Code(s): G93.40 - Encephalopathy, unspecified Status: Acute Assessment and Plan: Likely multifactorial and metabolic His last ammonia level was normal Improved and off Precedex now (6) Alcoholism: Code(s): F10.20 - Alcohol dependence, uncomplicated Status: Acute Assessment and Plan: Thiamine and folic acid Off Precedex now P.r.n. Ativan ordered (7) Cirrhosis of liver: Code(s): K74.60 - Unspecified cirrhosis of liver Status: Acute Assessment and Plan: Secondary to alcohol abuse 07/05/2021: His ammonia level was normal (8) Anemia: Code(s): D64.9 - Anemia, unspecified Status: Acute Assessment and Plan: Multifactorial patient admitted with GI bleed from gastric ulcer also
--- NOTE | 2021-07-09 12:13 | WPDGIPROGNO ---
Progress Note: A&P Assessment and Plan (1) Dehiscence of closure of fascia, superficial or muscular: Qualifiers: Encounter type: subsequent encounter Qualified Code(s): T81.32XD - Disruption of internal operation (surgical) wound, not elsewhere classified, subsequent encounter Code(s): T81.32XA - Disruption of internal operation (surgical) wound, not elsewhere classified, initial encounter Status: Acute Assessment and Plan: POD10 fascial dehiscence repair and closure omentoplasty perforated gastric ulcer tolerating diet and advancing, TPN discontinued by surgery he has been receiving antibiotics, WBC down to 13k will follow peripherally, call if questions (2) Cirrhosis of liver: Code(s): K74.60 - Unspecified cirrhosis of liver Status: Acute Assessment and Plan: former alcoholic noted chronic elevation liver enzymes medical support (3) Sepsis: Qualifiers: Sepsis type: sepsis due to unspecified organism Sepsis acute organ dysfunction status: with acute organ dysfunction Severe sepsis acute organ dysfunction type: disseminated intravascular coagulopathy Code(s): A41.9 - Sepsis, unspecified organism Status: Acute Assessment and Plan: s/p antibiotics, wbc trending down (4) Perforated gastric ulcer: Qualifiers: Gastric ulcer chronicity: acute Qualified Code(s): K25.1 - Acute gastric ulcer with perforation Code(s): K25.5 - Chronic or unspecified gastric ulcer with perforation Status: Acute Assessment and Plan: repaired, NGT removed and advancing diet on iv protonix (5) Acute on chronic blood loss anemia: Code(s): D62 - Acute posthemorrhagic anemia Status: Acute Assessment and Plan: hb responded to prbc, no signs of gib continue with ppi Subjective Date/time seen: 07/09/21 12:13 Interval history: tolerating diet, less pain and overall slowly feeling better. He had one unit prbc yesterday Review of Systems Review of Systems: All systems reviewed & are unremarkable except as noted in HPI and below Exam Const: General: no acute distress, alert and ill appearing chronically Other: awake and alert, oriented HENMT: General nose exam: Normal nares present Eyes: Pupils: Equal, round and reactive pupils present Neck: Neck: supple Resp: Effort & Inspection: tachypneic Auscultation: diminished lung sounds Cardio: Rate: regular rate Rhythm: regular rhythm GI: Inspection: non-distended, visible herniation (soft umbilical hernia present preop, unable to reduce) and other (KERON drain with serosanguineous drainage) GI Palp: Yes Soft to palpation, Yes Tenderness to palpation present (GI) (minimal) and No Guarding due to palpation present (GI) Auscultation: normal bowel sounds Other: Midline incision with yuniel intact, minimal drainage, dressing in place Skin: General skin exam: no rashes or lesions noted Neuro: General: oriented to person, No oriented to place, No oriented to time, moves all extremities, no focal motor deficits, confusion and Unable to assess gait Speech: normal speech Other: awake and alert Extrem: General: no pedal edema, no calf tenderness and pedal edema Psych: Affect: normal affect Insight: Limited insight present (Psych) and Poor insight present (Psych) Judgement: Limited judgement present (Psych) and Poor judgement present (Psych) Objective Data Vital Signs Vital Signs: Vital Signs - 24 hr 07/08/21 14:24 07/08/21 14:29 07/08/21 15:53 Temperature 99.1 F Pulse Rate 78 80 103 H Respiratory Rate 18 18 20 Blood Pressure 127/58 L Pulse Oximetry 93 07/08/21 16:08 07/08/21 16:36 07/08/21 16:38 Temperature 101.3 F H 101.3 F H 101.4 F H Pulse Rate 103 H 100 Respiratory Rate 20 20 Blood Pressure 133/58 L 136/53 L Pulse Oximetry 94 93 07/08/21 16:39 07/08/21 16:53 07/08/21 17:36 Temperature 101.4 F H 101.9 F H 101.9 F H Pulse Rate 100 101 H
--- NOTE | 2021-07-09 13:55 | PM.PNGS ---
Progress Note: A&P Assessment and Plan (1) Perforated gastric ulcer: Qualifiers: Gastric ulcer chronicity: acute Qualified Code(s): K25.1 - Acute gastric ulcer with perforation Code(s): K25.5 - Chronic or unspecified gastric ulcer with perforation Status: Acute Assessment and Plan: Incision still with some erythema and induration, a few yuniel removed yesterday but not much drainage. He had a fever yesterday afternoon, but afebrile this morning, WBC trending down. Continue to IV Zosyn and monitor. Tolerating a regular diet. Continue Protonix and Carafate. Monitor KERON drain output. Continue PT/OT, increase activity. (2) Dehiscence of closure of fascia, superficial or muscular: Qualifiers: Encounter type: subsequent encounter Qualified Code(s): T81.32XD - Disruption of internal operation (surgical) wound, not elsewhere classified, subsequent encounter Code(s): T81.32XA - Disruption of internal operation (surgical) wound, not elsewhere classified, initial encounter Status: Acute (3) Alcoholism: Code(s): F10.20 - Alcohol dependence, uncomplicated Status: Acute (4) Cirrhosis of liver with ascites: Qualifiers: Hepatic cirrhosis type: alcoholic cirrhosis Qualified Code(s): K70.31 - Alcoholic cirrhosis of liver with ascites Code(s): K74.60 - Unspecified cirrhosis of liver; R18.8 - Other ascites Status: Chronic (5) Sepsis: Qualifiers: Sepsis type: sepsis due to unspecified organism Sepsis acute organ dysfunction status: with acute organ dysfunction Severe sepsis acute organ dysfunction type: disseminated intravascular coagulopathy Code(s): A41.9 - Sepsis, unspecified organism Status: Acute (6) Coagulopathy: Code(s): D68.9 - Coagulation defect, unspecified Status: Acute Assessment and Plan: Hgb 7.5 today after 1 unit transfusion yesterday. No signs of active bleeding. Continue to trend labs. Additional Plan I have discussed the plan of care with Dr. Mejia. Subjective Subjective Date/Time Seen: 07/09/21 10:55 Patient reports: no new complaints, tolerating a regular diet, flatus, bowel movement and nausea Interval history: Patient seen and examined today. He reports that his diarrhea has improved and he has not had a liquid BM today but is passing a lot of gas. He also reports having some mild intermittent nausea, no vomiting, that he now says has been there a few days. This comes and goes. It is not keeping him from eating and is still getting hungry. He did have a fever of 101.9F yesterday evening, but is afebrile today. He does complain of a slight productive cough, but no shortness of breath or chest pain. He also reports having some very mild abdominal discomfort and points directly at the incision when asked where it is located. No other complaints at this time. Review of Systems Review of Systems: All systems reviewed & are unremarkable except as noted in HPI and below Exam Const: General: comfortable, no acute distress, alert and awake Orientation/consciousness: patient oriented x3 Resp: Effort & Inspection: normal respiratory effort Auscultation: diminished lung sounds bilateral in the lower lung bunch Cardio: Rate: regular rate Rhythm: regular rhythm GI: Inspection: distended, visible herniation (soft umbilical hernia) and other (KERON with serosanguineous drainage) GI Palp: Yes Soft to palpation, Yes Tenderness to palpation present (GI) (incisional), No Guarding due to palpation present (GI) and No Rebound tenderness present Auscultation: normal bowel sounds Other: Slight erythema and induration at upper portion of incision still without any drainage coming from the upper incision. Small opening to the incision just above umbilicus with scant serosanguineous drainage today. Skin: General skin exam: jaundice Neuro: General: moves all extremities and no focal motor deficits Ex
[2021-07-10] VITALS (12 sets, daily range): BP systolic 120–126; BP diastolic 45–59; PULSE 80–101; RESP 14–20; TEMP 37.2–38; O2SAT 94
[2021-07-10] MEDS: ALBUTEROL SULFATE NEB 2.5 MG/0.5 ML INH INHALATION ×4 (01:55→20:53)
[2021-07-10] MEDS: IPRATROPIUM BR 0.02% INH SOLN 0.5 MG/2.5 ML VIAL INHALATION ×4 (01:56→20:53)
[2021-07-10 04:24] LABS: Glucose Point of Care 107 mg/dl (65-105)
[2021-07-10 04:38] LABS: Hematocrit 22.2 % (42.0-52.0); Hemoglobin 7.4 g/dL (14.0-18.0); Immature Platelet Fraction Pct 3.5 % (0.9-11.2); Mean Corpuscular HGB Conc 33.3 g/dl (32-36); Mean Corpuscular Hemoglobin 31.2 pg (26-34); Mean Corpuscular Volume 93.7 fl (80-100); Mean Platelet Volume 10.9 fl (7.4-10.4); Platelet Count Result 135 k/mm3 (150-375); Red Blood Count 2.37 M/mm3 (4.6-6.20); Red Cell Distribution Width 23.1 % (11.5-14.5); White Blood Count 13.5 K/mm3 (4.5-10.0)
[2021-07-10 04:48] LABS: Alanine Aminotransferase 30 U/L (4-50); Albumin Level 2.6 g/dL (3.5-5.1); Alkaline Phosphatase 60 U/L (38-126); Anion Gap 6 mmol/L (8-16); Aspartate Amino Transferase 67 U/L (17-59); Bilirubin,Total 9.1 mg/dL (0.2-1.3); Blood Urea Nitrogen 20 mg/dL (9-20); Calcium 7.9 mg/dL (8.4-10.2); Carbon Dioxide 19 mmol/L (22-30); Chloride 106 mmol/L (98-107); Estimated CRCL calculation 87 ml/min; Estimated Glomerular Filt Rate > 60; Glucose 109 mg/dL (65-110); Magnesium 1.6 mg/dL (1.6-2.3); Potassium 4.3 mmol/L (3.4-5.0); Sodium 131 mmol/L (137-145)
[2021-07-10] MEDS: SUCRALFATE SUSP 100 MG/ML 10 ML UDC 1000 MG PO ×4 (06:41→21:00)
[2021-07-10] MEDS: CENTRAL LINE FLUSH 10 ML IV PUSH ×3 (06:41→21:01)
[2021-07-10] MEDS: PANTOPRAZOLE SODIUM IV 40 MG VIAL IV PUSH ×2 (08:22→21:00)
[2021-07-10] MEDS: FOLIC ACID 1 MG/0.2 ML INJ IV PUSH (08:22)
[2021-07-10] MEDS: THIAMINE HCL 200 MG/2 ML VIAL 100 MG IV PUSH (08:23)
[2021-07-10] MEDS: MORPHINE SULFATE (*CRX) 2 MG/ML INJ IV PUSH ×3 (08:29→17:59)
--- NOTE | 2021-07-10 09:41 | PM.IMPN ---
Progress Note: A&P Assessment and Plan (1) Acute respiratory failure: Code(s): J96.00 - Acute respiratory failure, unspecified whether with hypoxia or hypercapnia Status: Acute Assessment and Plan: Acute Respiratory failure secondary to pulmonary edema likely from volume overload Off ventilator now and maintaining saturations on nasal cannula PCXR reviewed Most likely likely patient has pneumonia treated with IV antibiotic Incentive spirometry (2) Sepsis: Qualifiers: Sepsis type: sepsis due to unspecified organism Sepsis acute organ dysfunction status: with acute organ dysfunction Severe sepsis acute organ dysfunction type: disseminated intravascular coagulopathy Code(s): A41.9 - Sepsis, unspecified organism Status: Acute Assessment and Plan: Secondary to peritonitis from perforated gastric and duodenal ulcer Patient has received significant amount of blood products and 25% albumin till now. Weaned off pressors Continue Zosyn,(started on 06/29) Blood cultures have been negative till now He is afebrile, leukocytosis improving CT chest abdomen and pelvis was done on 07/04/2021: No evidence of contrast extravasation. Small right and very small left pleural effusion with right lower lobe collapse and partial collapse of the left lower lobe. Peripheral patchy ground-glass opacities in both lungs. Moderate amount of non loculated appearing ascites. Cirrhosis. Diffuse edematous wall thickening of the colon (3) Perforated gastric ulcer: Code(s): K25.5 - Chronic or unspecified gastric ulcer with perforation Status: Deleted Assessment and Plan: Status post ex lap 06/24 evacuation of 9.3 L intra-abdominal ascites, repair of perforated gastric ulcer with omental patch, intra-abdominal washout. 06/28 - UGI series - Duodenal perforation, extravasation CT abdomen pelvis IMPRESSION: 1. Duodenal perforation, moderate ascites and free intraperitoneal gas. 2. Probable colitis, diarrhea. 3. Multisegmental basilar atelectasis. Pneumonia not excludable. 4. Cardiomegaly. 5. Anasarca 06/29 developed fascial dehiscence without evisceration but leaking ascites almost continually., INR 6.2 patient taken back to OR and underwent Closure with omentoplasty perforated gastric ulcer, repair fascial dehiscence 2 units of FFP given intraoperatively postop in ICU patient was given 3 units of PRBC and 4 units of FFP Now extubated TPN was discontinued by surgery on 07/09/[address] KERON drain in place with serosanguineous output General surgery is following 07/04/2021 CT scan of the abdomen pelvis as above Diet advanced per surgery Patient most likely will need rehab (4) Acute kidney injury: Code(s): N17.9 - Acute kidney failure, unspecified Status: Acute Assessment and Plan: Likely secondary to sepsis, patient received significant amount of blood products and IV fluids Creatinine marginally improved and urine output has improved Monitor urine output electrolytes and creatinine Monitor (5) Encephalopathy: Code(s): G93.40 - Encephalopathy, unspecified Status: Acute Assessment and Plan: Likely multifactorial and metabolic His last ammonia level was normal Improved and off Precedex now (6) Alcoholism: Code(s): F10.20 - Alcohol dependence, uncomplicated Status: Acute Assessment and Plan: Thiamine and folic acid Off Precedex now P.r.n. Ativan ordered (7) Cirrhosis of liver: Code(s): K74.60 - Unspecified cirrhosis of liver Status: Acute Assessment and Plan: Secondary to alcohol abuse 07/05/2021: His ammonia level was normal (8) Anemia: Code(s): D64.9 - Anemia, unspecified Status: Acute Assessment and Plan: Multifactorial patient admitted with GI bleed from gastric ulcer also had varices. He had laparotomy x2 and also hemodilution from volume resusci
--- NOTE | 2021-07-10 11:39 | PCNFU ---
Nutrition Follow-Up Complete: Altered GI function as related to GI bleed as evidenced by liquid diet orders. Goal: Adequate Intake of at least 75% of meals/supplements Pt is slowly progressing towards goal Pt current nutrition is soft and bite sized, L6/heart healthy diet Last recorded weight is 91.3 kg. Bowel Motility: +BM 07/08 Labs Reviewed: hgb 7.4, hct 22.2, alb 2.6, Na 131, CO2 19, Ca 7.9, AST 67, Glu 107 Meds Noted: folic acid, atrovent, morphine sulfate, protonix, zosyn, carafate, thiamine Skin: abdomen incision Additional Notes: Current nutrition is soft and bite sized, L6 and heart healthy diet with reported intake of 50% x2, 25%, 5%, and 70%. Visit with pt who reports that he hasn't been eating as much some days due to difficulty with breathing. Pt also reports that some days his food has been cold. Pt reports that he does not having problems with chewing or swallowing. RDN encouraged intake and placed orders for a dietary supplement of ensure compact TID providing an additional 220kcal and 9g of protein to increase caloric intake. Pt agreed to drink dietary supplement. Agree with diet order at this time. Will continue to follow. RD will monitor every 5 days.
--- NOTE | 2021-07-10 14:14 | PM.PNGS ---
Progress Note: A&P Assessment and Plan (1) Perforated viscus: Code(s): R19.8 - Other specified symptoms and signs involving the digestive system and abdomen Status: Acute Assessment and Plan: much improved, await placement, cont PT/OT Subjective Subjective Date/Time Seen: 07/10/21 14:14 no acute issues, feels ok, timothy full liquids Review of Systems Review of Systems: All systems reviewed & are unremarkable except as noted in HPI and below Exam Const: General: cooperative and comfortable Orientation/consciousness: patient oriented x3 Resp: Auscultation: clear to auscultation bilaterally Cardio: Rate: regular rate Rhythm: regular rhythm GI: Inspection: normal to inspection, Abdominal wall edema, distended and incision GI Palp: Yes Soft to palpation, No Tenderness to palpation present (GI), No Guarding due to palpation present (GI) and No Rigid due to palpation Other: incision c some mild redness upper portion, KERON c serous output (minimal) Objective Data Vital Signs Vital Signs: Vital Signs - 24 hr 07/09/21 14:15 07/09/21 14:23 07/09/21 20:00 Temperature Pulse Rate 73 76 78 Respiratory Rate 18 18 19 Blood Pressure Pulse Oximetry 92 07/09/21 21:20 07/09/21 21:27 07/10/21 00:00 Temperature 37.2 C Pulse Rate 70 78 96 Respiratory Rate 19 19 18 Blood Pressure 120/45 L Pulse Oximetry 94 07/10/21 01:56 07/10/21 02:03 07/10/21 08:50 Temperature Pulse Rate 80 85 91 Respiratory Rate 17 19 20 Blood Pressure Pulse Oximetry 07/10/21 11:32 Temperature 37.6 C Pulse Rate Respiratory Rate Blood Pressure Pulse Oximetry Intake/Output Intake/Output: Intake & Output 07/07/21 07/08/21 07/09/21 07/10/21 23:59 23:59 23:59 23:59 Intake Total 4083 5323.1 1700 760 Output Total 668 1930 1900 1180 Balance 0055 3393.1 -200 420 Meds/Results Medications: Active Medications Generic Name Dose Route Start Last Admin Trade Name Freq PRN Reason Stop Dose Admin Acetaminophen 650 mg 07/08/21 16:19 07/08/21 16:36 Acetaminophen 325 Mg Tablet PO 650 mg Q4H PRN Administration Mild Pain (1-3) or Fever Albuterol 2.5 mg 06/29/21 02:05 07/10/21 08:50 Albuterol Sulfate Neb 2.5 Mg/0.5 Ml Inh INHALATION 2.5 mg Q6HRT JOSEFA Administration Folic Acid 1 mg 06/25/21 14:35 07/10/21 08:22 Folic Acid 1 Mg/0.2 Ml Inj IV PUSH 1 mg QAM JOSEFA Administration Albumin Human 100 mls @ 60 mls/hr 06/25/21 16:00 07/01/21 08:14 Albutein IVPB Infused Q6HR JOSEFA Infusion Piperacillin/Tazobactam/Dextrose 3.375 gm in 50 mls @ 100 mls/hr 06/29/21 15:00 07/10/21 08:52 Zosyn 3.375 Gm/D5w 50ml Pm IVPB Infused Q6H JOSEFA Infusion Ipratropium [place] 0.5 mg 06/29/21 02:05 07/10/21 08:50 Ipratropium Br 0.02% Inh Soln 0.5 Mg/2.5 Ml Vial INHALATION 0.5 mg Q6HRT JOSEFA Administration Lorazepam 1 - 2 mg 06/29/21 09:30 06/29/21 23:00 Lorazepam Inj (*Crx) 2 Mg/Ml Vial IV PUSH 2 mg Q2H PRN Administration Withdrawal, restless Morphine Sulfate 1 mg 06/29/21 09:22 Morphine Sulfate (*Crx) 2 Mg/Ml Inj IV PUSH Q2H PRN Pain Rated 4-6 Morphine Sulfate 2 mg 06/29/21 09:39 07/10/21 08:29 Morphine Sulfate (*Crx) 2 Mg/Ml Inj IV PUSH 2 mg Q2H PRN Administration Pain Rated 7-10 Ondansetron HCl 4 mg 06/20/21 21:45 07/09/21 10:20 Ondansetron Inj 4 Mg/2 Ml Vial IV PUSH 4 mg Q4H PRN Administration Nausea Pantoprazole Sodium 40 mg 06/21/21 21:00 07/10/21 08:22 Pantoprazole Sodium Iv 40 Mg Vial IV PUSH 40 mg Q12HR JOSEFA Administration Sodium Chloride 10 ml 06/21/21 06:00 07/10/21 06:41 Central Line Flush IV PUSH 10 ml Q8HR JOSEFA Administration Sodium Chloride 20 ml 06/20/21 22:16 07/07/21 05:45 Central Line Flush IV PUSH 20 ml PRN PRN Administration after blood draws Sucralfate 1,000 mg 07/08/21 16:30 07/10/21 11:26 Sucralfate Susp 100 Mg/Ml 10 Ml Udc PO
--- NOTE | 2021-07-10 16:17 | PC.NURSE ---
Called Dr. Slaughter and notified him of temp of 100.4 and HR of 100. Orders received for blood cultures x 2.
[2021-07-10] MEDS: ACETAMINOPHEN 325 MG TABLET 650 MG PO (16:59)
[2021-07-11] VITALS (7 sets, daily range): BP systolic 118–129; BP diastolic 51–61; PULSE 95–107; RESP 16–20; TEMP 36.9–37.6; O2SAT 92–93
[2021-07-11] MEDS: MORPHINE SULFATE (*CRX) 2 MG/ML INJ IV PUSH ×4 (01:27→23:43)
[2021-07-11] MEDS: SUCRALFATE SUSP 100 MG/ML 10 ML UDC 1000 MG PO ×4 (05:31→20:08)
[2021-07-11] MEDS: CENTRAL LINE FLUSH 10 ML IV PUSH ×3 (05:32→20:10)
[2021-07-11 05:46] LABS: Hematocrit 22.7 % (42.0-52.0); Hemoglobin 7.6 g/dL (14.0-18.0); Mean Corpuscular HGB Conc 33.5 g/dl (32-36); Mean Corpuscular Hemoglobin 31.5 pg (26-34); Mean Corpuscular Volume 94.2 fl (80-100); Mean Platelet Volume 10.8 fl (7.4-10.4); Platelet Count Result 139 k/mm3 (150-375); Red Blood Count 2.41 M/mm3 (4.6-6.20); Red Cell Distribution Width 23.6 % (11.5-14.5); White Blood Count 13.4 K/mm3 (4.5-10.0)
[2021-07-11 06:02] LABS: Alanine Aminotransferase 35 U/L (4-50); Albumin Level 2.6 g/dL (3.5-5.1); Alkaline Phosphatase 83 U/L (38-126); Anion Gap 9 mmol/L (8-16); Aspartate Amino Transferase 80 U/L (17-59); Bilirubin,Total 7.7 mg/dL (0.2-1.3); Blood Urea Nitrogen 18 mg/dL (9-20); Calcium 8.1 mg/dL (8.4-10.2); Carbon Dioxide 18 mmol/L (22-30); Chloride 102 mmol/L (98-107); Estimated CRCL calculation 87 ml/min; Estimated Glomerular Filt Rate > 60; Glucose 107 mg/dL (65-110); Magnesium 1.6 mg/dL (1.6-2.3); Potassium 3.8 mmol/L (3.4-5.0); Sodium 129 mmol/L (137-145)
[2021-07-11] MEDS: THIAMINE HCL 200 MG/2 ML VIAL 100 MG IV PUSH (09:31)
[2021-07-11] MEDS: PANTOPRAZOLE SODIUM IV 40 MG VIAL IV PUSH ×2 (09:31→20:08)
[2021-07-11] MEDS: FOLIC ACID 1 MG/0.2 ML INJ IV PUSH (09:33)
[2021-07-11] MEDS: MORPHINE SULFATE (*CRX) 2 MG/ML INJ 1 MG IV PUSH (09:47)
--- NOTE | 2021-07-11 09:55 | PM.IMPN ---
Progress Note: A&P Assessment and Plan (1) Acute respiratory failure: Code(s): J96.00 - Acute respiratory failure, unspecified whether with hypoxia or hypercapnia Status: Acute Assessment and Plan: Acute Respiratory failure secondary to pulmonary edema likely from volume overload Off ventilator now and maintaining saturations on nasal cannula PCXR reviewed Most likely likely patient has pneumonia treated with IV antibiotic Incentive spirometry Patient has recurrent episodes of fever low-grade will consider repeat CT scan of the chest and abdomen surgery following (2) Sepsis: Qualifiers: Sepsis type: sepsis due to unspecified organism Sepsis acute organ dysfunction status: with acute organ dysfunction Severe sepsis acute organ dysfunction type: disseminated intravascular coagulopathy Code(s): A41.9 - Sepsis, unspecified organism Status: Acute Assessment and Plan: Secondary to peritonitis from perforated gastric and duodenal ulcer Patient has received significant amount of blood products and 25% albumin till now. Weaned off pressors Continue Zosyn,(started on 06/29) Blood cultures have been negative till now He is afebrile, leukocytosis improving CT chest abdomen and pelvis was done on 07/04/2021: No evidence of contrast extravasation. Small right and very small left pleural effusion with right lower lobe collapse and partial collapse of the left lower lobe. Peripheral patchy ground-glass opacities in both lungs. Moderate amount of non loculated appearing ascites. Cirrhosis. Diffuse edematous wall thickening of the colon (3) Perforated gastric ulcer: Code(s): K25.5 - Chronic or unspecified gastric ulcer with perforation Status: Deleted Assessment and Plan: Status post ex lap 06/24 evacuation of 9.3 L intra-abdominal ascites, repair of perforated gastric ulcer with omental patch, intra-abdominal washout. 06/28 - UGI series - Duodenal perforation, extravasation CT abdomen pelvis IMPRESSION: 1. Duodenal perforation, moderate ascites and free intraperitoneal gas. 2. Probable colitis, diarrhea. 3. Multisegmental basilar atelectasis. Pneumonia not excludable. 4. Cardiomegaly. 5. Anasarca 06/29 developed fascial dehiscence without evisceration but leaking ascites almost continually., INR 6.2 patient taken back to OR and underwent Closure with omentoplasty perforated gastric ulcer, repair fascial dehiscence 2 units of FFP given intraoperatively postop in ICU patient was given 3 units of PRBC and 4 units of FFP Now extubated TPN was discontinued by surgery on 07/09/[address] KERON drain in place with serosanguineous output General surgery is following 07/04/2021 CT scan of the abdomen pelvis as above Diet advanced per surgery Patient most likely will need rehab (4) Acute kidney injury: Code(s): N17.9 - Acute kidney failure, unspecified Status: Acute Assessment and Plan: Likely secondary to sepsis, patient received significant amount of blood products and IV fluids Creatinine marginally improved and urine output has improved Monitor urine output electrolytes and creatinine Monitor (5) Encephalopathy: Code(s): G93.40 - Encephalopathy, unspecified Status: Acute Assessment and Plan: Likely multifactorial and metabolic His last ammonia level was normal Improved and off Precedex now (6) Alcoholism: Code(s): F10.20 - Alcohol dependence, uncomplicated Status: Acute Assessment and Plan: Thiamine and folic acid Off Precedex now P.r.n. Ativan ordered (7) Cirrhosis of liver: Code(s): K74.60 - Unspecified cirrhosis of liver Status: Acute Assessment and Plan: Secondary to alcohol abuse 07/05/2021: His ammonia level was normal (8) Anemia: Code(s): D64.9 - Anemia, unspecified Status: Acute Assessment and Plan: Multifactorial patient ad
[2021-07-11] MEDS: IPRATROPIUM BR 0.02% INH SOLN 0.5 MG/2.5 ML VIAL INHALATION ×2 (14:10→20:26)
[2021-07-11] MEDS: ALBUTEROL SULFATE NEB 2.5 MG/0.5 ML INH INHALATION ×2 (14:10→20:25)
--- NOTE | 2021-07-11 15:00 | PM.PNGS ---
Progress Note: A&P Assessment and Plan (1) Perforated viscus: Code(s): R19.8 - Other specified symptoms and signs involving the digestive system and abdomen Status: Acute Assessment and Plan: Slowly improving. Tolerating a diet. Continue PT/OT - pt very deconditioned, encouraged increasing activity. Low grade fever yesterday, WBC down slightly today. Blood cx repeated. Still on IV Zosyn. Could consider repeating a CT abd/pelvis if this continues. Incision does have some redness as well, will continue to monitor and plan to remove yuniel prior to discharge. Plan for placement in SNF when ready for discharge. Additional Plan I have discussed the plan of care with Dr. Tijerina. Subjective Subjective Date/Time Seen: 07/11/21 11:00 Patient reports: no new complaints Interval history: Patient seen and examined in bed today. He has not gotten up yet but PT is planning to come by shortly to work with him getting out of bed. Patient does report a mild productive cough, but no shortness of breath and he is on room air. He also reports incisional pain with movement but no abdominal pain right now. He also reports back and buttock pain from lying in the bed. He is tolerating his diet without nausea, vomiting, or bloating. He also reports having a large BM yesterday and passing gas today. He still has a trevino catheter in place. Review of Systems Review of Systems: All systems reviewed & are unremarkable except as noted in HPI and below Exam Const: General: cooperative, alert, awake and ill appearing Orientation/consciousness: patient oriented x3 Resp: Effort & Inspection: no respiratory distress Auscultation: diminished lung sounds bilateral in the lower lung bunch Cardio: Rate: regular rate Rhythm: regular rhythm GI: Inspection: Abdominal wall edema and visible herniation (soft umbilical hernia) GI Palp: Yes Soft to palpation, No Tenderness to palpation present (GI) and Yes Ascites present Auscultation: normal bowel sounds Other: incision c some mild redness upper portion and packing opening in the lower portion of incision with serosanguineous drainage, KERON c serous output (minimal) Urinary Catheter: Urinary Catheter: patent and draining and urine dark Skin: General skin exam: jaundice Neuro: General: moves all extremities and no focal motor deficits Extrem: General: no calf tenderness and edema bilateral (bilateral legs 1+ pitting) Psych: Insight: Good insight present (Psych) Judgement: Good judgement present (Psych) Objective Data Vital Signs Vital Signs: Vital Signs - 24 hr 07/10/21 16:59 07/10/21 17:52 07/10/21 18:00 Temperature 100.4 F H 100.2 F H 100.2 F H Pulse Rate Respiratory Rate Blood Pressure Pulse Oximetry 07/10/21 20:53 07/10/21 21:20 07/11/21 06:00 Temperature 98.9 F 98.9 F Pulse Rate 92 97 95 Respiratory Rate 20 16 16 Blood Pressure 122/53 L 126/56 L Pulse Oximetry 94 93 07/11/21 14:11 07/11/21 14:24 Temperature Pulse Rate 104 H 100 Respiratory Rate 20 20 Blood Pressure Pulse Oximetry Intake/Output Intake/Output: Intake & Output 07/08/21 07/09/21 07/10/21 07/11/21 23:59 23:59 23:59 23:59 Intake Total 5323.1 1700 1580 900 Output Total 1930 1900 1240 450 Balance 3393.1 -200 340 450 Meds/Results Medications: Active Medications Generic Name Dose Route Start Last Admin Trade Name Freq PRN Reason Stop Dose Admin Acetaminophen 650 mg 07/08/21 16:19 07/10/21 16:59 Acetaminophen 325 Mg Tablet PO 650 mg Q4H PRN Administration Mild Pain (1-3) or Fever Albuterol 2.5 mg 06/29/21 02:05 07/11/21 14:10 Albuterol Sulfate Neb 2.5 Mg/0.5 Ml Inh INHALATION 2.5 mg Q6HRT JOSEFA Administration Folic Acid 1 mg 06/25/21 14:35 07/11/21 09:33 Folic Acid 1 Mg/0.2 Ml Inj IV PUSH 1 mg QAM JOSEFA Administration Albumin Human 100 mls @ 60 mls/hr 06/25/21 16:00 07/01/21 08:14 Albutein IVPB Infused Q6HR JOSEFA Infusi
--- NOTE | 2021-07-11 22:47 | PC.NURSE ---
Pt needs much encourage for turning, educated on the importance, pt refuses turning at this time, pt reports he cannot sleep on his side.
[2021-07-12] VITALS (12 sets, daily range): BP systolic 120–128; BP diastolic 54–55; PULSE 88–103; RESP 16–18; TEMP 36.9–37.4; O2SAT 93–97
[2021-07-12] MEDS: IPRATROPIUM BR 0.02% INH SOLN 0.5 MG/2.5 ML VIAL INHALATION ×4 (03:15→21:46)
[2021-07-12] MEDS: ALBUTEROL SULFATE NEB 2.5 MG/0.5 ML INH INHALATION ×4 (03:15→21:46)
[2021-07-12 05:21] LABS: Hematocrit 22.1 % (42.0-52.0); Hemoglobin 7.3 g/dL (14.0-18.0); Mean Corpuscular Hemoglobin 31.5 pg (26-34); Mean Corpuscular Volume 95.3 fl (80-100); Mean Platelet Volume 10.4 fl (7.4-10.4); Platelet Count Result 154 k/mm3 (150-375); Red Blood Count 2.32 M/mm3 (4.6-6.20); Red Cell Distribution Width 24.7 % (11.5-14.5); White Blood Count 12.5 K/mm3 (4.5-10.0)
[2021-07-12 05:38] LABS: Alanine Aminotransferase 40 U/L (4-50); Albumin Level 2.6 g/dL (3.5-5.1); Alkaline Phosphatase 74 U/L (38-126); Anion Gap 5 mmol/L (8-16); Aspartate Amino Transferase 95 U/L (17-59); Bilirubin,Total 7.2 mg/dL (0.2-1.3); Blood Urea Nitrogen 16 mg/dL (9-20); Calcium 8.1 mg/dL (8.4-10.2); Carbon Dioxide 20 mmol/L (22-30); Chloride 102 mmol/L (98-107); Estimated CRCL calculation 97 ml/min; Estimated Glomerular Filt Rate > 60; Glucose 91 mg/dL (65-110); Magnesium 1.6 mg/dL (1.6-2.3); Potassium 4.6 mmol/L (3.4-5.0); Sodium 127 mmol/L (137-145)
[2021-07-12] MEDS: SUCRALFATE SUSP 100 MG/ML 10 ML UDC 1000 MG PO ×4 (06:30→21:24)
[2021-07-12] MEDS: MORPHINE SULFATE (*CRX) 2 MG/ML INJ IV PUSH ×3 (06:31→22:26)
[2021-07-12] MEDS: CENTRAL LINE FLUSH 10 ML IV PUSH ×2 (06:31→14:39)
[2021-07-12] MEDS: THIAMINE HCL 200 MG/2 ML VIAL 100 MG IV PUSH (10:11)
[2021-07-12] MEDS: PANTOPRAZOLE SODIUM IV 40 MG VIAL IV PUSH ×2 (10:12→21:24)
[2021-07-12] MEDS: FOLIC ACID 1 MG/0.2 ML INJ IV PUSH (10:13)
--- NOTE | 2021-07-12 10:27 | PM.IMPN ---
Progress Note: A&P Assessment and Plan (1) Acute respiratory failure: Code(s): J96.00 - Acute respiratory failure, unspecified whether with hypoxia or hypercapnia Status: Acute Assessment and Plan: Acute Respiratory failure secondary to pulmonary edema likely from volume overload Off ventilator now and maintaining saturations on nasal cannula PCXR reviewed Most likely likely patient has pneumonia treated with IV antibiotic Incentive spirometry Patient has recurrent episodes of fever low-grade resolved will consider repeat CT scan of the chest and abdomen if recurrence surgery following (2) Sepsis: Qualifiers: Sepsis type: sepsis due to unspecified organism Sepsis acute organ dysfunction status: with acute organ dysfunction Severe sepsis acute organ dysfunction type: disseminated intravascular coagulopathy Code(s): A41.9 - Sepsis, unspecified organism Status: Acute Assessment and Plan: Secondary to peritonitis from perforated gastric and duodenal ulcer Patient has received significant amount of blood products and 25% albumin till now. Weaned off pressors Continue Zosyn,(started on 06/29) Blood cultures have been negative till now He is afebrile, leukocytosis improving At least 2 weeks of IV antibiotics then evaluateto switch to probably oral antibiotic for 1-2 weeks Plan to remove suture before discharge per surgery CT chest abdomen and pelvis was done on 07/04/2021: No evidence of contrast extravasation. Small right and very small left pleural effusion with right lower lobe collapse and partial collapse of the left lower lobe. Peripheral patchy ground-glass opacities in both lungs. Moderate amount of non loculated appearing ascites. Cirrhosis. Diffuse edematous wall thickening of the colon (3) Perforated gastric ulcer: Code(s): K25.5 - Chronic or unspecified gastric ulcer with perforation Status: Deleted Assessment and Plan: Status post ex lap 06/24 evacuation of 9.3 L intra-abdominal ascites, repair of perforated gastric ulcer with omental patch, intra-abdominal washout. 06/28 - UGI series - Duodenal perforation, extravasation CT abdomen pelvis IMPRESSION: 1. Duodenal perforation, moderate ascites and free intraperitoneal gas. 2. Probable colitis, diarrhea. 3. Multisegmental basilar atelectasis. Pneumonia not excludable. 4. Cardiomegaly. 5. Anasarca 06/29 developed fascial dehiscence without evisceration but leaking ascites almost continually., INR 6.2 patient taken back to OR and underwent Closure with omentoplasty perforated gastric ulcer, repair fascial dehiscence 2 units of FFP given intraoperatively postop in ICU patient was given 3 units of PRBC and 4 units of FFP Now extubated TPN was discontinued by surgery on 07/09/[address] KERON drain in place with serosanguineous output General surgery is following 07/04/2021 CT scan of the abdomen pelvis as above Diet advanced per surgery Patient most likely will need rehab (4) Acute kidney injury: Code(s): N17.9 - Acute kidney failure, unspecified Status: Acute Assessment and Plan: Likely secondary to sepsis, patient received significant amount of blood products and IV fluids Creatinine marginally improved and urine output has improved Monitor urine output electrolytes and creatinine Monitor (5) Encephalopathy: Code(s): G93.40 - Encephalopathy, unspecified Status: Acute Assessment and Plan: Likely multifactorial and metabolic His last ammonia level was normal Improved and off Precedex now (6) Alcoholism: Code(s): F10.20 - Alcohol dependence, uncomplicated Status: Acute Assessment and Plan: Thiamine and folic acid Off Precedex now P.r.n. Ativan ordered (7) Cirrhosis of liver: Code(s): K74.60 - Unspecified cirrhosis of liver Status: Acute Assessment and Plan: Secondary to alcohol abuse
--- NOTE | 2021-07-12 10:35 | PM.PNGS ---
Progress Note: A&P Assessment and Plan (1) Perforated gastric ulcer: Qualifiers: Gastric ulcer chronicity: acute Qualified Code(s): K25.1 - Acute gastric ulcer with perforation Code(s): K25.5 - Chronic or unspecified gastric ulcer with perforation Status: Acute Assessment and Plan: much improved, cont drain, abx, await disposition, will likely remove KERON prior to dc Subjective Subjective Date/Time Seen: 07/12/21 10:35 feels much better, timothy soft diet, no further temps Review of Systems Review of Systems: All systems reviewed & are unremarkable except as noted in HPI and below Exam Const: General: cooperative, comfortable, no acute distress and ill appearing Orientation/consciousness: patient oriented x3 Resp: Auscultation: diminished lung sounds Cardio: Rate: regular rate Rhythm: regular rhythm GI: Inspection: normal to inspection and distended GI Palp: Yes abdominal tenderness, Yes Soft to palpation, Yes Tenderness to palpation present (GI), No Guarding due to palpation present (GI) and No Rigid due to palpation Other: incision c mild redness, no fluctuance/drainage, yuniel removed, KERON c mod serous output Objective Data Vital Signs Vital Signs: Vital Signs - 24 hr 07/11/21 14:11 07/11/21 14:24 07/11/21 15:10 Temperature 37.6 C Pulse Rate 104 H 100 107 H Respiratory Rate 20 20 18 Blood Pressure 129/61 Pulse Oximetry 93 07/11/21 20:26 07/11/21 20:34 07/11/21 22:00 Temperature 36.9 C Pulse Rate 99 95 106 H Respiratory Rate 20 20 18 Blood Pressure 118/51 L Pulse Oximetry 92 07/12/21 03:15 07/12/21 03:23 07/12/21 06:00 Temperature 37.1 C Pulse Rate 96 95 100 Respiratory Rate 18 18 16 Blood Pressure 120/54 L Pulse Oximetry 93 07/12/21 08:29 Temperature Pulse Rate 92 Respiratory Rate 18 Blood Pressure Pulse Oximetry Intake/Output Intake/Output: Intake & Output 07/09/21 07/10/21 07/11/21 07/12/21 23:59 23:59 23:59 23:59 Intake Total 1700 1580 1590 850 Output Total 1900 1240 980 550 Balance -200 340 610 300 Meds/Results Medications: Active Medications Generic Name Dose Route Start Last Admin Trade Name Freq PRN Reason Stop Dose Admin Acetaminophen 650 mg 07/08/21 16:19 07/10/21 16:59 Acetaminophen 325 Mg Tablet PO 650 mg Q4H PRN Administration Mild Pain (1-3) or Fever Albuterol 2.5 mg 06/29/21 02:05 07/12/21 08:28 Albuterol Sulfate Neb 2.5 Mg/0.5 Ml Inh INHALATION 2.5 mg Q6HRT JOSEFA Administration Folic Acid 1 mg 06/25/21 14:35 07/12/21 10:13 Folic Acid 1 Mg/0.2 Ml Inj IV PUSH 1 mg QAM JOSEFA Administration Albumin Human 100 mls @ 60 mls/hr 06/25/21 16:00 07/01/21 08:14 Albutein IVPB Infused Q6HR JOSEFA Infusion Piperacillin/Tazobactam/Dextrose 3.375 gm in 50 mls @ 100 mls/hr 06/29/21 15:00 07/12/21 10:13 Zosyn 3.375 Gm/D5w 50ml Pm IVPB 100 mls/hr Q6H JOSEFA Administration Ipratropium [place] 0.5 mg 06/29/21 02:05 07/12/21 08:28 Ipratropium Br 0.02% Inh Soln 0.5 Mg/2.5 Ml Vial INHALATION 0.5 mg Q6HRT JOSEFA Administration Lorazepam 1 - 2 mg 06/29/21 09:30 06/29/21 23:00 Lorazepam Inj (*Crx) 2 Mg/Ml Vial IV PUSH 2 mg Q2H PRN Administration Withdrawal, restless Miconazole Nitrate 1 applic 07/11/21 09:00 07/12/21 10:11 Miconazole 2% Antifungal Ointment 56 Gm TOPICAL 1 applic Q12HR JOSEFA Administration Morphine Sulfate 1 mg 06/29/21 09:22 07/11/21 09:47 Morphine Sulfate (*Crx) 2 Mg/Ml Inj IV PUSH 1 mg Q2H PRN Administration Pain Rated 4-6 Morphine Sulfate 2 mg 06/29/21 09:39 07/12/21 06:31 Morphine Sulfate (*Crx) 2 Mg/Ml Inj IV PUSH 2 mg Q2H PRN Administration Pain Rated 7-10 Ondansetron HCl 4 mg 06/20/21 21:45 07/09/21 10:20 Ondansetron Inj 4 Mg/2 Ml Vial IV PUSH 4 mg Q4H PRN Administration Nausea Pantoprazole Sodium 40 mg 06/21/21 21:00 07/12/21 10:12 Pantoprazole Sodium Iv 40 Mg
[2021-07-12] MEDS: FUROSEMIDE INJ 40 MG/4 ML VIAL 20 MG IV PUSH (10:53)
--- NOTE | 2021-07-12 13:07 | PCNFU ---
Nutrition Follow-Up Complete: Altered GI function as related to GI bleed as evidenced by liquid diet orders. Goal: Adequate Intake of at least 75% of meals/supplements Pt is progressing towards goal Pt current nutrition is soft and bite sized, L6/ heart healthy diet and dietary supplements Last recorded weight is 91.3 kg. Bowel Motility: +BM 07/11 reported Labs Reviewed: hgb 7.3, hct 22.1, alb 2.6, Na 127, CO2 20, Ca 8.1, AST 95 Meds Noted: folic acid, atrovent, ativan, morphine, protonix, zosyn, carafate, thiamine hcl Skin: bilateral buttock friction Additional Notes: Current nutrition is a soft and bite sized, L6/heart healthy diet and dietary supplement of Ensure Compact TID providing an additional 220kcal and 9g of protein to increase caloric intake. Reported intake is 10%, 25%, 0%, 50%, and 100%. Visit with pt who reports that he is eating well and likes the dietary supplement. Pt requested to receive the dietary supplement more than TID. RDN placed orders for dietary supplement of ensure compact Q 4 hours. Diet office has been notified. Agree with diet orders at this time. Will continue to follow. RD will monitor every 5 days.
[2021-07-13] VITALS (7 sets, daily range): BP systolic 113–115; BP diastolic 50–59; PULSE 90–115; RESP 14–18; TEMP 37.1–38.5; O2SAT 94–95
[2021-07-13] MEDS: ALBUTEROL SULFATE NEB 2.5 MG/0.5 ML INH INHALATION ×2 (03:12→09:42)
[2021-07-13] MEDS: IPRATROPIUM BR 0.02% INH SOLN 0.5 MG/2.5 ML VIAL INHALATION ×2 (03:12→09:41)
[2021-07-13] MEDS: SUCRALFATE SUSP 100 MG/ML 10 ML UDC 1000 MG PO ×4 (05:35→21:10)
[2021-07-13] MEDS: MORPHINE SULFATE (*CRX) 2 MG/ML INJ IV PUSH ×3 (05:36→21:27)
[2021-07-13] MEDS: CENTRAL LINE FLUSH 10 ML IV PUSH ×3 (05:38→21:10)
[2021-07-13 07:38] LABS: Hematocrit 21.7 % (42.0-52.0); Hemoglobin 7.3 g/dL (14.0-18.0); Immature Platelet Fraction Pct 4.1 % (0.9-11.2); Mean Corpuscular HGB Conc 33.6 g/dl (32-36); Mean Corpuscular Hemoglobin 31.2 pg (26-34); Mean Corpuscular Volume 92.7 fl (80-100); Mean Platelet Volume 11.3 fl (7.4-10.4); Platelet Count Result 120 k/mm3 (150-375); Red Blood Count 2.34 M/mm3 (4.6-6.20); Red Cell Distribution Width 25.5 % (11.5-14.5); White Blood Count 12.7 K/mm3 (4.5-10.0)
[2021-07-13 07:55] LABS: Alanine Aminotransferase 41 U/L (4-50); Albumin Level 2.6 g/dL (3.5-5.1); Alkaline Phosphatase 80 U/L (38-126); Anion Gap 3 mmol/L (8-16); Aspartate Amino Transferase 101 U/L (17-59); Bilirubin,Total 6.5 mg/dL (0.2-1.3); Blood Urea Nitrogen 16 mg/dL (9-20); Calcium 8.1 mg/dL (8.4-10.2); Carbon Dioxide 21 mmol/L (22-30); Chloride 102 mmol/L (98-107); Estimated CRCL calculation 97 ml/min; Estimated Glomerular Filt Rate > 60; Glucose 109 mg/dL (65-110); Magnesium 1.6 mg/dL (1.6-2.3); Sodium 126 mmol/L (137-145)
[2021-07-13 07:57] LABS: Glucose Point of Care 110 mg/dl (65-105)
[2021-07-13] MEDS: PANTOPRAZOLE SODIUM IV 40 MG VIAL IV PUSH ×2 (09:25→21:10)
[2021-07-13] MEDS: THIAMINE HCL 200 MG/2 ML VIAL 100 MG IV PUSH (09:25)
[2021-07-13] MEDS: FOLIC ACID 1 MG/0.2 ML INJ IV PUSH (09:26)
[2021-07-13] MEDS: MORPHINE SULFATE (*CRX) 2 MG/ML INJ 1 MG IV PUSH (09:37)
--- NOTE | 2021-07-13 16:35 | PM.IMPN ---
Progress Note: A&P Assessment and Plan (1) Acute respiratory failure: Code(s): J96.00 - Acute respiratory failure, unspecified whether with hypoxia or hypercapnia Status: Acute Assessment and Plan: Acute Respiratory failure secondary to pulmonary edema likely from volume overload Off ventilator now and maintaining saturations on nasal cannula PCXR reviewed Most likely likely patient has pneumonia treated with IV antibiotic Incentive spirometry Patient has recurrent episodes of fever low-grade resolved will order CT scan of the chest and abdomen and pelvis for further evaluation (2) Sepsis: Qualifiers: Sepsis acute organ dysfunction status: with acute organ dysfunction Sepsis type: sepsis due to unspecified organism Severe sepsis acute organ dysfunction type: disseminated intravascular coagulopathy Code(s): A41.9 - Sepsis, unspecified organism Status: Acute Assessment and Plan: Secondary to peritonitis from perforated gastric and duodenal ulcer Patient has received significant amount of blood products and 25% albumin till now. Weaned off pressors Continue Zosyn,(started on 06/29) Blood cultures have been negative till now He is afebrile, leukocytosis improving At least 2 weeks of IV antibiotics then evaluateto switch to probably oral antibiotic for 1-2 weeks Plan to remove suture before discharge per surgery CT chest abdomen and pelvis was done on 07/04/2021: No evidence of contrast extravasation. Small right and very small left pleural effusion with right lower lobe collapse and partial collapse of the left lower lobe. Peripheral patchy ground-glass opacities in both lungs. Moderate amount of non loculated appearing ascites. Cirrhosis. Diffuse edematous wall thickening of the colon With persistent fever will recheck his CT chest abdomen and pelvis (3) Perforated gastric ulcer: Code(s): K25.5 - Chronic or unspecified gastric ulcer with perforation Status: Deleted Assessment and Plan: Status post ex lap 06/24 evacuation of 9.3 L intra-abdominal ascites, repair of perforated gastric ulcer with omental patch, intra-abdominal washout. 06/28 - UGI series - Duodenal perforation, extravasation CT abdomen pelvis IMPRESSION: 1. Duodenal perforation, moderate ascites and free intraperitoneal gas. 2. Probable colitis, diarrhea. 3. Multisegmental basilar atelectasis. Pneumonia not excludable. 4. Cardiomegaly. 5. Anasarca 06/29 developed fascial dehiscence without evisceration but leaking ascites almost continually., INR 6.2 patient taken back to OR and underwent Closure with omentoplasty perforated gastric ulcer, repair fascial dehiscence 2 units of FFP given intraoperatively postop in ICU patient was given 3 units of PRBC and 4 units of FFP Now extubated TPN was discontinued by surgery on 07/09/[address] KERON drain in place with serosanguineous output General surgery is following 07/04/2021 CT scan of the abdomen pelvis as above Diet advanced per surgery Patient most likely will need rehab 07/13/2019 to general surgery following on PPI (4) Acute kidney injury: Code(s): N17.9 - Acute kidney failure, unspecified Status: Acute Assessment and Plan: Likely secondary to sepsis, patient received significant amount of blood products and IV fluids Creatinine marginally improved and urine output has improved Monitor urine output electrolytes and creatinine Monitor (5) Encephalopathy: Code(s): G93.40 - Encephalopathy, unspecified Status: Acute Assessment and Plan: Likely multifactorial and metabolic His last ammonia level was normal Improved and off Precedex now (6) Alcoholism: Code(s): F10.20 - Alcohol dependence, uncomplicated Status: Acute Assessment and Plan: Thiamine and folic acid Off Precedex now P.r.n. Ativan ordered (7) Cirrhosis of liver: Code(s): K74.60 - U
[2021-07-13 18:50] LABS: Prothrombin Time 22.4 Seconds (11.1-14.7)
[2021-07-13 18:51] LABS: Ammonia 12 umol/L (9-30); Lactic Acid Reflex 1.9 mmol/L (0.7-2.1)
[2021-07-13] MEDS: ACETAMINOPHEN 325 MG TABLET 650 MG PO (18:53)
[2021-07-14] MEDS: SUCRALFATE SUSP 100 MG/ML 10 ML UDC 1000 MG PO ×3 (06:05→20:58)
[2021-07-14] MEDS: CENTRAL LINE FLUSH 10 ML IV PUSH ×2 (06:05→14:32)
[2021-07-14 06:37] VITALS: BP 111/58; PULSE 96; RESP 18; TEMP 37.1; O2SAT 95
[2021-07-14 06:49] LABS: Hematocrit 22.3 % (42.0-52.0); Hemoglobin 7.4 g/dL (14.0-18.0); Mean Corpuscular HGB Conc 33.2 g/dl (32-36); Mean Corpuscular Hemoglobin 31.8 pg (26-34); Mean Corpuscular Volume 95.7 fl (80-100); Mean Platelet Volume 10.1 fl (7.4-10.4); Platelet Count Result 195 k/mm3 (150-375); Red Blood Count 2.33 M/mm3 (4.6-6.20); Red Cell Distribution Width 26.3 % (11.5-14.5); White Blood Count 14.9 K/mm3 (4.5-10.0)
[2021-07-14 07:16] LABS: Alanine Aminotransferase 49 U/L (4-50); Albumin Level 2.6 g/dL (3.5-5.1); Alkaline Phosphatase 91 U/L (38-126); Anion Gap 3 mmol/L (8-16); Aspartate Amino Transferase 121 U/L (17-59); Bilirubin,Total 5.8 mg/dL (0.2-1.3); Blood Urea Nitrogen 16 mg/dL (9-20); Calcium 8.2 mg/dL (8.4-10.2); Carbon Dioxide 22 mmol/L (22-30); Chloride 103 mmol/L (98-107); Estimated CRCL calculation 110 ml/min; Estimated Glomerular Filt Rate > 60; Glucose 106 mg/dL (65-110); Magnesium 1.7 mg/dL (1.6-2.3); Potassium 4.5 mmol/L (3.4-5.0); Sodium 128 mmol/L (137-145)
[2021-07-14] MEDS: MORPHINE SULFATE (*CRX) 2 MG/ML INJ IV PUSH ×2 (10:15→17:55)
[2021-07-14] MEDS: FOLIC ACID 1 MG/0.2 ML INJ IV PUSH (10:17)
[2021-07-14] MEDS: PANTOPRAZOLE SODIUM IV 40 MG VIAL IV PUSH ×2 (10:17→20:58)
[2021-07-14] MEDS: THIAMINE HCL 200 MG/2 ML VIAL 100 MG IV PUSH (10:17)
--- NOTE | 2021-07-14 11:31 | PM.IMPN ---
Progress Note: A&P Assessment and Plan (1) Acute respiratory failure: Code(s): J96.00 - Acute respiratory failure, unspecified whether with hypoxia or hypercapnia Status: Acute Assessment and Plan: Acute Respiratory failure secondary to pulmonary edema likely from volume overload Off ventilator now and maintaining saturations on nasal cannula PCXR reviewed Most likely likely patient has pneumonia treated with IV antibiotic Incentive spirometry Patient has recurrent episodes of fever low-grade resolved repeat CT chest and abdomen done on 07/13/2021 with worsening ascites and right pleural effusion with concurrent right lower lobe Compressive atelectasis. Likely related to decompensation of his liver failure Need to rule out secondary bacterial peritonitis due to persistent fever. Will order thoracentesis as well as paracentesis. Will change his antibiotic to carbapenems, preferably to have the tap done before we start this however if not able to be done today radiology will start these He is already on IV albumin Will give a dose of Lasix IV x1 and start spironolactone 25 mg a day GI re-consult for decompensation of his chronic liver disease (2) Sepsis: Qualifiers: Sepsis type: sepsis due to unspecified organism Sepsis acute organ dysfunction status: with acute organ dysfunction Severe sepsis acute organ dysfunction type: disseminated intravascular coagulopathy Code(s): A41.9 - Sepsis, unspecified organism Status: Acute Assessment and Plan: Secondary to peritonitis from perforated gastric and duodenal ulcer Patient has received significant amount of blood products and 25% albumin till now. Weaned off pressors Continue Zosyn,(started on 06/29) Blood cultures have been negative till now He is afebrile, leukocytosis improving At least 2 weeks of IV antibiotics then evaluateto switch to probably oral antibiotic for 1-2 weeks Plan to remove suture before discharge per surgery CT chest abdomen and pelvis was done on 07/04/2021: No evidence of contrast extravasation. Small right and very small left pleural effusion with right lower lobe collapse and partial collapse of the left lower lobe. Peripheral patchy ground-glass opacities in both lungs. Moderate amount of non loculated appearing ascites. Cirrhosis. Diffuse edematous wall thickening of the colon With persistent fever CT scan abdomen pelvis and chest done which is reviewed above (3) Perforated gastric ulcer: Code(s): K25.5 - Chronic or unspecified gastric ulcer with perforation Status: Deleted Assessment and Plan: Status post ex lap 06/24 evacuation of 9.3 L intra-abdominal ascites, repair of perforated gastric ulcer with omental patch, intra-abdominal washout. 06/28 - UGI series - Duodenal perforation, extravasation CT abdomen pelvis IMPRESSION: 1. Duodenal perforation, moderate ascites and free intraperitoneal gas. 2. Probable colitis, diarrhea. 3. Multisegmental basilar atelectasis. Pneumonia not excludable. 4. Cardiomegaly. 5. Anasarca 06/29 developed fascial dehiscence without evisceration but leaking ascites almost continually., INR 6.2 patient taken back to OR and underwent Closure with omentoplasty perforated gastric ulcer, repair fascial dehiscence 2 units of FFP given intraoperatively postop in ICU patient was given 3 units of PRBC and 4 units of FFP Now extubated TPN was discontinued by surgery on 07/09/[address] KERON drain in place with serosanguineous output General surgery is following 07/04/2021 CT scan of the abdomen pelvis as above Diet advanced per surgery Patient most likely will need rehab 07/13/2019 to general surgery following on PPI (4) Acute kidney injury: Code(s): N17.9 - Acute kidney failure, unspecified Status: Acute Assessment and Plan: Likely secondary to sepsis, patient received significant amount of blood products and IV f
[2021-07-14 12:27] LABS: INR 2.2; Prothrombin Time 23.6 Seconds (11.1-14.7)
[2021-07-14 14:00] VITALS: BP 135/44; PULSE 90; RESP 20; TEMP 36.4; O2SAT 92
[2021-07-14 14:12] LABS: Appearance Peritoneal Fluid Bloody (Clear); Color Peritoneal Fluid Red (Colorless); Source Peritoneal Fluid Peritoneal Fluid
[2021-07-14 14:19] LABS: Lymphocytes Peritoneal Fluid 7 %; Monocytes Peritoneal Fluid 1 %; Neutrophils Peritoneal Fluid 92 % (0-25)
[2021-07-14] MEDS: SPIRONOLACTONE 25 MG TABLET PO (14:32)
[2021-07-14] MEDS: FUROSEMIDE INJ 40 MG/4 ML VIAL IV PUSH (14:32)
--- NOTE | 2021-07-14 16:09 | PCPTNOTE ---
Pt refused treatment this afternoon. Pt stated that he was just moved around and would like to lay in bed and rest. Will continue per plan of care.
[2021-07-14 20:00] VITALS: PULSE 64; RESP 20; O2SAT 95
--- NOTE | 2021-07-14 21:07 | ECG_ITS ---
Measurements Intervals [place] Rate: 94 P: 41 IA: 120 QRS: 53 QRSD: 106 T: 55 QT: 428 QTc: 537 Interpretive Statements SINUS RHYTHM FREQUENT VENTRICULAR PREMATURE COMPLEXES BORDERLINE T WAVE ABNORMALITY- HIGH LATERAL LEADS PROLONGED QT INTERVAL BASELINE ARTIFACT- I, III, AVR, AVL, AVF, V3 ABNORMAL ECG Electronically Signed On 07-19-2021 15:16:06 [employer] by Meng Rodriguez D.O.
[2021-07-14 22:00] VITALS: BP 115/49; PULSE 64; RESP 20; TEMP 37.4; O2SAT 95
[2021-07-14 22:23] LABS: Glucose Point of Care 104 mg/dl (65-105)
[2021-07-15] VITALS (7 sets, daily range): BP systolic 120–128; BP diastolic 53–62; PULSE 68–106; RESP 16–20; TEMP 36.9–38.3; O2SAT 93–97
[2021-07-15] MEDS: CENTRAL LINE FLUSH 10 ML IV PUSH ×4 (05:09→20:38)
[2021-07-15] MEDS: SUCRALFATE SUSP 100 MG/ML 10 ML UDC 1000 MG PO ×4 (05:11→20:35)
[2021-07-15 09:38] LABS: Hematocrit 24.5 % (42.0-52.0); Hemoglobin 8.2 g/dL (14.0-18.0); Mean Corpuscular HGB Conc 33.5 g/dl (32-36); Mean Corpuscular Hemoglobin 31.2 pg (26-34); Mean Corpuscular Volume 93.2 fl (80-100); Mean Platelet Volume 10.6 fl (7.4-10.4); Platelet Count Result 179 k/mm3 (150-375); Red Blood Count 2.63 M/mm3 (4.6-6.20); Red Cell Distribution Width 26.7 % (11.5-14.5); White Blood Count 18.6 K/mm3 (4.5-10.0)
[2021-07-15 09:48] LABS: INR 2.2; Prothrombin Time 23.6 Seconds (11.1-14.7)
[2021-07-15] MEDS: FOLIC ACID 1 MG/0.2 ML INJ IV PUSH (09:48)
[2021-07-15] MEDS: PANTOPRAZOLE SODIUM IV 40 MG VIAL IV PUSH ×2 (09:48→20:35)
[2021-07-15] MEDS: THIAMINE HCL 200 MG/2 ML VIAL 100 MG IV PUSH (09:48)
[2021-07-15] MEDS: SPIRONOLACTONE 25 MG TABLET PO (09:49)
[2021-07-15 09:51] LABS: Alanine Aminotransferase 59 U/L (4-50); Albumin Level 2.5 g/dL (3.5-5.1); Alkaline Phosphatase 156 U/L (38-126); Anion Gap 1 mmol/L (8-16); Aspartate Amino Transferase 132 U/L (17-59); Bilirubin,Total 6.4 mg/dL (0.2-1.3); Blood Urea Nitrogen 16 mg/dL (9-20); Calcium 8.3 mg/dL (8.4-10.2); Carbon Dioxide 25 mmol/L (22-30); Chloride 105 mmol/L (98-107); Estimated CRCL calculation 110 ml/min; Estimated Glomerular Filt Rate > 60; Glucose 108 mg/dL (65-110); Magnesium 1.6 mg/dL (1.6-2.3); Potassium 3.5 mmol/L (3.4-5.0); Sodium 131 mmol/L (137-145)
[2021-07-15] MEDS: MORPHINE SULFATE (*CRX) 2 MG/ML INJ IV PUSH ×3 (10:07→20:57)
--- NOTE | 2021-07-15 12:08 | WPDGIPROGNO ---
Progress Note: A&P Assessment and Plan (1) Cirrhosis of liver with ascites: Qualifiers: Hepatic cirrhosis type: alcoholic cirrhosis Qualified Code(s): K70.31 - Alcoholic cirrhosis of liver with ascites Code(s): K74.60 - Unspecified cirrhosis of liver; R18.8 - Other ascites Status: Chronic Assessment and Plan: had paracentesis yesterday with dark blood material (unable to process) with neutrophils but patient has been recovering from peritonitis from perforated in fact required a second intervention after noted extravasation. He is on iv antibiotics, abdomen is distended but no tender, he is on abx now he is tolerating diet and not longer on TPN will increase aldactone to 50 mg and add lasix to 20 mg (his renal function normalized), also 2 g na diet he eventually will need to see a call center consultant for liver transplant evaluation in near future and of course drinking altogether MELD score is 19 (mostly unchanged during this prolonged hospitalization) (2) Perforated gastric ulcer: Qualifiers: Gastric ulcer chronicity: acute Qualified Code(s): K25.1 - Acute gastric ulcer with perforation Code(s): K25.5 - Chronic or unspecified gastric ulcer with perforation Status: Acute Assessment and Plan: on iv protonix, s/p surgery x2 tolerating diet (3) Dehiscence of closure of fascia, superficial or muscular: Qualifiers: Encounter type: subsequent encounter Qualified Code(s): T81.32XD - Disruption of internal operation (surgical) wound, not elsewhere classified, subsequent encounter Code(s): T81.32XA - Disruption of internal operation (surgical) wound, not elsewhere classified, initial encounter Status: Acute (4) Sepsis: Qualifiers: Sepsis type: sepsis due to unspecified organism Sepsis acute organ dysfunction status: with acute organ dysfunction Severe sepsis acute organ dysfunction type: disseminated intravascular coagulopathy Code(s): A41.9 - Sepsis, unspecified organism Status: Acute Assessment and Plan: elevated wbc but overall he looks much better has been on broad spectrum abx for many days (5) Alcoholism: Code(s): F10.20 - Alcohol dependence, uncomplicated Status: Acute (6) Coagulopathy: Code(s): D68.9 - Coagulation defect, unspecified Status: Acute Assessment and Plan: from liver decompensation Subjective Date/time seen: 07/15/21 12:08 Interval history: I am called to see him again because ascites. He had a prolonged hospitalization because peritonitis associated to perforated gastric ulcer that required second surgical intervention, he developed MIRANDA, sepsis, briefly on pressors and was in ICU intubated. He has been able to eat and TPN was discontinued with slow recovery, few days ago with low grade fever and restarted on abx (imipenen). Repeat CT scan showed ascites and pleural effusion with atelectasis. paracentesis removed 350 ml bloody material. He says that is doing better, still with abdominal distension but has been tolerating diet, also + BM without bleeding, his mentation also is normal and he knows what is going on. Review of Systems Review of Systems: All systems reviewed & are unremarkable except as noted in HPI and below Exam Const: General: comfortable, no acute distress and ill appearing chronically HENMT: General nose exam: Normal nares present Eyes: General: appearance normal, both eyes and all related structures Neck: Neck: supple Resp: Auscultation: no wheezes and diminished lung sounds Cardio: Rate: regular rate GI: Inspection: distended GI Palp: No Tenderness to palpation present (GI) and No Guarding due to palpation present (GI) Auscultation: normal bowel sounds Other: KERON drain in place, dressing in place Skin: General skin exam: no rashes or lesions noted Neuro: Speech: normal speech Motor exam (neuro): Normal motor muscle tone present throughout
--- NOTE | 2021-07-15 13:21 | PM.PNGS ---
Progress Note: A&P Assessment and Plan (1) Perforated gastric ulcer: Qualifiers: Gastric ulcer chronicity: acute Qualified Code(s): K25.1 - Acute gastric ulcer with perforation Code(s): K25.5 - Chronic or unspecified gastric ulcer with perforation Status: Acute Assessment and Plan: Clinically improving, although WBC trending up again today to 18,000. He has been afebrile since 07/13. Continue IV antibiotics. S/p paracentesis with cx pending. Monitor KERON drain for now and plan to remove prior to discharge. Additional Plan I have discussed the plan of care with Dr. Tijerina. Subjective Subjective Date/Time Seen: 07/15/21 12:21 Patient reports: no new complaints, feels better, flatus, bowel movement (last BM yesterday per patient) and afebrile (since 07/13) Interval history: Patient seen and examined. He reports feeling much better today. Denies any abdominal pain, nausea, or vomiting. S/p paracentesis yesterday. Reports lots of flatus today and believes he had a BM yesterday. No other complaints at this time. Review of Systems Review of Systems: All systems reviewed & are unremarkable except as noted in HPI and below Cardiovascular: Cardiovascular: Reports no additional cardiovascular complaints, Denies chest pain, Reports leg edema (equal bilaterally for a few days) and Denies dyspnea Respiratory: Respiratory: Reports no additional respiratory complaints, Denies cough and Denies dyspnea Gastrointestinal: Gastrointestinal: Reports as per HPI and Reports no additional gastrointestinal complaints Exam Const: General: comfortable, alert and awake Orientation/consciousness: patient oriented x3 Resp: Effort & Inspection: normal respiratory effort Auscultation: clear to auscultation bilaterally Cardio: Rate: regular rate Rhythm: regular rhythm GI: Inspection: incision (healing well with minimal erythema, much improved,no fluctuance or drainage), visible herniation (soft umbilical hernia) and other (KERON with serous drainage) GI Palp: Yes Soft to palpation, No Tenderness to palpation present (GI), No Guarding due to palpation present (GI) and No Rebound tenderness present Auscultation: normal bowel sounds Other: abd distention improved from my last exam s/p paracentesis Urinary Catheter: Urinary Catheter: patent and draining and urine dark (orange) Skin: General skin exam: jaundice Neuro: General: moves all extremities and no focal motor deficits Extrem: General: no calf tenderness and edema bilateral (bilateral legs 3-4+ pitting) Psych: Insight: Good insight present (Psych) Judgement: Good judgement present (Psych) Objective Data Vital Signs Vital Signs: Vital Signs - 24 hr 07/14/21 14:00 07/14/21 20:00 07/14/21 22:00 Temperature 97.5 F L 99.3 F Pulse Rate 90 64 64 Respiratory Rate 20 20 20 Blood Pressure 135/44 L 115/49 L Pulse Oximetry 92 95 95 07/15/21 06:00 Temperature 98.7 F Pulse Rate 68 Respiratory Rate 18 Blood Pressure 120/53 L Pulse Oximetry 97 Intake/Output Intake/Output: Intake & Output 07/12/21 07/13/21 07/14/21 07/15/21 23:59 23:59 23:59 23:59 Intake Total 1944 680 750 440 Output Total 241 723 9793 400 Balance 1364 -120 -1325 40 Meds/Results Medications: Active Medications Generic Name Dose Route Start Last Admin Trade Name Hailey PRN Reason Stop Dose Admin Acetaminophen 650 mg 07/08/21 16:19 07/13/21 18:53 Acetaminophen 325 Mg Tablet PO 650 mg Q4H PRN Administration Mild Pain (1-3) or Fever Albuterol 2.5 mg 07/13/21 14:52 Albuterol Sulfate Neb 2.5 Mg/0.5 Ml Inh INHALATION Q6HRT PRN Shortness Of Breath Folic Acid 1 mg 06/25/21 14:35 07/15/21 09:48 Folic Acid 1 Mg/0.2 Ml Inj IV PUSH 1 mg QAM JOSEFA Administration Furosemide 20 mg 07/16/21 09:00 Furosemide 20 Mg Tablet PO DAILY JOSEFA Albumin Human 100 mls @ 60 mls/hr 06/25/21 16:00 07/01/21 08:14 Albutein IVPB Infused Q6HR JOSEFA Inf
--- NOTE | 2021-07-15 14:29 | PM.IMPN ---
Progress Note: A&P Assessment and Plan (1) Acute respiratory failure: Code(s): J96.00 - Acute respiratory failure, unspecified whether with hypoxia or hypercapnia Status: Acute Assessment and Plan: INTERVAL HISTORY : Acute Respiratory failure secondary to pulmonary edema likely from volume overload Off ventilator now and maintaining saturations on nasal cannula PCXR reviewed Most likely likely patient has pneumonia treated with IV antibiotic Incentive spirometry Patient has recurrent episodes of fever low-grade resolved repeat CT chest and abdomen done on 07/13/2021 with worsening ascites and right pleural effusion with concurrent right lower lobe Compressive atelectasis. Likely related to decompensation of his liver failure Need to rule out secondary bacterial peritonitis due to persistent fever. Will order thoracentesis as well as paracentesis. GI re-consult for decompensation of his chronic liver disease (2) Sepsis: Qualifiers: Sepsis type: sepsis due to unspecified organism Sepsis acute organ dysfunction status: with acute organ dysfunction Severe sepsis acute organ dysfunction type: disseminated intravascular coagulopathy Code(s): A41.9 - Sepsis, unspecified organism Status: Acute Assessment and Plan: INTERVAL HISTORY : Secondary to peritonitis from perforated gastric and duodenal ulcer Patient has received significant amount of blood products and 25% albumin till now. Weaned off pressors Continue Zosyn,(started on 06/29) Blood cultures have been negative till now He is afebrile, leukocytosis improving At least 2 weeks of IV antibiotics then evaluateto switch to probably oral antibiotic for 1-2 weeks Plan to remove suture before discharge per surgery CT chest abdomen and pelvis was done on 07/04/2021: No evidence of contrast extravasation. Small right and very small left pleural effusion with right lower lobe collapse and partial collapse of the left lower lobe. Peripheral patchy ground-glass opacities in both lungs. Moderate amount of non loculated appearing ascites. Cirrhosis. Diffuse edematous wall thickening of the colon With persistent fever CT scan abdomen pelvis and chest done [place]acentesis [place] [id number] (3) Perforated gastric ulcer: Code(s): K25.5 - Chronic or unspecified gastric ulcer with perforation Status: Deleted Assessment and Plan: Status post ex lap 06/24 evacuation of 9.3 L intra-abdominal ascites, repair of perforated gastric ulcer with omental patch, intra-abdominal washout. 06/28 - UGI series - Duodenal perforation, extravasation CT abdomen pelvis IMPRESSION: 1. Duodenal perforation, moderate ascites and free intraperitoneal gas. 2. Probable colitis, diarrhea. 3. Multisegmental basilar atelectasis. Pneumonia not excludable. 4. Cardiomegaly. 5. Anasarca 06/29 developed fascial dehiscence without evisceration but leaking ascites almost continually., INR 6.2 patient taken back to OR and underwent Closure with omentoplasty perforated gastric ulcer, repair fascial dehiscence 2 units of FFP given intraoperatively postop in ICU patient was given 3 units of PRBC and 4 units of FFP Now extubated TPN was discontinued by surgery on 07/09/[address] KERON drain in place with serosanguineous output General surgery is following 07/04/2021 CT scan of the abdomen pelvis as above Diet advanced per surgery Patient most likely will need rehab 07/13/2019 to general surgery following on PPI 07/15/2019 pt to have thoracentesis and paracentesis hopeful dc in 1-2 days time (4) Acute kidney injury: Code(s): N17.9 - Acute kidney failure, unspecified Status: Acute Assessment and Plan: Likely secondary to sepsis creat is nl (5) Encephalopathy: Code(s): G93.40 - Encephalopathy, unspecified Status: Acute Assessment and Plan: Likely multifactorial and metabolic
--- NOTE | 2021-07-15 15:24 | PCPTNOTE ---
Patient participated in LE exercises but declined sitting EOB and out of bed transfers. Patient educated in the importance of mobility. PT will continue to follow per plan of care.
[2021-07-15] MEDS: ACETAMINOPHEN 325 MG TABLET 650 MG PO ×2 (17:19→20:34)
[2021-07-16 05:38] VITALS: BP 120/64; PULSE 88; RESP 16; TEMP 36.4; O2SAT 95
[2021-07-16] MEDS: SUCRALFATE SUSP 100 MG/ML 10 ML UDC 1000 MG PO ×4 (05:54→22:25)
[2021-07-16] MEDS: CENTRAL LINE FLUSH 10 ML IV PUSH ×3 (05:56→22:27)
[2021-07-16 07:13] LABS: Hematocrit 24.7 % (42.0-52.0); Mean Corpuscular HGB Conc 32.4 g/dl (32-36); Mean Corpuscular Hemoglobin 31.4 pg (26-34); Mean Corpuscular Volume 96.9 fl (80-100); Mean Platelet Volume 10.1 fl (7.4-10.4); Platelet Count Result 206 k/mm3 (150-375); Red Blood Count 2.55 M/mm3 (4.6-6.20); Red Cell Distribution Width 26.8 % (11.5-14.5); White Blood Count 15.5 K/mm3 (4.5-10.0)
[2021-07-16 07:16] LABS: Alanine Aminotransferase 50 U/L (4-50); Albumin Level 2.4 g/dL (3.5-5.1); Alkaline Phosphatase 146 U/L (38-126); Anion Gap 5 mmol/L (8-16); Aspartate Amino Transferase 98 U/L (17-59); Bilirubin,Total 5.5 mg/dL (0.2-1.3); Blood Urea Nitrogen 17 mg/dL (9-20); Calcium 8.5 mg/dL (8.4-10.2); Carbon Dioxide 24 mmol/L (22-30); Chloride 104 mmol/L (98-107); Estimated CRCL calculation 110 ml/min; Estimated Glomerular Filt Rate > 60; Glucose 107 mg/dL (65-110); Magnesium 1.6 mg/dL (1.6-2.3); Potassium 3.5 mmol/L (3.4-5.0); Sodium 133 mmol/L (137-145)
[2021-07-16 07:22] LABS: INR 2.2; Prothrombin Time 23.5 Seconds (11.1-14.7)
[2021-07-16 08:00] VITALS: PULSE 88; RESP 16; O2SAT 95
[2021-07-16] MEDS: PANTOPRAZOLE SODIUM IV 40 MG VIAL IV PUSH ×2 (08:31→22:25)
[2021-07-16] MEDS: SPIRONOLACTONE 50 MG TABLET PO (08:31)
[2021-07-16] MEDS: FOLIC ACID 1 MG/0.2 ML INJ IV PUSH (08:31)
[2021-07-16] MEDS: THIAMINE HCL 200 MG/2 ML VIAL 100 MG IV PUSH (08:31)
[2021-07-16] MEDS: ALTEPLASE 2 MG VIAL (CATHFLO) IV PUSH (08:42)
[2021-07-16] MEDS: MORPHINE SULFATE (*CRX) 2 MG/ML INJ IV PUSH ×4 (08:43→18:12)
--- NOTE | 2021-07-16 09:47 | PCOTNOTE ---
Attempted to see patient at 09:47am, patient currently receiving a dressing change with RN.
--- NOTE | 2021-07-16 10:34 | PC.NURSE ---
MD Decker informed paracentesis and thoracentesis on hold r/t PT/ INR results continue to be elevated due to liver failure.
[2021-07-16] MEDS: FUROSEMIDE INJ 40 MG/4 ML VIAL IV PUSH (11:00)
[2021-07-16 14:00] VITALS: BP 123/59; PULSE 109; RESP 22; TEMP 38.1; O2SAT 93
[2021-07-16 14:04] VITALS: TEMP 38.1
[2021-07-16] MEDS: ACETAMINOPHEN 325 MG TABLET 650 MG PO (14:04)
[2021-07-16] MEDS: LORazepam INJ (*CRX) 2 MG/ML VIAL IV PUSH ×2 (14:50→18:14)
--- NOTE | 2021-07-16 15:06 | PC.NURSE ---
Trevino changed out for UA with C&S, BC order r/t 100.6 temp. Tylenol given. Awaiting void for UA sample. 500 ml drained for old trevino bag, dark tea colored.
--- NOTE | 2021-07-16 15:15 | P.PNIM_ITS ---
Progress Note: A&P Assessment and Plan (1) Acute respiratory failure: Code(s): J96.00 - Acute respiratory failure, unspecified whether with hypoxia or hypercapnia Status: Acute Assessment and Plan: INTERVAL HISTORY : Acute Respiratory failure secondary to pulmonary edema likely from volume overload Off ventilator now and maintaining saturations on nasal cannula PCXR reviewed Most likely likely patient has pneumonia treated with IV antibiotic Incentive spirometry Patient has recurrent episodes of fever low-grade resolved repeat CT chest and abdomen done on 07/13/2021 with worsening ascites and right pleural effusion with concurrent right lower lobe Compressive atelectasis. Likely related to decompensation of his liver failure Need to rule out secondary bacterial peritonitis due to persistent fever. Will order thoracentesis as well as paracentesis. GI re-consult for decompensation of his chronic liver disease (2) Sepsis: Qualifiers: Sepsis type: sepsis due to unspecified organism Sepsis acute organ dysfunction status: with acute organ dysfunction Severe sepsis acute organ dysfunction type: disseminated intravascular coagulopathy Code(s): A41.9 - Sepsis, unspecified organism Status: Acute Assessment and Plan: INTERVAL HISTORY : Secondary to peritonitis from perforated gastric and duodenal ulcer Patient has received significant amount of blood products and 25% albumin till now. Weaned off pressors Continue Zosyn,(started on 06/29) Blood cultures have been negative till now He is afebrile, leukocytosis improving At least 2 weeks of IV antibiotics then evaluateto switch to probably oral antibiotic for 1-2 weeks Plan to remove suture before discharge per surgery CT chest abdomen and pelvis was done on 07/04/2021: No evidence of contrast extravasation. Small right and very small left pleural effusion with right lower lobe collapse and partial collapse of the left lower lobe. Peripheral patchy ground-glass opacities in both lungs. Moderate amount of non loculated appearing ascites. Cirrhosis. Diffuse edematous wall thickening of the colon With persistent fever CT scan abdomen pelvis and chest done [place]acentesis [place] [id number] (3) Perforated gastric ulcer: Code(s): K25.5 - Chronic or unspecified gastric ulcer with perforation Status: Deleted Assessment and Plan: Status post ex lap 06/24 evacuation of 9.3 L intra-abdominal ascites, repair of perforated gastric ulcer with omental patch, intra-abdominal washout. 06/28 - UGI series - Duodenal perforation, extravasation CT abdomen pelvis IMPRESSION: 1. Duodenal perforation, moderate ascites and free intraperitoneal gas. 2. Probable colitis, diarrhea. 3. Multisegmental basilar atelectasis. Pneumonia not excludable. 4. Cardiomegaly. 5. Anasarca 06/29 developed fascial dehiscence without evisceration but leaking ascites almost continually., INR 6.2 patient taken back to OR and underwent Closure with omentoplasty perforated gas tric ulcer, repair fascial dehiscence 2 units of FFP given intraoperatively postop in ICU patient was given 3 units of PRBC and 4 units of FFP Now extubated TPN was discontinued by surgery on 07/09/[address] KERON drain in place with serosanguineous output General surgery is following 07/04/2021 CT scan of the abdomen pelvis as above Diet advanced per surgery Patient most likely will need rehab 07/13/2019 to general surgery following on PPI 07/15/2019 pt to have thoracentesis and paracentesis hopeful dc in 1-2 days time
--- NOTE | 2021-07-16 16:01 | WPDGIPROGNO ---
Progress Note: A&P Assessment and Plan (1) Cirrhosis of liver with ascites: Qualifiers: Hepatic cirrhosis type: alcoholic cirrhosis Qualified Code(s): K70.31 - Alcoholic cirrhosis of liver with ascites Code(s): K74.60 - Unspecified cirrhosis of liver; R18.8 - Other ascites Status: Chronic Assessment and Plan: had paracentesis with dark blood material (unable to process) with neutrophils and now + yeast in culture. He has been recovering from peritonitis from perforated in fact required a second intervention after noted extravasation. He is on iv antibiotics, abdomen is distended but no tender will add fluconazol because yeast in ascites he is tolerating diet and not longer on TPN continue with aldactone 50 mg and lasix, also 2 g na diet he eventually will need to see a oil field roustabout for liver transplant evaluation in near future and of course drinking altogether MELD score ~ 19-20 (mostly unchanged during this prolonged hospitalization) (2) Perforated gastric ulcer: Qualifiers: Gastric ulcer chronicity: acute Qualified Code(s): K25.1 - Acute gastric ulcer with perforation Code(s): K25.5 - Chronic or unspecified gastric ulcer with perforation Status: Acute Assessment and Plan: on protonix, s/p surgery x2 tolerating diet (3) Dehiscence of closure of fascia, superficial or muscular: Qualifiers: Encounter type: subsequent encounter Qualified Code(s): T81.32XD - Disruption of internal operation (surgical) wound, not elsewhere classified, subsequent encounter Code(s): T81.32XA - Disruption of internal operation (surgical) wound, not elsewhere classified, initial encounter Status: Acute (4) Sepsis: Qualifiers: Sepsis type: sepsis due to unspecified organism Sepsis acute organ dysfunction status: with acute organ dysfunction Severe sepsis acute organ dysfunction type: disseminated intravascular coagulopathy Code(s): A41.9 - Sepsis, unspecified organism Status: Acute Assessment and Plan: elevated wbc but overall he looks better has been on broad spectrum abx for many days add fluconazol (5) Alcoholism: Code(s): F10.20 - Alcohol dependence, uncomplicated Status: Acute (6) Coagulopathy: Code(s): D68.9 - Coagulation defect, unspecified Status: Acute Assessment and Plan: from liver decompensation Subjective Date/time seen: 07/16/21 16:01 Interval history: he is eating, still abdominal distension, had low grade fever. Review of Systems Review of Systems: All systems reviewed & are unremarkable except as noted in HPI and below Exam Const: General: comfortable, no acute distress and ill appearing chronically HENMT: General nose exam: Normal nares present Eyes: General: appearance normal, both eyes and all related structures Neck: Neck: supple Resp: Auscultation: no wheezes and diminished lung sounds Cardio: Rate: regular rate GI: Inspection: distended GI Palp: No Tenderness to palpation present (GI) and No Guarding due to palpation present (GI) Auscultation: normal bowel sounds Other: KERON drain in place, dressing in place Skin: General skin exam: no rashes or lesions noted Neuro: Speech: normal speech Motor exam (neuro): Normal motor muscle tone present throughout Extrem: General: pedal edema Psych: Mental Status: mental status grossly normal Objective Data Vital Signs Vital Signs: Vital Signs - 24 hr 07/15/21 17:19 07/15/21 18:19 07/15/21 19:50 Temperature 100.3 F H 98.4 F Pulse Rate 97 Respiratory Rate 16 Blood Pressure Pulse Oximetry 93 07/15/21 20:34 07/15/21 21:38 07/16/21 05:38 Temperature 100.9 F H 100.9 F H 97.6 F Pulse Rate 97 88 Respiratory Rate 16 16 Blood Pressure 127/62 120/64 Pulse Oximetry 93 95 07/16/21 08:00 07/16/21 14:00 07/16/21 14:04 Temperature 100.6 F H 100.6 F H Pulse Rate 88 109 H Respiratory R
[2021-07-16] MEDS: SPIRONOLACTONE 25 MG TABLET PO (16:22)
--- NOTE | 2021-07-16 17:01 | PM.PNGS ---
Progress Note: A&P Assessment and Plan (1) Perforated gastric ulcer: Qualifiers: Gastric ulcer chronicity: acute Qualified Code(s): K25.1 - Acute gastric ulcer with perforation Code(s): K25.5 - Chronic or unspecified gastric ulcer with perforation Status: Acute Assessment and Plan: WBC down slightly today but still having low grade fevers. Ascites from paracentesis showing growth of yeast. Will add IV Micafungin. Blood cx repeated today. Incision improving, less erythema and induration, no purulent drainage. Encouraged increasing activity. Additional Plan I have discussed the plan of care with Dr. Mejia. Subjective Subjective Date/Time Seen: 07/16/21 14:01 Patient reports: no new complaints, flatus, bowel movement and fever (low grade fever today) Interval history: Patient seen and examined. He has no new complaints. Denies abdominal pain, nausea, or vomiting. Bowels are moving. Still tolerating a diet. He reports he has been increasing activity and getting up to the chair some. He does report feeling like his trevino is not emptying and with sensation of fullness to his bladder, but there is good output in the drainage bag. Review of Systems Review of Systems: All systems reviewed & are unremarkable except as noted in HPI and below Exam Const: General: comfortable, alert and awake Orientation/consciousness: patient oriented x3 Resp: Effort & Inspection: normal respiratory effort Auscultation: diminished lung sounds bilateral in the lower lung bunch Cardio: Rate: regular rate Rhythm: regular rhythm GI: Inspection: Abdominal wall edema and incision (healing well with minimal erythema, much improved,no fluctuance or drainage) GI Palp: Yes Soft to palpation, No Tenderness to palpation present (GI), No Guarding due to palpation present (GI) and No Rebound tenderness present Auscultation: normal bowel sounds Urinary Catheter: Urinary Catheter: patent and draining and urine dark (orange) Skin: General skin exam: jaundice Neuro: General: moves all extremities and no focal motor deficits Extrem: General: edema bilateral (bilateral legs 3-4+ pitting) Psych: Insight: Good insight present (Psych) Judgement: Good judgement present (Psych) Objective Data Vital Signs Vital Signs: Vital Signs - 24 hr 07/15/21 17:19 07/15/21 18:19 07/15/21 19:50 Temperature 100.3 F H 98.4 F Pulse Rate 97 Respiratory Rate 16 Blood Pressure Pulse Oximetry 93 07/15/21 20:34 07/15/21 21:38 07/16/21 05:38 Temperature 100.9 F H 100.9 F H 97.6 F Pulse Rate 97 88 Respiratory Rate 16 16 Blood Pressure 127/62 120/64 Pulse Oximetry 93 95 07/16/21 08:00 07/16/21 14:00 07/16/21 14:04 Temperature 100.6 F H 100.6 F H Pulse Rate 88 109 H Respiratory Rate 16 22 H Blood Pressure 123/59 L Pulse Oximetry 95 93 Intake/Output Intake/Output: Intake & Output 07/13/21 07/14/21 07/15/21 07/16/21 23:59 23:59 23:59 23:59 Intake Total 115 289 4400 1350 Output Total 800 2075 1100 700 Balance -120 -1325 20 650 Meds/Results Medications: Active Medications Generic Name Dose Route Start Last Admin Trade Name Freq PRN Reason Stop Dose Admin Acetaminophen 650 mg 07/08/21 16:19 07/16/21 14:04 Acetaminophen 325 Mg Tablet PO 650 mg Q4H PRN Administration Mild Pain (1-3) or Fever Albuterol 2.5 mg 07/13/21 14:52 Albuterol Sulfate Neb 2.5 Mg/0.5 Ml Inh INHALATION Q6HRT PRN Shortness Of Breath Alteplase, Recombinant 2 mg 07/16/21 06:21 07/16/21 08:42 Alteplase 2 Mg Vial (Cathflo) IV PUSH 2 mg ONCE PRN Administration Line Occlusion Folic Acid 1 mg 06/25/21 14:35 07/16/21 08:31 Folic Acid 1 Mg/0.2 Ml Inj IV PUSH 1 mg QAM JOSEFA Administration Furosemide 40 mg 07/16/21 10:55 07/16/21 11:00 Furosemide Inj 40 Mg/4 Ml Vial IV PUSH 40 mg DAILY JOSEFA Administration Albumin Human 100 mls @ 60 mls/hr 06/25/21 16:00 07/01/21 08:
[2021-07-16] MEDS: FLUCONAZOLE 100 MG/NACL 50 ML 100 MG/50 ML BTL 50 MG IVPB (18:09)
[2021-07-16 22:00] VITALS: BP 118/62; PULSE 99; RESP 16; TEMP 37.6; O2SAT 94
[2021-07-17 05:41] VITALS: BP 125/66; PULSE 99; RESP 16; TEMP 37; O2SAT 97
[2021-07-17] MEDS: SUCRALFATE SUSP 100 MG/ML 10 ML UDC 1000 MG PO ×4 (06:08→20:34)
[2021-07-17] MEDS: CENTRAL LINE FLUSH 10 ML IV PUSH ×3 (06:09→20:34)
[2021-07-17 06:16] LABS: Hematocrit 23.7 % (42.0-52.0); Hemoglobin 7.6 g/dL (14.0-18.0); Mean Corpuscular HGB Conc 32.1 g/dl (32-36); Mean Corpuscular Hemoglobin 31.4 pg (26-34); Mean Corpuscular Volume 97.9 fl (80-100); Mean Platelet Volume 9.8 fl (7.4-10.4); Platelet Count Result 233 k/mm3 (150-375); Red Blood Count 2.42 M/mm3 (4.6-6.20)
[2021-07-17 06:28] LABS: Alanine Aminotransferase 50 U/L (4-50); Albumin Level 2.5 g/dL (3.5-5.1); Alkaline Phosphatase 112 U/L (38-126); Anion Gap 2 mmol/L (8-16); Aspartate Amino Transferase 103 U/L (17-59); Blood Urea Nitrogen 15 mg/dL (9-20); Calcium 8.3 mg/dL (8.4-10.2); Carbon Dioxide 24 mmol/L (22-30); Chloride 105 mmol/L (98-107); Estimated CRCL calculation 126 ml/min; Estimated Glomerular Filt Rate > 60; Glucose 100 mg/dL (65-110); Magnesium 1.5 mg/dL (1.6-2.3); Potassium 4.2 mmol/L (3.4-5.0); Sodium 131 mmol/L (137-145)
--- NOTE | 2021-07-17 06:40 | PC.NURSE ---
Called Hospitalist regarding trevino orders. No answer. Will call again in 15 minutes.
[2021-07-17 09:41] LABS: INR 2.1; Partial Thromboplastin Time 38.3 SECONDS (22.3-36.8); Prothrombin Time 23.2 Seconds (11.1-14.7)
--- NOTE | 2021-07-17 10:09 | PCOTNOTE ---
Patient refused treatment this session due to 10/10 pain. RN notified
[2021-07-17] MEDS: MAGNESIUM SULF 2 GM/WATER 50ML 2 GM/50 ML BAG IVPB (10:22)
[2021-07-17] MEDS: FLUCONAZOLE 100 MG/NACL 50 ML 100 MG/50 ML BTL 50 MG IVPB (10:23)
[2021-07-17] MEDS: SPIRONOLACTONE 50 MG TABLET PO ×2 (10:23→17:33)
[2021-07-17] MEDS: PANTOPRAZOLE SODIUM IV 40 MG VIAL IV PUSH ×2 (10:23→20:34)
[2021-07-17] MEDS: MAGNESIUM OXIDE 400 MG TABLET PO (10:23)
[2021-07-17] MEDS: THIAMINE HCL 200 MG/2 ML VIAL 100 MG IV PUSH (10:23)
[2021-07-17] MEDS: FUROSEMIDE INJ 40 MG/4 ML VIAL IV PUSH ×2 (10:23→17:32)
[2021-07-17] MEDS: MORPHINE SULFATE (*CRX) 2 MG/ML INJ IV PUSH (10:24)
[2021-07-17] MEDS: LORazepam INJ (*CRX) 2 MG/ML VIAL IV PUSH (10:24)
[2021-07-17] MEDS: FOLIC ACID 1 MG/0.2 ML INJ IV PUSH (10:25)
[2021-07-17 10:29] LABS: Add Urine Microscopic? YES; Appearance Urine Clear (Clear); Bilirubin Urine Negative (Negative); Blood Urine Negative (Negative); Color Urine Amber (Yellow); Glucose Urine UA 1+ mg/dL (Negative); Ketones Urine Trace mg/dL (Negative); Leukocyte Esterase Ur 1+ LEU/UL (NEGATIVE); Mucus Urine Rare /lpf; Nitrate Urine Negative (Negative); Protein Urine 1+ mg/dL (Negative); RBC Urine 0-2 /hpf (0-2); Squamous Epithelial Cell Urine Rare /hpf (Few); WBC Urine 51-75 /hpf (0-3)
--- NOTE | 2021-07-17 10:44 | PC.NURSE ---
I spoke with the hospitalist, Dr. Mcbride, and he wants pt to maintain a patent trevino catheter. He also wants pt to remain a 1000 mL/day fluid restriction.
--- NOTE | 2021-07-17 11:05 | WPDGIPROGNO ---
Progress Note: A&P Assessment and Plan (1) Cirrhosis of liver with ascites: Qualifiers: Hepatic cirrhosis type: alcoholic cirrhosis Qualified Code(s): K70.31 - Alcoholic cirrhosis of liver with ascites Code(s): K74.60 - Unspecified cirrhosis of liver; R18.8 - Other ascites Status: Chronic Assessment and Plan: had paracentesis with dark blood material (unable to process) with neutrophils and now + yeast in culture. He has been recovering from peritonitis from perforated in fact required a second intervention after noted extravasation. He is on iv antibiotics added fluconazole because yeast in ascites, no pain but still distended he is tolerating diet and not longer on TPN he is on lasix 40mg bid and aldactone 100mg with normal renal function, also 2 g na diet he eventually will need to see a legal support analyst for liver transplant evaluation in near future and of course quit drinking altogether (2) Perforated gastric ulcer: Qualifiers: Gastric ulcer chronicity: acute Qualified Code(s): K25.1 - Acute gastric ulcer with perforation Code(s): K25.5 - Chronic or unspecified gastric ulcer with perforation Status: Acute Assessment and Plan: on protonix, s/p surgery x2 tolerating diet (3) Dehiscence of closure of fascia, superficial or muscular: Qualifiers: Encounter type: subsequent encounter Qualified Code(s): T81.32XD - Disruption of internal operation (surgical) wound, not elsewhere classified, subsequent encounter Code(s): T81.32XA - Disruption of internal operation (surgical) wound, not elsewhere classified, initial encounter Status: Acute Assessment and Plan: healing well (4) Sepsis: Qualifiers: Sepsis type: sepsis due to unspecified organism Sepsis acute organ dysfunction status: with acute organ dysfunction Severe sepsis acute organ dysfunction type: disseminated intravascular coagulopathy Code(s): A41.9 - Sepsis, unspecified organism Status: Acute Assessment and Plan: elevated wbc but overall he looks better, still low grade fever has been on broad spectrum abx for many days added fluconazole (5) Alcoholism: Code(s): F10.20 - Alcohol dependence, uncomplicated Status: Acute (6) Coagulopathy: Code(s): D68.9 - Coagulation defect, unspecified Status: Acute Assessment and Plan: from liver decompensation Subjective Date/time seen: 07/17/21 11:05 Interval history: he has been tolerating diet, he is trying to participate more in activities but still spending most of time in bed. KERON drain removed, abdomen less tender but still distended, also SOB Review of Systems Review of Systems: All systems reviewed & are unremarkable except as noted in HPI and below Exam Const: General: comfortable, alert and awake Orientation/consciousness: patient oriented x3 HENMT: General nose exam: Normal nares present Eyes: Pupils: Equal, round and reactive pupils present Neck: Neck: supple Resp: Effort & Inspection: normal respiratory effort Auscultation: diminished lung sounds bilateral in the lower lung bunch Cardio: Rate: regular rate Rhythm: regular rhythm GI: Inspection: Abdominal wall edema and incision (healing well) GI Palp: Yes Soft to palpation, No Tenderness to palpation present (GI), No Guarding due to palpation present (GI) and No Rebound tenderness present Auscultation: normal bowel sounds Urinary Catheter: Urinary Catheter: patent and draining Skin: General skin exam: jaundice Neuro: General: moves all extremities and no focal motor deficits Extrem: General: edema bilateral (bilateral legs 3-4+ pitting) Psych: Affect: normal affect Insight: Good insight present (Psych) Judgement: Good judgement present (Psych) Objective Data Vital Signs Vital Signs: Vital Signs - 24 hr 07/16/21 14:00 07/16/21 14:04 07/16/21 22:00 Temperature 100.6 F H 100.6 F H 9
--- NOTE | 2021-07-17 11:43 | PC.NURSE ---
Pt's called wanting an update. I answered her questions as well as explained that the current plan of action is to diurese pt rather than continually performing thoracenteses per the hospitalist. She seemed to understand and agree with the treatment plan. I also explained that pt needs to eat and be more active which will also help with his back ache, butt lesions, etc. She agree but stated that she thinks pt is afraid to move.
--- NOTE | 2021-07-17 11:51 | PCOTNOTE ---
Attempted patient 2x this date, pt. refused OT services due to 03/24 pain. RN aware.
--- NOTE | 2021-07-17 12:56 | PCNFU ---
Nutrition Follow-Up Complete: Altered GI function as related to GI bleed as evidenced by liquid diet orders. Goal: Adequate Intake of at least 75% of meals/supplements Pt is progressing towards goal Pt current nutrition is 2mg Na Diet/heart healthy diet Last recorded weight is 91.2 kg. Bowel Motility: +BM 07/14 reported Labs Reviewed: hgb 7.6, hct 23., alb 2.5, Na 131, Ca 8.3, Mg 1.5, AST 103, Cr 0.6 Meds Noted: folic acid, lasix, ativan, mag-ox, morphine, protonix, aldactone, carafate, thiamine Skin: bilateral buttock friction, abdomen incision Additional Notes: Current nutrition is 2mg Na diet/heart healthy diet with reported intake of 50% x3, and 25% x2. Pt is currently on a fluid restriction of 1,000mL. RDN added orders for dietary supplement of Ensure Compact BID providing an additional 220kcal and 9g of protein to increase caloric intake. Agree with diet order at this time. Will continue to follow. RD will monitor every 5 days.
--- NOTE | 2021-07-17 13:34 | PM.PNGS ---
Progress Note: A&P Assessment and Plan (1) Perforated gastric ulcer: Qualifiers: Gastric ulcer chronicity: acute Qualified Code(s): K25.1 - Acute gastric ulcer with perforation Code(s): K25.5 - Chronic or unspecified gastric ulcer with perforation Status: Acute Assessment and Plan: Agree with antifungal therapy. Continue current medical treatment. Discharge when medically stable. On PPI Abstain from EtOH, NSAIDs (2) Dehiscence of closure of fascia, superficial or muscular: Qualifiers: Encounter type: subsequent encounter Qualified Code(s): T81.32XD - Disruption of internal operation (surgical) wound, not elsewhere classified, subsequent encounter Code(s): T81.32XA - Disruption of internal operation (surgical) wound, not elsewhere classified, initial encounter Status: Acute (3) Alcoholism: Code(s): F10.20 - Alcohol dependence, uncomplicated Status: Acute (4) Cirrhosis of liver: Code(s): K74.60 - Unspecified cirrhosis of liver Status: Acute Subjective Subjective Date/Time Seen: 07/17/21 13:34 Interval history: No new complaints. Tolerating diet. Still feels a little distended. Exam GI: GI Palp: Yes Soft to palpation and No Tenderness to palpation present (GI) Other: Minimal purulent drainage from one spot on his incision. No fluctuance noted, minimal surrounding erythema. Objective Data Vital Signs Vital Signs: Vital Signs - 24 hr 07/16/21 14:00 07/16/21 14:04 07/16/21 22:00 Temperature 38.1 C H 38.1 C H 37.6 C H Pulse Rate 109 H 99 Respiratory Rate 22 H 16 Blood Pressure 123/59 L 118/62 Pulse Oximetry 93 94 07/17/21 05:41 Temperature 37.0 C Pulse Rate 99 Respiratory Rate 16 Blood Pressure 125/66 Pulse Oximetry 97 Intake/Output Intake/Output: Intake & Output 07/14/21 07/15/21 07/16/21 07/17/21 23:59 23:59 23:59 23:59 Intake Total 750 1120 1740 1170 Output Total 2075 1100 700 Balance -1325 20 1040 1170 Meds/Results Medications: Active Medications Generic Name Dose Route Start Last Admin Trade Name Freq PRN Reason Stop Dose Admin Acetaminophen 650 mg 07/08/21 16:19 07/16/21 14:04 Acetaminophen 325 Mg Tablet PO 650 mg Q4H PRN Administration Mild Pain (1-3) or Fever Albuterol 2.5 mg 07/13/21 14:52 Albuterol Sulfate Neb 2.5 Mg/0.5 Ml Inh INHALATION Q6HRT PRN Shortness Of Breath Alteplase, Recombinant 2 mg 07/16/21 06:21 07/16/21 08:42 Alteplase 2 Mg Vial (Cathflo) IV PUSH 2 mg ONCE PRN Administration Line Occlusion Folic Acid 1 mg 06/25/21 14:35 07/17/21 10:25 Folic Acid 1 Mg/0.2 Ml Inj IV PUSH 1 mg QAM JOSEFA Administration Furosemide 40 mg 07/17/21 09:00 07/17/21 10:23 Furosemide Inj 40 Mg/4 Ml Vial IV PUSH 40 mg BID JOSEFA Administration Albumin Human 100 mls @ 60 mls/hr 06/25/21 16:00 07/01/21 08:14 Albutein IVPB Infused Q6HR JOSEFA Infusion Imipenem/Cilastatin Sodium 500 100 mls @ 300 mls/hr 07/14/21 18:00 07/17/21 11:54 mg/ Sodium Chloride IVPB 300 mls/hr Q6HR JOSEFA Administration Fluconazole/Dextrose 100 mg in 50 mls @ 50 mls/hr 07/17/21 09:00 07/17/21 12:00 Diflucan 100 Mg/Nacl 50 Ml IVPB Infused DAILY JOSEFA Infusion Ipratropium [place] 0.5 mg 07/13/21 14:52 Ipratropium Br 0.02% Inh Soln 0.5 Mg/2.5 Ml Vial INHALATION Q6HRT PRN Shortness Of Breath Lorazepam 1 - 2 mg 06/29/21 09:30 07/17/21 10:24 Lorazepam Inj (*Crx) 2 Mg/Ml Vial IV PUSH 2 mg Q2H PRN Administration Withdrawal, restless Magnesium Oxide 400 mg 07/17/21 09:00 07/17/21 10:23 Magnesium Oxide 400 Mg Tablet PO 400 mg QAM JOSEFA Administration Miconazole Nitrate 1 applic 07/11/21 09:00 07/17/21 10:25 Miconazole 2% Antifungal Ointment 56 Gm TOPICAL 1 applic Q12HR JOSEFA Administration Morphine Sulfate 1 mg 06/29/21 09:22 07/13/21 09:37 Morphine Sulfate (*Crx) 2 Mg/Ml Inj IV PUSH
[2021-07-17 14:19] VITALS: BP 140/66; PULSE 112; RESP 18; TEMP 37.2; O2SAT 94
[2021-07-17 20:37] LABS: Glucose Peritoneal Fluid 12 mg/dL
[2021-07-17 22:00] VITALS: BP 135/68; PULSE 114; RESP 18; TEMP 37.2; O2SAT 94
--- NOTE | 2021-07-17 22:11 | PC.NURSE ---
Called Hospitalist regarding Ativan parameters in the MAR and pain medication choices. No answer. Will call back in 15 minutes.
--- NOTE | 2021-07-17 22:19 | PC.NURSE ---
Hospitalist called back. New orders are put in (see mar).
[2021-07-17] MEDS: LORazepam INJ (*CRX) 2 MG/ML VIAL 1 MG IV PUSH (22:33)
[2021-07-18 06:00] VITALS: BP 125/53; PULSE 95; RESP 18; TEMP 37; O2SAT 95
[2021-07-18] MEDS: CENTRAL LINE FLUSH 10 ML IV PUSH ×3 (06:02→21:16)
[2021-07-18] MEDS: SUCRALFATE SUSP 100 MG/ML 10 ML UDC 1000 MG PO ×4 (06:02→21:16)
[2021-07-18 06:17] LABS: Hematocrit 22.6 % (42.0-52.0); Hemoglobin 7.5 g/dL (14.0-18.0); Mean Corpuscular HGB Conc 33.2 g/dl (32-36); Mean Corpuscular Hemoglobin 31.9 pg (26-34); Mean Corpuscular Volume 96.2 fl (80-100); Mean Platelet Volume 9.6 fl (7.4-10.4); Platelet Count Result 227 k/mm3 (150-375); Red Blood Count 2.35 M/mm3 (4.6-6.20); Red Cell Distribution Width 27.2 % (11.5-14.5); White Blood Count 16.3 K/mm3 (4.5-10.0)
[2021-07-18 06:27] LABS: INR 2.1; Prothrombin Time 23.4 Seconds (11.1-14.7)
[2021-07-18 06:32] LABS: Alanine Aminotransferase 54 U/L (4-50); Albumin Level 2.6 g/dL (3.5-5.1); Alkaline Phosphatase 107 U/L (38-126); Anion Gap 1 mmol/L (8-16); Aspartate Amino Transferase 109 U/L (17-59); Bilirubin,Total 5.3 mg/dL (0.2-1.3); Blood Urea Nitrogen 15 mg/dL (9-20); Calcium 8.2 mg/dL (8.4-10.2); Carbon Dioxide 25 mmol/L (22-30); Chloride 104 mmol/L (98-107); Estimated CRCL calculation 126 ml/min; Estimated Glomerular Filt Rate > 60; Glucose 111 mg/dL (65-110); Magnesium 1.6 mg/dL (1.6-2.3); Potassium 4.2 mmol/L (3.4-5.0); Sodium 130 mmol/L (137-145)
[2021-07-18 09:40] VITALS: O2SAT 92
[2021-07-18] MEDS: FLUCONAZOLE 100 MG/NACL 50 ML 100 MG/50 ML BTL 50 MG IVPB (09:41)
[2021-07-18] MEDS: FOLIC ACID 1 MG/0.2 ML INJ IV PUSH (09:41)
[2021-07-18] MEDS: SPIRONOLACTONE 50 MG TABLET PO ×2 (09:41→17:34)
[2021-07-18] MEDS: MAGNESIUM OXIDE 400 MG TABLET PO (09:41)
[2021-07-18] MEDS: PANTOPRAZOLE SODIUM IV 40 MG VIAL IV PUSH ×2 (09:42→21:16)
[2021-07-18] MEDS: THIAMINE HCL 200 MG/2 ML VIAL 100 MG IV PUSH (09:42)
[2021-07-18] MEDS: FUROSEMIDE INJ 40 MG/4 ML VIAL IV PUSH ×2 (09:42→17:35)
--- NOTE | 2021-07-18 10:57 | PC.NURSE ---
pt stated he needed to have a bowel movement. Pt was instructed that he would have to use the toilet. Pt stated quite aggressively that he wanted to deficate in the bed and have someone clean it and him. Pt was informed that was not an option nor would anyone besides himself be cleaning him up if he chose to go on himself. Pt was assisted in standing with the intention of ambulating to the toilet. Pt's continual refusal, despite several physcians stating he needed to be out of the bed and to be ambulating, prompted myself and the other nurse assisting to use the SaraSteady for fear he would fall/throw himself down on the floor based on his noncompliance and present behavior. Pt was able to stand to get on and off the Sarasteady with minimal assistance, particularly once he was angry because we refused to enable his self-imposed dependence. He was placed on the toilet where he had a large, brown, formed bowel movement. He refused to wipe his butt or perform any type of hygiene. I informed him that he was entirely capable of wiping himself and that he needed to engage in daily hygiene so we would be staying put until both were accomplished. Pt became angry and started cursing but also wiped and cleaned himself without any problems. The SaraSteady was used again to transport pt to the chair; he wanted to go back to lie down in the bed but I informed him that was not an option per doctors' instructions.
[2021-07-18 13:03] LABS: Lipase Peritoneal Fluid 60 U/L (<10)
[2021-07-18 14:00] VITALS: BP 134/70; PULSE 71; RESP 20; TEMP 37.2; O2SAT 95
--- NOTE | 2021-07-18 15:09 | PC.NURSE ---
pt's called wanting an update on pt's condition. I answered her questions. She had a lot of complaints about hospital and government policy. I explained to her that I was a bedside nurse and had no control in any way over policy. She also wanted to know why pt has not been discharged to a rehab facility already. I explained that pt is noncompliant and refusing to participate in therapies and is completely unmotivated. I further explained that when pushed, pt was more than able to actually stand, do ADLs, et al. but he only does so when pushed and becomes angry to which she stated, you need to make him angry then. Do whatever you have to do and he will just have to get over it. She continued by stating that she believes pt is depressed and has no idea what all he has been through and doesn't appreciate what is necessary in order to get better. She stated several more times, make him angry if it gets him moving.
[2021-07-18] MEDS: ACETAMINOPHEN 325 MG TABLET 650 MG PO (17:40)
[2021-07-18] MEDS: MORPHINE SULFATE (*CRX) 2 MG/ML INJ 1 MG IV PUSH (21:26)
[2021-07-18 22:00] VITALS: BP 123/58; PULSE 100; RESP 18; TEMP 37.4; O2SAT 95
[2021-07-19 06:00] VITALS: BP 124/58; PULSE 85; RESP 18; TEMP 36.7; O2SAT 94
[2021-07-19] MEDS: CENTRAL LINE FLUSH 10 ML IV PUSH ×3 (06:49→20:15)
[2021-07-19] MEDS: SUCRALFATE SUSP 100 MG/ML 10 ML UDC 1000 MG PO ×4 (06:49→20:15)
[2021-07-19 06:54] LABS: Hematocrit 22.9 % (42.0-52.0); Hemoglobin 7.5 g/dL (14.0-18.0); Mean Corpuscular HGB Conc 32.8 g/dl (32-36); Mean Corpuscular Hemoglobin 32.2 pg (26-34); Mean Corpuscular Volume 98.3 fl (80-100); Mean Platelet Volume 9.2 fl (7.4-10.4); Platelet Count Result 199 k/mm3 (150-375); Red Blood Count 2.33 M/mm3 (4.6-6.20); Red Cell Distribution Width 26.8 % (11.5-14.5)
[2021-07-19 07:09] LABS: Alanine Aminotransferase 56 U/L (4-50); Albumin Level 2.4 g/dL (3.5-5.1); Alkaline Phosphatase 104 U/L (38-126); Anion Gap 3 mmol/L (8-16); Aspartate Amino Transferase 110 U/L (17-59); Bilirubin,Total 5.2 mg/dL (0.2-1.3); Blood Urea Nitrogen 14 mg/dL (9-20); Calcium 8.3 mg/dL (8.4-10.2); Carbon Dioxide 28 mmol/L (22-30); Chloride 104 mmol/L (98-107); Estimated CRCL calculation 110 ml/min; Estimated Glomerular Filt Rate > 60; Glucose 108 mg/dL (65-110); INR 2.2; Magnesium 1.5 mg/dL (1.6-2.3); Potassium 2.9 mmol/L (3.4-5.0); Prothrombin Time 24.2 Seconds (11.1-14.7); Sodium 135 mmol/L (137-145)
[2021-07-19] MEDS: SPIRONOLACTONE 50 MG TABLET PO ×2 (09:20→17:41)
[2021-07-19] MEDS: FLUCONAZOLE 100 MG/NACL 50 ML 100 MG/50 ML BTL 50 MG IVPB (09:20)
[2021-07-19] MEDS: FOLIC ACID 1 MG/0.2 ML INJ IV PUSH (09:20)
[2021-07-19] MEDS: MAGNESIUM OXIDE 400 MG TABLET PO (09:20)
--- NOTE | 2021-07-19 09:20 | PM.PNGS ---
Progress Note: A&P Assessment and Plan (1) Perforated gastric ulcer: Qualifiers: Gastric ulcer chronicity: acute Qualified Code(s): K25.1 - Acute gastric ulcer with perforation Code(s): K25.5 - Chronic or unspecified gastric ulcer with perforation Status: Acute Assessment and Plan: Agree with antifungal therapy. Continue current medical treatment. Discharge when medically stable. On PPI Abstain from EtOH, NSAIDs Will follow as needed. (2) Dehiscence of closure of fascia, superficial or muscular: Qualifiers: Encounter type: subsequent encounter Qualified Code(s): T81.32XD - Disruption of internal operation (surgical) wound, not elsewhere classified, subsequent encounter Code(s): T81.32XA - Disruption of internal operation (surgical) wound, not elsewhere classified, initial encounter Status: Acute (3) Alcoholism: Code(s): F10.20 - Alcohol dependence, uncomplicated Status: Acute (4) Cirrhosis of liver: Code(s): K74.60 - Unspecified cirrhosis of liver Status: Acute Subjective Subjective Date/Time Seen: 07/19/21 09:20 Interval history: No new complaints. Exam GI: GI Palp: Yes Soft to palpation and No Tenderness to palpation present (GI) Other: Incision now with hardly any drainage and no surrounding erythema or fluctuance. Objective Data Vital Signs Vital Signs: Vital Signs - 24 hr 07/18/21 09:40 07/18/21 14:00 07/18/21 22:00 Temperature 37.2 C 37.4 C Pulse Rate 71 100 Respiratory Rate 20 18 Blood Pressure 134/70 123/58 L Pulse Oximetry 92 95 95 07/19/21 06:00 Temperature 36.7 C Pulse Rate 85 Respiratory Rate 18 Blood Pressure 124/58 L Pulse Oximetry 94 Intake/Output Intake/Output: Intake & Output 07/16/21 07/17/21 07/18/21 07/19/21 23:59 23:59 23:59 23:59 Intake Total 1740 1890 1000 100 Output Total 700 1700 1800 1100 Balance 1040 190 -800 -1000 Meds/Results Medications: Active Medications Generic Name Dose Route Start Last Admin Trade Name Freq PRN Reason Stop Dose Admin Acetaminophen 650 mg 07/08/21 16:19 07/18/21 17:40 Acetaminophen 325 Mg Tablet PO 650 mg Q4H PRN Administration Mild Pain (1-3) or Fever Albuterol 2.5 mg 07/13/21 14:52 Albuterol Sulfate Neb 2.5 Mg/0.5 Ml Inh INHALATION Q6HRT PRN Shortness Of Breath Alteplase, Recombinant 2 mg 07/16/21 06:21 07/16/21 08:42 Alteplase 2 Mg Vial (Cathflo) IV PUSH 2 mg ONCE PRN Administration Line Occlusion Folic Acid 1 mg 06/25/21 14:35 07/18/21 09:41 Folic Acid 1 Mg/0.2 Ml Inj IV PUSH 1 mg QAM JOSEFA Administration Furosemide 40 mg 07/17/21 09:00 07/18/21 17:35 Furosemide Inj 40 Mg/4 Ml Vial IV PUSH 40 mg BID JOSEFA Administration Albumin Human 100 mls @ 60 mls/hr 06/25/21 16:00 07/01/21 08:14 Albutein IVPB Infused Q6HR JOSEFA Infusion Imipenem/Cilastatin Sodium 500 100 mls @ 300 mls/hr 07/14/21 18:00 07/19/21 06:47 mg/ Sodium Chloride IVPB 300 mls/hr Q6HR JOSEFA Administration Fluconazole/Dextrose 100 mg in 50 mls @ 50 mls/hr 07/17/21 09:00 07/18/21 10:25 Diflucan 100 Mg/Nacl 50 Ml IVPB Infused DAILY JOSEFA Infusion Ipratropium [place] 0.5 mg 07/13/21 14:52 Ipratropium Br 0.02% Inh Soln 0.5 Mg/2.5 Ml Vial INHALATION Q6HRT PRN Shortness Of Breath Lorazepam 1 mg 07/17/21 22:21 07/17/21 22:33 Lorazepam Inj (*Crx) 2 Mg/Ml Vial IV PUSH 1 mg Q2H PRN Administration Withdrawal, restlessness Magnesium Oxide 400 mg 07/17/21 09:00 07/18/21 09:41 Magnesium Oxide 400 Mg Tablet PO 400 mg QAM JOSEFA Administration Miconazole Nitrate 1 applic 07/11/21 09:00 07/18/21 21:16 Miconazole 2% Antifungal Ointment 56 Gm TOPICAL 1 applic Q12HR JOSEFA Administration Morphine Sulfate 1 mg 06/29/21 09:22 07/18/21 21:26 Morphine Sulfate (*Crx) 2 Mg/Ml Inj IV PUSH 1 mg Q2H PRN Administration Pain Rated 4-6 Morphin
[2021-07-19] MEDS: THIAMINE HCL 200 MG/2 ML VIAL 100 MG IV PUSH (09:21)
[2021-07-19] MEDS: FUROSEMIDE INJ 40 MG/4 ML VIAL IV PUSH ×2 (09:21→17:41)
[2021-07-19] MEDS: PANTOPRAZOLE SODIUM IV 40 MG VIAL IV PUSH ×2 (09:21→20:15)
[2021-07-19] MEDS: POTASSIUM CHLORIDE INJ 40 MEQ in SODIUM CHLORIDE 0.9% IV 500 ML 130 MEQ IVPB (10:22)
[2021-07-19] MEDS: MAGNESIUM SULF 2 GM/WATER 50ML 2 GM/50 ML BAG IVPB (10:23)
[2021-07-19] MEDS: POTASSIUM CHLORIDE 20 MEQ TABLET 40 MEQ PO (10:23)
--- NOTE | 2021-07-19 11:18 | PC.NURSE ---
I spoke with pt's , Garrett. She claims she has not heard from a doctor in one week and has left numerous messages for the last 3 days without any doctor having called her. She wanted an update on pt's condition. I informed her of the development of pt's low potassium and magnesium and what we were doing to correct those level to acceptable limits. She expressed her frustration and anger as to the no visitor policy, the care pt is/isn't receiving, and the lack of communication from doctors. She also stated that she wanted pt transferred to [place] under the care of pt's filter tender, Dr. Scott Montano. I assured her that I would pass this information along to the hospitalist.
[2021-07-19 11:43] LABS: Albumin Peritoneal Fluid 1.1 g/dL
--- NOTE | 2021-07-19 12:55 | WPDGIPROGNO ---
Progress Note: A&P Assessment and Plan (1) Cirrhosis of liver with ascites: Qualifiers: Hepatic cirrhosis type: alcoholic cirrhosis Qualified Code(s): K70.31 - Alcoholic cirrhosis of liver with ascites Code(s): K74.60 - Unspecified cirrhosis of liver; R18.8 - Other ascites Status: Chronic Assessment and Plan: last paracentesis showed yeast in culture and he is on antifungal now he can be discharged to SNF with oral antifungal probably another 7 days He has been recovering from peritonitis from perforated in fact required a second intervention after noted extravasation, now eating diet without any problem and ok by surgery to discharge ascites treated with lasix 40mg bid and aldactone 100mg with normal renal function, also 2 g na diet afebrile for 3 days now he eventually will need to see a junior graphic designer for liver transplant evaluation in near future and of course quit drinking altogether (2) Perforated gastric ulcer: Qualifiers: Gastric ulcer chronicity: acute Qualified Code(s): K25.1 - Acute gastric ulcer with perforation Code(s): K25.5 - Chronic or unspecified gastric ulcer with perforation Status: Acute Assessment and Plan: on protonix- will need nursing home after he leaves the hospital, s/p surgery x2 tolerating diet (3) Dehiscence of closure of fascia, superficial or muscular: Qualifiers: Encounter type: subsequent encounter Qualified Code(s): T81.32XD - Disruption of internal operation (surgical) wound, not elsewhere classified, subsequent encounter Code(s): T81.32XA - Disruption of internal operation (surgical) wound, not elsewhere classified, initial encounter Status: Acute Assessment and Plan: resolved (4) Sepsis: Qualifiers: Sepsis type: sepsis due to unspecified organism Sepsis acute organ dysfunction status: with acute organ dysfunction Severe sepsis acute organ dysfunction type: disseminated intravascular coagulopathy Code(s): A41.9 - Sepsis, unspecified organism Status: Acute Assessment and Plan: elevated wbc but overall he looks better, afebrile last 3 days (5) Alcoholism: Code(s): F10.20 - Alcohol dependence, uncomplicated Status: Acute Assessment and Plan: quit drinking (6) Coagulopathy: Code(s): D68.9 - Coagulation defect, unspecified Status: Acute Assessment and Plan: from liver decompensation, inr stable at 2 Subjective Date/time seen: 07/19/21 12:55 Interval history: no new issues, he is tolerating diet and feels comfortable Review of Systems Review of Systems: All systems reviewed & are unremarkable except as noted in HPI and below Exam Const: General: comfortable, alert and awake Orientation/consciousness: patient oriented x3 HENMT: General nose exam: Normal nares present Eyes: Pupils: Equal, round and reactive pupils present Neck: Neck: supple Resp: Effort & Inspection: normal respiratory effort Auscultation: diminished lung sounds bilateral in the lower lung bunch Cardio: Rate: regular rate Rhythm: regular rhythm GI: Inspection: Abdominal wall edema and incision (healing well) GI Palp: Yes Soft to palpation, No Tenderness to palpation present (GI), No Guarding due to palpation present (GI) and No Rebound tenderness present Auscultation: normal bowel sounds Urinary Catheter: Urinary Catheter: patent and draining Skin: General skin exam: jaundice Neuro: General: moves all extremities and no focal motor deficits Extrem: General: pedal edema bilaterally Psych: Affect: normal affect Insight: Good insight present (Psych) Judgement: Good judgement present (Psych) Objective Data Vital Signs Vital Signs: Vital Signs - 24 hr 07/18/21 14:00 07/18/21 22:00 07/19/21 06:00 Temperature 99 F 99.4 F 98.1 F Pulse Rate 71 100 85 Respiratory Rate 20 18 18 Blood Pressure 134/70 123/58 L 124/58 L Pulse Oximetry 95 9
[2021-07-19 14:00] VITALS: BP 107/47; PULSE 95; RESP 18; TEMP 37.4; O2SAT 93
[2021-07-19] MEDS: ACETAMINOPHEN 325 MG TABLET 650 MG PO ×2 (14:29→20:23)
--- NOTE | 2021-07-19 15:20 | PM.IMPN ---
Progress Note: A&P Assessment and Plan (1) Acute respiratory failure: Code(s): J96.00 - Acute respiratory failure, unspecified whether with hypoxia or hypercapnia Status: Acute Assessment and Plan: INTERVAL HISTORY : Acute Respiratory failure secondary to pulmonary edema likely from volume overload Off ventilator now and maintaining saturations on nasal cannula PCXR reviewed Most likely likely patient has pneumonia treated with IV antibiotic Incentive spirometry Patient has recurrent episodes of fever low-grade resolved repeat CT chest and abdomen done on 07/13/2021 with worsening ascites and right pleural effusion with concurrent right lower lobe Compressive atelectasis. Likely related to decompensation of his liver failure Need to rule out secondary bacterial peritonitis due to persistent fever. Will order thoracentesis as well as paracentesis. GI re-consult for decompensation of his chronic liver disease (2) Sepsis: Qualifiers: Sepsis acute organ dysfunction status: with acute organ dysfunction Sepsis type: sepsis due to unspecified organism Severe sepsis acute organ dysfunction type: disseminated intravascular coagulopathy Code(s): A41.9 - Sepsis, unspecified organism Status: Acute Assessment and Plan: INTERVAL HISTORY : Secondary to peritonitis from perforated gastric and duodenal ulcer Patient has received significant amount of blood products and 25% albumin till now. Weaned off pressors Continue Zosyn,(started on 06/29) Blood cultures have been negative till now He is afebrile, leukocytosis improving At least 2 weeks of IV antibiotics then evaluateto switch to probably oral antibiotic for 1-2 weeks Plan to remove suture before discharge per surgery CT chest abdomen and pelvis was done on 07/04/2021: No evidence of contrast extravasation. Small right and very small left pleural effusion with right lower lobe collapse and partial collapse of the left lower lobe. Peripheral patchy ground-glass opacities in both lungs. Moderate amount of non loculated appearing ascites. Cirrhosis. Diffuse edematous wall thickening of the colon With persistent fever CT scan abdomen pelvis and chest done [place]acentesis [place] [id number] (3) Perforated gastric ulcer: Code(s): K25.5 - Chronic or unspecified gastric ulcer with perforation Status: Deleted Assessment and Plan: Status post ex lap 06/24 evacuation of 9.3 L intra-abdominal ascites, repair of perforated gastric ulcer with omental patch, intra-abdominal washout. 06/28 - UGI series - Duodenal perforation, extravasation CT abdomen pelvis IMPRESSION: 1. Duodenal perforation, moderate ascites and free intraperitoneal gas. 2. Probable colitis, diarrhea. 3. Multisegmental basilar atelectasis. Pneumonia not excludable. 4. Cardiomegaly. 5. Anasarca 06/29 developed fascial dehiscence without evisceration but leaking ascites almost continually., INR 6.2 patient taken back to OR and underwent Closure with omentoplasty perforated gastric ulcer, repair fascial dehiscence 2 units of FFP given intraoperatively postop in ICU patient was given 3 units of PRBC and 4 units of FFP Now extubated TPN was discontinued by surgery on 07/09/[address] KERON drain in place with serosanguineous output General surgery is following 07/04/2021 CT scan of the abdomen pelvis as above Diet advanced per surgery Patient most likely will need rehab 07/13/2019 to general surgery following on PPI 07/15/2019 pt to have thoracentesis and paracentesis hopeful dc in 1-2 days time (4) Acute kidney injury: Code(s): N17.9 - Acute kidney failure, unspecified Status: Acute Assessment and Plan: Likely secondary to sepsis creat is nl (5) Encephalopathy: Code(s): G93.40 - Encephalopathy, unspecified Status: Acute Assessment and Plan: Likely multifactorial and metabolic
[2021-07-19 16:27] LABS: Anion Gap 0 mmol/L (8-16); Blood Urea Nitrogen 15 mg/dL (9-20); Calcium 8.1 mg/dL (8.4-10.2); Carbon Dioxide 27 mmol/L (22-30); Chloride 106 mmol/L (98-107); Estimated CRCL calculation 110 ml/min; Estimated Glomerular Filt Rate > 60; Glucose 120 mg/dL (65-110); Magnesium 1.8 mg/dL (1.6-2.3); Potassium 3.9 mmol/L (3.4-5.0); Sodium 133 mmol/L (137-145)
--- NOTE | 2021-07-19 18:40 | PC.NURSE ---
Pt's , Garrett, asked me to call her regarding pt's updated labs when they came in this afternoon. I returned her call at [phone]. I also informed her that I learned that the phone number in the e-chart was incorrect which is the number the hospitalist had been using to try and call her. I contacted admissions to have it updated as well as giving the correct number to the hospitalist.
--- NOTE | 2021-07-19 18:41 | PC.NURSE ---
pt is refusing to get out of the bed despite several doctors telling him directly that he needs to get up and ambulate and at the very least sit in the chair. Pt is demanding to use a bedpan because he states that he is not getting out of the bed no matter what. When provided with a walker and/or SaraSteady, pt refuses and states he will hold it because I ain't getting up.
[2021-07-19 20:00] VITALS: O2SAT 94
[2021-07-19 22:00] VITALS: BP 114/56; PULSE 94; RESP 22; TEMP 37.2; O2SAT 94
[2021-07-19] MEDS: ALBUTEROL SULFATE NEB 2.5 MG/0.5 ML INH INHALATION (23:32)
[2021-07-19] MEDS: IPRATROPIUM BR 0.02% INH SOLN 0.5 MG/2.5 ML VIAL INHALATION (23:32)
[2021-07-19 23:34] VITALS: PULSE 92; RESP 22
[2021-07-19 23:39] VITALS: PULSE 98; RESP 22
[2021-07-20 06:00] VITALS: BP 125/56; PULSE 90; RESP 24; TEMP 37.2; O2SAT 93
[2021-07-20] MEDS: ACETAMINOPHEN 325 MG TABLET 650 MG PO ×3 (06:05→23:19)
[2021-07-20 06:06] LABS: Hematocrit 22.4 % (42.0-52.0); Hemoglobin 7.1 g/dL (14.0-18.0); Mean Corpuscular HGB Conc 31.7 g/dl (32-36); Mean Corpuscular Hemoglobin 31.7 pg (26-34); Mean Platelet Volume 9.4 fl (7.4-10.4); Platelet Count Result 197 k/mm3 (150-375); Red Blood Count 2.24 M/mm3 (4.6-6.20); Red Cell Distribution Width 27.5 % (11.5-14.5); White Blood Count 17.6 K/mm3 (4.5-10.0)
[2021-07-20] MEDS: CENTRAL LINE FLUSH 10 ML IV PUSH ×3 (06:06→20:20)
[2021-07-20] MEDS: SUCRALFATE SUSP 100 MG/ML 10 ML UDC 1000 MG PO ×4 (06:06→20:20)
[2021-07-20 06:19] LABS: Alanine Aminotransferase 53 U/L (4-50); Albumin Level 2.4 g/dL (3.5-5.1); Alkaline Phosphatase 115 U/L (38-126); Anion Gap 5 mmol/L (8-16); Aspartate Amino Transferase 102 U/L (17-59); Bilirubin,Total 3.8 mg/dL (0.2-1.3); Blood Urea Nitrogen 16 mg/dL (9-20); Calcium 8.2 mg/dL (8.4-10.2); Carbon Dioxide 26 mmol/L (22-30); Chloride 106 mmol/L (98-107); Estimated CRCL calculation 110 ml/min; Estimated Glomerular Filt Rate > 60; Glucose 137 mg/dL (65-110); INR 2.2; Magnesium 1.7 mg/dL (1.6-2.3); Potassium 3.4 mmol/L (3.4-5.0); Prothrombin Time 23.7 Seconds (11.1-14.7); Sodium 137 mmol/L (137-145)
[2021-07-20] MEDS: FUROSEMIDE INJ 40 MG/4 ML VIAL IV PUSH ×2 (09:26→16:57)
[2021-07-20] MEDS: THIAMINE HCL 200 MG/2 ML VIAL 100 MG IV PUSH (09:27)
[2021-07-20] MEDS: PANTOPRAZOLE SODIUM IV 40 MG VIAL IV PUSH ×2 (09:28→20:20)
[2021-07-20] MEDS: SPIRONOLACTONE 50 MG TABLET PO ×2 (09:28→16:57)
[2021-07-20] MEDS: POTASSIUM CHLORIDE 20 MEQ TABLET 40 MEQ PO (09:28)
[2021-07-20] MEDS: FOLIC ACID 1 MG/0.2 ML INJ IV PUSH (09:28)
[2021-07-20] MEDS: MAGNESIUM OXIDE 400 MG TABLET PO (09:28)
[2021-07-20] MEDS: FLUCONAZOLE 100 MG/NACL 50 ML 100 MG/50 ML BTL 50 MG IVPB (09:42)
--- NOTE | 2021-07-20 13:05 | PCOTNOTE ---
Pt refused OT treatment on this date. Will follow-up when pt amenable to OT services.
--- NOTE | 2021-07-20 13:14 | PCPTNOTE ---
Patient refused treatment this session due to eating his lunch at this time.
--- NOTE | 2021-07-20 13:23 | PCPTNOTE ---
entered clarification PT order: decreased frequency of PT treatment to OD, 2-3 x/wk per reeval dated 07-18-21;
[2021-07-20 14:00] VITALS: BP 108/57; PULSE 106; RESP 16; TEMP 37.1; O2SAT 93
[2021-07-20 22:00] VITALS: BP 118/55; PULSE 94; RESP 18; TEMP 36.8; O2SAT 93
[2021-07-20 23:27] VITALS: PULSE 92; RESP 19
[2021-07-20] MEDS: IPRATROPIUM BR 0.02% INH SOLN 0.5 MG/2.5 ML VIAL INHALATION (23:27)
[2021-07-20] MEDS: ALBUTEROL SULFATE NEB 2.5 MG/0.5 ML INH INHALATION (23:27)
[2021-07-20 23:34] VITALS: PULSE 94; RESP 19
[2021-07-21 06:00] VITALS: BP 115/60; PULSE 87; RESP 18; TEMP 36.7; O2SAT 95
[2021-07-21] MEDS: SUCRALFATE SUSP 100 MG/ML 10 ML UDC 1000 MG PO ×4 (06:06→20:57)
[2021-07-21 06:37] LABS: Hematocrit 22.3 % (42.0-52.0); Hemoglobin 7.3 g/dL (14.0-18.0); Mean Corpuscular HGB Conc 32.7 g/dl (32-36); Mean Corpuscular Volume 97.8 fl (80-100); Mean Platelet Volume 9.6 fl (7.4-10.4); Platelet Count Result 201 k/mm3 (150-375); Red Blood Count 2.28 M/mm3 (4.6-6.20); Red Cell Distribution Width 27.5 % (11.5-14.5); White Blood Count 17.7 K/mm3 (4.5-10.0)
[2021-07-21 06:50] LABS: Alanine Aminotransferase 53 U/L (4-50); Albumin Level 2.5 g/dL (3.5-5.1); Alkaline Phosphatase 103 U/L (38-126); Anion Gap 3 mmol/L (8-16); Aspartate Amino Transferase 90 U/L (17-59); Bilirubin,Total 3.6 mg/dL (0.2-1.3); Blood Urea Nitrogen 16 mg/dL (9-20); Calcium 8.3 mg/dL (8.4-10.2); Carbon Dioxide 27 mmol/L (22-30); Chloride 107 mmol/L (98-107); Estimated CRCL calculation 126 ml/min; Estimated Glomerular Filt Rate > 60; Glucose 108 mg/dL (65-110); Magnesium 1.6 mg/dL (1.6-2.3); Potassium 3.6 mmol/L (3.4-5.0); Sodium 137 mmol/L (137-145)
[2021-07-21 06:52] LABS: INR 2.2; Prothrombin Time 23.7 Seconds (11.1-14.7)
[2021-07-21] MEDS: MAGNESIUM OXIDE 400 MG TABLET PO (08:07)
[2021-07-21] MEDS: SPIRONOLACTONE 50 MG TABLET PO ×2 (08:07→16:35)
[2021-07-21] MEDS: THIAMINE HCL 200 MG/2 ML VIAL 100 MG IV PUSH (08:08)
[2021-07-21] MEDS: FUROSEMIDE INJ 40 MG/4 ML VIAL IV PUSH (08:09)
[2021-07-21] MEDS: FLUCONAZOLE 100 MG/NACL 50 ML 100 MG/50 ML BTL 50 MG IVPB (08:14)
[2021-07-21] MEDS: FOLIC ACID 1 MG/0.2 ML INJ IV PUSH (08:14)
[2021-07-21] MEDS: PANTOPRAZOLE 40 MG TABLET PO ×2 (08:15→20:57)
[2021-07-21] MEDS: POTASSIUM CHLORIDE 20 MEQ TABLET 40 MEQ PO (09:18)
[2021-07-21] MEDS: ACETAMINOPHEN 325 MG TABLET 650 MG PO (13:24)
[2021-07-21 14:00] VITALS: BP 116/57; PULSE 92; RESP 14; TEMP 37.2; O2SAT 97
[2021-07-21] MEDS: FUROSEMIDE 40 MG TABLET PO (16:35)
[2021-07-21 22:00] VITALS: BP 116/61; PULSE 94; RESP 18; TEMP 37.2; O2SAT 96
[2021-07-22] MEDS: ACETAMINOPHEN 325 MG TABLET 650 MG PO (01:12)
[2021-07-22 05:19] LABS: Hematocrit 23.4 % (42.0-52.0); Hemoglobin 7.4 g/dL (14.0-18.0); Mean Corpuscular HGB Conc 31.6 g/dl (32-36); Mean Corpuscular Hemoglobin 32.2 pg (26-34); Mean Corpuscular Volume 101.7 fl (80-100); Mean Platelet Volume 9.6 fl (7.4-10.4); Platelet Count Result 186 k/mm3 (150-375); Red Cell Distribution Width 27.5 % (11.5-14.5); White Blood Count 19.5 K/mm3 (4.5-10.0)
[2021-07-22 05:37] LABS: INR 2.1
[2021-07-22 05:42] LABS: Alanine Aminotransferase 49 U/L (4-50); Albumin Level 2.6 g/dL (3.5-5.1); Alkaline Phosphatase 98 U/L (38-126); Anion Gap 4 mmol/L (8-16); Aspartate Amino Transferase 80 U/L (17-59); Bilirubin,Total 3.8 mg/dL (0.2-1.3); Blood Urea Nitrogen 15 mg/dL (9-20); Calcium 8.4 mg/dL (8.4-10.2); Carbon Dioxide 25 mmol/L (22-30); Chloride 106 mmol/L (98-107); Estimated CRCL calculation 126 ml/min; Estimated Glomerular Filt Rate > 60; Glucose 108 mg/dL (65-110); Potassium 3.9 mmol/L (3.4-5.0); Sodium 135 mmol/L (137-145)
[2021-07-22 06:00] VITALS: BP 110/63; PULSE 91; RESP 16; TEMP 37.1; O2SAT 98
[2021-07-22] MEDS: SUCRALFATE SUSP 100 MG/ML 10 ML UDC 1000 MG PO ×2 (06:00→12:37)
[2021-07-22] MEDS: PANTOPRAZOLE 40 MG TABLET PO (08:36)
[2021-07-22] MEDS: FUROSEMIDE 40 MG TABLET PO (08:36)
[2021-07-22] MEDS: SPIRONOLACTONE 50 MG TABLET PO (08:36)
[2021-07-22] MEDS: MAGNESIUM OXIDE 400 MG TABLET PO (08:36)
[2021-07-22] MEDS: THIAMINE HCL 200 MG/2 ML VIAL 100 MG IV PUSH (09:03)
[2021-07-22] MEDS: FLUCONAZOLE 100 MG/NACL 50 ML 100 MG/50 ML BTL 50 MG IVPB (09:03)
[2021-07-22] MEDS: FOLIC ACID 1 MG/0.2 ML INJ IV PUSH (09:03)
--- NOTE | 2021-07-22 09:42 | PM.DS ---
DS: Admitting Diagnosis Discharge Date 07/22/2021 Admitting Diagnosis Melena DS: Discharge Diagnosis Discharge Diagnosis (1) Acute respiratory failure: Code(s): J96.00 - Acute respiratory failure, unspecified whether with hypoxia or hypercapnia Status: Acute Assessment and Plan: INTERVAL HISTORY : Acute Respiratory failure secondary to pulmonary edema likely from volume overload Off ventilator now and maintaining saturations on nasal cannula PCXR reviewed Most likely likely patient has pneumonia treated with IV antibiotic Incentive spirometry Patient has recurrent episodes of fever low-grade resolved repeat CT chest and abdomen done on 07/13/2021 with worsening ascites and right pleural effusion with concurrent right lower lobe Compressive atelectasis. Likely related to decompensation of his liver failure Need to rule out secondary bacterial peritonitis due to persistent fever. Will order thoracentesis as well as paracentesis. GI re-consult for decompensation of his chronic liver disease (2) Sepsis: Qualifiers: Sepsis type: sepsis due to unspecified organism Sepsis acute organ dysfunction status: with acute organ dysfunction Severe sepsis acute organ dysfunction type: disseminated intravascular coagulopathy Code(s): A41.9 - Sepsis, unspecified organism Status: Acute Assessment and Plan: INTERVAL HISTORY : Secondary to peritonitis from perforated gastric and duodenal ulcer Patient has received significant amount of blood products and 25% albumin till now. Weaned off pressors Continue Zosyn,(started on 06/29) Blood cultures have been negative till now He is afebrile, leukocytosis improving At least 2 weeks of IV antibiotics then evaluateto switch to probably oral antibiotic for 1-2 weeks Plan to remove suture before discharge per surgery CT chest abdomen and pelvis was done on 07/04/2021: No evidence of contrast extravasation. Small right and very small left pleural effusion with right lower lobe collapse and partial collapse of the left lower lobe. Peripheral patchy ground-glass opacities in both lungs. Moderate amount of non loculated appearing ascites. Cirrhosis. Diffuse edematous wall thickening of the colon With persistent fever CT scan abdomen pelvis and chest done Paracentesis [place]acent[place] [id number] (3) Perforated gastric ulcer: Code(s): K25.5 - Chronic or unspecified gastric ulcer with perforation Status: Deleted Assessment and Plan: Status post ex lap 06/24 evacuation of 9.3 L intra-abdominal ascites, repair of perforated gastric ulcer with omental patch, intra-abdominal washout. 06/28 - UGI series - Duodenal perforation, extravasation CT abdomen pelvis IMPRESSION: 1. Duodenal perforation, moderate ascites and free intraperitoneal gas. 2. Probable colitis, diarrhea. 3. Multisegmental basilar atelectasis. Pneumonia not excludable. 4. Cardiomegaly. 5. Anasarca 06/29 developed fascial dehiscence without evisceration but leaking ascites almost continually., INR 6.2 patient taken back to OR and underwent Closure with omentoplasty perforated gastric ulcer, repair fascial dehiscence 2 units of FFP given intraoperatively postop in ICU patient was given 3 units of PRBC and 4 units of FFP Now extubated TPN was discontinued by surgery on 07/09/[address] KERON drain in place with serosanguineous output General surgery is following 07/04/2021 CT scan of the abdomen pelvis as above Diet advanced per surgery Patient most likely will need rehab 07/13/2019 to general surgery following on PPI 07/15/2019 pt to have thoracentesis and paracentesis hopeful dc in 1-2 days time (4) Acute kidney injury: Code(s): N17.9 - Acute kidney failure, unspecified Status: Acute Assessment and Plan: Likely secondary to sepsis creat is nl (5) Encephalopathy: Code(s): G93.40 - Encephalopathy, unspecifi
[2021-07-22 12:57] LABS: EDCOVIDSCREEN Negative (Negative)
[2021-07-22 14:16] VITALS: BP 121/61; PULSE 91; RESP 18; TEMP 37.2; O2SAT 93
== END 2021-07-22 14:30 | DRG 853 ==
LOC: ANHED 21:35 → ANHIMU 06-21 00:40 → ANH2MED 06-24 10:58 → ANHIMU 06-28 16:08 → ANH3MEDSUR 07-11 13:01 → ANH2MED 07-23 10:52 → ANH3MEDSUR 07-23 10:52 → ANHICU 07-23 10:52 → ANHIMU 07-23 10:52
PROVIDERS: Family Medicine; Hospitalist; Internal Medicine; Internal Medicine Gastroenterology; Nurse Practitioner; Nurse Practitioner Adult Health; Nurse Practitioner Family; Surgery; Admitting Provider Internal Medicine; Emergency Provider General Practice; PCP Internal Medicine; Visit Provider Family Medicine
PROC: 0DJ08ZZ Inspection of Upper Intestinal Tract, Via Natural or Artificial Opening Endoscopic (ICD-10-PCS; CPT 43235; principal; 2021-06-21 14:00)
PROC: 0W9F0ZZ Drainage of Abdominal Wall, Open Approach (ICD-10-PCS; CPT 49000; principal; 2021-06-24 12:00)
PROC: 0JQ80ZZ Repair Abdomen Subcutaneous Tissue and Fascia, Open Approach (ICD-10-PCS; CPT 49000; principal; 2021-06-29 12:45)
DX: A41.9 Sepsis, unspecified organism (principal); K25.5 Chronic or unspecified gastric ulcer with perforation; J18.9 Pneumonia, unspecified organism; R65.21 Severe sepsis with septic shock; D65 Disseminated intravascular coagulation [defibrination syndrome]; K65.8 Other peritonitis; N17.0 Acute kidney failure with tubular necrosis; G93.41 Metabolic encephalopathy; J96.00 Acute respiratory failure, unspecified whether with hypoxia or hypercapnia; K26.0 Acute duodenal ulcer with hemorrhage; K26.5 Chronic or unspecified duodenal ulcer with perforation; D62 Acute posthemorrhagic anemia; K81.0 Acute cholecystitis; T81.32XA Disruption of internal operation (surgical) wound, not elsewhere classified, initial encounter; J98.11 Atelectasis; F10.231 Alcohol dependence with withdrawal delirium; G93.49 Other encephalopathy; K76.6 Portal hypertension; E87.1 Hypo-osmolality and hyponatremia; B37.89 Other sites of candidiasis; E87.0 Hyperosmolality and hypernatremia; I85.00 Esophageal varices without bleeding; K21.00 Gastro-esophageal reflux disease with esophagitis, without bleeding; Z20.822 Contact with and (suspected) exposure to COVID-19; K52.9 Noninfective gastroenteritis and colitis, unspecified; F10.20 Alcohol dependence, uncomplicated; K70.31 Alcoholic cirrhosis of liver with ascites; K72.90 Hepatic failure, unspecified without coma; G62.9 Polyneuropathy, unspecified; F17.210 Nicotine dependence, cigarettes, uncomplicated; E86.1 Hypovolemia; D53.8 Other specified nutritional anemias; K66.8 Other specified disorders of peritoneum; Z79.1 Long term (current) use of non-steroidal anti-inflammatories (NSAID); Z51.5 Encounter for palliative care
CPT/HCPCS: 36415; 36430; 36556; 36569; 36600; 49083; 71045; 71250; 71260; 74018; 74176; 74177; 74240; 80048; 80053; 80307; 81001; 81003; 82042; 82140; 82150; 82375; 82805; 82945; 82948; 83050; 83605; 83615; 83690; 83735; 84100; 84157; 84466; 84478; 85014; 85018; 85025; 85027; 85055; 85384; 85610; 85730; 86850; 86900; 86901; 86920; 87040; 87070; 87075; 87086; 87205; 87324; 87426; 88305; 89051; 93005; 93970; 94002; 94003; 94640; 96365; 96366; 96367; 96375; 96376; 97110; 97163; 97164; 97166; 97530; 97535; 99291; A9270; C1751; C9113; C9803; G0378; J0330; J0690; J0696; J0743; J0744; J1100; J1170; J1200; J1450; J1940; J2060; J2250; J2270; J2354; J2370; J2405; J2543; J2704; J2710; J2765; J2997; J3010; J3411; J3430; J3475; J3480; J7030; J7040; J7050; J7060; J7070; J7120; P9012; P9016; P9017; P9047; Q9967; U0003; U0005